=== PATIENT | female | born 1995 | race Caucasian/White ===

== ENCOUNTER 2024-08-26 22:48 | Inpatient (IN) | payer SELFPAY ==
--- OUTSIDE RECORDS SUMMARY | 2024-06-02 04:30 | XMS_ITS ---
Author Organization [facility] Address [address] [facility] [address] [place] [address] Care Team Providers Care Bead Flipper Name Role Phone KAVEH LEDEZMA Primary Care Provider Unavailab johnson Reyesluis alfredo Louie Unavailable [phone] ARELIS MEJIA APRN Unavailable [phone] REASON FOR VISIT 3 wk follow up HS Encounters Encounter Location Date Provider Diagnosis [facility] [address] [facility] [address] [place] [id number] 06/02/2024 Louie Espinoza Plan Of Treatment No Information Progress Notes * JANE REYNOLDS JDOB:1995 (29 yo F)Acc No.[id number]:06/02/2024 Progress Notes Patient: JANE GAXIOLA Provider: Richelle Espinoza MD :1995 A ge:29 Y S ex:Female Date:06/02/2024 Address:[address] [place] [address] [address] [facility] Pcp:EVIN ORTIZ Subjective: * Chief Complaints: * 1 . 3 wk follow up HS. * Medical History: Objective: * Vitals: Assessment: Plan: * Treatment: * Images: * Electronic signature of Louie Espinoza M.D. on 08/27/2024 at 05:12 AM CDT Sign off status: Pending * Provider: Richelle Espinoza MD Date: 0 06/02/2024 Generated for Printi ng/Faxing/eTransmitting on: 0 08/27/2024 05:12 AM CDT
--- OUTSIDE RECORDS SUMMARY | 2024-06-02 04:30 | XMS_ITS ---
Author Organization [facility] Address [address] [facility] [address] [place] [address] Care Team Providers Care Training Facilitator Name Role Phone KAVEH LEDEZMA Primary Care Provider Unavailab johnson Reyesluis alfredo Louie Unavailable [phone] ARELIS MEJIA APRN Unavailable REASON FOR VISIT 3 wk follow up HS Encounters Encounter Location Date Provider Diagnosis [facility] [address] [facility] [address] [place] [id number] 06/02/2024 Louie Espinoza Plan Of Treatment No Information Progress Notes * JANE REYNOLDS JDOB:1995 (29 yo F)Acc No.[id number]:06/02/2024 Progress Notes Patient: JANE GAXIOLA Provider: Richelle Espinoza MD :1995 A ge:29 Y S ex:Female Date:06/02/2024 Address:[address] [place] [address] [facility] Pcp:EVIN ORTIZ Subjective: * Chief Complaints: * 1 . 3 wk follow up HS. * Medical History: Objective: * Vitals: Assessment: Plan: * Treatment: * Images: * Electronic signature of Louie Espinoza M.D. on 08/26/2024 at 11:01 PM CDT Sign off status: Pending * Provider: Richelle Espinoza MD Date: 0 06/02/2024 Generated for Printi ng/Faxing/eTransmitting on: 0 08/26/2024 11:01 PM CDT
--- OUTSIDE RECORDS SUMMARY | 2024-06-24 08:00 | XMS_ITS ---
Author Organization [address] [place] [address] [facility] Address [address] [place] [id number] Care Team Providers Care Awning Installer Name Role Phone Karen Israel Primary Care Provider [phone] [place], [place] [address]Elia (GROUP CLASS) Nupur vailable Unavailable Bernadine Gomez [phone] REASON FOR VISIT Discuss labs ad blood pressure Social History Sex Assigned At : Social History Observation Description Sex Assigned At Female Smokeless Tobacco Question Answer Notes Tobacco use other than smoking No Encounters Encounter Location Date Provider Diagnosis [address] [place] [address] [facility] [address] [place] [id number] 06/24/2024 Bernadine Gomez Plan Of Treatment No Information Progress Notes * Miguel REYNOLDSOB:1995 ( 29 yo F)Acc No.[id number]:06/24/2024 FaceToFace Patient: Karoline GAXIOLA External Provider: Meseret Gomez APRN Case Label: Date Of Injury: :1995 A ge:29 Y S ex:Female Date:06/24/2024 Address:[address], [place] Pcp:Karen Israel Patient's Default Facility:[address] [place] [address] [facility] Subjective: * Chief Complaints: * 1 . Discuss labs ad blood pressure. * Medical History: * Social History: T obacco Use 1: E xposed to second hand smoke E xposed to second hand smoke N o. S mokeless Tobacco T obacco use other than smoking N o. A dult Health Maintenance-: P ap i n the last 3 yrs for 21-29 years of age? Y es -hysterectomy. C olorectal Cancer Screening C olonoscopy Y es, C olonoscopy Test Date 0 05/27/2021, C olonscopy Repeat Date Requested 08/24/2021, H emosure N o, C ologuard N o. - C ompleted 0 06/09/2024. - C ompleted N o, C ounseled Y es, D ate counseled 0 06/09/2024. - D ental Visit Yearly Y es. F thomas Shot Y early N o, Counseled Y es, D ate Counseled 0 06/09/2024. T etanus t etanus within the last 5 years Y es. Objective: * Vitals: Assessment: Plan: * Treatment: Care Plan: * Problems: * Billing Information: * Visit Code: * Procedure Codes: * Electronic signature of Bernadine Gomez APRN on 08/27/2024 at 05:12 AM CDT Sign off status: Pending * Provider: Meseret Gomez APRN Date: 0 06/24/2024 Generated for Rachid estrada/Carlotta/Rene on: 0 08/27/2024 05:12 AM CDT
--- OUTSIDE RECORDS SUMMARY | 2024-06-24 08:00 | XMS_ITS ---
Author Organization [address] [place] [address] [facility] Address [address] [place] [id number] Care Team Providers Care Product Owner Name Role Phone Karen Israel Primary Care Provider [address] [place], [place] [address]Elia (GROUP CLASS) Nupur vailable Unavailable Bernadine Gomez [phone] REASON FOR VISIT Discuss labs ad blood pressure Social History Sex Assigned At : Social History Observation Description Sex Assigned At Female Smokeless Tobacco Question Answer Notes Tobacco use other than smoking No Encounters Encounter Location Date Provider Diagnosis [address] [place] [address] [facility] [address] [place] [id number] 06/24/2024 Bernadine Gomez Plan Of Treatment No Information Progress Notes * Miguel REYNOLDSOB:1995 ( 29 yo F)Acc No.[id number]:06/24/2024 FaceToFace Patient: Karoline GAXIOLA External Provider: Meseret Gomez APRN Case Label: Date Of Injury: :1995 A ge:29 Y S ex:Female Date:06/24/2024 Address:[address], [place] Pcp:Karen Israel Patient's Default Facility:[address] [place] [address] [facility] Subjective: * Chief Complaints: * [...] Electronic signature of Bernadine Gomez APRN on 08/26/2024 at 11:02 PM CDT Sign off status: Pending * Provider: Meseret Gomez APRN Date: 0 06/24/2024 Generated for Rachid estrada/Carlotta/Rene on: 0 08/26/2024 11:02 PM CDT
--- OUTSIDE RECORDS SUMMARY | 2024-07-06 08:30 | XMS_ITS ---
Author Organization [facility] Address [address] [facility] [address] [place] [address] Care Team Providers Care Corporate Travel Counselor Name Role Phone KAVEH LEDEZMA Primary Care Provider Unavailab johnson Reyesluis alfredo Louie Unavailable [phone] ZAYNAB MEJIA APRN Unavailable Zaynab Mejia Unavailable [phone] REASON FOR VISIT humira monitoring Encounters Encounter Location Date Provider Diagnosis [facility] [address] [facility] [address] [place] [id number] 07/06/2024 Zaynab Mejia Plan Of Treatment No Information Progress Notes * JANE REYNOLDSDOB:1995 (29 yo F)Acc No.[id number]:07/06/2024 Patient: JANE GAXIOLA Provider: Gianna Mejia APRN :1995 A ge:29 Y S ex:Female Date:07/06/2024 Address[address] Pcp:EVIN ORTIZ Subjective: * Chief Complaints: * 1 . Humira monitoring. * Medical History: Objective: * Vitals: Assessment: Plan: * Treatment: * Images: * Electronic signature of Moshe Mejia APRN on 08/27/2024 at 05:10 AM CDT Sign off status: Pending * Provider: Gianna Mejia APRN Date: 0 07/06/2024 Generated for Lucieni natalie/Faangella/eTransmitting on: 08/27/2024 05:10 AM GUILLET
--- OUTSIDE RECORDS SUMMARY | 2024-07-06 08:30 | XMS_ITS ---
Author Organization [facility] Address [address] [facility] [address] [place] [address] Care Team Providers Care Manager Biologics Name Role Phone KAVEH LEDEZMA Primary Care Provider Unavailab johnson Reyesluis alfredo Louie Unavailable [phone] ZAYNAB MEJIA APRN Unavailable [phone] Zaynab Mejia Unavailable [phone] REASON FOR VISIT humira monitoring Encounters Encounter Location Date Provider Diagnosis [facility] [address] [facility] [address] [place] [id number] 07/06/2024 Zaynab Mejia Plan Of Treatment No Information Progress Notes * JANE REYNOLDSDOB:1995 (29 yo F)Acc No.[id number]:07/06/2024 Patient: JANE GAXIOLA Provider: Gianna Mejia APRN :1995 A ge:29 Y S ex:Female Date:07/06/2024 Address[address] Pcp:EVIN ORTIZ Subjective: * Chief Complaints: * 1 . Humira monitoring. * Medical History: Objective: * Vitals: Assessment: Plan: * Treatment: * Images: * Electronic signature of Moshe Mejia APRN on 08/26/2024 at 11:00 PM CDT Sign off status: Pending * Provider: Gianna Mejia APRN Date: 07/06/2024 Generated for Lucieni natalie/Faangella/eTransmitting on: 08/26/2024 11:00 PM CDT
[2024-08-26 22:50] VITALS: BP 133/82; PULSE 96; RESP 16; TEMP 36.7; O2SAT 98; BMI 32.8
--- OUTSIDE RECORDS SUMMARY | 2024-08-26 23:00 | XMS_ITS | Patient Health Record ---
Author Organization [facility] Address [address] [facility] [address] [place] [address] Care Team Providers Care Abstracter Name Role Phone KAVEH LEDEZMA Primary Care Provider Unavailab Louie Delaney Unavailable [phone] ZAYNAB ALVAREZ APRN Unavailable [phone] Keyona Cotton Unavailable [phone] Leatha Iqbal Unavailable [phone] Thony Iqbal Unavailable [phone] Zaynab Alvarez Unavailable [phone] Allergies Allergen (clinical drug ingredient) Drug/Non Drug Allergy documented on EMR Reaction Allergy Type Onset Date Status doxycycline Doxycycline anaphylaxis Drug Allergy A ctive Latex Latex HIVES Allergy Active Tree Nuts anaphylaxis Allergy Active clindamycin Clindamycin anaphylaxis Drug Allergy A ctive Penicillin anaphylaxis Drug Allergy Acti ve Results Component Value Reference Range Notes WET PREP Reviewed date:09/04/2023 08:01:53 AM Interpretation:(+) HYPHAE/CLUE Performing Lab: Notes/Report: WET PREP EXAM (DIRECT EXAM) SOURCE: _VAGINAL 09/03/23.1559.AST. RESULT: _RARE_CLUE_CELL 09/03/23.1559.AST. _RARE_HYPHAE 09/03/23.1559.AST. _NO_TRICHOMONAS_OBSERVED 09/03/23.1559.AST. WET PREP Reviewed date:09/19/2023 07:31:32 AM Interpretation:CLUE Performing Lab: Notes/Report: WET PREP EXAM (DIRECT EXAM) SOURCE: _VAGINAL 09/18/23.1322.AST. RESULT: _CLUE_CELLS_PRESENT/BAC_4+ 09/18/23.1322.AST. _NO_YEAST_OR_TRICH_OBSERVED 09/18/23.1322.AST. Test, Urine ([id number] ) Reviewed date:10/03/2023 02:44:11 PM Interpretation:negative Performing Lab: Notes/Report: negative Test, Urine negative GEN-PROBE FOR CHLAMYDIA/GC - MEDICAID Reviewed date:10/07/2023 01:38:51 PM Interpretation:NEG Performing Lab: Notes/Report: CHLAMYDIA/N. GONORRHOEAE RNA, TMA 10/07/23.1106.MKB.COMPLETE Source: _CERVICAL 10/07/23.110.MKB. NO Reference Range Results: Chlamydia trachomatis _NOT_DETECTED_ NOT DETECTED 10/07/23.1105.MKB. RNA, TMA UROGENITAL Neisseria gonorrhoeae _NOT_DETECTED_ NOT DETECTED 10/07/23.1105.MKB. RNA, TMA UROGENITAL Endpoint Note 1 The analytical performance characteristics of this assay, when used to test SurePath(TM) specimens have been determined by [employer]. The modifications have not been cleared or approved by the FDA. This assay has been validated pursuant to the CLIA regulations and is used for clinical purposes. For additional information, please refer to https://education.Amcom Software/faq/HYQ015 (This link is being provided for information/ purposes only.) THIS TEST WAS PERFORMED AT: [facility] [address] [place] [address] ROEL HALE DO,MPH NOTIFY QA NO Test, Urine ([id number] ) Reviewed date:10/30/2023 01:20:23 PM Interpretation:NOT DONE/NOT RESULTED Performing Lab: Notes/Report: NOT DONE/NOT RESULTED VITAMIN D PANEL Reviewed date:03/02/2024 10:00:17 AM Interpretation: Performing Lab: Notes/Report: (Note) Reference range: Not established (Note) (Note) Vitamin D, 25-Hydroxy reports concentrations of two Reference range: Not established Vitamin D3, 1,25(OH)2 indicates both endogenous common forms, 25-OHD2 and 25-OHD3. 25-OHD3 indicates both This test was developed and its analytical performance production and supplementation. Vitamin D2, 1,25(OH)2 is endogenous production and supplementation. 25-OHD2 is an characteristics have been determined by [employer]. It has an indicator of exogenous sources, such as diet or indicator of exogenous sources such as diet or not been cleared or approved by the US Food and Drug supplementation. Interpretation and therapy are based on supplementation. Therapy is based on measurement of Administration. This assay has been validated pursuant to measurement of Vitamin D, 1,25 (OH)2, Total. Total 25-OHD, with levels <20 ng/mL indicative of Vitamin the CLIA regulation and is used for Clinical purposes. This test was developed, and its analytical performance D deficiency, while levels between 20 ng/mL and 30 ng/mL See Note 1 characteristics have been determined by [facility] suggest insufficiency. Optimal levels are > or = 30 ng/mL. Note 1 Diagnostics. It has not been cleared or approved by the For additional information, please refer to For additional information, please refer to FDA. This assay has been validated pursuant to the CLIA http://education.Neighbor.ly.com/faq/TYV503 http://education.[employer] Systems/faq/ZJF822 regulations and is used for clinical purposes. (This link is being provided for information/educational (This link is being provided for informational/ For additional information, please refer to purposes only.) educational purposes only.) http://education.Neighbor.ly.SheerID/faq/PGO397 THIS TEST WAS PERFORMED AT: (This link is being provided for [facility] informational/educational purposes only.) [address] [place] [address] [address] [place] [address] [facility] MIGUEL A SHARMA MD,PHD [address] [place] [address],[address] [place] [address] Miguel A Sharma MD, PhD THIS TEST WAS PERFORMED AT: [facility] [address] [place] [address] [address] [place] [address] MIGUEL A SHARMA MD,PHD VITAMIN D, 25-OH, TOTAL 23 30-100 ng/mL VITAMIN D, 25-OH, D3 23 VITAMIN D, 25-OH, D2 <4.0 VITAMIN D, 1,25 (OH)2,TOTAL 62 18-72 pg/mL VITAMIN D3, 1,25 (OH)2 62 VITAMIN D2, 1,25 (OH)2 <8 DNA (DOUBLE-STRANDED) ANTIBO DIES Reviewed date:12/24/2023 02:34:02 PM Interpretation: Performing Lab: Notes/Report: IU/mL Interpretation < or = 4 Negative 5-9 Indeterminate > or = 10 Positive THIS TEST WAS PERFORMED AT: [facility] [address] [place] [address] NAHUM COFFEY MD DNA (DS) ANTIBODY <1 HEADLEY AND METAL POURER ANTIBODIES Reviewed date:12/24/2023 02:34:12 PM Interpretation: Performing Lab: Notes/Report: THIS TEST WAS PERFORMED AT: [facility] [place] [address] NAHUM COFFEY MD SM ANTIBODY <1.0 NEG <1.0 NEG AI SM/METAL POURER ANTIBODY <1.0 NEG <1.0 NEG AI HEMOGLOBIN A1C Reviewed date:01/08/2024 09:58:24 AM Interpretation:5.2 Performing Lab: Notes/Report: HGB A1C 5.2 4.2 - 6.0 %GHb (PLEASE NOTIFY EDUCATION HGB A1C RESULTS >6.5 %) ADA TARGET FOR KNOWN DIABETICS: < 7.0% When using the A1c test to diagnose diabetes, use the following: PREDIABETES 5.7 - 6.4% DIAGNOSTIC FOR DIABETES >= 6.5% Reference: ADA Standards of Medical Care in Diabetes - 2012 Hemoglobin A1C levels are related to mean Blood Glucose during the preceding 2-3 months. The relationship table below may be used as a general guide. HGB A1c APPROX. MEAN GLUCOSE 6% 120 MG/DL 7% 150 MG/DL 8% 180 MG/DL 9% 210 MG/DL 10% 240 MG/DL Each 1% increase in Hgb A1C is a reflection of an increase in mean Glucose of approximately 30 mg/dl. GEN-PROBE FOR CHLAMYDIA/GC Reviewed date:09/06/2023 09:35:09 AM Interpretation:NEG Performing Lab: Notes/Report: The analytical performance characteristics of this assay, when used to test SurePath(TM) specimens have been determined by [employer]. The modifications have not been cleared or approved by the FDA. This assay has been validated pursuant to the CLIA regulations and is used for clinical purposes. For additional information, please refer to https://education.Amcom Software/faq/NMS252 (This link is being provided for information/ educational purposes only.) THIS TEST WAS PERFORMED AT: [facility] [email or web address] [place] [address] NAHUM COFFEY MD CHLAMYDIA TRACHOMATISRNA, TMA, UROGENITAL NOT DETECTED NOT DETECTED NEISSERIA GONORRHOEAERNA, TMA, UROGENITAL NOT DETECTED NOT DETECTED GEN-PROBE FOR CHLAMYDIA/GC Reviewed date:10/12/2023 04:01:31 PM Interpretation:NEG Performing Lab: Notes/Report: NEG CBC Reviewed date:12/05/2023 02:00:48 PM Interpretation: Performing Lab: Notes/Report: CBC AUTOMATED DIFFERENTIAL {CD] In a study of 784 healthy smokers, the upper limit of the reference range for WBC was 12.5. [facility] Proc, September 2004;80(9):1230-8961. Pediatric CBC Ranges 2016 [facility] Complete Blood Count Reference Values RBC Parameters (Conventional Units) Age Hgb(g/dL) Hct(%) RBC(x10^6/uL MCV(fl) MCH(pg) 0 - 3 Days 14.5-22.5 45-67 4.00-6.00 95-121 31-37 4 D - 6 Mo 10.0-20.5 30-66 2.70-6.30 74-126 25-40 7 Mo-12 yr 10.5-15-5 33-49 3.70-5.30 70-95 23-33 AGE MCHC RDW 0 - 3 Days 29-37 13-18 4 D - 6 Mo 28-38 11-18 7 Mo-12 yr 30-36 11.5-16 WBC and Differential (Conventional Units) Age WBC(x10^3/uL) SegPMN% BandPMN% Lymphs% Monos% 0 - 3 Days 9.0-35.0 32-62 0-18 19-29 5.0-7.0 4 D - 6 Mo 5.0-20.0 13-49 0-15 26-71 4.0-11.0 7 Mo-12 yr 4.5-17.0 15-61 0-11 28-76 3.0-6.0 Age Eos% Basos% NE #(K/uL) Ly#(K/uL) 0 - 3 Days 0-2 0-1 3.0-28.0 2.0-10.0 4 D - 6 Mo 0-2 0-1 1.0-13.0 2.0-12.0 7 Mo-12 yr 0-3 0-1 1.0-9.0 1.0-13.0 Platelets (Conventional Units) Age PLT MPV x10^3 uL (fl) All Ages 150-450 6.5-10.0 Revised:07/09/23. WBC 11.4 4.0 - 11.0 10^3/uL RbC 4.45 3.80 - 5.13 10^6/uL HGB 13.7 11.8 - 16.1 g/dl HCT 39.9 34.0 - 45.0 % PLT CT 343 150 - 375 10^3/uL MCV 90 80 - 98 fl MCH 30.8 27.0 - 34.0 pg MCHC 34.4 31.5 - 36.5 g/dl RdW 13.8 11.6 - 15.7 % mPV 7.60 6.70 - 10.72 fl % NEUTROPHILS 70 47 - 76 % % LYMPHOCYTES 19 12 - 44 % % MONOCYTES 5 1 - 13 % % EOSINOPHILS 6 0 - 6 % % BASOPHILS 1 0 - 2 % # NEUTROPHILS 7.9 1.5 - 7.1 10^3/uL # LYMPHOCYTE 2.1 1.2 - 3.9 10^3/uL # MONOCYTES 0.60 0.10 - 1.00 10^3/uL # EOSINOPHILS 0.70 0.00 - 0.70 10^3/uL # BASOPHIL 0.10 0.00 - 0.20 10^3/uL MICRO DIFF. NOT INDICATED TEST PERFORMED ON [id number] HEPATITIS (AC) PROFILE W/REF YAMILA BY PCR Reviewed date:03/02/2024 10:00:28 AM Interpretation: Performing Lab: Notes/Report: HEPATITIS ACUTE PANEL REFERENCE RANGE HBsAg NEGATIVE ANTI-HAV IGM NEGATIVE ANTI-HBc IGM NEGATIVE HCV ANTIBODY NEGATIVE SIGNAL TO CUTOFF 0.02 0.00 - 1.00 NOTIFY QA NO All Anti-HCV results reported as POSITIVE (Signal cutoff >1.0) will automatically Reflex to HCV PCR for confirmation. THIS TEST IS A SCREENING FOR HCV AND MUST BE CONFIRMED PRIOR TO BEING CONSIDERED A TRUE POSITIVE HCV RESULT. CONFIRMATION WILL BE PERFORMED ON ANY POSITIVE HCV RESULT AUTOMATICALLY. NOTE: A repeatedly reactive result indicates past or present Hepatitis C Virus (HCV) infection or possibly a carrier state, but does not substantiate infectivity or immunity. However, a patient with a repeatedly reactive result should be consider- ed infectious. With the HCV antibody test, false positive results can occur. The absence of antibodies to Hepatitis C Virus does not rule out infection with HCV. Therefore, when the diagnosis of Non-A/Non-B hepatitis is strongly suspected, sequential repeat testing for Anti-HCV is recommended. HEPATITIS B SURFACE ANTIGEN (HBsAg) (HAA) IS ASSOCIATED WITH OCCASIONAL FALSE POSITIVES. IF THE HBsAg ALONE IS POSITIVE, YOU WILL NEED CONFIRMATION BEFORE ANY TREATMENT. THE TESTS TO ORDER WOULD BE: HBsAG WITH REFLEX CONFIRMATION- THIS IS A REPEAT TEST WITH CONFIRMATION OR: HBV DNA- THIS IS BEST RESERVED FOR CONFIRMED CASES ONLY NO CONFIRMATION OF THE HBsAG IS NECESSARY IF THE HBc-IgM IS ALSO POSITIVE. HIV COMBO 4TH GEN Reviewed date:03/02/2024 10:00:28 AM Interpretation: Performing Lab: Notes/Report: PANEL NAME HIV 1/2 ANTIGEN/ANTIBODY, FOURTH GENERATION, W/REFLEX REFERENCE RANGE {hu] HIV COMBO NEGATIVE NEGATIVE NOTIFY QA NO NOTE: IF REACTIVE, ORDER ITEM #[id number] FOR CONFIRMATION TESTING. THIS TEST IS A SCREENING AND MUST BE CONFIRMED PRIOR TO BEING CONSIDERED A TRUE REACTIVE RESULT. CONFIRMATION WILL BE PERFORMED ON ANY REACTIVE RESULT AUTOMATICALLY. Fourth-generation tests simultaneously detect HIV-1 and 2 IgM/IgG antibodies, as well as the p24 antigen. The 4th generation HIV-1/2 Antigen/Antibody combination immunoassay is a screening test and should not be used alone for diagnosis. Repeatedly reactive results from the 4th generation screening test are only indicative of HIV infection when those screening results are confirmed to be positive by either the HIV-1/2 Antibody Differentiation or the HIV-1 RNA test by TMA. Effective 06/16/2018, AMB Edited 02/16/2020, MKR CORNELIO ANTINUCLEAR ANTIBODY Reviewed date:03/02/2024 10:00:17 AM Interpretation: Performing Lab: Notes/Report: Speckled pattern is associated with mixed connective A low level CORNELIO titer may be present in pre-clinical tissue disease (MCTD), systemic lupus erythematosus autoimmune diseases and normal individuals. (SLE), Sjogren's syndrome, dermatomyositis, and Reference Range systemic sclerosis/polymyositis overlap. <1:40 Negative AC-2,4,5,29: Speckled 1:40-1:80 Low Antibody Level International Consensus on CORNELIO Patterns >1:80 Elevated Antibody Level (https://doi.org/10.1515/[email or web address]) THIS TEST WAS PERFORMED AT: [facility] [address] [place] [address] NAHUM COFFEY MD CORNELIO SCREEN, IFA POSITIVE NEGATIVE CORNELIO IFA is a first line screen for detecting the presence of up to approximately 150 autoantibodies in various autoimmune diseases. A positive CORNELIO IFA result is suggestive of autoimmune disease and reflexes to titer and pattern. Further laboratory testing may be considered if clinically indicated. For additional information, please refer to http://education.Snapguide/faq/FAQ1 63 (This link is being provided for informational/ educational purposes only.) THIS TEST WAS PERFORMED AT: [facility] [address] [facility] [place] [address] NAHUM COFFEY MD CORNELIO PATTERN Nuclear, Speckled CORNELIO TITER 1:40 CBC Reviewed date:12/24/2023 02:34:48 PM Interpretation: Performing Lab: Notes/Report: CBC AUTOMATED DIFFERENTIAL {CD] In a study of 784 healthy smokers, the upper limit of the reference range for WBC was 12.5. [facility] Proc, September 2004;80(8):0644-1654. Pediatric CBC Ranges 2016 [facility] Complete Blood Count Reference Values RBC Parameters (Conventional Units) Age Hgb(g/dL) Hct(%) RBC(x10^6/uL MCV(fl) MCH(pg) 0 - 3 Days 14.5-22.5 45-67 4.00-6.00 95-121 31-37 4 D - 6 Mo 10.0-20.5 30-66 2.70-6.30 74-126 25-40 7 Mo-12 yr 10.5-15-5 33-49 3.70-5.30 70-95 23-33 AGE MCHC RDW 0 - 3 Days 29-37 13-18 4 D - 6 Mo 28-38 11-18 7 Mo-12 yr 30-36 11.5-16 WBC and Differential (Conventional Units) Age WBC(x10^3/uL) SegPMN% BandPMN% Lymphs% Monos% 0 - 3 Days 9.0-35.0 32-62 0-18 19-29 5.0-7.0 4 D - 6 Mo 5.0-20.0 13-49 0-15 26-71 4.0-11.0 7 Mo-12 yr 4.5-17.0 15-61 0-11 28-76 3.0-6.0 Age Eos% Basos% NE #(K/uL) Ly#(K/uL) 0 - 3 Days 0-2 0-1 3.0-28.0 2.0-10.0 4 D - 6 Mo 0-2 0-1 1.0-13.0 2.0-12.0 7 Mo-12 yr 0-3 0-1 1.0-9.0 1.0-13.0 Platelets (Conventional Units) Age PLT MPV x10^3 uL (fl) All Ages 150-450 6.5-10.0 Revised:07/09/23. WBC 11.6 4.0 - 11.0 10^3/uL RbC 4.46 3.80 - 5.13 10^6/uL HGB 13.7 11.8 - 16.1 g/dl HCT 40.3 34.0 - 45.0 % PLT CT 327 150 - 375 10^3/uL MCV 90 80 - 98 fl MCH 30.6 27.0 - 34.0 pg MCHC 33.9 31.5 - 36.5 g/dl RdW 14.1 11.6 - 15.7 % mPV 7.50 6.70 - 10.72 fl % NEUTROPHILS 68 47 - 76 % % LYMPHOCYTES 21 12 - 44 % % MONOCYTES 6 1 - 13 % % EOSINOPHILS 5 0 - 6 % % BASOPHILS 1 0 - 2 % # NEUTROPHILS 7.8 1.5 - 7.1 10^3/uL # LYMPHOCYTE 2.5 1.2 - 3.9 10^3/uL # MONOCYTES 0.60 0.10 - 1.00 10^3/uL # EOSINOPHILS 0.60 0.00 - 0.70 10^3/uL # BASOPHIL 0.10 0.00 - 0.20 10^3/uL MICRO DIFF. NOT INDICATED TEST PERFORMED ON [id number] SCLERODERMA ANTIBODY Reviewed date:12/24/2023 02:34:38 PM Interpretation: Performing Lab: Notes/Report: THIS TEST WAS PERFORMED AT: [facility]@ [address] [place], [place] [address] NAHUM COFFEY MD SCL-70 ANTIBODY <1.0 NEG <1.0 NEG AI INSULIN; TOTAL Reviewed date:01/29/2024 08:25:27 AM Interpretation:14.4 Performing Lab: Notes/Report: Reference Range < or = 18.4 Risk: Optimal < or = 18.4 Moderate NA High >18.4 Adult cardiovascular event risk category cut points (optimal, moderate, high) are based on Insulin Reference Interval studies performed at [facility] in 2021. THIS TEST WAS PERFORMED AT: [facility] [address] [place] [address] NAHUM COFFEY MD INSULIN 14.4 THYROID PANEL (INC. FREE T4 & TSH) Reviewed date:01/08/2024 09:58:35 AM Interpretation:1.37 Performing Lab: Notes/Report: THYROID PANEL TSH 1.37 0.47 - 4.68 uIU/L Free T4 1.21 0.78 - 2.19 ng/dl LH (LUTEINIZING HORMONE) Reviewed date:09/06/2023 09:35:38 AM Interpretation:5.7 Performing Lab: Notes/Report: Reference Range Follicular Phase 1.9-12.5 Mid-Cycle Peak 8.7-76.3 Luteal Phase 0.5-16.9 Postmenopausal 10.0-54.7 THIS TEST WAS PERFORMED AT: [facility] [address] [address] NAHUM COFFEY MD LH 5.7 Wet Prep ([id number]) Reviewed date:09/18/2023 12:39:35 PM Interpretation:NEG Performing Lab: Notes/Report: NEG Trichomonas Exam NEG Yeast Exam NEG Clue Cell Exam NEG Wet Prep ([id number]) Reviewed date:10/03/2023 03:40:06 PM Interpretation:NEG Performing Lab: Notes/Report: NEG Trichomonas Exam NEG Yeast Exam NEG Clue Cell Exam NEG COMPREHENSIVE METABOLIC PANE L (CMP) Reviewed date:12/05/2023 02:00:40 PM Interpretation: Performing Lab: Notes/Report: COMPREHENSIVE METABOLIC PANEL GFR calculated using MDRD Formula. The eGFR calculation is only performed on patients 18 years and older to follow NKDEP guidelines. Revised: 12/08/2018, AMB GLUCOSE, (S) 87 65 - 110 mg/dl Bun 10 7 - 17 mg/dl Creatinine 0.6 0.8 - 1.5 mg/dl Sodium 137 137 - 145 mmol/L Potassium 4.1 3.6 - 5.0 mmol/L Chloride 101 98 - 107 mmol/L ENZYMATIC CO2 29 22 - 30 mmol/L CALCIUM 9.3 8.4 - 10.2 mg/dl Protein, Tot 8.10 6.30 - 8.20 g/dl ALBUMIN 4.5 3.5 - 5.0 g/dl AST(SGOT) 22 14 - 36 U/L ALT(SGPT) 15 0 - 35 ALKALINE PHOSPHATASE 113 38 - 126 U/L Bilirubin, Tot 0.5 0.2 - 1.3 mg/dl (NOTIFY DI ETICIAN IF ALBUMIN <2.4) AGE 28 GFR 120 GFR AFR-AMER 145 ANION GAP(K+) 11 0 - 21 mmol/L TESTING PERFORMED ON [employer] RA TEST Reviewed date:12/24/2023 02:35:02 PM Interpretation: Performing Lab: Notes/Report: RHEUMATOID ARTHRITIS RA FACTOR NEGATIVE INTERPRETATIVE GUIDELINES Titer IU/ml Negative < 8 1:1 8 1:2 16 1:4 32 1:8 64 1:16 128 1:32 256 1:64 512 >1:64 >512 RF is present in the sera of most patients with RA. Although a positive RF test result is highly suggestive of RA, it is not diagnostic for this condition since RF also appears in a small percentage of healthy individuals and in some patients with other disorders. In addition, a negative result does not exclude a diagnosis of RA since approximately 25% of patients with RA do not demonstrate the elevated RF levels. NOTE PROCEDURAL CHANGE AND NEW REFERENCE RANGES. (05/29/2022) COMPREHENSIVE METABOLIC PANE L (CMP) Reviewed date:12/24/2023 02:34:29 PM Interpretation: Performing Lab: Notes/Report: COMPREHENSIVE METABOLIC PANEL GFR calculated using MDRD Formula. The eGFR calculation is only performed on patients 18 years and older to follow NKDEP guidelines. Revised: 12/08/2018, AMB GLUCOSE, (S) 98 65 - 110 mg/dl Bun 10 7 - 17 mg/dl Creatinine 0.5 0.8 - 1.5 mg/dl Sodium 138 137 - 145 mmol/L Potassium 4.5 3.6 - 5.0 mmol/L Chloride 104 98 - 107 mmol/L ENZYMATIC CO2 28 22 - 30 mmol/L CALCIUM 9.6 8.4 - 10.2 mg/dl Protein, Tot 7.80 6.30 - 8.20 g/dl ALBUMIN 4.4 3.5 - 5.0 g/dl AST(SGOT) 22 14 - 36 U/L ALT(SGPT) 17 0 - 35 ALKALINE PHOSPHATASE 110 38 - 126 U/L Bilirubin, Tot 0.3 0.2 - 1.3 mg/dl (NOTIFY DI ETICIAN IF ALBUMIN <2.4) AGE 28 GFR 148 GFR AFR-AMER 179 ANION GAP(K+) 11 0 - 21 mmol/L TESTING PERFORMED ON [facility] 5600 SJOGREN'S ANTIBODY Reviewed date:12/24/2023 02:34:08 PM Interpretation: Performing Lab: Notes/Report: THIS TEST WAS PERFORMED AT: [facility] [place] [address] NAHUM COFFEY MD SJOGREN'S ANTIBODY (SS-A) <1.0 NEG <1.0 NEG AI SJOGREN'S ANTIBODY (SS-B) <1.0 NEG <1.0 NEG AI ALDOLASE Reviewed date:12/24/2023 02:34:21 PM Interpretation: Performing Lab: Notes/Report: THIS TEST WAS PERFORMED AT: [facility] [place] [address] NAHUM COFFEY MD ALDOLASE 6.0 < OR = 8.1 U/L GLUCOSE Reviewed date:01/08/2024 09:58:21 AM Interpretation:90 Performing Lab: Notes/Report: GLUCOSE, (S) 90 65 - 110 mg/dl TESTING PERFORMED ON [facility] 5600 FSH Reviewed date:09/06/2023 09:35:51 AM Interpretation:5.1 Performing Lab: Notes/Report: Reference Range Follicular Phase 2.5-10.2 Mid-cycle Peak 3.1-17.7 Luteal Phase 1.5- 9.1 Postmenopausal 23.0-116.3 THIS TEST WAS PERFORMED AT: [place] [address] NAHUM COFFEY MD FSH 5.1 GRAM STAIN Reviewed date:09/05/2023 08:07:59 AM Interpretation:NEG Performing Lab: Notes/Report: GRAM STAIN SOURCE: _VAGINAL 09/04/23.1113.[facility]. GRAM STAIN RESULTS: _FEW_GPR 09/04/23.1113.[facility]. _NO_YEAST_OR_FUNGUS_SEEN 09/04/23.1113.[facility]. SOPHIE SCORE: _ 1 _NOT_CONSISTENT_WITH_BACTERIAL_VAGINOSIS__ 09/04/23.1113.[facility]. *Interpretation of Sophie Score If N Score is: AND: Then Report: 0-3 Smear NOT consistent with BV 4-6 Clue Cells NOT present Smear NOT consistent with BV 4-6 Clue Cells ARE present Smear consistent with BV >or=7 Smear consistent with BV URINE DIP (IN HOUSE) Reviewed date:09/18/2023 09:55:42 AM Interpretation: Performing Lab: Notes/Report: Scott neg Nit neg Uro neg Pro neg pH 6.0 Blo neg SG 1.025 Ket neg Homero neg Glu neg URINE DIP (IN HOUSE) Reviewed date:10/03/2023 02:43:37 PM Interpretation: Performing Lab: Notes/Report: Scott neg Nit neg Uro neg Pro neg pH 6.0 Blo neg SG 1.010 Ket neg Homero neg Glu neg GRAM STAIN Reviewed date:10/06/2023 12:32:31 PM Interpretation:NEG Performing Lab: Notes/Report: GRAM STAIN SOURCE: _VAGINAL 10/04/23.1350.[facility]. GRAM STAIN RESULTS: _SMEAR_NOT_CONSISTENT_WITH_BACTERIAL_VAGINOSIS_ 10/04/23.1350.[facility]. _NO_YEAST_OR_FUNGUS 10/04/23.1350.[facility]. SOPHIE SCORE: _0 10/04/23.1350.[facility]. *Interpretation of Sophie Score If N Score is: AND: Then Report: 0-3 Smear NOT consistent with BV 4-6 Clue Cells NOT present Smear NOT consistent with BV 4-6 Clue Cells ARE present Smear consistent with BV >or=7 Smear consistent with BV [facility] Reviewed date:12/04/2023 11:55:33 AM Interpretation:4.0, Normal Performing Lab: Notes/Report: Reference Range Follicular Phase 2.5-10.2 Mid-cycle Peak 3.1-17.7 Luteal Phase 1.5- 9.1 Postmenopausal 23.0-116.3 THIS TEST WAS PERFORMED AT: [facility] [address] [place] [address] NAHUM COFFEY MD FSH 4.0 T-SPOT TB TEST Reviewed date:03/02/2024 10:00:28 AM Interpretation: Performing Lab: Notes/Report: Normal Value: Negative THIS TEST WAS PERFORMED AT: A negative test result does not exclude the possibility of [facility] exposure to or infection with Mycobacterium tuberculosis (M. [address] tuberculosis). Patients with [place] [address] infected individuals exhibiting a negative T-SPOT.TB result STEVE KIRBY,PHD should be considered for retesting within 6 weeks or if other relevant clinical symptoms indicate. Results from T-SPOT.TB testing must be used in conjunction with each individual's epidemiological history, current medical status, and results of other diagnostic evaluations. The T-SPOT.TB test is qualitative and results are reported as positive, borderline or negative, given that the test controls perform as expected. In line with the Centers for Disease Control and Prevention's 2010 recommendation to report quantitative measurements alongside the qualitative result, the laboratory provides spot counts for informational purposes only. The T-SPOT.TB test should not be interpreted as a quantitative test. T-SPOT.TB Negative SeeBelow PANEL A SPOT COUNTCORRECTED FOR NEGCONTROL 0 PANEL B SPOT COUNTCORRECTED FOR NEGCONTROL 0 NEGATIVE CONTROL Passed POSITIVE CONTROL Passed URINALYSIS Reviewed date:12/24/2023 02:34:56 PM Interpretation: Performing Lab: Notes/Report: URINALYSIS TEST RESULT NORMAL SATISH ANTIBODY Reviewed date:12/24/2023 02:33:42 PM Interpretation: Performing Lab: Notes/Report: THIS TEST WAS PERFORMED AT: [facility] [facility] [id number] [place] [id number] NAHUM COFFEY MD SATISH-1 ANTIBODY <1.0 NEG <1.0 NEG AI LUPUS ANTI-COAGULANT Reviewed date:01/29/2024 08:25:24 AM Interpretation:DRVVT 51 HIGH Performing Lab: Notes/Report: A Lupus Anticoagulant is not detected. THIS TEST WAS PERFORMED AT: THIS TEST WAS PERFORMED AT: Common causes for a prolonged screen and negative [employer] [place] confirmatory test include factor deficiencies or [address] anticoagulant [place] [address] [place] [address] For more information on this test, go to: GIOVANNY GONCALVES http://education.[employer]/faq/BZP09q1 (This link is being provided for informational/ educational purposes only.) This interpretation is based on the following test results: PTT-LA SCREEN 40 < OR = 40 sec DRVVT SCREEN 51 < OR = 45 sec DRVVT CONFIRM NEGATIVE NEGATIVE Reason For Referral No Information Medications Medication SIG (Take, Route, Frequency, Duration) Notes Start Date End Date Status Fluconazole 100 MG 1 tablet Orally once a day at bedtime for 2 days Active Fluconazole 100 MG 1 tablet Orally once a day at bedtime on Calendar Days #1-2 for 2 days Active metroNIDAZOLE 250 MG 1 tablet Orally Thr ee times a day on Calendar Days #1-3 for 9 days Active Potassium 20 MEQ Active Omeprazole 20 MG 1 capsule 30 minutes before morning meal Orally Once a day Active Magnesium Oxide 400 MG 1 tablet as neede d Orally Once a day Active Furosemide 20 MG 1 tablet Orally Once a day Active Cetirizine HCl 10 MG 1 tablet Orally Once a day Active Aspirin 81 81 MG 1 tablet Orally Once a day Active Progesterone 200 MG 1 capsule at bedtime Orally Once a day at bedtime for 30 days Active metFORMIN HCl ER 500 MG 1 tablet with ev ening meal Orally Once a day for 30 days Active Aygestin 5 MG 1 tablet Orally Once a day at bedtim for 30 days Active Social History Tobacco Use: Social History Observation Description Date Details (start date - stop date) Never Smoker NA - NA Tobacco Use/Smoking Question Answer Notes Are you a: nonsmoker When did you start smoking? 8 years ago How often do you smoke cigarettes? every day How many cigarettes a day do you smoke? 01-14 Alcohol Screen Question Answer Notes Did you have a drink containing alcohol in the p ast year? No Points 0 Interpretation Negative Sexual History Question Answer Notes Had sex in the past 12 months (vaginal, oral, or anal)? Yes with Men only Use protection? No Prevention strategies discussed: Condoms Have you ever had a Sexually transmitted disease ? No Last menstrual period 09/04/2020 Section Notes: Patient denies ETOH and illi cit drug usage. Patient denies ETOH and illi cit drug usage. Patient denies ETOH and illi cit drug usage. Patient denies ETOH and illi cit drug usage. Patient denies ETOH and illi cit drug usage. Patient denies ETOH and illi cit drug usage. Patient denies ETOH and illi cit drug usage. Patient denies ETOH and illi cit drug usage. Problems Problem Type SNOMED Code ICD Code Onset Dates Problem Status W/U Status Risk Notes Problem Acute cystitis (69581570) Acute cystitis (595.0) Active confirmed ([place]) Problem Conductive hearing loss of left ear with normal hearing on right side (disorder) (6304575873) Sensorineural hearing loss, unilateral, left ear, with unrestricted hearing on the contralateral side (H90.42) Active confirmed Problem Bilateral tinnitus (7430511884369) Tinnitus, bilateral (H93.13) Active confirmed Problem 69360156 Hidradenitis suppurativa (L73.2) Active confirmed Problem 535034498 Pelvic and perineal pain (R10.2) Active confirmed Problem 040020029 Vaginal atrophy (N95.2) Active confirmed Problem 435732262 PCOS (polycystic ovarian syndrome) (E28.2) Active confirmed Problem 91312666 Menopausal symptoms (N95.1) Active confirmed Problem 229312961 Endometriosis determined by laparoscopy (N80.9) Active confirmed Problem 69761179 Cyst of left ovary (N83.202) Active confirmed Problem 27763294 Chronic vaginiti s (N76.1) Active confirmed Problem 726148383 S/P hysterectomy (Z90.710) Active confirmed Problem 3335409 Primary female infertility (N97.9) Active confirmed Problem Sensorineural hearing loss of bilateral ears (disorder) (363541655) Sensorineural hearing loss, bilateral (H90.3) Active confirmed Problem Bilateral otalgia (606629899) Otalgia, bilateral (H92.03) Active confirmed Vital Signs Heart Rate 80 /min 05/12/2024 Temperature 98.0 degrees Fahrenheit 05/12/2024 Oximetry 98 % 05/12/2024 Blood pressure diastolic 86 mm Hg 05/12/2024 Height 66 in 05/12/2024 Blood pressure systolic 126 mm Hg 05/12/2024 Weight 249.6 lbs 12/13/2023 Encounters Encounter Location Date Provider Diagnosis [facility] [address] [facility], [place] [id number] 09/06/2023 Leatha Iqbal [facility] [address] [facility], [place] [id number] 09/19/2023 Leatha Iqbal [facility] [address] [place], [place] [id number] 10/09/2023 Zaynab Alvarez [facility] [address] [facility], [place] [id number] 10/11/2023 Leatha Iqbal [facility] [address] [facility], [place] [id number] 10/30/2023 Thony Iqbal Vaginal itching N89. 8 [facility] [address] [facility], [place] [id number] 10/31/2023 Leatha Iqbal [facility] [address] [facility], [place] [id number] 11/07/2023 Leatha Iqbal [facility], [place] [id number] 11/08/2023 Leatha Marquezare Yeast vaginitis B37.[address], [place] [id number] 12/05/2023 Keyona Cotton [address], [place] [id number] 12/20/2023 Keyona Cotton Yeast vaginitis B37.[address], [place] [id number] 12/24/2023 Keyona Cotton [address] [id number] 12/25/2023 Keyona Cotton [address], [place] [id number] 12/27/2023 Keyona Cotton Postmenopausal HRT (hormone replacement therapy) Z79.890 ; PCOS (polycystic ovarian syndrome) E28.2 and Facial rash R21 [address] [id number] 01/29/2024 Keyona Cotton Postmenopausal HRT (hormone replacement therapy) Z79.890 and PCOS (polycystic ovarian syndrome) E28.[address], [place] [id number] 01/30/2024 Keyona Cotton [address], [place] [id number] 02/05/2024 Keyona Cotton [address] [id number] 02/17/2024 Keyona Cotton Postmenopausal HRT (hormone replacement therapy) Z79.[address], [place] [id number] 10/29/2023 Thony Rasheed Vaginal itching N89. 8 ; Dysuria R30.0 and Encounter for gynecological examination Z01.[address], [place] [id number] 09/03/2023 Leatha Rasheed Vaginal dryness N89. 8 ; S/P hysterectomy Z90.710 ; Nipple tenderness N64.4 ; Encounter for gynecological examination Z01.419 ; Menopausal symptoms N95.1 ; Acute vaginitis N76.0 ; Other specified bacterial agents as the cause of diseases classified elsewhere B96.89 and Vaginal yeast infection B37.31 [facility] [address] [facility] [address] [place], [place] [id number] 05/12/2024 Louie Espinoza Hidradenitis suppurativa L73.2 [facility] [address] [facility], [place] [id number] 09/18/2023 Leatha Rasheed Vaginal dryness N89. 8 ; S/P hysterectomy Z90.710 ; Menopausal symptoms N95.1 ; Encounter for gynecological examination Z01.419 and Dysuria R30.0 [facility] [address] [facility], [place] [id number] 10/03/2023 Leatha Iqbal Vaginal itching N89. 8 ; Dysuria R30.0 and Encounter for gynecological examination Z01.[address] [place] [address] [facility], [place] [id number] 12/13/2023 Keyona Glynne Vaginal atrophy N95. 2 ; Postmenopausal HRT (hormone replacement therapy) Z79.890 and Chronic vaginitis N76.1 [facility] [address] [facility] [address] [place] [id number] 12/04/2023 Zaynab Alvarez [facility] [address] [facility] [address] [place] [id number] 05/04/2024 Zaynab Alvarez [facility] [address] [place] [address] 7 [place] [id number] 01/16/2024 Zaynab Alvarez Assessments Encounter Date Diagnosis (ICD Code) Assessment Notes Treatment Notes Treatment Clinical Notes Section Notes 09/03/2023 Vaginal dryness (ICD-10 - N89.8) 1. See HPI/PE note 2. SWABS done today 3. RTC in 2 wks or prn: REIVEW SWABS + EVAL RX 09/03/2023 S/P hysterectomy (ICD-10 - Z90.710) 1. See HPI note 2. KEEP SCHED F/U APPTS 09/18/2023 Vaginal dryness (ICD-10 - N89.8) 1. See HPI note 2. SWAB done: see above 3. RX OPTIONS discussed: see HPI note above 4. INFORMED if issue with vaginal itching persists, may need to see MD for EVAL (VERB UNDERSTAND) 5. RTC if no improvement/wor sens 09/18/2023 S/P hysterectomy (ICD-10 - Z90.710) 1. See HPI note 2. KEEP SCHED F/U APPTS 10/03/2023 Dysuria (ICD-10 - R30.0) 1. See HPI note 2. DIPSTICK done: NEG 3. KEEP F/U APPTS 10/03/2023 Vaginal itching (ICD-10 - N89.8) 1. See HPI/PE note 2. REPEAT SWABS done today: see above 3. CURRENTLY taking per another provider: DIFLUCAN 150 mg 1 tab QD X 30 days (instructed to complete course of RX) 4.RTC in 4 wks or prn: SENIOR COMMISSIONS ANALYST EXAM + review SWABS + consider STEROID CREAM with Dr. Iqbal 10/29/2023 Vaginal itching (ICD-10 - N89.8) 10/30/2023 Vaginal itching (ICD-10 - N89.8) 11/08/2023 Yeast vaginitis (ICD-10 - B37.31) 12/13/2023 Vaginal atrophy (ICD-10 - N95.2) Intravaginal Estrogen 0.5 (0.5 mg/g) qhs x 2 months + 0.5 ml (0.5 mg/g) transdermally applied to the introital opening in its entirety(0.5 mg/g) qhs x2 months then TIW thereafter for both applications 12/13/2023 Postmenopausal HRT (hormone replacement therapy) (ICD-10 - Z79.890) 12/20/2023 Yeast vaginitis (ICD-10 - B37.31) 12/27/2023 PCOS (polycystic ovarian syndrome) (ICD-10 - E28.2) 12/27/2023 Postmenopausal HRT (hormone replacement therapy) (ICD-10 - Z79.890) 01/29/2024 Postmenopausal HRT (hormone replacement therapy) (ICD-10 - Z79.890) 02/17/2024 Postmenopausal HRT (hormone replacement therapy) (ICD-10 - Z79.890) 05/12/2024 Hidradenitis suppurativa (ICD-10 - L73.2) Will try low dose mold shifter abx with flagyl, since allergic to doxy and clinda and flagyl seems to control. 12/27/2023 Facial rash (ICD-10 - R21) 01/29/2024 PCOS (polycystic ovarian syndrome) (ICD-10 - E28.2) 12/13/2023 Chronic vaginitis (ICD-10 - N76.1) 10/29/2023 Dysuria (ICD-10 - R30.0) 10/03/2023 Encounter for gynecological examination (ICD-10 - Z01.419) 1. See HPI/PE note 2. KEEP F/U APPTS 09/03/2023 Nipple tenderness (ICD-10 - N64.4) 1. NO c/o this issue voiced today 09/18/2023 Menopausal symptoms (ICD-10 - N95.1) 1. See HPI note 2. REASSURANCE given to pt: informed she is NOT menopausal 3. OVARIAN HORMONE levels are WNL 4. KEEP SCHED F/U APPTS 09/18/2023 Encounter for gynecological examination (ICD-10 - Z01.419) 1. See HPI/PE note 2. KEEP SCHED F/U APPTS 09/03/2023 Encounter for gynecological examination (ICD-10 - Z01.419) 1. See HPI/PE note 2. KEEP SCHED F/U APPTS 10/29/2023 Encounter for gynecological examination (ICD-10 - Z01.419) 09/18/2023 Dysuria (ICD-10 - R30.0) 1. See HPI note 2. DIPSTICK done today: see above 3. RECOMMEND: UROLOGY referral to see PCP to obtain 4. RTC as needed/desires 09/03/2023 Menopausal symptoms (ICD-10 - N95.1) 1. See HPI note 2. LABS DONE today 3. RTC in 2 wks or prn: review LABS 09/03/2023 Acute vaginitis (ICD-10 - N76.0) 1. See HPI/PE note 2. WET PREP done: (+) CLUE 3. PRESCRIBED: Flagyl 500 mg BID 4. BV PREVENTATIVE MEASURES discussed 5. RTC in 2 wks or prn: EVAL RX 09/03/2023 Other specified bacterial agents as the cause of diseases classified elsewhere (ICD-10 - B96.89) 1. See HPI/PE note 2. WET PREP done: (+) CLUE 3. PRESCRIBED: Flagyl 500 mg BID 4. BV PREVENTATIVE MEASURES discussed 5. RTC in 2 wks or prn: EVAL RX 09/03/2023 Vaginal yeast infection (ICD-10 - B37.31) 1. See HPI/PE note 2. WET PREP done: (+) HYPHAE 3. PRESCRIBED: Diflucan 150 mg to take on DAY 1, 4 and 7 4. RTC in 2 wks or prn: EVAL RX Plan Of Treatment No Information Insurance Providers Payer Name Payer Address Payer Phone Subscriber Number Group Number Insured Name Patient Relationship to Insured Coverage Start Date Coverage End Date [employer] PPO [address] [place] [address] [id number] JANE Villarreal Self - patient is the insured Medical (General) History Medical History History ICD Code DEPRESSION Patent foramen ovale HS Surgical History Surgery Date(Month/Year) HYSTERECTOMY Tonsillectomy ovarian cystectomy/lysis of adhesions/ablation of endometriosis implants 11/13/17 TONSIL CHOLECYSTECTOMY Pilonidal Cystectomy with local advancem ent flaps 12/19/2018 CYST REMOVAL FROM LOWER LUMBAR CYST REMOVED FROM BUTTOCK 2019 CYST REMOVAL FROM ARM PIT Hospitalization History Reason Date(Month/Year) CHILD SURGICAL PROCEDURE
--- OUTSIDE RECORDS SUMMARY | 2024-08-26 23:01 | XMS_ITS | Clinical Summary ---
Author Organization [facility] Address [address] [place] [address] Care Team Providers Care Mechanical Supervisor Name Role Phone Unavailable Primary Care Provider Unavailabl e Allergies Active Allergy Reactions Criticality Noted Date Comments Buspirone Lightheadedness 06/13/2023 Clindamycin Anaphylaxis,Hives,It silviano,Ra sh High 06/13/2023 Diph,Pertus(Acel),Tetanu s Pedi Other (See Comments) 06/17/2023 unknown Doxycycline Rash Low 08/13/2022 Penicillins Rash Low 08/13/2022 Pertussis Vaccines Unknown childhood 04/13/2020 Promethazine-Dm Unknown 06/13/2023 Tree Nut Anaphylaxis High 06/13/2023 Medications * This document contains information received from the source organization and may not represent a complete record from that organization. albuterol 90 mcg/puff inhl inhaler albuterol sulfate HFA 90 mcg/actuation aerosol inhaler INHALE TWO PUFFS BY MOUTH EVERY 4 TO 6 HOURS NEEDED Active budesonide-formote roL (SYMBICORT) 80-4.5 mcg/actuation inhaler Inhale 2 puffs in the morning and 2 puffs in the evening. 08/07/19 23 Active nitrofurantoin, macrocrystal-monoh ydrate, (MACROBID) 100 MG capsule 06/11/19 24 Active cetirizine (ZyrTEC) 10 MG tablet Take 1 tablet by mouth in the morning. 09/01/19 22 Active dexAMETHasone (DECADRON) 2 MG tablet Active EPINEPHrine (EPIPEN) 0.3 mg/0.3 mL injection syringe Take 1 auto as needed by injection route. Active famotidine (Pepcid) 40 MG tablet Take 1 tablet every day by oral route in the morning. 01/26/20 23 Active fluconazole (DIFLUCAN) 150 MG tablet Active FLUoxetine (PROzac) 20 MG capsule 11/28/19 22 Active ondansetron (ZOFRAN ODT) 4 MG oral disintegr[address] tablet Place 1 tablet every 6-8 hours by translingual route as needed. Active predniSONE (DELTASONE) 20 MG tablet TAKE TWO TABLETS BY MOUTH ONCE A DAY WITH FOOD Active azithromycin (ZITHROMAX) 500 MG tablet Take 1 tablet every day by oral route for 5 days. 06/24/19 24 Active clotrimazole-betam ethasone (LOTRISONE) 1-0.05% cream Active celecoxib (CeleBREX) 200 MG capsule Active fluconazole (Diflucan) 150 MG tabletIndications: Yeast infection of the vagina Take 1 tablet (150 mg total) by mouth As directed. Take one tablet every 3 days as needed for yeast infection 3 tablet 07/02/19 24 Active Additional Information Patient not taking.Reported on 07/29/2023 furosemide (LASIX) 20 MG tablet Take 40 mg by mouth in the morning. 07/22/19 24 Active potassium chloride 20 mEq tablet extended release 20 mEq by PO / gavage route in the morning. 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 Posttraumatic stress disorder with delayed expre ssion 01/10/2020 Immunizations Immunization Administration Dates Next Due HPV9 (GARDASIL 9) 12/22/2013 Td (adult) (TDVAX) 11/28/2020 meningococcal MCV4P (MENACTRA) 12/22/2013 varicella (VARIVAX) 12/22/2013 Social History Tobacco Use Types Packs/Day Years Used Date Smoking Tobacco: Former Smokeless Tobacco: Never Tobacco Cessation:Counseling Given: Not Answered Alcohol Use Standard Drinks/Week Comments Not Currently 0 (1 standard drink = 0.6 oz pur e alcohol) PHQ-2 Answer Date Recorded PHQ-2 Score 0 02/06/2020 Comments No Sex and Gender Information Value Date Recorded Sex Assigned at Not on file Legal Sex Female 8:55 PM CDT Gender Identity Not on file Sexual Orientation Not on file Last Filed Vital Signs Vital Sign Reading Time Taken Comments Blood Pressure 121/82 08/26/2023 1:03 PM CDT Pulse 78 08/26/2023 1:03 PM CDT Temperature 36.6 C (97.8 F) 08/26/2023 1:03 PM CDT Respiratory Rate 20 05/10/2020 10:14 AM CDT Oxygen Saturation 99% 08/26/2023 1:03 PM CDT Inhaled Oxygen Concentration - - Weight 112 kg (246 lb 12.8 oz) 08/26/2023 1:03 P M CDT Height 170.2 cm (5' 7 ) 08/26/2023 1:03 PM CDT Body Mass Index 38.65 08/26/2023 1:03 PM CDT Plan of Treatment Health Maintenance Due Date Last Done Comments Annual Wellness 1996 HPV Vaccines (2 - 3-dose series) 01/19/2014 12/23/19 14 MMR Vaccines (1 of 1 - Stand leon series) 01/19/2014 Varicella Vaccines (2 of 2 - 13+ 2-dose series) 01/19/2014 12/22/2013 Hepatitis B Vaccines (1 of 3 - 19+ 3-dose series) 2015 Pap Smear 2017 Influenza Vaccination (#1) 2024 Td, Tdap Vaccines Adult 11/28/2030 11/28/2020 Meningococcal Vaccines Completed 12/22/2013 HIB Vaccines Aged Out No longer eligi ble based on patient's age to complete this topic Hepatitis A Vaccines Aged Out No long er eligible based on patient's age to complete this topic IPV Vaccines Aged Out No longer eligi ble based on patient's age to complete this topic Pneumococcal Vaccine: Pediat rics (0 to 5 Years) and At-Risk Patients (6 to 49 Years) Aged Out No longer eligi ble based on patient's age to complete this topic RSV Mab Nirsevimab (Beyfortu s) <20 months Aged Out No longer eligible b ased on patient's age to complete this topic Rotavirus Vaccines Aged Out No longer eligible based on patient's age to complete this topic Goals Goal Patient Goal Type Associated Problems Recent Progress Patient-Stated? Author Referral for testing. General On track( 8:50 AM CDT) Yes Dayami Vail LCSW Note: Client needs a referral for attention deficit disorder Client needs a referral for dyslexia and other learning disabilities. Stabilize on medication General On track( 8:50 AM CDT) Yes Dayami Vail LCSW Note: Client up with a medication provider. Client has employment interest General On track( 8:50 AM CDT) Yes Dayami Vail LCSW Note: Client would like to have a job in a she is stable enough to work. Was working Insurance
--- OUTSIDE RECORDS SUMMARY | 2024-08-26 23:01 | XMS_ITS | Patient Health Record ---
Author Organization [address] [place] [address] [facility] Address [address] [place] [id number] Care Team Providers Care Preschool Teacher Name Role Phone Israel, Kara Primary Care Provider [facility]GROUP [facility]) Nupru vailable Unavailable Bob Badillo Unavailable [phone] Wil Booker Unavailable [phone] Bernadine Gomez Unavailable [phone] Allergies Allergen (clinical drug ingredient) Drug/Non Drug Allergy documented on EMR Reaction Allergy Type Onset Date Status dextromethorphan / promethazine Promethazine-DM Unknown Drug Allergy Active buspirone Buspirone dizziness Drug Allergy Active clindamycin Clindamycin rash Drug Allergy Act cha doxycycline Doxycycline rash Drug Allergy Act cha Penicillin rash Drug Allergy Active Results Component Value Reference Range Notes CORNELIO screen IFA Reflex Titer/ Multiplex 11 Ab Pleasants Reviewed date:04/22/2024 08:41:41 AM Interpretation:Normal Performing Lab: Notes/Report: Testing performed by reference lab. [facility] Reported Date/Time: [id number] [facility] Results Received Date/Time: [id number] [facility] Collection Date/Time: [id number] Testing performed at: [facility], [address] [place], [place] [address], [address], Motor Winder: Suni Parker MD [facility] CORNELIO SCREEN, IFA NEGATIVE NEGATIVE CORNELIO IFA is a first line screen for detecting the presence of up to approximately 150 autoantibodies in various autoimmune diseases. A negative CORNELIO IFA result suggests an CORNELIO-associated autoimmune disease is not present at this time, and does not reflex further. If there is high clinical suspicion for Sjogren's syndrome, testing for anti-SS-A/Ro antibody should be considered. Anti-Kait-1 antibody should be considered for clinically suspected inflammatory myopathies. AC-0: Negative International Consensus on CORNELIO Patterns (https://doi.org/10.1515/ sltd-7626-2100) For additional information, please refer to http://ESO Solutions.Neofonie/faq/BHY495 (This link is being provided for informational/ educational purposes only.) Sedimentation Rate Reviewed date:04/22/2024 08:41:41 AM Interpretation:Normal Performing Lab: Notes/Report: [facility] Testing performed at: [facility], [address] [place] [address], [phone], Motor Winder: Suni Parker MD [facility] Collection Date/Time: [id number] [facility] Results Received Date/Time: [id number] [facility] Reported Date/Time: [id number] Testing performed by reference lab. SED RATE BY MODIFIED WESTERGREN 11 < OR = 20 mm/h C Reactive Protein, CRP Reviewed date:04/22/2024 08:41:41 AM Interpretation:Normal Performing Lab: Notes/Report: [facility] Testing performed at: [facility], [address] [place] [address], [phone], Motor Winder: Suni Parker MD [facility] Collection Date/Time: [id number] [facility] Results Received Date/Time: [id number] [facility] Reported Date/Time: [id number] Testing performed by reference lab. C-REACTIVE PROTEIN <3.0 <8.0 mg/L Rheumatoid Arthritis Factor Reviewed date:04/22/2024 08:41:41 AM Interpretation:Normal Performing Lab: Notes/Report: [facility] Testing performed at: [facility], [address] [place] [address], [phone], Motor Winder: Suni Parker MD [facility] Collection Date/Time: [id number] [facility] Results Received Date/Time: [id number] [facility] Reported Date/Time: [id number] Testing performed by reference lab. RHEUMATOID FACTOR <10 <14 IU/mL Hemoglobin A1c Reviewed date:09/18/2023 02:17:30 PM Interpretation:Normal Performing Lab: Notes/Report: Testing performed at the [address] [place] [address] location. Potassium-Martin/Axtell /WR/Acadia/PG ONLY Reviewed date:10/16/2023 04:34:28 PM Interpretation:Normal Performing Lab: Notes/Report: Testing performed at the [address] [place] [address] location. Potassium-Martin/Axtell /WR/Acadia/PG ONLY Reviewed date:12/25/2023 01:20:42 PM Interpretation:Normal Performing Lab: Notes/Report: Coronavirus (COVID-19)/Flu/R SV Trio- INHOUSE RAPID PCR SWAB Reviewed date:02/22/2024 08:39:46 AM Interpretation:Negative Performing Lab: Notes/Report: Testing performed at the [address] [place] [address] location. Coronavirus (Covid-19)/Flu C ombo- INHOUSE RAPID ANTIGEN Reviewed date:02/25/2024 01:38:24 PM Interpretation:Negative Performing Lab: Notes/Report: Testing performed at the [address] [place] [address] location. X ray : Foot, right Reviewed date:02/11/2024 10:08:42 AM Interpretation:Normal Performing Lab: Notes/Report: Normal Tilt-Table Test Reviewed date:02/03/2024 01:41:56 PM Interpretation:Normal Performing Lab: Notes/Report: Normal Sureswab Advanced Panel: BV, Trich, Stephanie, GC/Chlamydia Advanced Vaginalis Plus Reviewed date:12/02/2023 01:26:02 PM Interpretation:Normal Performing Lab: Notes/Report: Testing performed by reference lab. [facility] Reported Date/Time: [id number] [facility] Results Received Date/Time: [id number] [facility] Collection Date/Time: [id number] Testing performed at: [place], [facility], [address] [place] [address], [phone], Motor Winder: Suni Parker MD [facility] Reported Date/Time: [id number] [facility] Results Received Date/Time: [facility] Collection Date/Time: Testing performed at: [facility], [address] [place] [address], [address] [place] [address], Motor Winder: Suni Parker MD [facility] Reported Date/Time: [facility] Results Received Date/Time: [facility] Collection Date/Time: Testing performed at: [place], [facility], [address] [place] [address], [address] [place] [address], Motor Winder: Suni Parker MD [facility] Reported Date/Time: [facility] Results Received Date/Time: [facility] Collection Date/Time: Testing performed at: [place], [facility], [address] [place] [address], [address] [place] [address], Motor Winder: Suni Parker MD [facility] SURESWAB(R) ADV BACTERIAL VAGINOSIS (BV), TMA NEGATIVE NEGATIVE STEPHANIE SPECIES NOT DETECTED NOT DETECTED STEPHANIE GLABRATA NOT DETECTED NOT DETECTED Stephanie species C. albicans, C. tropicalis, C. parapsilosis, and/or C. dubliniensis can be detected, but not differentiated, in the Stephanie spp. result. TRICHOMONAS VAGINALIS (TV), TMA NOT DETECTED NOT DETECTED CHLAMYDIA TRACHOMATIS RNA, TMA, UROGENITAL NOT DETECTED NOT DETECTED NEISSERIA GONORRHOEAE RNA, TMA, UROGENITAL NOT DETECTED NOT DETECTED For additional information, please refer to https://education.Career Element/faq/PUJ993 (This link is being provided for information/ educational purposes only.) Urine Dip Reviewed date:11/27/2023 10:58:23 AM Interpretation:Normal Performing Lab: Notes/Report: Testing performed at the [address] [place] [address] location. [facility]-Martin/Axtell/WRidg e/Acadia/PG ONLY Reviewed date:03/18/2024 11:49:53 AM Interpretation:OK for Patient Performing Lab: Notes/Report: CBC, Diff, Automated Reviewed date:03/18/2024 11:50:06 AM Interpretation:OK for Patient Performing Lab: Notes/Report: Testing performed at the [address] [place] [address] location. Iron, TIBC, and Ferritin Veliz Reviewed date:03/18/2024 11:50:16 AM Interpretation:Normal Performing Lab: Notes/Report: Testing performed by reference lab. [facility] Reported Date/Time: [facility] Results Received Date/Time: [facility] Collection Date/Time: Testing performed at: [facility], [address] [place] [address], [phone], Motor Winder: Suni Parker MD [facility] IRON, TOTAL 100 40-190 mcg/dL IRON BINDING CAPACITY 354 250-450 mc g/dL (calc) % SATURATION 28 16-45 % (calc) FERRITIN 35 16-154 ng/mL TSH, w/ refl to Free T4 Reviewed date:03/18/2024 11:49:41 AM Interpretation:Normal Performing Lab: Notes/Report: [facility] Testing performed at: [facility], [address] [place] [address], [phone], Motor Winder: Suni Parker MD [facility] Collection Date/Time: [id number] [facility] Results Received Date/Time: [facility] Reported Date/Time: Testing performed by reference lab. TSH W/REFLEX TO FT4 2.04 Reference Range > or = 20 Years 0.40-4.50 Ranges First trimester 0.26-2.66 Second trimester 0.55-2.73 Third trimester 0.43-2.91 ALLERGY-FOOD ALLERGY PROFILE W/ REFLEXES Reviewed date:03/18/2024 11:46:59 AM Interpretation:Normal Performing Lab: Notes/Report: [facility] Testing performed at: [facility], [address] [place] [address], [phone], Motor Winder: Suni Parker MD [facility] Collection Date/Time: [id number] [facility] Results Received Date/Time: [facility] Reported Date/Time: Testing performed by reference lab. EGG WHITE (F1) IGE <0.10 CLASS 0 PEANUT (F13) IGE <0.10 CLASS 0 WHEAT (F4) IGE <0.10 CLASS 0 WALNUT (F256) IGE <0.10 CLASS 0 CODFISH (F3) IGE <0.10 CLASS 0 COW'S MILK (F2) IGE <0.10 CLASS 0 SOYBEAN (F14) IGE <0.10 CLASS 0 SHRIMP (F24) IGE <0.10 CLASS 0 SCALLOP (F338) IGE <0.10 CLASS 0 SESAME SEED (F10) IGE <0.10 CLASS 0 HAZELNUT (F17) IGE <0.10 CLASS 0 CASHEW NUT (F202) IGE <0.10 CLASS 0 ALMOND (F20) IGE <0.10 CLASS 0 SALMON (F41) IGE <0.10 CLASS 0 TUNA (F40) IGE <0.10 CLASS 0 Sureswab Advanced Panel: BV, Trich, Stephanie, GC/Chlamydia Advanced Vaginalis Plus Reviewed date:06/17/2024 03:42:56 PM Interpretation:Normal Performing Lab: Notes/Report: Testing performed by reference lab. [facility] Reported Date/Time: [id number] [facility] Results Received Date/Time: [id number] [facility] Collection Date/Time: [id number] Testing performed at: [facility], [address] [place] [address], [address] [place] [address], Motor Winder: Suni Parker MD [facility] Reported Date/Time: [id number] [facility] Results Received Date/Time: [id number] [facility] Collection Date/Time: [id number] Testing performed at: [facility], [address] [place] [address], [phone], Motor Winder: Suni Parker MD [facility] Reported Date/Time: [id number] [facility] Results Received Date/Time: [id number] [facility] Collection Date/Time: [id number] Testing performed at: [place], [facility], [address] [place] [address], [phone], Motor Winder: Suni Parker MD [facility] Reported Date/Time: [id number] [facility] Results Received Date/Time: [id number] [facility] Collection Date/Time: [id number] Testing performed at: [facility], [place], [address], Motor Winder: Suni Parker MD [facility] SURESWAB(R) ADV BACTERIAL VAGINOSIS (BV), TMA NEGATIVE NEGATIVE STEPHANIE SPECIES NOT DETECTED NOT DETECTED STEPHANIE GLABRATA NOT DETECTED NOT DETECTED Stephanie species C. albicans, C. tropicalis, C. parapsilosis, and/or C. dubliniensis can be detected, but not differentiated, in the Stephanie spp. result. TRICHOMONAS VAGINALIS (TV), TMA NOT DETECTED NOT DETECTED CHLAMYDIA TRACHOMATIS RNA, TMA, UROGENITAL NOT DETECTED NOT DETECTED NEISSERIA GONORRHOEAE RNA, TMA, UROGENITAL NOT DETECTED NOT DETECTED For additional information, please refer to https://ESO Solutions.Career Element/faq/YXM504 (This link is being provided for information/ educational purposes only.) zzInterpretation Reviewed date:03/18/2024 11:49:31 AM Interpretation:Normal Performing Lab: Notes/Report: [facility] Testing performed at: [facility], [place], [address], Motor Winder: Suni Parker MD [facility] Collection Date/Time: [id number] [facility] Results Received Date/Time: [id number] [facility] Reported Date/Time: [id number] Testing performed by reference lab. INTERPRETATION SEE NOTE Specific Level of Allergen IGE Class kU/L Specific IGE Antibody ----- --------- 0 <0.10 Absent/Undetectable 0/1 0.10-0.34 Very Low Level 1 0.35-0.69 Low Level 2 0.70-3.49 Moderate Level 3 3.50-17.4 High Level 4 17.5-49.9 Very High Level 5 50-100 Very High Level 6 >100 Very High Level The clinical relevance of allergen results of 0.10-0.34 kU/L are undetermined and intended for specialist use. Allergens denoted with a include results using one or more analyte specific reagents. In those cases, the test was developed and its analytical performance characteristics have been determined by [employer]. It has not been cleared or approved by the U.S. Food and Drug Administration. This assay has been validated pursuant to the CLIA regulations and is used for clinical purposes. BMP-Martin/Axtell/WRidg e/Acadia/PG ONLY Reviewed date:06/11/2024 11:38:04 AM Interpretation:Normal Performing Lab: Notes/Report: Items were attached to this order: BMP-PGLD Items were attached to this order: Vaginalis Plus HIV 1/2, Rapid Antibody Scre ening Reviewed date:06/11/2024 11:38:04 AM Interpretation:Negative Performing Lab: Notes/Report: Testing performed at the [address] [place] [address] location. Reason For Referral Reason palpitations, edema Diagnosis 1 Lower extremity kathy a (R60.0) Diagnosis 2 Tachycardia (R00.0) Referral Organization [address] [place] [address] are Cor Referring Provider First Name Karen Referring Provider Last Name Jhonatan Referring Provider Speciality Physician Die Technician Referred Provider Cardiology, [facility] General Notes Yola Farley 08/27 12:26:03 PM >, Yola Farley 08/28/2023 03:45:46 PM > spoke with [facility], patient scheduled September 10 @1245, Yoal Farley 08/30/2023 03:51:39 PM > patient called back and is aware and agreeable, Zaynab Chance 09/20/2023 09:46:30 AM >received Referral Priority Routine Referral Appointment Date 09/11/2023 Reason incontinence s/p hys terectomy Diagnosis 1 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 (N39.46) Referral Organization [address] [place] [address] are Cor Referring Provider First Name Karen Referring Provider Last Name Jhonatan Referring Provider Speciality Physician Die Technician Referred Provider [facility], , Referred Provider Specialty Urology General Notes Kassi Clayton 2023 02:45:28 PM >faxed office note, referral form and insurance card to Urology for scheduling, Yola Farley 09/25/2023 03:35:52 PM > per [facility] patient is scheduled to see Dr Lily Martinez 11/17 @140, reminder letter has been mailed as well, Ming Hernandez 11/18/2023 08:43:49 AM > Following, Yola Farley 11/21/2023 12:13:43 PM > Referral Priority Routine Referral Appointment Date 11/18/2023 Reason bipolar d/o Diagnosis 1 Bipolar 1 disorder ( F31.9) Referral Organization [address] [place] [address] are [facility] Referring Provider First Name Karen Referring Provider Last Name Jhonatan Referring Provider Speciality Physician Die Technician Referred Provider [facility] Referred Provider Specialty Mental [facility] General Notes Karen Israel 03/2023 01:04:07 PM > counseling and med mgmtMiguelito Grace 11/27/2023 01:43:38 PM > faxed Miguelito English Grace 12/04/2023 10:41:50 AM > spoke with Lashonda with [facility], patient is scheduled 12/23 @200 and is aware, reminder letter mailed as well, Nadeen Reyez 12/20/2023 09:05:46 AM >This patient called because she went to this appointment today. Per patient she never received our letter, but Yola called her and gave her this information along with mailing the referral. I explained that the facility [facility] is closed on Fridays. Patient did not have correct address nor [facility]'s phone number. As we were speaking she stated that Lashonda with [facility] helped her fill out her intake paperwork and gave her the date and time of the appointment so I believe that is were the confusion came in for patient. Patient understood that we did not do anything incorrect before we closed the conversation and she thanked us for the help.Miguelito Grace 01/02/2024 03:15:27 PM > faxed records requestMiguelito Grace 01/17/2024 10:06:38 AM > attempted to reach office no answer will try again saturday, Kassi Clayton 02/04/2024 01:04:53 PM > Spoke with Abby at [facility]. Per our conversation the patient has Cancelled 2 appointments and no-showed another. TE sent to provider for further instructions.Miguelito Grace 02/05/2024 08:06:25 AM > Referral Priority Routine Referral Appointment Date 12/24/2023 Reason Tilt Table Test Diagnosis 1 Tachycardia, paroxys mal (I47.9) Referral Organization [address] [place] [address] are Cor Referring Provider First Name Karen Referring Provider Last Name Jhonatan Referring Provider Speciality Physician Die Technician Referred Provider [facility] Referred Provider Specialty Outpatient T esting General Notes Yola Farley 12/24 03:23:03 PM CDT > spoke with Liz, patient scheduled at [facility] [place] [facility] [address], No [employer] for 24hrs prior, NPO 4hrs prior, Jan 23 check in @7am, Yola Farley 12/31/2023 04:49:00 PM > patient will be in office tomorrow, when looking up patients appointment via [employer] Web it looks as thought her 01/23 appointment has been changed to 01/27, called and spoke with Mily at [facility] and she states that patients appointment was moved to 01/27 @900am by a Mel Merrill LPN, I am assuming she may be with her cardiology provider, Yola Farley 01/03/2024 02:58:12 PM > patient was to come in office and appointment was printed to give to patient but she did not show, letter mailed, Kassi Clayton 01/30/2024 11:25:49 AM >see report Referral Priority Routine Referral Appointment Date 01/28/2024 Reason 07/14/2024 faxing note/// Megan- hx allergy to almonds, bloodwork negative Diagnosis 1 Hx of allergic react ion (Z88.9) Referral Organization [address] [place] [address] are Cor Referring Provider First Name Karen Referring Provider Last Name Jhonatan Referring Provider Speciality Physician Die Technician Referred Provider Jeffery Guzman Referred Provider Specialty Allergy/Immu nology General Notes Yola Farley 03/18 11:47:43 AM > faxed Miguelito SCHNEIDER Grace 2024 03:58:34 PM > [facility] does not do allergy testing, forwarding referral to Ruperto Guzman Wendy 04/03/2024 09:18:07 AM >Spoke with Dr. Guzman office, they did receive the referral, but the patient is not scheduled at this time, Yola Farley 04/17/2024 03:55:50 PM > per fax from Dr Guzman office patient is scheduled 05/22 @930, Yola Farley 04/22/2024 12:33:51 PM > called and spoke with patient she is needing to care for her mother at this time and asks that we push appointment out to the end of may, called and rescheduled for 06/19 @100, Yola Farley 04/22/2024 02:36:18 PM > sending message through ecw will call patient tomorrow as she was on the road at the time, Yola Farley 05/04/2024 12:45:53 PM > spoke with patient in office and given information, Yomaira Carey 07/14/2024 09:12:27 AM > [phone], per Magda, patient kept appointment, she is faxing note, Bibiana Thomas 07/15/2024 09:18:07 AM > report received Referral Priority Routine Referral Appointment Date 06/19/2024 Reason edema, palpitations Diagnosis 1 Lower extremity kathy a (R60.0) Referral Organization [address] [place] [address] are Cor Referring Provider First Name Karen Referring Provider Last Name Jhonatan Referring Provider Speciality Physician Die Technician Referred Provider Olga [facility] Referred Provider Specialty Cardiology General Notes Karen Israel 06/2024 12:41:07 PM > requesting 2nd opinion in [place] if possible, previously seen by [facility], Yola Farley 04/29/2024 12:49:42 PM > will have to be approved by both cardiologists for patient to use another provider with same group, Yola Farley 05/01/2024 09:35:35 AM > patient can see Olga Locke in [place] 05/18 @1030, Yola Farley 05/01/2024 11:00:09 AM > spoke with patient in office she is aware and agreeable, Kassi Clayton 05/21/2024 03:21:03 PM >see report in patient chart Referral Priority Routine Referral Appointment Date 05/19/2024 Medications Medication SIG (Take, Route, Frequency, Duration) Notes Start Date End Date Status Boric Acid Vaginal 600 MG 1 suppository at bedtime Vaginal Once a day for 14 days 07/17/2023 Not-Taking Benzonatate 100 MG 1 capsule as needed for cough Orally Three times a day for 5 days 02/21/2024 Not-Taking Fluticasone Propionate 50 MCG/ACT 1 spray in each nostril Nasally once a day for 10 days 02/21/2024 Not-Taking Flonase Allergy Relief 50 mcg/act 1 puff in each nostril Nasally as needed Not-Taking Chlorhexidine Gluconate 4 % as directed Externally daily for 30 days 11/27/2023 Not-Taking Cetirizine HCl 10 MG 1 tablet Orally Once a day 08/31/2021 Not-Taking Bumetanide 2 MG 1 tablet Oral twice a day for 30 days Active metFORMIN HCl 500 MG 1 tablet with a meal Orally Once a day Not-Taking Albuterol Sulfate HFA 108 (90 Base) MCG/ACT INHALE ONE PUFF BY MOUTH EVERY 4 HOURS NEEDED FOR wheezing for 30 Active LaMICtal 25 MG 1 tablet Orally twice a day Not-Taking Albuterol Sulfate (2.5 MG/3ML) 0.083% USE 3 MILLILITERS VIA NEBULIZATION BY MOUTH EVERY 6 HOURS FOR 10 DAYS for 15 PRN Active Geodon 20 MG 1 capsule with food in the morning, 2 capsules with food at night Orally as directed Not-Taking Furosemide 40 MG 1 tablet Oral twice a day Not-Taking Fluconazole 100 MG 1 tablet Orally today then repeat in 3 days for 5 days Active Compression Stockings Bilat Knee high socks compression 8-15 or 15-20 10/14/2023 Active Humira (2 Pen) 80 MG/0.8ML as directed Subcutaneous every 2 weeks Active Omeprazole 40 MG 1 capsule 30 minutes before morning meal Orally Once a day for 30 days Active Nystatin 497172 UNIT/GM External for 15 Days PRN Active Magnesium 400 MG 2 tablets Orally twice a day 07/24/2023 Active Hydrocortisone (Perianal) 2.5 % 1 application Externally Twice a day for 7 days 03/09/2024 Active Spironolactone 25 MG 1 tablet Orally daily for 30 days Active Silver sulfADIAZINE 1 % 1 application Externally twice a day for 7 days 05/01/2024 Active Progesterone 200 MG 1 capsule at bedtime Orally Once a day Active Ondansetron 4 MG 1 tablet on the tongue and allow to dissolve Orally every eight hours as needed for 2 days 02/25/2024 Active Potassium Chloride ER 20 MEQ 2 tablet with food Oral Once a day Not-Taking Pantoprazole Sodium 40 MG 1 tablet Orally Once a day for 30 days 06/05/2023 Not-Taking metroNIDAZOLE 0.75 % 1 application Externally Once a day for 5 days 10/14/2023 Not-Taking Vitamin D (Ergocalciferol) 1.25 MG (71676 UT) Oral for 28 Days Activ e metroNIDAZOLE 500 mg one tablet orally twice a day for 7 days 06/05/2023 Not-Taking Vitamin C 250 MG 2 tablets Orally Once a day Not-Taking Triamcinolone Acetonide 0.1 % 1 application Externally once daily for 7 days PRN 07/31/2023 Not-Taking Terconazole 0.4 % 1 applicatorful at bedtime Vaginal Once a day for 7 days 07/10/2023 Not-Taking Singulair 10 MG 1 tablet Orally Once a day at bedtime 08/31/2021 Not-Taking Vitamin D 50 MCG (2000 UT) 1 tablet Orally Once a day Not-Taking Immunizations Vaccine Route Administration Date Status Comme nts Varicella-VFC SC Subcutaneous 12/22/2013 Administered Tetanus-Adult Unknown 11/28/2020 Administered given at ER [facility] - VFC IM Intramuscular 12/22/2013 Administer ed Gardasil-VFC IM Intramuscular 12/22/2013 Administered Social History Tobacco Use: Social History Observation Description Date Details (start date - stop date) Former Smoker NA - NA Sex Assigned At : Social History Observation Description Sex Assigned At Female [facility] Drug Questionnaire Question Answer Notes Have you used drugs other th an those for medical reasons in the past 12 months? No Smokeless Tobacco Question Answer Notes Tobacco use other than smoking No Have you ever had an STD Question Answer Notes Have you ever had an STD Yes tricham onis, hpv Chlamydia No GC No Herpes No Syphilis No Prevention Strategies Discussed Condoms CAGE-AID Questionnaire (2018 Edition)- Question Answer Notes Have you ever felt that you ought to cut down on your drinking or drug use? No Have people annoyed you by criticizing your drin marlen or drug use? No Have you ever felt bad or guilty about your drin marlen or drug use? No Have you ever had a drink or used drugs first thing in the morning to steady your nerves or to get rid of a hangover? No CAGE-AID Score 0 Interpretation Negative Tobacco Control (Standard) Question Answer Notes Tobacco use: Former smoker How long has it been since you last smoked? 1-5 years AUDIT-C (Standard) Question Answer Notes Did you have a drink containing alcohol in the p ast year? No Points 0 Interpretation Negative Problems Problem Type SNOMED Code ICD Code Onset Dates Problem Status W/U Status Risk Notes Problem Gastroesophageal reflux disease (556723827) GERD (gastroesophageal reflux disease) (K21.9) Active confirmed Problem Chronic sinusitis (42559094) Sinus infection (J32.9)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
--- OUTSIDE RECORDS SUMMARY | 2024-08-26 23:01 | XMS_ITS ---
Author Organization Unknown Address [address] [place] [address] LUKASZ BATISTA [phone] Phone Care Team Providers Care Wafer Fabrication Technician Name Role Phone SHEFALI CORRAL Attending Unavailable FEDE LINN Primary Unavailable Immunization Immunization Date Status Additional Notes Code Code System OPV 1996 Completed 02 CVX OPV 10/18/1998 Completed 02 CVX MMR 10/18/1998 Completed 03 CVX MMR 10/15/2000 Completed 03 CVX Hep B, adolescent or pediatric 1996 Completed 08 CVX Hep B, adolescent or pediatric 1996 Completed 08 CVX Hep B, adolescent or pediatric 10/18/1998 Completed 08 CVX Td (adult), 2 Lf tetanus toxoid, preservative free, adsorbed 1996 Completed 09 CVX IPV 1996 Completed 10 CVX IPV 10/15/2000 Completed 10 CVX DTaP 1996 Completed 20 CVX varicella 05/05/2001 Completed 21 CVX varicella 12/22/2013 Completed 21 CVX DT (pediatric) 1996 Completed 28 CVX DT (pediatric) 10/18/1998 Completed 28 CVX DT (pediatric) 10/15/2000 Completed 28 CVX Hib (PRP-T) 1996 Completed 48 CVX Hib (PRP-T) 1996 Completed 48 CVX Hib (PRP-T) 10/18/1998 Completed 48 CVX Hib (PRP-T) 10/15/2000 Completed 48 CVX HPV, quadrivalent 08/02/2011 Completed 62 C VX HPV, quadrivalent 09/17/2011 Completed 62 C VX HPV, quadrivalent 12/22/2013 Completed 62 C VX meningococcal MCV4P 12/22/2013 Completed 114 CVX Tdap 09/28/2009 Completed 115 CVX Influenza, split virus, trivalent, PF 12/16/2012 Completed 140 CVX Results LIPID PANEL - Collect Date/T caren: 05/19/2024 12:03 [facility] ID: [id number], [place], [id number] LOINC: 22105-2 Test Value Unit Reference Range Code Code System Flag CHOLESTEROL 190 mg/dL L=110 H=200 TRIGLYCERIDES 100 mg/dL L=30 H=200 HDL 52 mg/dL L=35 H=65 LDL 118 mg/dL L=0 H=140 RISK FACTOR 3.7 LDL/HDL 2 CMP - Collect Date/Time: 12:03 [facility] ID: [id number], [place], [id number] LOINC: 96603-9 Test Value Unit Reference Range Code Code System Flag SODIUM 138 mmol/L L=133 H=142 63024-4 LOINC POTASSIUM 3.0 mmol/L L=3.6 H=5.2 02354-0 LOINC L CHLORIDE 98 mmol/L L=100 H=108 L CO2 32 mmol/L L=21 H=32 1963-8 LOINC ANION GAP 11 GLUCOSE 105 mg/dL L=70 H=110 BUN 8 mg/dL L=7 H=18 CREATININE 0.7 mg/dL L=0.6 H=1.3 2160-0 LOINC BUN/CREAT 11 AGE 29 yrs NON-AA GFR 106 mL/min AFR AMER GFR 128 mL/min TOTAL PROTEIN 7.4 g/dL L=6.4 H=8.2 ALBUMIN 3.7 g/dL L=3.4 H=5.0 GLOBULIN 4 g/dL A/G RATIO 0.9 CALCIUM 9.1 mg/dL L=8.7 H=10.2 TOTAL BILI 0.5 mg/dL L=0.2 H=1.0 ALKALINE PHOS 90 U/L L=42 H=98 SGOT/AST 22 U/L L=5 H=30 SGPT/ALT 35 U/L L=5 H=35 NATRIURETIC PEPTIDE - [facility] t Date/Time: 05/19/2024 12:03 [facility] ID: [id number], [place], [id number] LOINC: 97278-9 Test Value Unit Reference Range Code Code System Flag BNP 39 pg/mL L=0 H=125 Social History Type Status Start Date End Date Code Code Syst em Sex Female Hospital Discharge Instructions Should you have any questions prior to discharge, please contact a member of your healthcare team. If you have left the hospital and have any questions, please contact your primary care physician. Reason For Referral No Data Found Allergies and Adverse Reactions Allergy Substance Reaction Severity Start Date Concern Status Co de Code System CLINDAMYCIN Active 2582 RxNorm DICYCLOMINE Active 3361 RxNorm PERTUSSIS VACCINE Active 8080 RxNorm TREE NUTS Active 4.48552H+14 SNOMED-CT Plan of Treatment No Data Found Encounters Encounter Diagnosis Start Date Code Code Sys tem Palpitations 05/19/2024 SNOMED-CT Personal Care Team Section
--- OUTSIDE RECORDS SUMMARY | 2024-08-26 23:01 | XMS_ITS ---
Author Name GENEVIEVE TOUSSAINT Address Unknown Phone [phone] Organization Unknown Address Unknown Phone [phone] Care Team Providers Care Student Services Dean Name Role Phone GENEVIEVE TOUSSAINT Attending [phone] GENEVIEVE TOUSSAINT Ordering [phone] ASSESSMENT Assessment Charted Date/Time No assessment available Social History SOCIAL HISTORY TOBACCO USE TypeStatusStart DateEnd DateLast ReviewedCurrent Smoking StatusTobacco smoking consumption unknownGender Identity and Sexual OrientationTypeStatusLast ReviewedBirth Sex Female 00:00
--- OUTSIDE RECORDS SUMMARY | 2024-08-26 23:01 | XMS_ITS | Data Portability ---
Author Organization [place] - [address], ADMIN Address [address] [place] [address] Care Team Providers Care Vp Foundation Name Role Phone LAINE LASHONDA Primary Care Provider [phone] Assessment No assessment recorded. Plan of Treatment Reminders Order Date Submit Date Provider Last Modified By Organization Details Last Modified Time Details Appointments None recorded. Lab culture, urine 2023 [facility] Location, [facility] [address], [address], [place], [address], 4 23:14:46 urinalysis, dipstick 2023 024 [facility] ([facility]), [address], [address], [place], [address], 4 23:14:46 bacterial vaginosis panel, vaginal 2023 024 [facility] ([facility]), [address], [address], [place], [address], 4 09:42:47 katie sp igg+igm+iga Ab, serum 2023 024 [facility] ([facility]), [address], [address], [place], [address], 4 09:42:47 STI panel 2023 024 [email or web address] Location, [address], [address], [place], [address], 4 09:42:48 culture, urine [address] [facility] Location, [address], [address], [place], [address], 4 08:17:23 urinalysis, dipstick 2023 024 [facility] - [facility] [place], [facility] ([facility]), [address] [facility], [address], [place], [address], 4 08:17:22 urinalysis, dipstick 2022 023 In-Office Order, Internal Use Only DO Not Attach Compendium DO Not Attach Compendium, Do Not Delete/merge, [id number] 3 14:07:22 bacterial vaginosis + vaginitis panel, vaginal 2022 023 [email or web address] 7 [facility] Location, [address], [address], [place], [address], 3 14:07:37 rapid influenza virus A + B and SARS CoV + SARS CoV 2 Ag panel, IA, upper respiratory specimen 2022 023 [email or web address] Not available 3 13:08:08 Referral gynecologis t referral 2023 024 [email or web address] Parul Johnston MD, [address], [address], [place], [address], 4 14:39:32 medical director/head team physician referral 2022 023 [email or web address] 7 Ivan Bell MD, [address], [address], [place], [address], 4 08:23:41 Procedures None recorded. Surgeries None recorded. Imaging None recorded. Medication Orders Diflucan 150 mg tablet 2023 024 [facility] [id number], [address], [place], [address], 4 16:23:27 Macrobid 100 mg capsule 2023 024 [facility] [id number], [address], [place], [address], 4 17:21:45 Pepcid 40 mg tablet 2022 023 [facility] [id number], [address], [place], [address], 3 11:23:00 cetirizine 10 mg tablet 2022 023 [facility] [id number], [address], [place], [address], 3 11:23:06 EpiPen 2-Sergei 0.3 mg/0.3 mL injection, auto-inject or 2022 023 [facility] [id number], [address], [place], [address], 3 11:23:03 ondansetron 4 mg disintegrat ing tablet 2022 023 [email or web address] [facility] [id number], [address], [place], [address], 3 16:52:10 cetirizine 10 mg tablet 2022 023 [facility] [id number], [address], [place], [address], 15:39:19 omeprazole 40 mg capsule,del ayed release 2022 023 [facility] [id number], [address], [place], [address], 15:39:21 albuterol sulfate HFA 90 mcg/actuati on aerosol inhaler 2022 023 [facility] [id number], [address], [place], [address], 15:39:15 Patient TargetsNo targets recorded. Patient Instructions Encounter Date Encounter Id Patient Instructions Last Modified By Organization Details Last Modified Time 08/20/2022 [id number] eating healthy foods: care instructions [id number] Not available 08/20/2022 15:37:47 10/17/2022 [id number] learning about healthy weight [id number] Not available 10/17/2022 16:53:08 upper respirator y infection (cold): care instructions [email or web address] Not available 10/17/2022 16:53:21 01/25/2023 [id number] learning about healthy weight Not available 01/25/2023 15:19:31 body mass index: care instructions Not available 01/25/2023 15:19:31 eating healthy foods: care instructions Not available 01/25/2023 15:19:31 09/23/2023 [id number] body mass index: care instructions [email or web address] Not available 09/23/2023 22:31:24 09/26/2023 [id number] body mass index: care instructions [id number] Not available 09/26/2023 16:08:22 Reason for Referral Driller And Reamer Referral for Aller gic urticaria Referring Physician: Sharon Morales, Family Medicine, [id number] Encounter Date: 01/25/2023 Mechanical Inspector Referral for Va ginal discharge Referring Physician: Lashonda Stevens, Family Medicine, [phone] Encounter Date: 09/23/2023 Results Created Date Observation Date Name Description Value Unit Range Abnormal Flag Note LastModifiedBy Organization Detail LastModifiedTime 10/18/19 23 10/17/2022 COVID 19 SARS AG LUIS first test? No Not Available [facility] (Lab) [address], [place], [address], 10/17/2022 17:50:46 10/18/19 23 10/17/2022 COVID 19 SARS AG LUIS employed in healthcare? No Not Available [facility] (Lab) [address], [place], [address], 10/17/2022 17:50:46 10/18/19 23 10/17/2022 COVID 19 SARS AG LUIS symptomatic defined by cdc? Yes Not Available [facility] (Lab) [address], [place], [address], 10/17/2022 17:50:46 10/18/19 23 10/17/2022 COVID 19 SARS AG LUIS date of symptom onset? 20 no reference range Not Available [facility] (Lab) [address], [place], [address], 10/17/2022 17:50:46 10/18/19 23 10/17/2022 COVID 19 SARS AG LUIS hospitalized ? No Not Available [facility] (Lab) [address], [place], [address], 10/17/2022 17:50:46 10/18/19 23 10/17/2022 COVID 19 SARS AG LUIS ICU? No Not Available [facility] (Lab) [address], [place], [address], 10/17/2022 17:50:46 10/18/19 23 10/17/2022 COVID 19 SARS AG LUIS resident in congregate care? No Not Available [facility] (Lab) [address], [place], [address], 10/17/2022 17:50:46 10/18/19 10/17/2022 COVID 19 SARS AG LUIS ?. No Not Available [facility] (Lab) [address], [place], [address], 10/17/2022 17:50:46 10/18/19 23 10/17/2022 COVID 19 SARS AG LUIS [id number] gfia Negati ve negati ve Negat cha resul ts kendall d be consi dered in the singh xt of a patie nt's recen t expos ures, histo ry and the prese nce of clini binu signs and sympt oms consi stent with COVID -19. Not Available [facility] (Lab) [address], [place], [address], 10/17/2022 17:50:46 10/18/19 23 10/17/2022 COVID 19 SARS AG LUIS qci 1 Pass Not Available [facility] (Lab) [address] [place] [address], [place], [address], 10/17/2022 17:50:46 10/18/19 23 10/17/2022 COVID 19 SARS AG LUIS qci 2 Pass Not Available [facility] (Lab) [address] [place] [address], [place], [address], 10/17/2022 17:50:46 10/18/19 23 10/17/2022 COVID 19 SARS AG LUIS kit lot number [id number] no reference range Not Available [facility] (Lab) [address], [place], [address], 10/17/2022 17:50:46 10/18/19 23 10/17/2022 COVID 19 SARS AG LUIS kit lot exp [id number] no reference range Not Available [facility] (Lab) [address], [place], [address], 10/17/2022 17:50:46 10/18/19 23 10/17/2022 INFLU JAIMEE A AND B SCREE N influenza A Negati ve negati ve Not Available [facility] (Lab) [address], [place], [address], 10/17/2022 17:50:57 10/18/19 23 10/17/2022 INFLU JAIMEE A AND B SCREE N influenza B Negati ve negati ve Not Available [facility] (Lab) [address] [place] [address], [place], [address], 10/17/2022 17:50:57 10/18/19 23 10/17/2022 INFLU JAIMEE A AND B SCREE N qci 1 Pass Not Available [facility] (Lab) [address] [place] [address], [place], [address], 10/17/2022 17:50:57 10/18/19 23 10/17/2022 INFLU JAIMEE A AND B SCREE N qci 2 Pass Not Available [facility] (Lab) [address] [place] [address], [place], [address], 10/17/2022 17:50:57 10/18/19 23 10/17/2022 INFLU JAIMEE A AND B SCREE N kit lot number [id number] no reference range Not Available [facility] (Lab) [address] [place] [address], [place], [address], 10/17/2022 17:50:57 10/18/19 23 10/17/2022 INFLU JAIMEE A AND B SCREE N kit lot exp [id number] no reference range Not Available [facility] (Lab) [address] [place] [address], [place], [address], 10/17/2022 17:50:57 01/26/20 23 01/25/2023 urina lysis , dipst ick Leukocytes (reference range: negative yuliana/ l) negati ve Not Available In-Office Order Internal Use Only DO Not Attach Compendium DO Not Attach Compendium, Do Not Delete/merge, [id number] 01/25/2023 10:51:56 01/26/20 23 01/25/2023 urina lysis , dipst ick Nitrite (reference range: negative mg/dl) negati ve Not Available In-Office Order Internal Use Only DO Not Attach Compendium DO Not Attach Compendium, Do Not Delete/merge, [id number] 01/25/2023 10:51:56 01/26/20 23 01/25/2023 urina lysis , dipst ick Urobilinogen (reference range: 0.2 - 1 mg/dl) 0.2 Not Available In-Off ice Order Internal Use Only DO Not Attach Compendium DO Not Attach Compendium, Do Not Delete/merge, [id number] 01/25/2023 10:51:56 01/26/20 23 01/25/2023 urina lysis , dipst ick Protein (reference range: negative mg/dl) negati ve Not Available In-Office Order Internal Use Only DO Not Attach Compendium DO Not Attach Compendium, Do Not Delete/merge, [id number] 01/25/2023 10:51:56 01/26/2001/25/2023 urina lysis , dipst ick pH (reference range: 5 - 7 units) 5.5 Not Available In-Off ice Order Internal Use Only DO Not Attach Compendium DO Not Attach Compendium, Do Not Delete/merge, [id number] 01/25/2023 10:51:56 01/26/20 23 01/25/2023 urina lysis , dipst ick Blood (reference range: negative rbc/ l) negati ve Not Available In-Office Order Internal Use Only DO Not Attach Compendium DO Not Attach Compendium, Do Not Delete/merge, [id number] 01/25/2023 10:51:56 01/26/20 23 01/25/2023 urina lysis , dipst ick Specific gravity (reference range: 1.005 - 1.030) 1.025 Not Available In-Off ice Order Internal Use Only DO Not Attach Compendium DO Not Attach Compendium, Do Not Delete/merge, [id number] 01/25/2023 10:51:56 01/26/20 23 01/25/2023 urina lysis , dipst ick Ketone (reference range: negative mg/dl) negati ve Not Available In-Office Order Internal Use Only DO Not Attach Compendium DO Not Attach Compendium, Do Not Delete/merge, [id number] 01/25/2023 10:51:56 01/26/20 23 01/25/2023 urina lysis , dipst ick Bilirubin (reference range: negative mg/dl) negati ve Not Available In-Office Order Internal Use Only DO Not Attach Compendium DO Not Attach Compendium, Do Not Delete/merge, [id number] 01/25/2023 10:51:56 01/26/20 23 01/25/2023 urina lysis , dipst ick Glucose (reference range: negative mg/dl) 500 Not Available In-Off ice Order Internal Use Only DO Not Attach Compendium DO Not Attach Compendium, Do Not Delete/merge, [id number] 01/25/2023 10:51:56 01/26/20 23 01/25/2023 urina lysis , dipst ick Appearance (reference range: clear) clear Not Available In-Off ice Order Internal Use Only DO Not Attach Compendium DO Not Attach Compendium, Do Not Delete/merge, [id number] 01/25/2023 10:51:56 01/26/20 23 01/25/2023 urina lysis , dipst ick Color (reference range: yellow) yellow Not Available In-Off ice Order Internal Use Only DO Not Attach Compendium DO Not Attach Compendium, Do Not Delete/merge, [facility] 01/25/2023 10:51:56 09/23/19 24 09/26/2023 URINA LYSIS , CHEMI BINU/M ACROS COPIC ONLY test cancelled Test Cancel led Speci men recei china beyon d stabi lity. . Test canno t be perfo rmed. Accep table stabi lity from colle ction is 24 hrs. Not Available [facility] ([facility]) [address], [place], [address], 09/26/2023 08:17:22 09/23/19 24 09/26/2023 CULTU RE, URINE test cancelled Test Cancel led Speci men recei china beyon d stabi lity. . Test canno t be perfo rmed. Accep table stabi lity from colle ction is 24 hours . advis e recol lecti on in gtu Not Available [facility] ([facility]) [address] [place] [address] [address], [place], [address], 09/26/2023 08:17:23 09/23/19 24 09/26/2023 BACTE RIAL VAGIN OSIS+ WITH LACTO PROFI LING top line result NORMAL normal Not Available [facility] ([facility]) [address] [place] [address] [address], [place], [address], 09/30/2023 17:08:19 09/23/19 24 09/26/2023 BACTE RIAL VAGIN OSIS+ WITH LACTO PROFI LING interpretati on SEE COMMEN T The organ isms detec brandon in this speci men are indic ative of maude l micro caleb .Thes e resul ts, meant to aid in the diagn osis and manag ement of BV, do not compl etely rule out BV and shoul d be inter prete d in the singh xt of other test resul ts and clini binu findi ngs. Not Available [facility] ([facility]) [address] [place] [address] [address], [place], [address], 09/30/2023 17:08:19 09/23/19 24 09/26/2023 BACTE RIAL VAGIN OSIS+ WITH LACTO PROFI LING atopobium vaginae NOT DETECT ED normal Not Available [facility] ([facility]) [address] [place] [address] [address], [place], [address], 09/30/2023 17:08:19 09/23/19 24 09/26/2023 BACTE RIAL VAGIN OSIS+ WITH LACTO PROFI LING gardnerella vaginalis NOT DETECT ED normal Not Available [facility] ([facility]) [address] [place] [address] [address], [place], [address], 09/30/2023 17:08:19 09/23/19 24 09/26/2023 BACTE RIAL VAGIN OSIS+ WITH LACTO PROFI LING bvab2 NOT DETECT ED normal Not Available [facility] ([facility]) [address] [place] [address] [address], [place], [address], 09/30/2023 17:08:19 09/23/19 24 09/26/2023 BACTE RIAL VAGIN OSIS+ WITH LACTO PROFI LING megasphaera 1 NOT DETECT ED normal Not Available [facility] ([facility]) [address] [place] [address] [address], [place], [address], 09/30/2023 17:08:19 09/23/19 24 09/26/2023 BACTE RIAL VAGIN OSIS+ WITH LACTO PROFI LING megaspherea 2 NOT DETECT ED normal Not Available [facility] ([facility]) [address] [place] [address] [address], [place], [address], 09/30/2023 17:08:19 09/23/19 24 09/26/2023 BACTE RIAL VAGIN OSIS+ WITH LACTO PROFI LING lactobacillu s crispatus NORMAL normal Not Available [facility] ([facility]) [address] [place] [address] [address], [place], [address], 09/30/2023 17:08:19 09/23/19 24 09/26/2023 BACTE RIAL VAGIN OSIS+ WITH LACTO PROFI LING lactobacillu s gasseri NOT DETECT ED normal Not Available [facility] ([facility]) [address] [place] [address] [address], [place], [address], 09/30/2023 17:08:19 09/23/19 24 09/26/2023 BACTE RIAL VAGIN OSIS+ WITH LACTO PROFI LING lactobacillu s iners ql NOT DETECT ED normal Not Available [facility] ([facility]) [address] [place] [address] [address], [place], [address], 09/30/2023 17:08:19 09/23/19 24 09/26/2023 BACTE RIAL VAGIN OSIS+ WITH LACTO PROFI LING lactobacillu s jensenii ql NOT DETECT ED normal Not Available [facility] ([facility]) [address] [place] [address] [address], [place], [address], 09/30/2023 17:08:19 09/23/19 24 09/26/2023 BACTE RIAL VAGIN OSIS+ WITH LACTO PROFI LING mobiluncus mulieris NOT DETECT ED normal Not Available [facility] ([facility]) [address] [place] [address] [address], [place], [address], 09/30/2023 17:08:19 09/23/19 24 09/26/2023 BACTE RIAL VAGIN OSIS+ WITH LACTO PROFI LING mobiluncus curtisii NOT DETECT ED normal Not Available [facility] ([facility]) [address] [place] [address] [address], [place], [address], 09/30/2023 17:08:19 09/23/19 24 09/26/2023 BACTE RIAL VAGIN OSIS+ WITH LACTO PROFI LING mycoplasma hominis NOT DETECT ED normal Not Available [facility] ([facility]) [address] [place] [address] [address], [place], [address], 09/30/2023 17:08:19 09/23/19 24 09/26/2023 BACTE RIAL VAGIN OSIS+ WITH LACTO PROFI LING ureaplasma urealyticum NOT DETECT ED normal Not Available [facility] ([facility]) [address] [place] [address] [address], [place], [address], 09/30/2023 17:08:19 09/23/19 24 09/30/2023 RICKY DA PANEL katie albicans NOT DETECT ED normal Genom ic DNA is isola brandon from patie nt speci mens by stand leon labor atory techn iques and juan zed using custo m OpenA rray plate s, perfo rmed on the TMi o 12K Flex Real Time PCR syste m. A posit cha resul t is provi ded for patho genic bacte rial speci es based on detec tion of ampli ficat ion produ cts. Maude l vagin al caleb resul ts of Maude l or [place] brandon are deter mined by calcu latin g the ratio of the organ ism to the total bacte jez prese nt in the speci men, and anamaria ring that ratio to a [facility] roup patie nt popul ation . Overa ll resul ts of Maude l, Borde rline and Abnor mal are deter mined using a proba bilit y model which was devel oped by an exten sive juan sis and integ ratio n of clini binu thres holds for marke r organ isms on a large set of sympt omati c & asymp tomat ic speci mens. Patie nt popul ation s with diffe rent demog raphi cs from the [facility]oup model popul ation may have diffe rent indic ator organ isms with diffe rent relat cha ratio s, which would influ ence the final resul ts. Resul ts shoul d be inter prete d in the singh xt of all clini binu and labor atory findi ngs. The test was devel oped and its perfo rmanc e cinthia cteri stics deter mined by [facility] d/b/a [facility]. It has not been clear ed or appro china by the U.S. Food and Drug Admin istra tion. The FDA has deter mined that such clear ance or appro liv is not neces joann. Perti nent refer ence inter vals are avail able from the labor atory on reque st. Test( s) perfo rmed by [facility] d/b/a [facility], [address] [place] [address] [address], DO, Labor atory Direc tor, CLIA# [id number] Not Available [facility] ([facility]) [address], [place], [address], 09/30/2023 17:08:20 09/23/19 24 09/30/2023 RICKY DA PANEL katie glabrata NOT DETECT ED normal Genom ic DNA is isola brandon from patie nt speci mens by stand leon labor atory techn iques and juan zed using custo m OpenA rray plate s, perfo rmed on the TMi o 12K Flex Real Time PCR syste m. A posit cha resul t is provi ded for patho genic bacte rial speci es based on detec tion of ampli ficat ion produ cts. Maude l vagin al caleb resul ts of Maude l or [place] brandon are deter mined by calcu latin g the ratio of the organ ism to the total bacte jez prese nt in the speci men, and anamaria ring that ratio to a Path[facility] roup patie nt popul ation . Overa ll resul ts of Maude l, Borde rline and Abnor mal are deter mined using a proba bilit y model which was devel oped by an exten sive juan sis and integ ratio n of clini binu thres holds for marke r organ isms on a large set of sympt omati c & asymp tomat ic speci mens. Patie nt popul ation s with diffe rent demog raphi cs from the [facility] roup model popul ation may have diffe rent indic ator organ isms with diffe rent relat cha ratio s, which would influ ence the final resul ts. Resul ts shoul d be inter prete d in the singh xt of all clini binu and labor atory findi ngs. The test was devel oped and its perfo rmanc e cinthia cteri stics deter mined by [facility], [employer] d/b/a [facility]. It has not been clear ed or appro china by the U.S. Food and Drug Admin istra tion. The FDA has deter mined that such clear ance or appro liv is not neces joann. Perti nent refer ence inter vals are avail able from the labor atory on reque st. Test( s) perfo rmed by [facility] d/b/a [facility], [address], [place] [address] , [address] ra, DO, Labor atory Dire tor, CLIA# [id number] Not Available [facility] ([facility]) [address], [place], [address], 09/30/2023 17:08:20 09/23/19 24 09/30/2023 RICKY DA PANEL katie krusei NOT DETECT ED normal Genom ic DNA is isola brandon from patie nt speci mens by stand leon labor atory techn iques and juan zed using custo m OpenA rray plate s, perfo rmed on the [employer] o 12K Flex Real Time PCR syste m. A posit cha resul t is provi ded for patho genic bacte rial speci es based on detec tion of ampli ficat ion produ cts. Maude l vagin al caleb resul ts of Maude l or [place] brand[place] are deter mined by calcu latin g the ratio of the organ ism to the total bacte jez prese nt in the speci men, and anamaria ring that ratio to a PathG roup patie nt popul ation . Overa ll resul ts of Maude l, Borde rline and Abnor mal are deter mined using a proba bilit y model which was devel oped by an exten sive juan sis and integ ratio n of clini binu thres holds for marke r organ isms on a large set of sympt omati c & asymp tomat ic speci mens. Patie nt popul ation s with diffe rent demog raphi cs from the Path [employer] model popul ation may have diffe rent indic ator organ isms with diffe rent relat cha ratio s, which would influ ence the final resul ts. Resul ts shoul d be inter prete d in the singh xt of all clini binu and labor atory findi ngs. The test was devel oped and its perfo rmanc e cinthia cteri stics deter mined by [facility] [employer] [facility] [employer], [employer] d/b/a [employer] It has not been clear ed or appro china by the U.S. Food and Drug Admin istra tion. The FDA has deter mined that such clear ance or appro liv is not neces joann. Perti nent refer ence inter vals are avail able from the [facility] [employer] ator on reque st. Test( s) perfo rmed by [facility] [employer] d/b/a [facility] [employer], [address] [address] , [address] ra, DO, Labor atory [facility], [facility]# [id number] Not Available [facility]) [address], [place], [address], 09/30/2023 17:08:20 09/23/19 24 09/30/2023 RICKY DA PANEL katie parapsilosis NOT DETECT ED normal Genom ic DNA is isola brandon from patie nt speci mens by stand leon labor atory techn iques and juan zed using custo m OpenA rray plate s, perfo rmed on the [employer] o 12K Flex Real Time PCR syste m. A posit cha resul t is provi ded for patho genic bacte rial speci es based on detec tion of ampli ficat ion produ cts. Maude l vagin al caleb resul ts of Maude l or [place] are deter mined by calcu latin g the ratio of the organ ism to the total bacte jez prese nt in the speci men, and anamaria ring that ratio to a [facility] roup patie nt popul ation . Overa ll resul ts of Maude l, Borde rline and Abnor mal are deter mined using a proba bilit y model which was devel oped by an exten sive juan sis and integ ratio n of clini binu thres holds for marke r organ isms on a large set of sympt omati c & asymp tomat ic speci mens. Patie nt popul ation s with diffe rent demog raphi cs from the [facility] roup model popul ation may have diffe rent indic ator organ isms with diffe rent relat cha ratio s, which would influ ence the final resul ts. Resul ts shoul d be inter prete d in the singh xt of all clini binu and labor atory findi ngs. The test was devel oped and its perfo rmanc e cinthia cteri stics deter mined by [employer] [facility], [employer] d/[employer]. It has not been clear ed or appro china by the U.S. Food and Drug Admin istra tion. The FDA has deter mined that such clear ance or appro liv is not neces joann. Perti nent refer ence inter vals are avail able from the [facility] atory on reque st. Test( s) perfo rmed by [facility] [employer] [facility] d/b/a [facility], [address] , [place] [address] , [address] ra, DO, Labor atory Direc tor, CLIA# [id number] Not Available [facility] ([facility]) [address], [place], [address], 09/30/2023 17:08:20 09/23/19 24 09/30/2023 RICKY DA PANEL katie tropicalis NOT DETECT ED normal Genom ic DNA is isola brandon from patie nt speci mens by [facility] labor atory techn iques and juan zed using custo m OpenA rray plate s, perfo rmed on the [employer] 12K Flex Real Time PCR syste m. A posit cha resul t is provi ded for patho genic bacte rial speci es based on detec tion of ampli ficat ion produ cts. Maude l vagin al caleb resul ts of Maude l or [place] brandon are deter mined by calcu latin g the ratio of the organ ism to the total bacte jez prese nt in the speci men, and anamaria ring that ratio to a Path[facility] roup patie nt popul ation . Overa ll resul ts of Maude l, Borde rline and Abnor mal are deter mined using a proba bilit y model which was devel oped by an exten sive juan sis and integ ratio n of clini binu thres holds for marke r organ isms on a large set of sympt omati c & asymp tomat ic speci mens. Patie nt popul ation s with diffe rent demog raphi cs from the [facility] roup model popul ation may have diffe rent indic ator organ isms with diffe rent relat cha ratio s, which would influ ence the final resul ts. Resul ts shoul d be inter prete d in the singh xt of all clini binu and labor atory findi ngs. The test was devel oped and its perfo rmanc e cinthia cteri stics deter mined by [employer] [facility] [employer], [employer] d/b/a [facility]. It has not been clear ed or appro china by the U.S. Food and Drug Admin istra tion. The FDA has deter mined that such clear ance or appro liv is not neces joann. Perti nent refer ence inter vals are avail able from the labor atory on reque st. Test( s) perfo rmed by [employer], [employer] d/b/a [facility], [address], [place] [address] , [address] ra, DO, Labor atory Direc tor, CLIA# [id number] Not Available [facility] ([facility]) [address] [place] [address] Dr [address], [place], [address], 09/30/2023 17:08:20 09/26/19 24 09/27/2023 URINA LYSIS , CHEMI BINU/M ACROS COPIC ONLY urine type NOT SPECIF IED Not Available [facility] ([facility]) [address] [place] [address] Dr Gal[address], [place], [address], 09/28/2023 23:14:46 09/26/19 24 09/27/2023 URINA LYSIS , CHEMI BINU/M ACROS COPIC ONLY urine color YELLOW yellow Not Available [facility]) [address] [place] [address] Dr Galdamez, [place], [address], 09/28/2023 23:14:46 09/26/19 24 09/27/2023 URINA LYSIS , CHEMI BINU/M ACROS COPIC ONLY urine appearance CLEAR clear Not Available [facility] ([facility]) [address] [place] [address] Dr Galdamez, [place], [address], 09/28/2023 23:14:46 09/26/19 24 09/27/2023 URINA LYSIS , CHEMI BINU/M ACROS COPIC ONLY urine specific gravity 1.018 1.005- 1.030 Not Available [facility] ([facility]) [address] [place] [address] Dr Galdamez, [place], [address], 09/28/2023 23:14:46 09/26/19 24 09/27/2023 URINA LYSIS , CHEMI BINU/M ACROS COPIC ONLY urine pH 6.0 5.0-9. 0 Not Available [facility] ([facility]) [address] [place] [address] Dr Galdamez, [place], [address], 09/28/2023 23:14:46 09/26/19 24 09/27/2023 URINA LYSIS , CHEMI BINU/M ACROS COPIC ONLY urine leukocytes esterase NEGATI VE negati ve Not Available [facility] ([facility]) [address] [place] [address] Dr Gal[address], [place], [address], 09/28/2023 23:14:46 09/26/19 24 09/27/2023 URINA LYSIS , CHEMI BINU/M ACROS COPIC ONLY urine nitrites NEGATI VE negati ve Not Available [facility] ([facility]) [address] [place] [address] Dr Gal[address]z, [place], [address], 09/28/2023 23:14:46 09/26/19 24 09/27/2023 URINA LYSIS , CHEMI BINU/M ACROS COPIC ONLY urine protein NEGATI VE negati ve Not Available [facility] ([facility]) [address] [place] [address] Dr Gal[address]z, [place], [address], 09/28/2023 23:14:46 09/26/19 24 09/27/2023 URINA LYSIS , CHEMI BINU/M ACROS COPIC ONLY urine glucose NEGATI VE negati ve Not Available [facility] ([facility]) [address] [place] [address] Dr Gal[address]z, [place], [address], 09/28/2023 23:14:46 09/26/19 24 09/27/2023 URINA LYSIS , CHEMI BINU/M ACROS COPIC ONLY urine ketones NEGATI VE negati ve Not Available [facility] ([facility]) [address] [place] [address] Dr Gal[address]z, [place], [address], 09/28/2023 23:14:46 09/26/19 24 09/27/2023 URINA LYSIS , CHEMI BINU/M ACROS COPIC ONLY urine urobilinogen 0.2 E.U./ dL 0.2-1. 0 Not Available [facility] ([facility]) [address] [place] [address] Dr Gal[address]z, [place], [address], 09/28/2023 23:14:46 09/26/19 24 09/27/2023 URINA LYSIS , CHEMI BINU/M ACROS COPIC ONLY urine bilirubin NEGATI VE negati ve Not Available [facility] [address] [place] [address] Dr Gald[address]z, [place], [address], 09/28/2023 23:14:46 09/26/19 24 09/27/2023 URINA LYSIS , CHEMI BINU/M ACROS COPIC ONLY urine blood NEGATI VE negati ve Not Available [facility]) [address] [place] [address] Dr Gald[address]z, [place], [address], 09/28/2023 23:14:46 09/26/19 24 09/27/2023 URINA LYSIS , CHEMI BINU/M ACROS COPIC ONLY specimen type NOT SPECIF IED Not Available [facility] ([facility]) [address] [place] [address] Dr Galdamez, [place], [address], 09/28/2023 23:14:46 09/26/19 24 09/28/2023 CULTU RE, URINE specimen source URINE - NOT SPECIF IED Not Available [facility]) [address] [place] [address] Dr Galdamez, [place], [address], 09/28/2023 23:14:46 09/26/19 24 09/28/2023 CULTU RE, URINE culture, urine SEE BELOW Final Repor t : No growt h Not Available [facility]) [address] [place] [address] Dr Gald[address]z, [place], [address], 09/28/2023 23:14:46 02/13/[address], abdom en + pelvi s, w/ contr ast No observ ation record ed. [email or web address] Not Available 2022 14:06:07 Result Notes None recorded. Problems Name Problem SNOMED Code Status Onset Date Resolution Date Notes Provider Name and Address Organization Details Recorded Time Inflammat ion of skin and/or subcutane ous tissue 771706387 Completed 201806/17/2018 Rachel Madison LPN null, [place] - [facility] [place] 9 12:44:24 Hidradeni tis suppurati va 39133897 Active 2018 Nicole LesleyspencerREZA [place], [place] [facility] [place] 3 14:00:04 Cholelith iasis with obstructi on 19571714 Active 2021 Nicole LseleyspencerJENNIFERN [place] [facility] [place] 3 14:00:04 Biliary sludge 02267551 Active 2021 Nicole JENNIFER ShookN [place] [facility] [place] 3 14:00:04 Chronic cholecyst itis 74224683 Active 2021 Nicoletoni Shook LPN [place] [facility] [place] 3 14:00:04 Anxiety disorder 272000785 Active 2020 Nicole ColoradojohnsonspencerJENNIFERN [place] [facility] [place] 2 14:04:16 Posttraum atic stress disorder, delayed onset 024367157 Active 2019 Nicole LesleyspencerREZA [place] [facility] [place] 2 14:04:16 Severe mixed bipolar I disorder 766873361697 Active 2020 Nicole LesleyspencerJENNIFERN [place] [facility] [place] 2 14:04:16 Attention deficit hyperacti vity disorder, predomina ntly inattenti ve type 50558417 Active 2019 Nicole LesleyspencerJENNIFERN [place] [facility] [place] 2 14:04:16 Problem Notes None recorded. Procedures Surgical History Date Name Laterality Status Provider Name and Address Organization Details Recorded Time 09/26/19 CHOLECYSTECTOMY, LAPAROSCOPIC (SURG) completed Lashonda Stevens, CARLOS-C [address] [facility], [place], [address], [place] [facility] [place] 11/06/2021 15:56:53 09/12/19 CHOLECYSTECTOMY, LAPAROSCOPIC (SURG) completed Ángela REZA Maldonado [place] [facility] [place] 09/11/2021 13:50:25 09/07/19 22 CHOLECYSTECTOMY, LAPAROSCOPIC (SURG) completed Zaynab YESSICA Lopez [place] [facility] [place] 11/14/2021 14:40:28 11/26/19 18 Date of Last Pap Smear completed Rachel Madison LPN [place] [facility] [place] 06/17/2018 12:45:22 tonsilectomy/jones noids completed Rachel Madison LPN [place] [facility] [place] 06/17/2018 12:49:05 Hysterectomy completed LAURA Vick [address] [facility], [place], [address], [facility] [place] [facility] [place] 09/23/2023 22:28:50 Imaging Results None recorded. Procedure Notes None recorded. Medical Equipment None Reported. Allergies Allergen ID Allergen Name Allergen Category Reaction Reaction Severity Criticality Documentation Date Start Date Code Code System Note Provider Name and Address Organization Details Recorded Time 294760 doxycycli ne Not available Not available Not available Not available 08/23/2021 3640 RxNorm Nicole Shook REZA leandro[place] [facility] [place] 3 14:00:13 866710 Product containin g penicilli n (product) medicatio n Not available Not available Not available 08/23/2021 87337 8001 SNOMED Nicole ShookREZA null[place] [facility] [place] 3 14:00:13 575177 clindamyc in Not available anaphylax is Not available Not available 08/23/2021 2582 RxNorm Nicole Shook REZA leandro[place] [facility] [place] 3 14:00:13 177523 hydrocodo ne Not available Not available Not available Not available 09/07/2021 5489 RxNorm Patie nt state s this is not an aller gy Lashonda shell TACK MAKER-C [address] [facility], [place], [address], [facility] [place] 4 17:21:31 151776 codeine medicatio n Not available Not available Not available 09/07/2021 2670 RxNorm Patie nt state s this is not an aller gy Lashonda Santoro n, TACK MAKER-C [address] [facility], [place], [address], [facility] [place] 4 17:22:04 818105 pertussis vaccine medicatio n Not available Not available Not available 02/01/20222020 8080 RxNorm Other react ions and sever ities : 'Unkn own child perales' . Nicole Shook LPN [address] 2 14:03:07 Medications Name Sig Start Date Stop Date Status Note LastModified by Organization Details LastModified Time celecoxib 200 mg capsule active Not Available Not Available Not Available amoxicillin 500 mg capsule 04/12 completed Not Available Not Available Not Available methocarbam ol 500 mg tablet 05/18 completed Not Available Not Available Not Available metformin 500 mg tablet 09/07 completed Not Available Not Available Not Available terconazole 0.4 % vaginal cream 09/22 completed Not Available Not Available Not Available prednisone 10 mg tablet Take 1 tablet twice a day by oral route for 10 days. 05/10 completed Not Available Not Available Not Available doxycycline hyclate 100 mg capsule 04/12 completed Not Available Not Available Not Available nicotine 14 mg/24 hr daily transdermal patch 09/07 completed Not Available Not Available Not Available albuterol sulfate 2.5 mg/3 mL (0.083 %) solution for nebulizatio n USE 1 VIAL(S) PER NEBULIZER EVERY 4 TO 6 HOURS NEEDED active Not Available Not Available No t Available triamcinolo ne acetonide 0.5 % topical cream 05/18 completed Not Available Not Available Not Available cetirizine 10 mg tablet Take 1 tablet every day by oral route at bedtime. 2022 active Not Available Not Available Not Avai lable azithromyci n 250 mg tablet TAKE 2 TABLETS (500 MG) BY ORAL ROUTE ONCE DAILY FOR 1 DAY THEN 1 TABLET (250 MG) BY ORAL ROUTE ONCE DAILY FOR 4 DAYS 05/15 completed Not Available Not Available Not Available ibuprofen 800 mg tablet TAKE ONE TABLET BY MOUTH EVERY 6 HOURS 09/22 completed Not Available Not Available Not Available fluconazole 150 mg tablet Take 1 tablet every day by oral route for 30 days. active Not Available Not Available No t Available cephalexin 250 mg capsule 09/22 completed Not Available Not Available Not Available hydrocodone 5 mg-acetamin ophen 325 mg tablet Take 1 tablet every 6 hours by oral route as needed. 04/08 completed Not Available Not Available Not Available ondansetron HCl 8 mg tablet 05/18 completed Not Available Not Available Not Available sucralfate 1 gram tablet 08/20 completed Not Available Not Available Not Available promethazin e 12.5 mg tablet 09/22 completed Not Available Not Available Not Available metronidazo le 0.75 % (37.5 mg/5 gram) vaginal gel 09/22 completed Not Available Not Available Not Available prednisone 20 mg tablet TAKE TWO TABLETS BY MOUTH ONCE A DAY WITH FOOD 09/22 completed Not Available Not Available Not Available betamethaso ne, augmented 0.05 % topical cream 09/07 completed Not Available Not Available Not Available hydroxyzine pamoate 50 mg capsule 09/30 completed Not Available Not Available Not Available penicillin V potassium 500 mg tablet 09/07 completed Not Available Not Available Not Available metronidazo le 500 mg tablet TAKE 4 TABLETS BY MOUTH NOW FOR 1 DOSE 09/22 completed Not Available Not Available Not Available hydroxyzine HCl 50 mg tablet 04/08 completed Not Available Not Available Not Available ciprofloxac in 500 mg tablet 04/12 completed Not Available Not Available Not Available sulfamethox azole 800 mg-trimetho prim 160 mg tablet 06/17 completed Not Available Not Available Not Available hydrocodone 10 mg-acetamin ophen 325 mg tablet 08/05 completed Not Available Not Available Not Available omeprazole 40 mg capsule,del ayed release TAKE ONE CAPSULE BY MOUTH TWICE DAILY active Not Available Not Available No t Available triamcinolo ne acetonide 0.1 % topical cream active Not Available Not Available Not Available bupropion HCl SR 100 mg tablet,12 hr sustained-r elease 100 mg by oral route. 09/07 completed Not Available Not Available Not Available butalbital- acetaminoph en-caffeine 50 mg-325 mg-40 mg tablet 04/08 completed Not Available Not Available Not Available ondansetron 8 mg disintegrat ing tablet Place 1 tablet every 8 hours by transling ual route. 09/07 completed Not Available Not Available Not Available amoxicillin 875 mg tablet 09/07 completed Not Available Not Available Not Available ziprasidone 20 mg capsule 08/20 completed Not Available Not Available Not Available famotidine 20 mg tablet 09/22 completed Not Available Not Available Not Available dexamethaso ne 2 mg tablet 09/22 completed Not Available Not Available Not Available hydrocodone 7.5 mg-acetamin ophen 325 mg tablet 08/05 completed Not Available Not Available Not Available cephalexin 500 mg capsule Take 1 capsule every 8 hours by oral route for 7 days. 09/22 completed Not Available Not Available Not Available pantoprazol e 40 mg tablet,lizeth yed release TAKE 1 TABLET BY MOUTH ONCE A DAY ON A EMPTY STOMACH FOR HEARTBURN OR REFLUX 09/22 completed Not Available Not Available Not Available buspirone 10 mg tablet 10 mg 3 times a day by oral route. 09/07 completed Not Available Not Available Not Available clotrimazol e-betametha sone 1 %-0.05 % topical cream 09/22 completed Not Available Not Available Not Available nicotine 21 mg/24 hr daily transdermal patch 09/07 completed Not Available Not Available Not Available Adipex-P 37.5 mg capsule Take 1 capsule every day by oral route. 09/06 completed Not Available Not Available Not Available omeprazole 20 mg capsule,del ayed release 05/18 completed Not Available Not Available Not Available Lupron Depot 3.75 mg intramuscul ar syringe kit Inject 1 kit every month by intramusc ular route. 05/18 completed Not Available Not Available Not Available magnesium citrate oral solution Take 444 mL by oral route as directed. 05/18 completed Not Available Not Available Not Available Pepcid 40 mg tablet Take 1 tablet every day by oral route in the morning. 2022 active Not Available Not Available Not Avai lable montelukast 10 mg tablet 09/07 completed Not Available Not Available Not Available mupirocin 2 % topical ointment 04/08 completed Not Available Not Available Not Available furosemide 20 mg tablet Take 1 tablet everyday active Not Available Not Available No t Available norethindro ne acetate 5 mg tablet Take 1 tablet every day by oral route. 05/18 completed Not Available Not Available Not Available metoprolol succinate ER 25 mg tablet,exte nded release 24 hr 09/07 completed Not Available Not Available Not Available nystatin 100,000 unit/gram topical powder 09/22 completed Not Available Not Available Not Available epinephrine 0.3 mg/0.3 mL injection, auto-inject or Take 1 auto as needed by injection route. active Not Available Not Available No t Available prednisone 5 mg tablets in a dose pack 09/07 completed Not Available Not Available Not Available ibuprofen 600 mg tablet Take 1 tablet every 6 hours by oral route as needed. 05/18 completed Not Available Not Available Not Available estradiol 0.01% (0.1 mg/gram) vaginal cream 09/22 completed Not Available Not Available Not Available scopolamine 1 mg over 3 days transdermal patch 09/22 completed Not Available Not Available Not Available methylpredn isolone 4 mg tablets in a dose pack Take as directed 02/01 completed Not Available Not Available Not Available albuterol sulfate HFA 90 mcg/actuati on aerosol inhaler INHALE 2 PUFFS BY MOUTH EVERY 4 TO 6 HOURS NEEDED active Not Available Not Available No t Available Vitamin D2 1,250 mcg (50,000 unit) capsule 09/07 completed Not Available Not Available Not Available ipratropium bromide 42 mcg (0.06 %) nasal spray 09/07 completed Not Available Not Available Not Available ondansetron 4 mg disintegrat ing tablet Place 1 tablet every 6-8 hours by transling ual route as needed. active Not Available Not Available No t Available cefdinir 300 mg capsule Take 1 capsule every 12 hours by oral route for 10 days. 09/22 completed Not Available Not Available Not Available fluoxetine 20 mg capsule Take 20 mg by oral route. 08/20 completed Not Available Not Available Not Available doxycycline hyclate 100 mg tablet 09/07 completed Not Available Not Available Not Available dicyclomine 10 mg capsule 06/17 completed Not Available Not Available Not Available ipratropium bromide 21 mcg (0.03 %) nasal spray 04/03 completed Not Available Not Available Not Available loratadine 10 mg tablet 09/07 completed Not Available Not Available Not Available naproxen 500 mg tablet 05/18 completed Not Available Not Available Not Available spironolact one 50 mg tablet Take 1 tablet every day by oral route. 09/30 completed Not Available Not Available Not Available amoxicillin 875 mg-potassiu m clavulanate 125 mg tablet 04/12 completed Not Available Not Available Not Available nicotine 7 mg/24 hr daily transdermal patch 09/07 completed Not Available Not Available Not Available oxycodone 5 mg tablet TAKE ONE TABLET BY MOUTH EVERY 6 HOURS NEEDED FOR PAIN 09/22 completed Not Available Not Available Not Available hydroxyzine pamoate 25 mg capsule 02/01 completed Not Available Not Available Not Available azithromyci n 500 mg tablet 09/22 completed Not Available Not Available Not Available aripiprazol e 15 mg tablet 09/07 completed Not Available Not Available Not Available aripiprazol e 5 mg tablet 04/08 completed Not Available Not Available Not Available tinidazole 500 mg tablet Take 2 tablets every day by oral route for 5 days. 09/22 completed Not Available Not Available Not Available nitrofurant oin monohydrate /macrocryst als 100 mg capsule Take 1 capsule every 12 hours by oral route for 7 days. active Not Available Not Available No t Available aripiprazol e 2 mg tablet 04/08 completed Not Available Not Available Not Available Symbicort 80 mcg-4.5 mcg/actuati on HFA aerosol inhaler INHALE TWO PUFFS BY MOUTH TWICE A DAY 08/20 completed Not Available Not Available Not Available Gavilax 17 gram/dose oral powder Take 17 g twice a day by oral route as directed. 09/07 completed Not Available Not Available Not Available Mucus Relief ER 600 mg tablet, extended release 04/03 completed Not Available Not Available Not Available Suprep Bowel Prep Kit 17.5 gram-3.13 gram-1.6 gram oral solution Take 177 mL twice a day by oral route as directed for 1 day. 09/07 completed Not Available Not Available Not Available Chantix Starting Month Box 0.5 mg (11)-1 mg (42) tablets in dose pack 06/17 completed Not Available Not Available Not Available potassium chloride ER 20 mEq tablet,exte nded release Take 1 tablet everyday active Not Available Not Available No t Available Vitals Date Recorded Body height Body mass index (BMI) Body weight Body temperature Heart rate Oxygen saturation Oxygen saturation in Arterial blood by Pulse oximetry Systolic And Diastolic Provider Name and Address Organization Details Last Updated DateTime 3 165.1 cm 38.5 kg/m2 917863. 24 g 98 [degF] 105 /min 98 % 98 % 124/78 mm[Hg] Andrez Avalos [facility] [place] 3 14:45:03 Date Recorded Body height Body mass index (BMI) Body weight Body temperature Heart rate Oxygen saturation Oxygen saturation in Arterial blood by Pulse oximetry Systolic And Diastolic Provider Name and Address Organization Details Last Updated DateTime 4 165.1 cm 41 kg/m2 385438. 52 g 98.5 [degF] 93 /min 96 % 96 % 128/76 mm[Hg] Andrez Avalos [facility] [place] 4 17:00:48 Date Recorded Body height Body weight Body temperature Heart rate Oxygen saturation Oxygen saturation in Arterial blood by Pulse oximetry Systolic And Diastolic Provider Name and Address Organization Details Last Updated DateTime 4 165.1 cm 922346. 32 g 97.9 [degF] 109 /min 96 % 96 % 118/72 mm[Hg] Andrez Avalos [facility] [place] 4 15:42:47 Date Recorded Body height Body mass index (BMI) Body weight Body temperature Heart rate Oxygen saturation Oxygen saturation in Arterial blood by Pulse oximetry Systolic And Diastolic Provider Name and Address Organization Details Last Updated DateTime 3 165.1 cm 37.8 kg/m2 363336. 57 g 97.5 [degF] 120 /min 99 % 99 % 118/62 mm[Hg] Andrez Avalos CMA [address] 3 15:38:28 Date Recorded Body height Body mass index (BMI) Body weight Body temperature Heart rate Oxygen saturation Oxygen saturation in Arterial blood by Pulse oximetry Systolic And Diastolic Provider Name and Address Organization Details Last Updated DateTime 3 165.1 cm 37.5 kg/m2 219913 g 98.1 [degF] 103 /min 97 % 97 % 136/82 mm[Hg] Tiara Mcnulty LPN [facility] [place] 3 10:37:57 Social History Question Answer Notes LastModified by Organizat ion Details LastModified Time Tobacco Smoking Status Former Smoker 1 PPD x 8 yrs Tiara Mcnulty LPN [address] 01/25/2023 10:22:49 Do You Have An Advance Directive? No Information not available 09/07/2021 Are You Blind Or Do You Have Difficulty Seeing? No [email or web address] Information not available 05/18/2021 Is Blood Transfusion Acceptable In An Emergency? Yes Information not available 06/17/2018 What Is Your Level Of Caffeine Consumption? Occasional Information not available 06/17/2018 How Much Tobacco Do You Chew? None Information not available 06/17/2018 Are You Deaf Or Do You Have Serious Difficulty Hearing? No [email or web address] Information not available 05/18/2021 Which Illicit Or Recreational Drugs Have You Used? Denies Information not available 06/17/2018 Education 12 Information no t available 06/17/2018 When Did You Quit Smoking? 1-5yearssincel tan Quit In 2019 Information not available 01/25/2023 Live Alone Or With Others? With Others Information not available 06/17/2018 Do You Have A Medical Power Of Animal Care Specialist? No Information not available 09/07/2021 What Was The Date Of Your Most Recent Tobacco Screening? 09/26/2023 [email or web address] Information not available 09/26/2023 How Many Children Do You Have? 0 Information not available 06/17/2018 What Is Your Current Pack Years? [email or web address] Information not available 01/25/2023 Performs Monthly Self-breast Exam? No Information not available 06/17/2018 Do You Use Protection During Sex? No Information not available 06/17/2018 What Is Your Relationship Status? [email or web address] Information not available 04/08/2019 Seat Belts Used Routinely Yes Information not available 06/17/2018 Are You Sexually Active? Yes Information not available 06/17/2018 At What Age Did You Start Smoking Tobacco? 15 Information not available 06/17/2018 How Much Tobacco Do You Smoke? 1 PPD Information not available 06/17/2018 General Stress Level Medium Information not available 06/17/2018 Do You Use Sunscreen Routinely? No Information not available 06/17/2018 How Many Years Have You Smoked Tobacco? 8 Information not available 06/17/2018 Do You Have Difficulty Walking Or Climbing Stairs? No [email or web address] Information not available 05/18/2021 Sex: Unknown Functional Status Question Answer Note LastModified by Organizat ion Details LastModified Time What is your level of alcohol consumption? Occasional Information not available 06/17/2018 Do you or have you ever used smokeless tobacco? Never used smokeless tobacco [email or web address] Information not available 04/08/2019 Are you currently employed? No [email or web address] Information not available 04/08/2019 Do you have difficulty doing errands alone? No Information not available 05/18/2021 Are you able to care for yourself? Yes [email or web address] Information not available 05/18/2021 What is your occupation? Unemployed [email or web address] Information not available 04/08/2019 Do you have difficulty dressing or bathing? No [email or web address] Information not available 05/18/2021 Do you or have you ever used e-cigarettes or vape? Former user of electronic cigarettes [email or web address] Information not available 02/01/2022 What is your exercise level? Occasional Information not available 06/17/2018 Mental Status Question Answer Note LastModified by Organization D etails LastModified Time Do you have difficulty concentrating, remembering or making decisions? No [email or web address] Information no t available 05/18/2021 Family History Relationship Description Onset Age of this Age Resolved Age Notes LastModified by Organization Details LastModified Time Brother Kidney disease sbess Not available 2018 12:46:29 Brother Heart disease sbess Not available 2018 12:46:41 Maternal Grandfather Heart disease sbess Not available 2018 12:46:56 Medical History Condition Response RHEUMATIC FEVER N STROKE N RADIATION / CHEMOTHERAPY N SEIZURES N FEMALE PROBLEMS / INFECTIONS N DEPRESSION (INCLUDING POST ) N BOWEL PROBLEMS N THYROID DISEASE N HIV / AIDS N OBESITY N ANEURYSM N URINARY/BLADDER/KIDNEY PROBLEMS N HEADACHES N USE OF BLOOD THINNERS N SICKLE CELL N SKIN PROBLEMS N BLOOD CLOTS N ASTHMA N VARICOSITIES N ANEMIA N LUNG DISORDER N HYPERTENSION N ANXIETY DISORDER N ANEMIA/BLOOD DISORDER N HEART DISEASE N HORMONE IMBALANCE N DIABETES N HAVE YOU BEEN HOSPITALIZED OR SEEN IN [facility] IN THE PAST YEAR ? Y MIGRAINES N BREAST PROBLEMS N OSTEOPOROSIS N CANCER N ARTHRITIS N HIGH CHOLESTEROL N HEPATITIS / LIVER DISEASE N PULMONARY DISEASE N SLEEP DISORDER N HERPES N ALLERGIES N VASCULAR DISEASE N DIZZINESS N GERD / HEARTBURN / REFLUX N KIDNEY DISEASE N PULMONARY EMBOLISM N Gynecological History Statement/Question Response Flow Light Date of LMP 03/28/2022 Sexually Active? Y STIs/STDs Y Date of Last Pap Smear 11/25/2017 Sexual Problems? Y LMP Approximate Obstetrics History GPAL:G 0 P 0 0 0 0 Past Encounters Encounter ID Performer Location Encounter Start Date Encounter Closed Date Diagnosis/Indication Diagnosis SNOMED-CT Code Diagnosis ICD10 Code Diagnosis Note [id number] JAYLON HAYNES MD [facility] [employer] [address] [place] [address] 06/17/2018 12:14:14 06/17/2018 13:48:03 Endometriosis (clinical) 938927717 N80.9 will obtain records Hirsutism 361804006 L68. 0 Pain in pelvis 27226106 R10.2 [id number] JAYLON HAYNES MD [facility] [employer] [address] [place] [address] 07/01/2018 15:12:22 07/01/2018 17:03:00 Endometriosis (clinical) 005271432 N80.9 Anovulation 47382440 N97 .0 [id number] JAYLON HAYNES MD [facility] [employer] [address] [place] [address] 08/05/2018 14:18:48 08/05/2018 15:04:22 Endometriosis (clinical) 562702614 N80.9 Pain in pelvis 86542306 R10.2 [id number] JAYLON HAYNES MD [facility] [employer] [address] [place] [address] 08/11/2018 10:35:45 08/11/2018 11:50:12 Endometriosis of uterus 12206549 N80.0 Seen by nurse 155613077 Z76.89 [id number] AILEEN STEINER NP [facility] [employer] [address] [place] [address] 09/10/2018 15:42:20 09/10/2018 16:10:44 Endometriosis of uterus 21175299 N80.0 [id number] JAYLON HAYNES MD [facility] [employer] [address] [place] [address] 09/30/2018 15:41:17 10/14/2018 16:36:52 Endometriosis of uterus 83483745 N80.0 Pain in pelvis 90630721 R10.2 [id number] PARUL JOHNSTON MD [facility] [employer] [address] [place] [address] 10/10/2018 15:36:53 10/10/2018 16:31:05 Pain in pelvis 15353673 R10.2 [id number] JAYLON HAYNES MD [facility] [employer] [address] [place] [address] 11/10/2018 14:56:08 11/10/2018 17:03:32 Endometriosis (clinical) 649808328 N80.9 Seen by nurse [id number] Z76.89 [id number] JAYLON HAYNES MD [facility] [employer] [address] [place] [address] 12/10/2018 15:35:00 12/10/2018 16:48:39 Endometriosis of uterus 79818728 N80.0 [id number] JAYLON HAYNES MD [facility] [employer] [address] [place] [address] 01/27/2019 12:41:35 01/27/2019 13:10:00 Endometriosis of uterus 88286510 N80.0 Seen by nurse 644416875 Z76.89 [id number] JAYLON HAYNES MD [facility] [employer] [address] [place] [address] 03/11/2019 16:58:38 03/13/2019 11:42:30 Endometriosis of uterus 50717680 N80.0 [id number] AILEEN STEINER NP [facility] [employer] [address] [place] [address] 04/08/2019 11:58:11 04/08/2019 12:48:31 Endometriosis of uterus 08788596 N80.0 Dx'd in 2017 or 2017Obtain op note (before next visit) from [facility]*E xploring bowel management to see if some of her pain is coming from bowel source as well Pain in pelvis 17166514 R10.2 FU 1 week, bowel management Constipation 19029488 K5 9.00 Alternatin g with diarrheaBl oatingBowe l management RTC 7-10 days [id number] AILEEN STEINER NP [facility] [employer] [address] [place] [address] 04/15/2019 10:48:09 04/15/2019 14:05:26 Endometriosis of uterus 84873084 N80.0 Dx'd in 2016 or 2017Obtain op note (before next visit) from [facility]*E xploring bowel management to see if some of her pain is coming from bowel source as wellCiara pron given today and will rpt in 1 mo (this will be her FINAL Lupron)Hop e we can switch to Orilissa at that time (she is trying to switch to [place] Medicaid) Pain in pelvis 45384789 R10.2 Bowel management rx'd - she will FU in 1 mo after doing it Constipation 79404249 K5 9.00 Alternatin g with diarrheaBl oatingBowe l management rx'd but she hasn't had time to complete yet. She will do this VIK and then stay on Miralax and FU 1 mo. Reviewed x-ray with patient. [id number] PAMELA KRAUSE MD [facility] [address] [place] [address] [address] 04/12/2021 14:44:07 04/12/2021 15:03:51 Cholelithiasis with obstruction 63711235 K80.81 at this point the patient's symptoms are not consistent with biliary colic. She has gallbladde r sludge but no wall thickening etc. I would propose hepatobili ayaan scan to further assess her gallbladde r function. [id number] Quintin Sherman MD [facility] [address] [place] [address] 05/18/2021 15:01:07 05/19/2021 10:11:35 Right upper quadrant pain 777356955 R10.11 Nausea and vomiting 1693 2000 R11.2 Hematemesis 6096793 K92. 0 Altered jennifer wel function 24605876 R19.4 Diarrhea 95010995 R19.7 [id number] Quintin Sherman MD [facility] [address] [place] [address] 06/14/2021 14:29:16 06/15/2021 11:11:49 Gastroesophageal reflux disease without esophagitis 188951138 K21.9 This is a 26-year-ol d female who presents for follow-up. The patient was previously seen for evaluation of right upper quadrant abdominal pain, gallbladde r sludge, history of nausea vomiting, hematemesi s, dyspepsia, unexplaine d diarrhea, unintentio nal weight loss, tobacco use. She has no family history of esophageal , gastric or colorectal cancer. The patient underwent an EGD and colonoscop y on 05/27/2021. The patient is EGD revealed evidence of grade B erosive esophagiti s. Biopsy results reviewed. No evidence of microscopi c colitis noted. 2 hyperplast ic rectal polyps identified . The patient currently is on omeprazole 40 mg p.o. B.i.d.. Patient reports no further symptoms of diarrhea. She describes having minimal abdominal pain. The patient is tolerating omeprazole well without side effects. The patient's HIDA scan with gallbladde r ejection fraction 04/28/2021 was 56%.Impres taylor: 1. GERD with grade B erosive esophagiti s. Patient currently is on omeprazole 40 mg p.o. B.i.d.. Symptoms of nausea, vomiting, right upper quadrant abdominal pain has improved 2. History of gallbladde r sludge found on transabdom inal ultrasound . HIDA scan with gallbladde r ejection fraction within normal limits. 3. History of altered bowel habits clinically resolved following colonoscop y and started of low FODMAP diet. 4. History of unexplaine d weight loss clinically resolved 5. No family history of esophageal , gastric or colorectal cancer.Rec ommendatio ns: 1. Continue omeprazole 40 mg p.o. B.i.d. 0.5 hour before breakfast supper x3 months stent consider decreasing to once daily 2. Maintain anti-reflu x precaution s 3. Maintain low FODMAP diet 4. Anti-reflu x precaution s 5. Follow-up in 3 months for clinical reassessme nt. [id number] Quintin Shermna MD [facility] [address] [place] [address] 08/23/2021 16:38:01 08/24/2021 11:14:23 Biliary colic 07015405 K80.50 Biliary sludge 64336923 K83.8 Abnormal f indings diagnostic imaging of liver+biliary tract 833590120 R93.2 [id number] PAMELA KRAUSE MD [facility] [address] [place] [address] 09/06/2021 10:06:03 09/06/2021 11:16:40 Biliary sludge 49497443 K83.8 At this point I again discussed with the patient that her symptoms are only peripheral ly related to her gallbladde r sludge. I again reiterated that I would not expect cholecyste ctomy to relieve her symptoms but it did would be a possibilit y. After discussing the procedure in detail as well as an extensive discussion of the risks involved she wishes to proceed with cholecyste ctomy both for diagnostic peritoneoc opy reasons as well as to remove her gallbladde r and the sludge within. [id number] Andrez Dumont MD [facility] [address] [place] [address] 09/07/2021 14:59:01 09/08/2021 16:21:42 Acute bronchitis 20240307 J20.9 - Tylenol/Ib uprofen over the counter as directed for fever/pain . Overweight 024781454 E66 .3 Depression screening 171 488111 Z13.31 - positive depression screen- under care of psych [id number] Andrez Dumont MD [facility] [address] [place] [address] 09/20/2021 14:25:06 09/20/2021 15:57:05 Overweight 384115875 E66.3 Hypokalemia 27363653 E87 .6 Leukocytosis 202167572 D 72.829 Acute bronchitis 6641331 2 J20.9 - Tylenol/Ib uprofen over the counter as directed for fever/pain .- she has been instructed to increase her nebulizer treatments every 4-6 hours as needed for shortness of breath or wheezing Postoperative pain 12177 9007 G89.18 - follow up with Surgeon saturday- Tylenol/Ib uprofen over the counter as directed for pain. [id number] PAMELA KRAUSE MD [facility] [address] [place] [address] 09/25/2021 15:06:09 09/25/2021 17:01:25 Chronic cholecystitis 16280896 K81.1 [id number] Andrez Dumont MD [facility] [address] [place] [address] 11/06/2021 15:05:28 11/07/2021 08:57:08 Acute bronchitis 99209710 J20.9 - Tylenol/Ib uprofen over the counter as directed for fever/pain .- she has been instructed to increase her nebulizer treatments every 4-6 hours as needed for shortness of breath or wheezing [id number] Lashonda Stevens NP-Gianna [facility] [address] [place] [address] 02/01/2022 13:59:29 02/01/2022 16:01:58 Chronic urticaria 60302500 L50.8 Gastroesop hageal reflux disease without esophagitis 043115775 K21.9 Acute sinusitis 97159317 J01.90 - continue zyrtec- Tylenol/Ib uprofen over the counter as directed for fever/pain . Obesity 487179643 E66.9 [id number] Andrez Dumont MD [facility] [address] [address] 04/03/2022 09:15:09 04/03/2022 10:30:16 Generalized aches and pains 91641915 R52 - Tylenol/Ib uprofen over the counter as directed for fever/pain . Acute uppe r respiratory infection 81328309 J06.9 - add over the counter cough suppressan t as directed [id number] Andrez Dumont MD [facility] [address] [address] 04/13/2022 13:45:30 04/13/2022 15:49:41 Obesity 496258464 E66.9 Chronic urticaria 930271 05 L50.8 Acute uppe r respiratory infection 82656008 J06.9 - restart nebulizers every 4-6 hours as needed- abx completed- continue with musinex (no DM)- continue zyrtec [id number] Andrez Dumont MD [facility] [address] [address] 05/10/2022 14:01:17 05/10/2022 15:19:02 Exacerbation of intermittent asthma 364007912 J45.21 - continue neb treatments and increase to every 4-6 hours Obesity 000833757 E66.9 [id number] Andrez Dumont MD [facility] [address] [address] 07/11/2022 13:51:48 07/11/2022 15:37:31 Gynecologic examination 44992028 Z01.419 - well woman findings discussed. - self breast exam encouraged monthly in 2 different positions -- standing and laying down. Discussed if discovers a mass, dimpling, changes in skin, inverted nipple, nipple discharge, or rash that does not go away to contact our office VIK. - pap results take 7-10 days. - if you have not heard from our office in 2 weeks, please call our office. - for women 40 and older we recommend a clinical breast exam and a mammogram yearly. History of human papilloma virus infection 0441686163 61053 Z86.19 Screening for malignant neoplasm of cervix 325119816 Z12.4 Toothache 80832835 K08.8 9 - I have reviewed the applicatio n of heat, ice, biofreeze, icy hot, etc- dental appt vik Obesity 328744537 E66.9 [id number] Andrez Dumont MD [facility] [address] [address] 08/20/2022 14:11:07 08/20/2022 15:13:38 Dyspnea 665992440 R06.00 Gastroesop hageal reflux disease without esophagitis 632430497 K21.9 Chronic urticaria 835114 05 L50.8 Obesity 767252734 E66.9 [id number] Andrez Dumont MD [facility] [address] [address] 10/17/2022 14:40:37 10/17/2022 16:18:46 Acute upper respiratory infection 61665618 J06.9 - restart nebulizers every 4-6 hours as needed- continue zyrtec Nausea 968729696 R11.0 Obesity 935854124 E66.9 [id number] Gualberto Rich DO [facility] [address] [address] 01/25/2023 09:35:39 01/25/2023 11:39:34 Dysuria 92168122 R30.0 UA negative Allergic urticaria 24029 009 L50.0 pt was prescribed prednisone from ED yesterday but has not picked it up yetreports sob today but no wheezing is heard. she is talking very fast without difficulty . no obvious distressal lergies referralep i penzyrtec dailypepci d dailymust seen medical director/head team physician Bacterial vaginosis 4197 57846 N76.0 has been treated with topical flagyl, reports allerlgly to oral flagyl and clindamyci n, reports tinidazole did not help.order bv panel send outua negative Obesity 360328267 E66.9 [id number] Gualberto Rich DO [facility] [address] [address] 09/23/2023 16:30:52 09/23/2023 17:45:57 Vaginal discharge 643128749 N89.8 Recurrent urinary tract infection 539882992 N39.0 Morbid obesity 191870717 E66.01 [id number] Gualberto Rich, DO [facility] [address] [place] [address] 09/26/2023 15:20:54 09/26/2023 16:29:30 Recurrent urinary tract infection 661650703 N39.0 Morbid obesity 601996569 E66.01 Candidiasis of vagina 72 208938 B37.31 Health Concerns Section Related Observation LastModified by Organization Detai ls LastModified Time None Recorded Concern Status LastModified by Organization Details LastModified Time None Recorded Advance Directives Directive N: Payers Insurance Date Sequence Insurance Name Policy Number Policy Crum Covered Member ID Crum Member ID Guarantor Name 02/01/2022 1 [place] Karoline Villarreal [id number] Karoline Villarreal 02/01/2022 1 [place] EUGENIE SUDHA Karoline Villarreal [id number] Karoline Villarreal 09/26/2023 1 [place] [id number] Karoline Villarreal [id number] Karoline Villarreal 01/25/2023 1 [employer] (MEDICAID REPLACEMENT - HMO) Karoline Villarreal [id number] Karoline Villarreal 05/05/2024 1 [place] [id number] Karoline Villarreal [id number] Karoline Villarreal 06/19/2023 1 [place] [id number] Karoline Villarreal [id number] Karoline Villarreal Notes Date Note Type Note Provider Name and Address Organization Details Recorded Time 08/20/2022 text/html 27-year-old siomara ornelas who presents today needing a note for work. She states that she does use an inhaler for some shortness of breath when it gets very hot. No diagnosis of asthma. She is a non-smoker. No history of PFT. Does use the inhaler 1-2 times per month depending on weather. She is requesting refills of her omeprazole and Zyrtec. Lashonda Stevens, CARLOS-C [address] [place] [address], Jessica [place], [place], [address], [place] - [facility] [place] 08/20/2022 15:37:59 10/17/2022 text/html 27-year-old siomara ornelas who presents today with a 4 to 5-day history of cough and congestion. She has had some generalized myalgia. She has had a headache. No sick contacts. She has not taken anything [id number]. She has had some nausea without vomiting. LAURA Vick [address], [place], [place], [address], [place] - [facility] [place] 10/17/2022 16:53:33 01/25/2023 text/html 27-year-old siomara ornelas presents to the office today with complaint of allergic reaction She states her chest is tight and her heart rate is up right now. she has hives. she drank almond milk. she also thinks she might be allergic to her dog. not sure. Patient was in the emergency department yesterday and was given injection of steroid, Pepcid, and Benadryl. She was also prescribed oral steroids which she states she has not picked up from the pharmacy yet. Patient denies any wheezing or stridor. Denies any swelling of the face or oral airway. Pt states she also had an allergic reaction to almond milk and was seen at [facility] ER yesterday, c/o red and itchy rash, burning of skin, and SOB, also c/o burning with urination, abnormal vaginal odor, vaginal itching and irritation, and increased vaginal discharge. pt states that she has been having hives and itching on and off. she has been in the hospital for 15 different allergic reactions over the past 2 years Most recently she was in the hospital 01/09/23, 01/12, , and 01/24 . Reviewed laboratory studies performed in the emergency department which include negative trichomonas, negative gonorrhea, negative urinalysis, and negative chlamydia. Eosinophils were not elevated. She states she has also been on tinidazole for BV. SHe states she is sore around her labia. she states she has had diflucan as well. It is burning bad when she voids. She states that Sharon Morales NP [address] [facility] [place] [facility] [place] [address], [place] [facility] [place] 01/25/2023 15:20:30 09/23/2023 text/html Presents today with complaints of vag discharge and UTI symptoms for several weeks. Did present to the ED. Negative CT. Negative UA however no culture. Has alot of dysuria and pelvic pain. Currently on flagyl from her HEAD NURSE for bacterial infection . LAURA Vick [address] [facility] [place], [address], [facility] [place] [facility] [place] 09/23/2023 22:32:07 09/26/2023 text/html 28-year-old fema johnson who presents today with complaints of vaginal discharge. She states that she has had some swelling and redness. Discharge is white and clumpy. She has had several yeast infections recently. LAURA Vick [address] [place], [place] [address], [address], [facility] [place] [facility] [place] 09/26/2023 18:11:58 OBGyn Episode No OBEpisode recorded.
--- OUTSIDE RECORDS SUMMARY | 2024-08-26 23:02 | XMS_ITS | Data Portability ---
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 Development Test Engineer Name Role Phone GENEVIEVE TOUSSAINT Primary Care Provider [phone] Assessment Encounter Date Assessment Date Assessment LastModified by Organization Details LastModified Time 04/22/2023 04/22/2023 RTC POST OP TL[facility] Not available 04/22/2023 16:54:06 05/29/2023 05/29/2023 RTC 2-month post op TL[facility] hormones Not available 05/29/2023 14:43:25 06/19/2023 06/19/2023 RTC as scheduled for hormone check *WILL CALL PT WITH RESULTS OF LABS TODAY Not available 06/19/2023 12:45:42 07/01/2023 07/01/2023 RTC 1 month [email or web address] Not available 18:05:28 Plan of Treatment Reminders Order Date Submit Date Provider Last Modified By Organization Details Last Modified Time Details Appointments None recorded. Lab culture, genital, bacterial 2023 024 [facility] ([facility]), [address] [facility] [address], [place], [address], 07:02:34 mycoplasma sp + ureaplasma sp, culture, unspecified specimen 2023 024 [facility]), [address] [facility] [address], [place], [address], 4 13:33:47 bacterial vaginosis + vaginitis panel, vaginal 2023 [facility] ([facility]), [facility] [address]hee, [place], [address], 4 16:24:46 neisseria gonorrhoeae , culture, unspecified specimen 2023 024 [facility] ([facility]), [address] [place] [address] [address]itos Mc[address]hee, [place], [address], 4 16:24:48 CT, DNA, qual, PCR, unspecified specimen 2023 024 [facility] ([facility]), [address] [place] [address] [address]hee, [place], [address], 4 16:24:47 culture, urine 2023 024 [facility]), [address] [place] [address] Carl[address]ghee, [place], [address], 4 06:14:41 Referral None recorded. Procedures None recorded. Surgeries None recorded. Imaging None recorded. Medication Orders estradiol 0.01% (0.1 mg/gram) vaginal cream 2023 024 [facility] [id number], [address], [place], [address], 4 18:07:31 lidocaine 5 % topical patch-elast ic bandage, combination package 2023 024 [facility] [id number], [address], [place], [address], 4 18:07:31 Benadryl Extra Strength 2 %-0.1 % topical cream 2023 024 [facility] [id number], [address] [place], [address], 18:07:09 promethazin e 12.5 mg tablet 2023 024 [facility] [id number], [address] [place], [address], 18:07:31 Patient TargetsNo targets recorded. Patient Instructions Encounter Date Encounter Id Patient Instructions Last Modified By Organization Details Last Modified Time 07/01/2023 [id number] acute pain after surgery: care instructions Not available 07/01/2023 18:07:06 nausea and vomiting: care instructions Not available 07/01/2023 18:07:05 shortness of breath: care instructions Not available 07/01/2023 18:07:05 body mass index: care instructions Not available 07/01/2023 18:07:05 learning about healthy weight Not available 07/01/2023 18:07:05 Reason for Referral None Reported. Results Created Date Observation Date Name Description Value Unit Range Abnormal Flag Note LastModifiedBy Organization Detail LastModifiedTime 04/04/19 24 04/05/2023 VAGIN ITIS PANEL trichomonas vaginalis, aptima (panther) NOT DETECT ED normal Trich omona s vagin lele: DNA testi ng perfo rmed by Trans cript ion Media brandon Ampli ficat ion (TMA) These resul ts shoul d be inter prete d in light of all clini arnaldo and labor atory findi ngs. This assay is highl y accur ate, but rare false posit pia and negat pia resul ts may occur . Posit pia resul ts in low preva lence popul ation s may requi re re-ev aluat ion. A negat pia resul t does not precl ude a possi ble infec tion due to a speci men inade quacy or sampl ing error . Test perfo rmed by [facility], [employer], d/b/a Path[facility]oup, [address], [place] [address] , [address] ra, DO, Labor atory Direc tor. Thomas erell a vagin lele, Veronica da speci es: Genom ic DNA is isola brandon from patie nt speci mens by stand leon labor atory techn iques and juan zed using custo m OpenA rray plate s, perfo rmed on the Quant Studi o 12K Flex Real Time PCR syste m. A posit pia resul t is provi ded for patho genic bacte jez, virus and/o r funga l speci es based on detec tion of ampli ficat ion produ cts. Maude l vagin al caleb resul ts of Maude l or [place] brandon are deter mined by calcu latin [...] sis and integ ratio n of clini arnaldo thres holds for marke r organ isms on a large set of sympt omati c & asymp tomat ic speci mens. Patie nt popul ation s with diffe rent demog raphi cs from the PathG roup model popul ation may have diffe rent indic ator organ isms with diffe rent relat pia ratio s, which would influ ence the final resul ts. Resul ts shoul d be inter prete d in the singh xt of all clini arnaldo and labor atory findi ngs. The test was devel oped and its perfo rmanc e cinthia cteri stics deter mined by [employer] [facility]o logis ts, [employer] d/b/a PathG roup. It has not been clear ed or appro [place] by the U.S. Food and Drug Admin istra tion. The FDA has deter mined that such clear ance or appro liv is not neces joann. Perti nent refer ence inter vals are avail able from the labor atory on reque st. Test( s) perfo rmed by [facility], d/b/a Path rou, [address], [place] [address] , [address] ra, DO, Labor atory Direc tor. Not Available [facility] ([facility]) [address], [place], [address], 04/08/2023 19:09:26 04/04/19 24 04/08/2023 VAGIN ITIS PANEL katie sp. NOT DETECT ED normal Trich omona s vagin lele: DNA testi ng perfo rmed by Trans cript ion Media brandon Ampli ficat ion (TMA) These resul ts shoul d be inter prete d in light of all clini arnaldo and labor atory findi ngs. This assay is highl y accur ate, but rare false posit pia and negat pia resul ts may occur . Posit pia resul ts in low preva lence popul ation s may requi re re-ev aluat ion. A negat pia resul t does not precl ude a possi ble infec tion due to a speci men inade quacy or sampl ing error . Test perfo rmed by [facility]oc [facility]o logis [employer], [employer], d/b/a PathG rou, [address], [place] [address] , [address] ra, DO, Labor atory Direc tor. Gardn erell a vagin lele, Veronica da speci es: Genom ic DNA is isola brandon from patie nt speci mens by stand leon labor atory techn iques and juan zed using custo m OpenA rray plate s, perfo rmed on the Quant Studi o 12K Flex Real Time PCR syste m. A posit pia resul t is provi ded for patho genic bacte jez, virus and/o r funga l speci es based on detec tion of ampli ficat ion produ cts. Maude l vagin al caleb resul ts of Maude l or [place] brandon are deter mined by calcu latin [...] sis and integ ratio n of clini arnaldo thres holds for marke r organ isms on a large set of sympt omati c & asymp tomat ic speci mens. Patie nt popul ation s with diffe rent demog raphi cs from the PathG roup model popul ation may have diffe rent indic ator organ isms with diffe rent relat pia ratio s, which would influ ence the final resul ts. Resul ts shoul d be inter prete d in the singh xt of all clini arnaldo and labor atory findi ngs. The test was devel oped and its perfo rmanc e cinthia cteri stics deter mined by [employer], [employer] d/b/a [employer] [email or web address]. It has not been clear ed or appro [place] by the U.S. Food and Drug Admin istra tion. The FDA has deter mined that such clear ance or appro liv is not neces joann. Perti nent refer ence inter vals are avail able from the [facility] atory on reque [address]. Test( s) perfo rmed by [employer] Patho logis ts, LLC, d/b/a PathG roup, [address], [place] [address] , [address] ra, DO, Labor atory Direc tor. Not Available [facility] ([facility]) [address] [facility] [address], [place], [address], 04/08/2023 19:09:26 04/04/19 24 04/08/2023 VAGIN ITIS PANEL gardnerella vaginalis NOT DETECT ED normal Trich omona s vagin lele: DNA testi ng perfo rmed by Trans cript ion Media brandon Ampli ficat ion (TMA) These resul ts shoul d be inter prete d in light of all clini arnaldo and labor atory findi ngs. This assay is highl y accur ate, but rare false posit pia and negat pia resul ts may occur . Posit pia resul ts in low preva lence popul ation s may requi re re-ev aluat ion. A negat pia resul t does not precl ude a possi ble infec tion due to a speci men inade quacy or sampl ing error . Test perfo rmed by [facility], d/b/a PathMichael pineda, [address], [place] [address] , [address] ra, DO, Labor atory Direc tor. Gardn erell a vagin lele, Veronica da speci es: Genom ic DNA is isola brandon from patie nt speci mens by stand leon labor atory techn iques and juan zed using custo m OpenA rray plate s, perfo rmed on the Quant Studi o 12K Flex Real Time PCR syste m. A posit pia resul t is provi ded for patho genic bacte jez, virus and/o r funga l speci es based on detec tion of ampli ficat ion produ cts. Maude l vagin al caleb resul ts of Maude l or [place] brand[place] are deter mined by calcu latin [...] sis and integ ratio n of clini arnaldo thres holds for marke r organ isms on a large set of sympt omati c & asymp tomat ic speci mens. Patie nt popul ation s with diffe rent demog raphi cs from the Located within [facility] rou model popul ation may have diffe rent indic ator organ isms with diffe rent relat pia ratio s, which would influ ence the final resul ts. Resul ts shoul d be inter prete d in the singh xt of all clini arnaldo and labor atory findi ngs. The test was devel oped and its perfo rmanc e cinthia cteri stics deter mined by [employer], [employer] d/b/a [facility]. It has not been clear ed or appro [place] by the U.S. Food and Drug Admin istra tion. The FDA has deter mined that such clear ance or appro liv is not neces joann. Perti nent refer ence inter vals are avail able from the [facility] ator on reque [address]. Test( s) perfo rmed by [employer], [employer], d/b/a [facility], [address] [facility] [address], [place] [address] , [address] ra, DO, Labor atory Dire tor. Not Available [facility] ([facility]) [address] [facility] [address], [place], [address], 04/08/2023 19:09:26 06/19/19 24 06/20/2023 VAGIN ITIS PANEL katie sp. NOT DETECT ED normal Trich omona s vagin lele: DNA testi ng perfo rmed by Trans cript ion Media brandon Ampli ficat ion (TMA) These resul ts shoul d be inter prete d in light of all clini arnaldo and labor atory findi ngs. This assay is highl y accur ate, but rare false posit pia and negat pia resul ts may occur . Posit pia resul ts in low preva lence popul ation s may requi re re-ev aluat ion. A negat pia resul t does not precl ude a possi ble infec tion due to a speci men inade quacy or sampl ing error . Test perfo rmed by [facility], [employer], d/b/a PathG rouclaudia, [address], [place] [address] , [address] ra, DO, Labor atory Direc tor. Thomas erell a vagin lele, Veronica da speci es: Genom ic DNA is isola brandon from patie nt speci mens by stand leon labor atory techn iques and juan zed using custo m OpenA rray plate s, perfo rmed on the Quant Studi o 12K Flex Real Time PCR syste m. A posit pia resul t is provi ded for patho genic bacte jez, virus and/o r funga l speci es based on detec tion of ampli ficat ion produ cts. Maude l vagin al caleb resul ts of Maude l or [place] brand[place] are deter mined by calcu latin [...] sis and integ ratio n of clini arnaldo thres holds for marke r organ isms on a large set of sympt omati c & asymp tomat ic speci mens. Patie nt popul ation s with diffe rent demog raphi cs from the PathG roup model popul ation may have diffe rent indic ator organ isms with diffe rent relat pia ratio s, which would influ ence the final resul ts. Resul ts shoul d be inter prete d in the singh xt of all clini arnaldo and labor atory findi ngs. The test was devel oped and its perfo rmanc e cinthia cteri stics deter mined by [employer]oc [employer] [facility]o logis ts, [employer] d/b/a PathG rouclaudia. It has not been clear ed or appro [place] by the U.S. Food and Drug Admin istra tion. The FDA has deter mined that such clear ance or appro liv is not neces joann. Perti nent refer ence inter vals are avail able from the labor atory on reque st. Test( s) perfo rmed by [facility]oc [facility] [employer], [employer], d/b/a Path marbin, [address], [place] [address] , [address] ra, DO, Labor atory Direc tor. Not Available [facility] ([facility]) [address], [place], [address], 06/20/2023 16:24:46 06/19/19 24 06/20/2023 VAGIN ITIS PANEL gardnerella vaginalis NOT DETECT ED normal Trich omona s vagin lele: DNA testi ng perfo rmed by Trans cript ion Media brandon Ampli ficat ion (TMA) These resul ts shoul d be inter prete d in light of all clini arnaldo and labor atory findi ngs. This assay is highl y accur ate, but rare false posit pia and negat pia resul ts may occur . Posit pia resul ts in low preva lence popul ation s may requi re re-ev aluat ion. A negat pia resul t does not precl ude a possi ble infec tion due to a speci men inade quacy or sampl ing error . Test perfo rmed by [employer]oc [employer], [employer], d/b/a Janet zazueta, [address], [place] [address] , [address] ra, DO, Labor atory Direc tor. Gardn erell a vagin lele, Veronica da speci es: Genom ic DNA is isola brandon from patie nt speci mens by stand leon labor atory techn iques and juan zed using custo m OpenA rray plate s, perfo rmed on the Quant Studi o 12K Flex Real Time PCR syste m. A posit pia resul t is provi ded for patho genic bacte jez, virus and/o r funga l speci es based on detec tion of ampli ficat ion produ cts. Maude l vagin al caleb resul ts of Maude l or [place] brand[place] are deter mined by calcu latin [...] sis and integ ratio n of clini arnaldo thres holds for marke r organ isms on a large set of sympt omati c & asymp tomat ic speci mens. Patie nt popul ation s with diffe rent demog raphi cs from the PathG roup model popul ation may have diffe rent indic ator organ isms with diffe rent relat pia ratio s, which would influ ence the final resul ts. Resul ts shoul d be inter prete d in the singh xt of all clini arnaldo and labor atory findi ngs. The test was devel oped and its perfo rmanc e cinthia cteri stics deter mined by [employer], [employer] d/b/a PathG [id number]. It has not been clear ed or appro [place] by the U.S. Food and Drug Admin istra tion. The FDA has deter mined that such clear ance or appro liv is not neces joann. Perti nent refer ence inter vals are avail able from the labor atory on reque st. Test( s) perfo rmed by [employer] Patho logis ts, [employer], d/b/a [facility]oup, [address], [place] [address] , [address] ra, DO, Labor atory Direc tor. Not Available [facility] ([facility]) [address], [place], [address], 06/20/2023 16:24:46 06/19/19 24 06/20/2023 VAGIN ITIS PANEL trichomonas vaginalis, aptima (panther) NOT DETECT ED normal Trich omona s vagin lele: DNA testi ng perfo rmed by Trans cript ion Media brandon Ampli ficat ion (TMA) These resul ts shoul d be inter prete d in light of all clini arnaldo and labor atory findi ngs. This assay is highl y accur ate, but rare false posit pia and negat pia resul ts may occur . Posit pia resul ts in low preva lence popul ation s may requi re re-ev aluat ion. A negat pia resul t does not precl ude a possi ble infec tion due to a speci men inade quacy or sampl ing error . Test perfo rmed by [facility], d/b/a PathG rouclaudia, [address], [place] [address] , [address] ra, DO, Labor atory Direc tor. Gardn edwin a vagin lele, Veronica da speci es: Genom ic DNA is isola brandon from patie nt speci mens by stand leon labor atory techn iques and juan zed using custo m OpenA rray plate s, perfo rmed on the Quant Studi o 12K Flex Real Time PCR syste m. A posit pia resul t is provi ded for patho genic bacte jez, virus and/o r funga l speci es based on detec tion of ampli ficat ion produ cts. Maude l vagin al caleb resul ts of Maude l or [place] brandon are deter mined by calcu latin [...] sis and integ ratio n of clini arnaldo thres holds for marke r organ isms on a large set of sympt omati c & asymp tomat ic speci mens. Patie nt popul ation s with diffe rent demog raphi cs from the Path rou model popul ation may have diffe rent indic ator organ isms with diffe rent relat pia ratio s, which would influ ence the final resul ts. Resul ts shoul d be inter prete d in the singh xt of all clini arnaldo and labor atory findi ngs. The test was devel oped and its perfo rmanc e cinthia cteri stics deter mined by [employer] Patho logis [employer], [employer] d/b/a [facility] [place]. It has not been clear ed or appro [place] by the U.S. Food and Drug Admin istra tion. The FDA has deter mined that such clear ance or appro liv is not neces joann. Perti nent refer ence inter vals are avail able from the [facility] atory on requ[address]. Test( s) perfo rmed by [employer] Patho logis [employer], [employer], d/b/a [facility] [employer] [place], [address] [facility] [address], [place] [address] , [address] ra, DO, Labor atory Dire tor. Not Available [facility]) [address] [facility] [address], [place], [address], 06/20/2023 16:24:46 06/19/19 24 06/20/2023 CHLAM YDIA TRACH OMATI S chlamydia trachomatis, aptima NOT DETECT ED normal DNA testi ng perfo rmed by Trans cript ion Media brandon Ampli ficat ion (TMA) . Resul ts shoul d be inter prete d in conju nctio n with patie nt histo ry and clini arnaldo prese ntati on. This assay is highl y accur ate, but rare false posit pia and negat pia resul ts may occur . Posit pia resul ts in low preva lence popul ation s may requi re re-ev aluat ion. A negat pia resul t does not precl ude a possi ble infec tion due to a speci men inade quacy or sampl ing error . Test perfo rmed by [employer] iated Patho logis ts, LLC d/b/a [facility]G [facility]oup, [address], [place] [address] , [address] ra, DO, [facility], CLIA# [id number] Not Available [facility] ([facility]) [address], [place], [address], 06/20/2023 16:24:47 06/19/19 24 06/20/2023 NEISS ERIA GONOR RHOEA E neisseria gonorrhoeae, aptima NOT DETECT ED normal DNA testi ng perfo rmed by Trans cript ion Media brandon Ampli ficat ion (TMA) . Resul ts shoul d be inter prete d in conju nctio n with patie nt histo ry and clini arnaldo prese ntati on. This assay is highl y accur ate, but rare false posit pia and negat pia resul ts may occur . Posit pia resul ts in low preva lence popul ation s may requi re re-ev aluat ion. A negat pia resul t does not precl ude a possi ble infec tion due to a speci men inade quacy or sampl ing error . Test perfo rmed by [facility]oc [facility]o logis ts, LLC d/b/a [facility]oup, [address], [place] [address] , [address] ra, , Labor atory [facility] tor, CLIA# [id number] Not Available [facility] ([facility]) [address], [place], [address], 06/20/2023 16:24:48 06/19/19 24 06/21/2023 CULTU RE, URINE specimen source URINE - CC Not Available [facility] ([facility]) [address], [place], [address], 06/21/2023 06:14:41 06/19/19 24 06/21/2023 CULTU RE, URINE culture, urine SEE BELOW Final Repor t : No growt h Not Available [facility] ([facility]) [address] [place] [address] [address], [place], [address], 06/21/2023 06:14:41 06/19/19 24 06/23/2023 CULTU RE, GENIT AL specimen source Not Available [facility] ([facility] [address] [place] [address] [address], [place], [address], 06/23/2023 07:02:34 06/19/19 24 06/23/2023 CULTU RE, GENIT AL culture, genital SEE BELOW Preli minar y Repor t : No signi fican t growt h, reinc ubate Final Repor t : No Neiss eria gonor rhoea e, Group B Strep , Staph aureu s Gardn erell a speci es or yeast isola brandon. Not Available [facility]) [address] [place] [address] [address], [place], [address], 06/23/2023 07:02:34 06/19/19 24 06/23/2023 UREAP LASMA UREAL YTICU M/MYC OPLAS MA HOMIN IS CULTU RE preliminary SEE NOTE Cultu re POSIT PIA for Ureap lasma speci es Perfo rmed By: ARUP Labor atori es [address] [place] [address] Labor atory Direc tor: Mera shell MD, PhD CLIA Numbe r: [id number] Not Available [facility]) [address] [place] [address] [address], [place], [address], 06/24/2023 13:33:47 06/19/19 24 06/24/2023 UREAP LASMA UREAL YTICU M/MYC OPLAS MA HOMIN IS CULTU RE final report SEE NOTE Cultu re POSIT PIA for Ureap lasma speci es Cultu re negat pia for Metam ycopl asma (Myco plasm a) homin is Perfo rmed By: VIDA Labor atori es [address] [place] [address] Labor atory Direc tor: Mera shell MD, PhD SAMMI Nagy r: [id number] Not Available [facility] ([facility]) [address] [facility] [address], [place], [address], 06/24/2023 13:33:47 Result Notes None recorded. 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 Procedures Surgical History Date Name Laterality Status Provider Name and Address Organization Details Recorded Time 05/13 TOTAL HYSTERECTOMY, LAPAROSCOPIC, WITH BILATERAL SALPINGECTOMY (SURG) completed [facility] 4 10:24:58 05/13 TOTAL HYSTERECTOMY, LAPAROSCOPIC, WITH BILATERAL SALPINGECTOMY (SURG) completed [facility] 4 10:25:18 05/13 TOTAL HYSTERECTOMY, LAPAROSCOPIC, WITH BILATERAL SALPINGECTOMY (SURG) completed Tia Israel [facility] 4 14:14:28 03/07 CONIZATION OF CERVIX (SURG) completed Sana Massey [facility] 4 09:56:45 02/01 Colposcopy - [facility] completed Monique Frausto MD [address], [address], [facility] 3 21:25:11 08/27 Colposcopy - [facility] completed Gabbi Fu [facility] 3 15:56:08 02/25 cholecystectomy completed Nayely Kerr [facility] 3 10:36:22 02/25 removal of ovarian cyst completed Nayely Kerr [facility] 3 10:36:49 excision of polyp of duodenum completed Nayelyguanako Kerr [facility] 3 10:38:47 esophagogastroduoden osco py completed Nayelyguanako Kerr [facility] 3 10:39:00 Imaging Results None recorded. Procedure Notes None recorded. Medical Equipment None Reported. Allergies Allergen ID Allergen Name Allergen Category Reaction Reaction Severity Criticality Documentation Date Start Date Code Code System Note Provider Name and Address Organization Details Recorded Time 97449 Product containin g penicilli n (product) medicatio n hives itching rash mild mild mild low 08/23/2022 93381 8001 SNOMED Nayely Kebede [facility] 3 10:21:27 69714 codeine medicatio n Not available Not available Not available 08/23/2022 2670 RxNorm Nayely Kebede [facility] 3 08:37:36 04556 doxycycli ne Not available dyspnea itching rash tachycard ia mild severe severe severe high 08/23/2022 3640 RxNorm sever e burni ng to skin and cardi ac rhyth m [place] Sana Lee [facility] 4 15:00:34 45392 hydrocodo ne Not available Not available Not available Not available 08/23/2022 5489 RxNorm Nayely Kebede [facility] 3 08:37:30 93397 clindamyc in Not available hives itching severe severe high 08/23/2022 2582 RxNorm sever e burni ng to skin Sana Lee [facility] 4 14:58:03 71274 pertussis vaccine medicatio n Not available Not available Not available 08/23/2022 8080 RxNorm Nayely Kebede [facility] 3 10:46:59 40933 tree nut 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 06/18 completed Not Available Not Available Not Available amoxicillin 500 mg capsule 08/23 completed Not Available Not Available Not Available methocarbam ol 500 mg tablet 08/23 completed Not Available Not Available Not Available metformin 500 mg tablet 08/23 completed Not Available Not Available Not Available terconazole 0.4 % vaginal cream active Not Available Not Available Not Available prednisone 10 mg tablet 08/23 completed Not Available Not Available Not Available doxycycline hyclate 100 mg capsule 08/23 completed Not Available Not Available Not Available clindamycin HCl 300 mg capsule TAKE 1 CAPSULE BY MOUTH EVERY 6 HOURS FOR 10 DAYS 08/23 completed Not Available Not Available Not Available albuterol sulfate 2.5 mg/3 mL (0.083 %) solution for nebulizatio n active Not Available Not Available Not Available triamcinolo ne acetonide 0.5 % topical cream 08/27 completed Not Available Not Available Not Available cetirizine 10 mg tablet 04/03 completed Not Available Not Available Not Available azithromyci n 250 mg tablet 08/23 completed Not Available Not Available Not Available ibuprofen 800 mg tablet TAKE ONE TABLET BY MOUTH EVERY 6 HOURS active Not Available Not Available No t Available fluconazole 150 mg tablet active Not Available Not Available Not Available cephalexin 250 mg capsule 06/30 completed Not Available Not Available Not Available hydrocodone 5 mg-acetamin ophen 325 mg tablet 08/23 completed Not Available Not Available Not Available ondansetron HCl 8 mg tablet 02/11 completed Not Available Not Available Not Available sucralfate 1 gram tablet 08/27 completed Not Available Not Available Not Available promethazin e 12.5 mg tablet Take 1 tablet(s) 4 times a day by oral route as needed. active Not Available Not Available No t Available metronidazo le 0.75 % (37.5 mg/5 gram) vaginal gel 02/01 completed Not Available Not Available Not Available prednisone 20 mg tablet TAKE TWO TABLETS BY MOUTH ONCE A DAY WITH FOOD active Not Available Not Available No t Available cephalexin 250 mg tablet Take 1 tablet 4 times a day by oral route for 7 days. 06/30 completed Not Available Not Available Not Available penicillin V potassium 500 mg tablet 08/23 completed Not Available Not Available Not Available metronidazo le 500 mg tablet TAKE 4 TABLETS BY MOUTH NOW FOR 1 DOSE active Not Available Not Available No t Available hydroxyzine HCl 50 mg tablet 08/23 completed Not Available Not Available Not Available ciprofloxac in 500 mg tablet 08/23 completed Not Available Not Available Not Available omeprazole 40 mg capsule,del ayed release 06/18 completed Not Available Not Available Not Available triamcinolo ne acetonide 0.1 % topical cream active Not Available Not Available Not Available bupropion HCl SR 100 mg tablet,12 hr sustained-r elease 08/23 completed Not Available Not Available Not Available Zofran 4 mg tablet Take 1 tablet every 8 hours by oral route as needed. 05/28 completed Not Available Not Available Not Available ziprasidone 20 mg capsule 08/23 completed Not Available Not Available Not Available famotidine 20 mg tablet active Not Available Not Available Not Available oxycodone-a cetaminophe n 10 mg-325 mg tablet Take 1 tablet every 6 hours by oral route for 3 days. 05/28 completed Not Available Not Available Not Available Benadryl Extra Strength 2 %-0.1 % topical cream Apply 1 applicati on 4 times a day by topical route as needed for 10 days, for vulvar irritatio n. 2023 active Not Available Not Available Not Avai lable dexamethaso ne 2 mg tablet 02/11 completed Not Available Not Available Not Available cephalexin 500 mg capsule 06/30 completed Not Available Not Available Not Available pantoprazol e 40 mg tablet,lizeth yed release TAKE 1 TABLET BY MOUTH ONCE A DAY ON A EMPTY STOMACH FOR HEARTBURN OR REFLUX active Not Available Not Available No t Available buspirone 10 mg tablet 08/23 completed Not Available Not Available Not Available clotrimazol e-betametha sone 1 %-0.05 % topical cream APPLY TO THE AFFECTED AND SURROUNDI NG AREAS OF SKIN BY TOPICAL ROUTE 2 TIMES PER DAY IN THE MORNING AND EVENING FOR 2 WEEKS active Not Available Not Available No t Available lidocaine 5 % topical patch active Not Available Not Available Not Available omeprazole 20 mg capsule,del ayed release 08/23 completed Not Available Not Available Not Available Lupron Depot 3.75 mg intramuscul ar syringe kit 08/23 completed Not Available Not Available Not Available montelukast 10 mg tablet 08/23 completed Not Available Not Available Not Available furosemide 20 mg tablet active Not Available Not Available Not Available norethindro ne acetate 5 mg tablet 08/23 completed Not Available Not Available Not Available nystatin 100,000 unit/gram topical powder active Not Available Not Available Not Available Transderm-S coppersmith helper 1 mg over 3 days transdermal patch Apply 1 patch by transderm al route as directed. 05/28 completed Not Available Not Available Not Available epinephrine 0.3 mg/0.3 mL injection, auto-inject or active Not Available Not Available Not Available prednisone 5 mg tablets in a dose pack 08/23 completed Not Available Not Available Not Available estradiol 0.01% (0.1 mg/gram) vaginal cream INSERT A PEA SIZED AMOUNT INTO THE VAGINA TWICE WEEKLY. active Not Available Not Available No t Available levofloxaci n 750 mg tablet TAKE 1 TABLET BY MOUTH EVERY DAY FOR 7 DAYS 08/23 completed Not Available Not Available Not Available methylpredn isolone 4 mg tablets in a dose pack 08/23 completed Not Available Not Available Not Available albuterol sulfate HFA 90 mcg/actuati on aerosol inhaler active Not Available Not Available Not Available Vitamin D2 1,250 mcg (50,000 unit) capsule 08/23 completed Not Available Not Available Not Available ondansetron 4 mg disintegrat ing tablet 02/11 completed Not Available Not Available Not Available cefdinir 300 mg capsule active Not Available Not Available Not Available fluoxetine 20 mg capsule 08/23 completed Not Available Not Available Not Available ipratropium bromide 21 mcg (0.03 %) nasal spray 08/27 completed Not Available Not Available Not Available loratadine 10 mg tablet 08/23 completed Not Available Not Available Not Available naproxen 500 mg tablet 08/23 completed Not Available Not Available Not Available amoxicillin 875 mg-potassiu m clavulanate 125 mg tablet 08/23 completed Not Available Not Available Not Available oxycodone 5 mg tablet TAKE ONE TABLET BY MOUTH EVERY 6 HOURS NEEDED FOR PAIN 04/03 completed Not Available Not Available Not Available hydroxyzine pamoate 25 mg capsule 08/23 completed Not Available Not Available Not Available azithromyci n 500 mg tablet Take 1 tablet every day by oral route for 5 days. 06/30 completed Not Available Not Available Not Available aripiprazol e 15 mg tablet 08/23 completed Not Available Not Available Not Available tinidazole 500 mg tablet 04/03 completed Not Available Not Available Not Available nitrofurant oin monohydrate /macrocryst als 100 mg capsule 06/30 completed Not Available Not Available Not Available lamotrigine 25 mg (35) tablets in a dose pack Take 25 mg twice a day by oral route. 06/18 completed Not Available Not Available Not Available dexamethaso ne 1 p.o. qd active Not Available Not Available No t Available Symbicort 80 mcg-4.5 mcg/actuati on HFA aerosol inhaler 08/23 completed Not Available Not Available Not Available Gavilax 17 gram/dose oral powder 08/23 completed Not Available Not Available Not Available Mucus Relief ER 600 mg tablet, extended release 08/23 completed Not Available Not Available Not Available potassium chloride ER 20 mEq tablet,exte nded release active Not Available Not Available Not Available Nuvessa 1.3 % (65 mg/5 gram) vaginal gel Insert 1 applicato rful by vaginal route at bedtime. 06/18 completed Not Available Not Available Not Available lidocaine 5 % topical patch-elast ic bandage, combination package Apply 1 patch every 4 hours by topical route. 2023 active Not Available Not Available Not Avai lable Vitals Date Recorded Body height Oxygen saturation Oxygen saturation in Arterial blood by Pulse oximetry Heart rate Body temperature Body mass index (BMI) Body weight Systolic blood pressure Diastolic blood pressure Provider Name and Address Organization Details Last Updated DateTime 4 167.64 cm 98 % 98 % 100 /min 98.1 [degF] 38.5 kg/m2 833654. 86 g 116 mm[Hg] 78 mm[Hg] Ena COLE - [facility] 4 15:55:48 Date Recorded Body height Body temperature Heart rate Oxygen saturation Oxygen saturation in Arterial blood by Pulse oximetry Body mass index (BMI) Body weight Systolic blood pressure Diastolic blood pressure Provider Name and Address Organization Details Last Updated DateTime 4 167.64 cm 97.9 [degF] 102 /min 99 % 99 % 38.9 kg/m2 423984. 16 g 128 mm[Hg] 74 mm[Hg] Priscila Thomasoner [address], [address] [place] [address] 4 15:20:11 Date Recorded Body height Body mass index (BMI) Body weight Oxygen saturation Oxygen saturation in Arterial blood by Pulse oximetry Heart rate Body temperature Systolic blood pressure Diastolic blood pressure Provider Name and Address Organization Details Last Updated DateTime 4 167.64 cm 39.4 kg/m2 995489. 54 g 99 % 99 % 85 /min 98.1 [degF] 124 mm[Hg] 108 mm[Hg] Tia Israel [facility] 4 14:19:17 Date Recorded Body height Oxygen saturation Oxygen saturation in Arterial blood by Pulse oximetry Heart rate Respiratory rate Body temperature Body mass index (BMI) Body weight Systolic blood pressure Diastolic blood pressure Provider Name and Address Organization Details Last Updated DateTime 4 167.64 cm 99 % 99 % 89 /min 16 /min 97.7 [degF] 39.3 kg/m2 671317. 75 g 120 mm[Hg] 78 mm[Hg] Priscila Jarrett [address], [address] [place] [address] 4 10:37:45 Date Recorded Body height Body mass index (BMI) Body weight Oxygen saturation Oxygen saturation in Arterial blood by Pulse oximetry Heart rate Body temperature Systolic blood pressure Diastolic blood pressure Provider Name and Address Organization Details Last Updated DateTime 4 167.64 cm 38.7 kg/m2 312834. 17 g 99 % 99 % 75 /min 98.1 [degF] 124 mm[Hg] 78 mm[Hg] Vicki Holman [facility] 4 16:40:20 Social History Question Answer Notes LastModified by Organizat ion Details LastModified Time Tobacco Smoking Status Former Smoker Nayely Usha [facility] 08/23/2022 10:34:30 Do You Have An Advance Directive? No [email or web address] Information not available 06/19/2023 If You Are , What Was Your Level Of Alcohol Consumption Prior To ? None Information not available 08/23/2022 Do You Wear A Helmet When Biking? No Information not available 08/23/2022 Is Blood Transfusion Acceptable In An Emergency? Yes Information not available 08/23/2022 What Is Your Level Of Caffeine Consumption? Occasional Information not available 07/01/2023 In The 14 Days Before Symptom Onset, Have You Had Close Contact With A Laboratory-confir med COVID-19 While That Case Was Ill? No Information not available 08/23/2022 In The 14 Days Before Symptom Onset, Have You Had Close Contact With A Person Who Is Under Investigation For COVID-19 While That Person Was Ill? No Information not available 08/23/2022 Have You Been To An Area Known To Be High Risk For COVID-19? No Information not available 08/23/2022 Are You Deaf Or Do You Have Serious Difficulty Hearing? No Information not available 08/23/2022 What Type Of Diet Are You Following? REGULAR Information not available 08/23/2022 What Is The Highest Grade Or Level Of School You Have Completed Or The Highest Degree You Have Received? [id number] Information not available 08/23/2022 What Was The Date Of Your Most Recent Tobacco Screening? 07/01/2023 Information not available 07/01/2023 How Many Children Do You Have? 0 Information not available 08/23/2022 What Is Your Relationship Status? Information not available 08/23/2022 Do You Use Your Seat Belt Or Car Seat Routinely? Yes Information not available 08/23/2022 Are You Sexually Active? No Information not available 08/23/2022 At What Age Did You Start Smoking Tobacco? 15 Information not available 08/23/2022 How Many Years Have You Smoked Tobacco? 13 Information not available 08/23/2022 Sex: Female Functional Status Question Answer Note LastModified by Organizat ion Details LastModified Time Do you use any illicit or recreational drugs? No Information not available 08/23/2022 Do you or have you ever used any other forms of tobacco or nicotine? Yes 2 year ago Information not available 08/23/2022 What is your level of alcohol consumption? None Information not available 08/23/2022 Do you or have you ever used smokeless tobacco? Never used smokeless tobacco Information not available 08/23/2022 Are you currently employed? No Information not available 08/23/2022 Are you able to walk? YESWOREST Information not available 08/23/2022 Do you or have you ever used e-cigarettes or vape? Former user of electronic cigarettes Information not available 08/23/2022 What is your exercise level? None Information not available 08/23/2022 Mental Status Question Answer Note LastModified by Organization D etails LastModified Time Do you feel stressed (tense, restless, nervous, or anxious, or unable to sleep at night)? [id number] Information not available 08/23/2022 Family History Relationship Description Onset Age of this Age Resolved Age Notes LastModified by Organization Details LastModified Time Brother Chronic renal failure [email or web address] Not available 08/23/2022 10:32:29 Mother Intracranial aneurysm [email or web address] Not available 08/23/2022 10:32:49 Maternal Grandfather Heart disease [email or web address] 4 Not available 08/23/2022 10:32:59 Medical History Condition Response Other N Gout N Blood Diseases N Kidney Stones N Hyperthyroidism N Blood Transfusion N COPD N Depression N Incontinence N Edema N Endocrine Disorders N Anxiety Disorder N Muscle, Joint, or Bone Problems N Obesity N Vision or Eye Problems N Arthritis N Auditory Hallucinations N Infertility N Cancer N Stroke N Varicosities N Fibromyalgia N Headaches N Kidney Disease N Abnormal Bleeding N Reproductive System Problems N Ear or Hearing Problems N Hospitalizations N Learning Disorder N Eating Disorder N Skin Problems N MRSA exposure N Constipation N Urinary Problems N Brain Injury N Visual Hallucinations N Tuberculosis N AIDS/HIV N Back Problems N Asthma N GERD/Reflux N Hepatitis N Pulmonary Embolism N Chronic Ear Infections N Chicken Pox N Autism Spectrum Disorder (ASD) N Thrombophilias N Thyroid Disease N Breast Cancer N Lung Disease N Hypothyroidism N Developmental or Behavioral Disorders N Defects or Inherited Disease N Breast Problem N Difficulty Swallowing N Anesthesia Complications N Deep Vein Thrombosis N Meniere's disease N Hearing Loss N Head Injury/Concussion N Congenital Anomalies N Abnormal Pap Smear N Endometriosis N Bladder or Kidney Problems N High Cholesterol N Liver Disease N Nervous System Disorder N Psychiatric/Mental Health Condition N Schizophrenia N Allergies/Hayfever N Parkinson's Disease N RETIREMENT OFFICER Surgery N GI Problems N ADD/ADHD N Anemia N Colon Polyps N ENT Surgery N Heart Attack (PA) N Diabetes N Ovarian Cancer N Bedwetting N Seizures/Epilepsy N Amnesia N Congestive Heart Failure (CHF) N Eczema N Abuse/Domestic Violence N Dementia N Diverticulitis N Cardiovascular N Back Surgery N Tourette Syndrome N Hypertension N Pre-Eclampsia N RETIREMENT OFFICER Procedure N Osteoporosis N Gynecological History Statement/Question Response Last Pap completed & confirmed with repo rt in chart 07/11/2022 Abnormal Pap Y Flow Light Patient reports last pap STIs/STDs Yes HPV Vaccine N Age at Menarche 13 Current Control Method None Frequency of Cycle (Q days) Sexually Active? N Control at End of Visit Hysterecto my Menses Monthly N Sexual Problems? N Most Recent Pap With Co-Testing 06/26/19 23 LMP Definite Desired Control Method None Obstetrics History GPAL:G 0 P 0 0 0 0 Past Encounters Encounter ID Performer Location Encounter Start Date Encounter Closed Date Diagnosis/Indication Diagnosis SNOMED-CT Code Diagnosis ICD10 Code Diagnosis Note [id number] Monique Frausto MD [facility] [employer] [place] [address] [id number] 08/23/2022 09:54:01 08/23/2022 12:12:39 High grade squamous intraepithelial lesion on cervical Papanicolaou smear 2343352286 9107 R87.613 See pap smear of 07-11-22 with HSIL, + HPV. Printed informatio n (UTD) given and explanatio ns in detail, questions answered. Human julio cesar llomavirus deoxyribonucleic acid detected, high risk on cervical specimen 811957731 R87.810 See pap smear of 07-11-22 with HSIL, + HPV. Printed informatio n (UTD) given and explanatio ns in detail, questions answered. HIV screen ing declined 3824311723 37088 Z53.20 Not sexually active since last screening. Hepatitis C screening declined 8324129807 5105 Z53.20 Not sexually active since last screening. Obesity 908277866 E66.9 37.8 Diet education 88113416 Z71.3 Healthy diet Exercises education, guidance, and counseling 118726721 Z71.82 Exercise. Hypertensi on screening 098095966 Z13.6 120/70 normotensi ve [id number] Monique Frausto MD [facility] [employer] [employer] [address] [place] [address] 08/27/2022 14:38:27 08/27/2022 17:13:16 Obesity 894999926 E66.9 BMI 37.8Recomm end reduction in BMI to below 30 JODY Diet education 66183692 Z71.3 Discussed and recommende d healthy dietary habits Exercises education, guidance, and counseling 483576392 Z71.82 Discussed and recommende d exercise activity for health Hypertensi on screening 628696831 Z13.6 BP 122/82 High grade squamous intraepithelial lesion on cervical Papanicolaou smear 6599509416 9107 R87.613 See pap smear of 07-11-22 with HSIL, + HPV. Colposcopy performed today, samples obtained. Pt tolerated procedure well. Await results and discuss via telehealth in 10 days. Human julio cesar llomavirus deoxyribonucleic acid detected, high risk on cervical specimen 787763875 R87.810 See pap smear of 07-11-22 with HSIL, + HPV.SEE ABOVE Endometrio sis of pelvis 24620413 N80.9 States it is surgically diagnosed. Pain in pelvis 85658588 R10.2 Wants hyst next year. [id number] Monique Frausto MD [facility] [place] [address] [place], [place] [phone] 01/09/2023 08:59:39 01/09/2023 10:52:55 Obesity 416691289 E66.9 BMI 37Recommen d reduction in BMI to below 30 JODY. Diet education 51303398 Z71.3 Discussed and recommende d healthy dietary habits for health. Exercises education, guidance, and counseling 064630740 Z71.82 Discussed and recommende d regular exercise as needed for health. Hypertensi on screening 430081033 Z13.6 BP 126/82 on intake today. High grade squamous intraepithelial lesion on cervical Papanicolaou smear 0757766234 9107 R87.613 See pap smear of 07-11-22 with HSIL, + HPV. Colposcopy performed on 08/27/2022 . Results in chart. Scheduled for rpt colposcopy February 2023 but at patient's request will move it back to Jan 2023--advi sed it may still be positive as it has not had time to regress. She voices understand ing and a strong desire to proceed. Human julio cesar llomavirus deoxyribonucleic acid detected, high risk on cervical specimen 019326661 R87.810 See pap smear of 07-11-22 with HSIL, + HPV. SEE ABOVE. Endometrio sis of pelvis 25587959 N80.9 States it is surgically diagnosed by her previous provider in [place], [place]. Previously on Lupron for a 1.5 years. She d/c use of medication d/t it no longer being effective. PT strongly requesting hysterecto my. She does not wish to have any biological children, discussed in depth with PT. Need rpt colposcopy prior to even considerin g hysterecto my. Very likely will need LEEP or CKC. PT verbalized understand ing. Will rpt colpo the first week of January. Pain in pelvis 69200360 R10.2 2-3 weeks out of the month. She desires hysterecto my. Sending Celebrex for relief for the time being.Call ed later--pat ient with history of bleeding ulcer, allergy to codeine, hydrocodon e. Will try flexeril first and if it does not help at all will try tramadol. Irregular periods 183480 07 N92.6 Labs today, AWAIT RESULTS. Advised PT to keep a menstrual diary for the time being. [id number] Monique Frausto MD [facility] [facility] [address] [place] [address] 02/01/2023 08:21:49 02/01/2023 09:58:33 Endometriosis of pelvis 83518868 N80.9 States it is surgically diagnosed by her previous provider in [place], [place]. Previously on Lupron for 1.5 years. She d/c use of medication d/t it no longer being effective. PT strongly requesting hysterecto my. She does not wish to have any biological children, discussed in depth with PT. Need rpt colposcopy prior to even considerin g hysterecto my. Almost certainly will need LEEP or CKC. PT verbalized understand ing.Rpt colposcopy 02/01/23, AWAIT RESULTS. High grade squamous intraepithelial lesion on cervical Papanicolaou smear [id number] 9107 R87.613 See pap smear of 07/11/2022 with HSIL, + HPV. Colposcopy performed on 08/27/2022 . Results in chart. Scheduled for rpt colposcopy February 2023 but at patient's request will move it back to January 2023. Advised it may still be positive as it has not had time to regress. She voices understand ing and a strong desire to proceed.Co nsent signed. Patient tolerated procedure ok. Advised that mild vaginal discharge may occur for 24hrs and spotting for 48hrs. Patient will report passage of clots, onset of profuse bleeding, foul vaginal odor, fever and/or increase in pelvic pain. Human julio cesar llomavirus deoxyribonucleic acid detected, high risk on cervical specimen 619851840 R87.810 See pap smear of 07/11/2022 with HSIL, + HPV. SEE ABOVE. Pain in pelvis 13180244 R10.2 2-3 weeks out of the month. She desires hysterecto my. cannot take Celebrex, ibuprofen. PT with history of bleeding ulcer, allergy to codeine, hydrocodon e. Will try flexeril first and if it does not help at all may try tramadol.L abs today, AWAIT RESULTS. Obesity 770201580 E66.9 BMI 37.4Recomm end reduction in BMI to below 30 JODY. Diet education 45625172 Z71.3 Discussed and recommende d healthy dietary habits for health. Exercises education, guidance, and counseling 045461219 Z71.82 Discussed and recommende d regular exercise as needed for health. Hypertensi on screening 239002446 Z13.6 BP 124/82 on intake today. Screening for disorder 043838921 Z13.9 Labs today, AWAIT RESULTS. Transient altered mental status 917035941 R41.82 Labs today, AWAIT RESULTS. [id number] Monique Frausto MD [facility]- [address] [place] [address] 02/11/2023 08:27:02 02/11/2023 10:38:25 High grade squamous intraepithelial lesion on cervical Papanicolaou smear 3298099787 9107 R87.613 See pap smear of 07/11/2022 with HGSIL, + HPV. Colposcopy performed on 08/27/2022 . Results in chart. Scheduled for rpt colposcopy February 2023 but at patient's request will move it back to January 2023. Advised it may still be positive as it has not had time to regress. She voices understand ing and a strong desire to proceed. 02/11: Rpt colp 02/01/2023 showed AMADEO II-III still. Needs CKC prior to proceeding with hysterecto my. Discussed with PT and she verbalized understand ing. Human julio cesar llomavirus deoxyribonucleic acid detected, high risk on cervical specimen 144325078 R87.810 See pap smear of 07/11/2022 with HGSIL, + HPV. SEE ABOVE. Pain in pelvis 91754920 R10.2 2-3 weeks out of the month. She desires hysterecto my. cannot take Celebrex or Ibuprofen. PT with history of bleeding ulcer, allergy to codeine, hydrocodon e. Will try flexeril first and if it does not help at all may try tramadol. Endometrio sis of pelvis 87488155 N80.9 States it is surgically diagnosed by her previous provider in [place], [place]. Previously on Lupron for 1.5 years. She d/c use of medication d/t it no longer being effective. PT strongly requesting hysterecto my. She does not wish to have any biological children, discussed in depth with PT. Rpt colp 02/01/2023 showed AMADEO II-III. Needs CKC (or LEEP in OR). Discussed with PT and she verbalized understand ing. Will schedule. Obesity 183508301 E66.9 BMI 38.7Recomm end reduction in BMI to below 30 JODY. Discussed weight gain, she will get with her PCP to address this concern further. Diet education 46076272 Z71.3 Discussed and recommende d healthy dietary habits for health. Exercises education, guidance, and counseling 101213265 Z71.82 Discussed and recommende d regular exercise as needed for health. Hypertensi on screening 123313443 Z13.6 BP 102/68 on intake today. Dysuria 51878724 R30.0 AWAIT RESULTS. [id number] Monique Frausto MD [facility]- [address] [place] [address] 04/03/2023 14:45:17 04/04/2023 14:16:29 Postoperative visit 295091791 Z48.89 2 WK post op CKC - performed on 03/07/2023 . Discussed pathology, AMADEO II-III with negative margins. Obesity 394295341 E66.9 BMI 38.4Recomm end reduction in BMI to below 30 JODY. Diet education 28072110 Z71.3 Discussed and recommende d healthy dietary habits for health. Exercises education, guidance, and counseling 481743461 Z71.82 Discussed and recommende d regular exercise as needed for health. Hypertensi on screening 380457439 Z13.6 BP 118/72 on intake today. Endometrio sis of pelvis 17192178 N80.9 States it is surgically diagnosed by her previous provider in [place]. Previously on Lupron for 1.5 years. She d/c use of medication d/t it no longer being effective. PT strongly requesting hysterecto my. She does not wish to have any biological children, discussed in depth with PT. Rpt colp 02/01/2023 : Colposcopy showed AMADEO II-III.08/2023: Discussed pathology - all high grade cells are gone. If hysterecto my is needed/wan brandon in the future, hysterecto my can be done. Vaginal discharge 651605 006 N89.8 AWAIT RESULTS. Postoperat pia nausea and vomiting 9248319 R11.2 Postoperative pain 24754 9007 G89.18 [id number] Monique Frausto MD [facility] [address] [place] [address] 04/22/2023 14:11:49 04/23/2023 16:52:09 Endometriosis of pelvis 70730009 N80.9 States it is surgically diagnosed by her previous provider in [place]. Previously on Lupron for 1.5 years. She d/c use of medication d/t it no longer being effective. PT strongly requesting hysterecto my. She does not wish to have any biological children, discussed in depth with PT. Rpt colp12022: Colposcopy showed AMADEO II-III.08/2023: Discussed pathology - all high grade cells are gone. If hysterecto my is needed/wan brandon in the future, hysterecto my can be done.04/22. Strongly desires hysterecto my for pain. Risks, benefits, alternativ es, indication s of procedure discussed with patient including but not limited to bleeding, blood transfusio n (with transfusio n risks - viral or bacterial infection, reaction), damage to surroundin g organs, infection, need to go back to OR during postoperat pia period or afterward, scarring, functional limitation s, no improvemen t in symptoms, DVT/PE and anesthesia . She voiced understand ing and wishes to proceed. Obesity 970517441 E66.9 BMI 38.5Recomm end reduction in BMI to below 30 JODY. Diet education 56847725 Z71.3 Discussed and recommende d healthy dietary habits for health. Hypertensi on screening 866032445 Z13.6 BP 116/78 on intake today. Pain in pelvis 74214678 R10.2 2-3 weeks out of the month. She desires hysterecto my. cannot take Celebrex or Ibuprofen. PT with history of bleeding ulcer, allergy to codeine, hydrocodon e. Will try flexeril first and if it does not help at all may try tramadol. [id number] ANA RIGGS CNM [facility] [address] [place], [place] [address] 05/16/2023 14:47:03 05/17/2023 08:36:29 Postoperative visit 509642979 Z48.89 Nurse visit Today for incision check. Post op TLH/BSO on . Incision x4 all clear with Dermabond over incisions. No redness or drainage noted. Patient denies pain. RN [id number] Monique Frausto MD [facility] [address] [place] [address] 05/29/2023 13:46:22 05/29/2023 17:01:39 Postoperative visit 956244277 Z48.89 4 WK post op TLH, yousif salp - performed on 05/02/2023 . Obesity 608791726 E66.9 BMI 39.4Recomm end reduction in BMI to below 30 JODY. Diet education 69084645 Z71.3 Discussed and recommende d healthy dietary habits for health. Exercises education, guidance, and counseling 166611424 Z71.82 Discussed and recommende d regular exercise as needed for health. Hypertensi on screening 654708827 Z13.6 BP 124/108 on intake today. Will call her PCP today about this. Mood swings 94276257 R45 .86 Will FU in 2 months. Fatigue 60307586 R53.83 Will FU in 2 months. Night sweats 13367786 R6 1 Will FU in 2 months. [id number] Monique Frausto MD [facility] [address] [place] [address] 06/19/2023 09:41:56 06/19/2023 13:42:41 Obesity 234350999 E66.9 BMI 39.3Recomm end reduction in BMI to below 30 JODY. Diet education 30790964 Z71.3 Discussed and recommende d healthy dietary habits for health. Exercises education, guidance, and counseling 195043870 Z71.82 Discussed and recommende d regular exercise as needed for health. Hypertensi on screening 212588431 Z13.6 BP 120/78 on intake today. Dysuria 83035533 R30.0 AWAIT RESULTS. Vaginal discharge 236745 006 N89.8 AWAIT RESULTS. [id number] Monique Frausto MD [facility] [address] [place], [place] [address] 07/01/2023 14:51:51 07/03/2023 09:41:39 Postoperative pain 438339270 G89.18 Discussed this possibly being from belly button being inflamed after hysterecto my. Nausea and vomiting 1693 1999 R11.2 Pt states zofran makes everything worse. Dyspnea 536539151 R06.00 Possible allergic reaction from items used in surgery. History of hysterectomy 779623674 Z90.711 05/02/23 Allergic reaction 170474 005 T78.40XA Possibly from product used during surgery. Green vagi nal discharge 072422333 N89.8 This may be the green stitches used during hysterecto my. Pt states she has just a small amount every once in a while. Vaginal dryness 41007318 N89.8 Send in estradiol Body mass index 30+ - obesity 479235618 Z68.38 Health Concerns Section Related Observation LastModified by Organization Detai ls LastModified Time None Recorded Concern Status LastModified by Organization Details LastModified Time None Recorded Advance Directives Directive N: Payers Insurance Date Sequence Insurance Name Policy Number Policy Crum Covered Member ID Crum Member ID Guarantor Name 11/19/2023 2 [place] [employer] Karoline Villarreal [id number] Karoline Villarreal 12/13/2023 2 [place]: EUGENIEKabbeeLEON Villarreal [id number] Karoline Villarreal 06/11/2023 2 [place] [id number] Karoline Villarreal [id number] Karoline Villarreal 02/12/2024 2 [employer] (MEDICAID REPLACEMENT - HMO) Karoline Villarreal [id number] Karoline Villarreal 12/13/2023 1 [place] [id number] Karoline Villarreal [id number] Karoline Villarreal 05/29/2023 2 [place] Karoline Villarreal [id number] Karoline Villarreal 11/12/2023 3 [place] [facility] (PPO) Karoline Villarreal [id number] Karoline Villarreal Notes Date Note Type Note Provider Name and Address Organization Details Recorded Time 04/22/2023 text/html Karoline is a 28 y/ o female presenting to clinic today for PRE OP for TLH - scheduled for 04/25/2023.Risks, benefits, alternatives, indications of procedure discussed with patient including but not limited to bleeding, blood transfusion (with transfusion risks--viral or bacterial infection, reaction), damage to surrounding organs, infection, need to go back to OR during postoperative period or afterward, scarring, functional limitations, no improvement in symptoms, DVT/PE and anesthesia. She voiced understanding and wishes to proceed. Monique Frausto MD [address] [place] [address], [phone], [facility] 04/24/2023 22:51:14 05/29/2023 text/html Karoline is a 28 y/ o female presenting to clinic today for 4 WK post op TLH yousif salp - performed on 05/02/2023.Pt c/o cramping/mood swings/very tired/brain fog/night sweats/hot flashes. Denies any abnormal vaginal discharge/fever/chi lls/no incision drainage/change in BM's.Since surgery has changed her psych meds also--now on lamictal. Monique Frausto MD [address] [place] [address], [phone], [facility] 06/06/2023 19:49:35 06/19/2023 text/html Karoline is a 28 y/ o female presenting to clinic today to discuss UTI and BV treatment. PT seen at [facility] ER for this and she does not believe meds have helped. She c/o dysuria, vaginal itching. HX of recent laparoscopic hysterectomy. Monique Frausto MD [address] [place] [address], [phone], [facility] 07/29/2023 19:47:24 07/01/2023 text/html Karoline is a 28 y/ o female presenting to office for follow up on ureaplasma. Pt states she has pain around her lower abdomen that shoots down to her urethra. Pt states that every time she has tried to have this looked at by the ER they try telling her she has a yeast infection and keeps checking for stds. Pt reports taking all the abx for ureaplasma and is on Keflex now. Pt states the keflex helps a little but is still having extreme pain around her belly button. Pt states she has been sick d/t the pain. Pt states she has had some SOB and chest pains. Does not sound cardiac in etiology. Monique Frausto MD [address] [place] [address], [phone], [facility] 08/03/2023 13:38:30 OBGyn Episode No OBEpisode recorded.
--- OUTSIDE RECORDS SUMMARY | 2024-08-26 23:02 | XMS_ITS | Encounter Summary ---
Author Organization [facility] Address [address] [place] [address] Care Team Providers Care Powder Shoveler Name Role Phone Lucho Mota MD Primary Care Provider Encounter Details Date Type Department Care Team (Late st Contact Info) Description 11/20/2016 Orders Only [facility] Radiology [address] [place] [address] System, Provider Not In, [address] [place] [address] Social History Tobacco Use Types Packs/Day Years Used Date Smoking Tobacco: Never Assessed Comments Unknown Sex and Gender Information Value Date Recorded Sex Assigned at Not on file Legal Sex Female 8:55 PM CDT Gender Identity Not on file Sexual Orientation Not on file documented as of this encounter Plan of Treatment Not on file documented as of this encounter Procedures Procedure Name Priority Date/Time Associated Diagnosis Comments OUTSIDE IMAGES 11/20/2016 9:18 PM CDT documented in this encounter Results * Outside Images (11/20/2016 9:18 PM CDT) Anatomical Region Laterality Modality N/A Radiographic Gladis ging 11/20/2016 9:18 PM CDT Narrative 11/20/2016 9:18 PM CDT Historic images from [facility] exist and can be viewed by using the hyperlink to access [employer]: CT ABD/PEL W CONTRAST Procedure Note System, Provider Not In, - 03/30/2020 Historic images from [facility] exist and can be viewed byusing the hyperlink to access [employer] pacs: CT ABD/PEL W CONTRAST us Provider Not In System MD [facility] Final Result documented in this encounter Visit Diagnoses Not on filedocumented in this encounter Care Teams Powder Shoveler Relationship Specialty Start Date End Date Lucho Mota MD [address] [place] [address] PCP - General Family Medicine 05/10/20 12/18/21 documented as of this encounter
--- OUTSIDE RECORDS SUMMARY | 2024-08-26 23:02 | XMS_ITS ---
Author Organization Unknown Address [address] [facility] [place] [id number] Phone Care Team Providers Care Perfume And Toilet Water Maker Name Role Phone YOU CALLE Attending Unavailable FEDE LINN Primary Unavailable Immunization [...] trivalent, PF 12/16/2012 Completed 140 CVX Results CBC W/DIFF - Collect Date/Ti me: 07/26/2023 15:03 ID: [id number] [address], [place], [id number] LOINC: 86366-0 Test Value Unit Reference Range Code Code System Flag WBC 9.6 X10^3 L=4.8 H=10.8 RBC 4.6 X10^6 L=4.2 H=5.4 HEMOGLOBIN 14.2 g/dL L=12.0 H=16.0 HEMATOCRIT 41 % L=36 H=51 MCV 89 fL L=82 H=95 MCH 31 pg L=27 H=31 MCHC 35 g/dL L=32 H=36 RDW 14 % L=11 H=15 PLATELETS 315 X10^3 L=130 H=400 MPV 7.1 fL %NEUT 64 % L=42 H=75 %LYMPH 26.8 % L=20.5 H=51.1 %MONO 4.1 % L=1.7 H=9.3 %EOS 4.4 % L=0.0 H=7.0 %BASO 1.2 % L=0.0 H=1.5 #NEUT 6.1 X10^3 L=1.5 H=8.0 #LYMPH 2.6 X10^3 L=1.2 H=3.4 #MONO 0.4 X10^3 L=0.1 H=0.6 #EOS 0.4 X10^3 L=0.0 H=0.8 #BASO 0.1 X10^3 L=0.0 H=0.2 MANUAL DIFF RBC MORPH CMP - Collect Date/Time: 15:03 ID: [id number] [address], [place], [id number] LOINC: 92432-2 Test Value Unit Reference Range Code Code System Flag SODIUM 138 mmol/L L=133 H=142 POTASSIUM 3.9 mmol/L L=3.6 H=5.2 CHLORIDE 101 mmol/L L=100 H=108 CO2 29 mmol/L L=21 H=32 ANION GAP 12 GLUCOSE 95 mg/dL L=70 H=110 BUN 13 mg/dL L=7 H=18 CREATININE 0.7 mg/dL L=0.6 H=1.3 BUN/CREAT 19 AGE 28 yrs NON-AA GFR 107 mL/min AFR AMER GFR 129 mL/min TOTAL PROTEIN 8.3 g/dL L=6.4 H=8.2 H ALBUMIN 3.5 g/dL L=3.4 H=5.0 GLOBULIN 5 g/dL A/G RATIO 0.7 CALCIUM 9.0 mg/dL L=8.7 H=10.2 TOTAL BILI 0.5 mg/dL L=0.2 H=1.0 ALKALINE PHOS 92 U/L L=42 H=98 SGOT/AST 23 U/L L=5 H=30 SGPT/ALT 30 U/L L=5 H=35 NATRIURETIC PEPTIDE - Collec t Date/Time: 07/26/2023 15:03 ID: [id number] [address], [place], [id number] LOINC: 34854-5 Test Value Unit Reference Range Code Code System Flag BNP 13 pg/mL L=0 H=125 HS-TROPONIN I - Collect Date /Time: 07/26/2023 15:03 ID: [id number] [address], [place], [id number] LOINC: 24616-4 Test Value Unit Reference Range Code Code System Flag HS TROPONIN I 13 ng/L L=0 H=51 TSH - Collect Date/Time: 15:03 ID: [id number] [address], [place], [id number] LOINC: 31967-8 Test Value Unit Reference Range Code Code System Flag TSH 2.48 uIU/mL L=0.34 H=4.82 MAGNESIUM - Collect Date/Mike e: 07/26/2023 15:03 ID: [id number] [address], [place], [id number] LOINC: 89152-2 Test Value Unit Reference Range Code Code System Flag MAGNESIUM 2.1 mg/dL L=1.8 H=2.4 XR CHEST 2V - Completed: 14:56 LOINC: \TM00\12PI\DRAo\BM09\PGN o\MRB2\ \MRLo\ [place] [address] [place] [address] ---------NAME--------- NUMBER SEX AGE ADMIT DISC. XRAY# F/C TYPE RODOLFO JANE [id number] F 28 07/26/23 78029 BB E/R DATE OF : 1995 M/R# [id number] PH#: [phone] RM ED5 \MRHx\ LOCATION: TRANSCRIBED: 07/26/23 14:58 INT XR CHEST 2V 01731 COMPLETED:07/26/23 14:56 EP 63245 {REASON FOR CHEST: SHORTNESS OF BREATH PHYSICIAN: YOU A R A D I O L O G Y R E P O R T [place] [address] [place] [address] Patient Name: JANE REYNOLDS Med Rec # [id number] [facility] Radiology Report STATUS: Signed [id number] OXR/XR Chest 2 View Procedure: XR Chest 2 View Clinical History: SHORTNESS OF BREATH [facility] Comparison: None. Findings: The heart is normal in size. The lungs are clear. No effusion or infiltrate present. No osseous abnormalities. Impression: No acute process Signature: ALYSIA ALVAREZ MD <Electronically signed by ALYSIA ALVAREZ MD in OV> 07/26/231457 JJOHNSON1/LAJ DD/ 57 TD/TT: 07/26/231457 Hospital Service: OVM: [id number] OVA: [id number] OVO: [phone] RESEND: cc: ALVA ORTA MD \ITLo\ \UNDo\ \UNDx\ \ITLx\ Reviewed and Electronically Signed by: ALYSIA ALVAREZ RADIOLOGIST Signed Date: 07/26/23 14:58 Social History Type Status Start Date End Date Code Code Syst em Sex Female Vital Signs Vital Sign Value Unit [place] Value [place] Unit Date/Time Recent/Initial? Code Code System Body Mass Index 38.53 kg/m2 07/26/2023 13:35 Initial 35819 -5 LOINC Systolic Blood Pressure 136 mm[Hg] 07/26/2023 15:35 Most Recent 8480- 6 LOINC Diastolic Blood Pressure 84 mm[Hg] 07/26/2023 15:35 Most Recent 8462- 4 LOINC Systolic Blood Pressure 128 mm[Hg] 07/26/2023 13:35 Initial 8480- 6 LOINC Diastolic Blood Pressure 89 mm[Hg] 07/26/2023 13:35 Initial 8462- 4 LOINC Body Surface Area 2.30 m2 07/26/2023 13:35 Initial 3140- 1 LOINC Height 170.180 0 cm 67.00 in 07/26/2023 13:35 Initial 8302- 2 LOINC O2 Saturation 97 % 2023 15:35 Most Recent 16625 -5 LOINC O2 Saturation 96 % 2023 13:35 Initial 84651 -5 LOINC Pulse 98.0 /min 07/26/2023 15:35 Most Recent 8867- 4 LOINC Pulse 104.0 /min 07/26/2023 13:35 Initial 8867- 4 LOINC Respiration 18 /min 07/26/19 15:35 Most Recent 9279- 1 LOINC Respiration 20 /min 07/26/19 13:35 Initial 9279- 1 LOINC Temperature 36.9 Chrissie 98.4 F 07/26/19 13:35 Initial 8310- 5 LOINC Weight 111.58 kg 246.00 lbs 07/26/2023 13:35 Initial 67065 -7 LOINC Hospital Discharge Instructions Should you have any [...] VACCINE Active 8080 RxNorm TREE NUTS Active 4.49797S+14 SNOMED-CT Plan of Treatment No Data Found Encounters Encounter Diagnosis Start Date Code Code Sys tem Shortness of breath 07/26/2023 SNOMED-C T Personal Care Team Section Imaging Narrative Notes \TM00\12PI\DRAo\BM09\PGNo\MRB2\ \MRLo\ [address], [place] [address] ---------NAME--------- NUMBER SEX AGE ADMIT DISC. XRAY# F/C TYPE RODOLFO LARA [id number] F 28 07/26/23 46490 BB E/R DATE OF : 1995 M/R# [id number] #: [id number] ED5 \MRHx\ LOCATION: TRANSCRIBED: 07/26/23 14:58 INT XR CHEST 2V 27977 COMPLETED:07/26/23 14:56 EP 59307 {REASON FOR CHEST: SHORTNESS OF BREATH PHYSICIAN: YOU A R [place] [address] Patient Name: JANE REYNOLDS [facility] Rec # [id number] [facility] Radiology Report STATUS: Signed [id number] OXR/XR Chest 2 View Procedure: XR Chest 2 View Clinical History: SHORTNESS OF BREATH [facility] Comparison: None. Findings: The heart is normal in size. The lungs are clear. No effusion or infiltrate present. No osseous abnormalities. Impression: No acute process Signature: ALYSIA ALVAREZ MD <Electronically signed by ALYSIA ALVAREZ MD in OV> 07/26/238 JJOHNSON1/LAJ DD/ 57 TD/TT: 07/26/231457 Hospital Service: OVM: 55184 OVA: [id number] OVO: [phone] RESEND: cc: ALVA ORAT MD \ITLo\ \UNDo\ \UNDx\ \ITLx\ Reviewed and Electronically Signed by: ALYSIA ALVAREZ RADIOLOGIST Signed Date: 07/26/23 14:58
--- NOTE | 2024-08-26 23:21 | XRR_ITS ---
PROCEDURE INFORMATION: Exam: XR Chest Exam date and time: 08/26/2024 11:29 PM Age: 29 years old Clinical indication: Other: Probable sepsis; Additional info: Possible sepsis TECHNIQUE: Imaging protocol: Radiologic exam of the chest. Views: 1 view. COMPARISON: No relevant prior studies available. FINDINGS: Lungs: Unremarkable. No consolidation. Pleural spaces: Unremarkable. No pleural effusion. No pneumothorax. Heart/Mediastinum: Unremarkable. No cardiomegaly. Bones/joints: Unremarkable. XR/XR chest 1V portable 11570 IMPRESSION: No acute findings.
--- NOTE | 2024-08-26 23:30 | ECG_ITS ---
[facility] Date: 2024-08-26 Pat Name: Karoline Villarreal Department: Room: Gender: Female Electrical Wirer: : 1995 Requested By: Efrain Hale Order Number: [id number] Cotton MD: Jesus Caballero M.D. Measurements Intervals [place] Rate: 105 P: 56 IA: 130 QRS: 68 QRSD: 93 T: 56 QT: 357 QTc: 472 Interpretive Statements SINUS TACHYCARDIA No previous ECG available for comparison Electronically Signed On 08-27-2024 09:29:38 CDT by Jesus Caballero M.D. [email or web address]
[2024-08-26 23:43] VITALS: BP 133/82; PULSE 105; RESP 16; O2SAT 97
[2024-08-26 23:45] LABS: Glucose Urine UA Negative (Normal); Nitrate Urine Negative (Negative); Specific Gravity, Urine 1.017 (1.005-1.030)
[2024-08-26 23:50] LABS: Add Urine Microscopic? YES
[2024-08-26] MEDS: ondansetron 2 mg/ML SDV 2 mL 4 MG IVP (23:53)
[2024-08-27] VITALS (10 sets, daily range): BP systolic 93–132; BP diastolic 8–94; PULSE 58–103; RESP 15–17; TEMP 36.4–37.1; O2SAT 94–98
[2024-08-27 00:11] LABS: Hematocrit 47.1 % (36-47); Hemoglobin 16.20 g/dL (11.27-16.99); Mean Corpuscular HGB Conc 34.4 g/dL (30-55); Mean Corpuscular Hemoglobin 31.6 pg (27-33); Mean Corpuscular Volume 91.8 fl (85-98); Nucleated Red Blood Cells % 0 %; Platelet Count 315 10^3/cmm (157-399); Red Blood Count 5.13 10^6/uL (3.85-5.65); White Blood Count 15.32 10^3/uL (3.29-11.43)
[2024-08-27 00:30] LABS: Lactic Sepsis W/Reflex 1.0 mmol/L (0.5-2.2)
[2024-08-27 00:40] LABS: Alanine Aminotransferase 16 U/L (0-33); Albumin Level 3.7 g/dL (3.5-5.2); Alkaline Phosphatase 109 U/L (35-105); Anion Gap 19.2 (5-19); Aspartate Amino Transferase 18 U/L (0-32); Blood Urea Nitrogen 9 mg/dL (6-20); Calcium 9.4 mg/dL (8.5-10.5); Carbon Dioxide 27 mmol/L (22-29); Chloride 97 mmol/L (98-107); Creatinine Clr Calc Pharmacy 124.0601; Globulin 5.2 g/dL (1.3-4.6); Glucose 110 mg/dL (65-115); Magnesium 1.8 mg/dL (1.7-2.3); NT Pro B Type Natriuretic Pept 62 pg/mL (0-125); Osmolality Calculated 289 mOsm/kg (285-295); Potassium 3.2 mmol/L (3.5-5.1); Sodium 140 mmol/L (136-145); Total Protein 8.9 g/dL (6.6-8.7)
--- NOTE | 2024-08-27 00:58 | CTR_ITS ---
PROCEDURE INFORMATION: Exam: CT Abdomen And Pelvis With Contrast Exam date and time: 08/27/2024 1:24 AM Age: 29 years old Clinical indication: Abdominal pain; Flank; Other: Bilat; Prior surgery; Surgery date: 6+ months; Surgery type: Gb, hyster; Additional info: Bilateral flank pain, leukocytosis, tachycardia, n/v TECHNIQUE: Imaging protocol: Computed tomography of the abdomen and pelvis with contrast. Radiation optimization: All CT scans at this facility use at least one of these dose optimization techniques: automated exposure control; mA and/or kV adjustment per patient size (includes targeted exams where dose is matched to clinical indication); or iterative reconstruction. Contrast material: OMNI 350; Contrast volume: 100 ml; Contrast route: INTRAVENOUS (IV); COMPARISON: CR (CHEST, ) 08/26/2024 11:29 PM RADIATION DOSE METRICS: Total DLP (mGy-cm): 782.91 FINDINGS: Liver: Normal. No mass. Gallbladder and biliary ducts: The gallbladder has been surgically removed. Pancreas: Normal. No ductal dilation. Spleen: Normal. No splenomegaly. Adrenal glands: Normal. No mass. Kidneys and ureters: Symmetric enhancement of the kidneys. No mass. No hydronephrosis. No kidney stone. Stomach and bowel: Unremarkable. No obstruction. No mucosal thickening. Appendix: No evidence of appendicitis. Intraperitoneal space: Unremarkable. No free air. No significant fluid collection. Vasculature: Unremarkable. No abdominal aortic aneurysm. Lymph nodes: Unremarkable. No enlarged lymph nodes. Urinary bladder: Unremarkable as visualized. Reproductive: The uterus is surgically absent. Bones/joints: Unremarkable. No acute fracture. Soft tissues: Unremarkable. CT/CT abdomen pelvis w con* [id number] IMPRESSION: No acute findings.
[2024-08-27] MEDS: ondansetron 2 mg/ML SDV 2 mL 4 MG IVP (02:38)
--- NOTE | 2024-08-27 04:31 | ED_ITS ---
HPI - Back Pain/Injury 2 General: Chief Complaint: Back Pain/Injury Stated Complaint: Kidneys hurt N/V infection UTI Time Seen by Provider: 08/26/24 23:01 History of Present Illness: Patient with history of ventricular septal defect (VSD), blood clotting disorder, and hidradenitis suppurativa presents with worsening bilateral flank pain radiating to the core, ongoing for at least two days and acutely worsening over the past two hours. Reports prior recent ED visit for blood in urine, treated with IV and oral levofloxacin, but symptoms have persisted and worsened. Denies history of kidney stones. Reports chronic issues with recurrent urinary tract infections (UTI), bacterial vaginosis (BV), and yeast infections, often following antibiotic use. Describes difficulty with urination, burning sensation, and vaginal dryness. Reports history of hysterectomy. Notes poor oral intake, fluctuating potassium and blood sugar levels, and recent inability to keep fluids down. Emotional distress and frustration with ongoing symptoms and prior care are evident. No mention of fever, chills, or abdominal pain. Related Data Allergies Allergy/AdvReac Type Severity Reaction Status Date / Time clindamycin Allergy Unknown Verified 08/26/24 23:03 dicyclomine Allergy ALGY-Rash Verified 08/26/24 23:03 Penicillins Allergy ALGY-Rash Verified 08/26/24 23:03 Physical Exam 2 Const: COMMON NORMALS: no acute distress, patient oriented x3 and alert HENMT: COMMON NORMALS: normocephalic and atraumatic HEAD & SCALP: n ormocephalic and atraumatic Eye: COMMON NORMALS: Equal, round and reactive pupils present, EOMs intact bilaterally and no scleral icterus PUPIL: Yes Equal, round and reactive pupils present Resp: COMMON NORMALS: normal respiratory effort and No retractions Cardio: COMMON NORMALS: regular rate, regular rhythm and No murmurs present (Cardio) RATE: regular rate RHYTHM: regular rhythm GI: COMMON NORMALS: Normal to inspection, nondistended, normoactive bowel sounds present, Soft to palpation and non-tender PALPATION: Yes Soft to palpation Back/Pelvis: OTHER: Bilateral flank tenderness. Neuro: COMMON NORMALS: patient oriented x3 SENSORIUM/ORIENTATION: Yes alert Skin: COMMON NORMALS: no rashes or lesions noted GENERAL SKIN EXAM: no rashes or lesions noted Course 2 Vital Signs: Vital signs: Vital Signs Temperature 98.0 F 08/26/24 22:50 Pulse Rate 103 H 08/27/24 02:39 Respiratory Rate 16 08/27/24 02:39 Blood Pressure 132/94 08/27/24 02:39 Pulse Oximetry 98 08/27/24 02:39 Oxygen Delivery Me thod Room Air 08/27/24 02:39 MDM - Back Pain/Injury Medical Decision Making In summary, patient remains borderline tachycardic but she states that she is typically either tachycardic or close to it at rest. She has chronic symptoms of BV and frequent UTIs. CT of the abdomen pelvis with contrast shows nothing acute. White blood cell count is elevated but urinalysis is not compellingly infected. This may be masked by prior Levaquin oral medication. Given her ongoing symptoms and intractable nausea and vomiting, should be admitted to the hospital service for further observation and care. Labs 08/26/24 23:50 08/26/24 23:50 Radiology Impressions Chest X-Ray 08/26/24 23:21 IMPRESSION: No acute findings. Abdomen/Pelvis CT 08/27/24 00:58 IMPRESSION: No acute findings. Laboratory Results WBC 15.32 10^3/uL (3.29-11.43) H 08/26/24 23:50 RBC 5.13 10^6/uL (3.85-5.65) 08/26/24 23:50 Hgb 16.20 g/dL (11.27-16.99) 08/26/24 23:50 Hct 47.1 % (36-47) H 08/26/24 23:50 MCV 91.8 fl (85-98) 08/26/24 23:50 MCH 31.6 pg (27-33) 08/26/24 23:50 MCHC 34.4 g/dL (30-55) 08/26/24 23:50 RDW 12.3 % (12.1-15.1) 08/26/24 23:50 Plt Count 315 10^3/cmm (157-399) 08/26/24 23:50 MPV 10.6 fL (7.4-10.4) H 08/26/24 23:50 Neut % (Auto) 73.9 % 08/26/24 23:50 Lymph % (Auto) 19.1 % 08/26/24 23:50 [place] % (Auto) 5.0 % 08/26/24 23:50 Eos % (Auto) 1.2 % 08/26/24 23:50 Baso % (Auto) 0.4 % 08/26/24 23:50 Neut # (Auto) 11.31 10^3/uL (1.8-7.7) H 08/26/24 23:50 Lymph # (Auto) 2.9 10^3/uL (0.8-4.8) 08/26/24 23:50 [place] # (Auto) 0.8 10^3/uL (0.2-0.9) 08/26/24 23:50 Eos # (Auto) 0.2 10^3/uL (0.0-0.8) 08/26/24 23:50 Baso # (Auto) 0.1 10^3/uL (0.0-0.1) 08/26/24 23:50 Nucleated RBC % (auto) 0 % 08/26/24 23:50 Nucleated RBCs # 0.0 /100WBC 08/26/24 23:50 Sodium 140 mmol/L (136-145) 08/26/24 23:50 Potassium 3.2 mmol/L (3.5-5.1) L 08/26/24 23:50 Chloride 97 mmol/L (98-107) L 08/26/24 23:50 Carbon Dioxide 27 mmol/L (22-29) 08/26/24 23:50 Anion Gap 19.2 (5-19) H 08/26/24 23:50 BUN 9 mg/dL (6-20) 08/26/24 23:50 Creatinine 0.8 mg/dL (0.5-0.9) 08/26/24 23:50 GFR Calculation 85.4 mL/min (90-130) L 08/26/24 23:50 Glucose 110 mg/dL (65-115) 08/26/24 23:50 Calculated Osmolality 289 mOsm/kg (285-295) 08/26/24 23:50 Lactic Acid 1.0 mmol/L (0.5-2.2) 08/26/24 23:50 Calcium 9.4 mg/dL (8.5-10.5) 08/26/24 23:50 Phosphorus 2.9 mg/dL (2.5-4.5) 08/26/24 23:50 Magnesium 1.8 mg/dL (1.7-2.3) 08/26/24 23:50 Total Bilirubin 0.4 mg/dL (0.15-1.2) 08/26/24 23:50 AST 18 U/L (0-32) 08/26/24 23:50 ALT 16 U/L (0-33) 08/26/24 23:50 Alkaline Phosphatase 109 U/L (35-105) H 08/26/24 23:50 NT-Pro-B Natriuret Pep 62 pg/mL (0-125) 08/26/24 23:50 Total Protein 8.9 g/dL (6.6-8.7) H 08/26/24 23:50 Albumin 3.7 g/dL (3.5-5.2) 08/26/24 23:50 Globulin 5.2 g/dL (1.3-4.6) H 08/26/24 23:50 Urine Color Yellow (Yellow) 08/26/24 23:35 Urine Appearance Clear (CLEAR) 08/26/24 23:35 Urine pH 6.0 (5-7) 08/26/24 23:35 Ur Specific [place] 1.017 (1.005-1.030) 08/26/24 23:35 Urine Protein 1+ (Negative) A 08/26/24 23:35 Urine Glucose (UA) Negative (Normal) 08/26/24 23:35 Urine Ketones Trace (Negative) 08/26/24 23:35 Urine Blood Trace (Negative) A 08/26/24 23:35 Urine Nitrate Negative (Negative) 08/26/24 23:35 Urine Bilirubin Negative (Negative) 08/26/24 23:35 Urine Urobilinogen 1.0 mg/dL (Negative) 08/26/24 23:35 Ur Leukocyte Esterase 1+ (Negative) A 08/26/24 23:35 Urine RBC 3-5 /hpf (0-2) 08/26/24 23:35 Urine WBC 21-50 /hpf (0-5) H 08/26/24 23:35 Ur Squamous Epith Cells 0-5 /hpf (0-5) 08/26/24 23:35 Amorphous Sediment Not Reportable 08/26/24 23:35 Urine Bacteria None seen /hpf (NONE) 08/26/24 23:35 Hyaline Casts 0.40 /lpf 08/26/24 23:35 All radiology interpretation(s) finalized by discharge Discharge Plan Discharge Patient Disposition: Admitted As Inpatient Clinical Impression: Acute flank pain Condition: Stable Coding Level of Care Code ED [employer] for Sim Arango
--- OUTSIDE RECORDS SUMMARY | 2024-08-27 05:11 | XMS_ITS ---
Author Organization Unknown Address [address] [place] [address] LUKASZ BATISTA [phone] Phone Care Team Providers Care Supervisor [place] Name Role Phone SHEFALI CORRAL Attending Unavailable [...] PANEL - Collect Date/T caren: 05/19/2024 12:03 [facility] ID: [id number], [place], [id number] LOINC: 24359-9 Test Value Unit Reference Range Code Code System Flag CHOLESTEROL 190 mg/dL L=110 H=200 TRIGLYCERIDES 100 mg/dL L=30 H=200 HDL 52 mg/dL L=35 H=65 LDL 118 mg/dL L=0 H=140 RISK FACTOR 3.7 LDL/HDL 2 CMP - Collect Date/Time: 12:03 [facility] ID: [id number], [place], [id number] LOINC: 66503-5 Test Value Unit Reference Range Code Code System Flag SODIUM 138 mmol/L L=133 H=142 13996-3 LOINC POTASSIUM 3.0 mmol/L L=3.6 H=5.2 87967-6 LOINC L CHLORIDE 98 mmol/L L=100 H=108 [...] 35 U/L L=5 H=35 NATRIURETIC PEPT[facility] t Date/Time: 05/19/2024 12:03 [facility] ID: [id number], [place], [id number] LOINC: 54069-1 Test Value Unit Reference Range Code Code [...] VACCINE Active 8080 RxNorm TREE NUTS Active 4.27868R+14 SNOMED-CT Plan of Treatment No Data Found Encounters Encounter Diagnosis Start Date Code Code Sys tem Palpitations 05/19/2024 SNOMED-CT Personal Care Team Section
--- OUTSIDE RECORDS SUMMARY | 2024-08-27 05:11 | XMS_ITS | Patient Health Record ---
Author Organization [facility] Address [address] [address] [place] [address] Care Team Providers Care Data Scientist Name Role Phone KAVEH LEDEZMA Primary Care Provider Unavailab Louie Delaney Unavailable [phone] ZAYNAB ALVAREZ APRN Unavailable Jarontoni Keyona Unavailable [phone] Leatha Iqbal Unavailable [phone] Thony Iqbal Unavailable [phone] Zaynab Alvarez Unavailable [phone] Allergies Allergen (clinical drug ingredient) Drug/Non Drug Allergy documented on EMR Reaction Allergy Type Onset Date Status doxycycline Doxycycline anaphylaxis Drug Allergy A ctive Latex Latex HIVES Allergy Active Tree Nuts anaphylaxis Allergy Active clindamycin Clindamycin anaphylaxis Drug Allergy A ctive Penicillin anaphylaxis Drug Allergy Acti ve Results Component Value Reference Range Notes LH (LUTEINIZING HORMONE) Reviewed date:09/06/2023 09:35:38 AM Interpretation:5.7 Performing Lab: Notes/Report: Reference Range Follicular Phase 1.9-12.5 Mid-Cycle Peak 8.7-76.3 Luteal Phase 0.5-16.9 Postmenopausal 10.0-54.7 THIS TEST WAS PERFORMED AT: [email or web address] [address] [place] [address] NAHUM COFFEY MD LH 5.7 Wet Prep (20093) Reviewed date:09/18/2023 12:39:35 PM Interpretation:NEG Performing Lab: Notes/Report: NEG Trichomonas Exam NEG Yeast Exam NEG Clue Cell Exam NEG Wet Prep (11186) Reviewed date:10/03/2023 03:40:06 PM Interpretation:NEG Performing Lab: [...] 0 - 21 mmol/L TESTING PERFORMED ON [facility] RA TEST Reviewed date:12/24/2023 02:35:02 PM Interpretation: [...] 0 - 21 mmol/L TESTING PERFORMED ON [employer] SJOGREN'S ANTIBODY Reviewed date:12/24/2023 02:34:08 PM Interpretation: Performing Lab: Notes/Report: THIS TEST WAS PERFORMED AT: [facility] [place] [address] NAHUM COFFEY MD SJOGREN'S ANTIBODY (SS-A) <1.0 NEG <1.0 NEG AI SJOGREN'S ANTIBODY (SS-B) <1.0 NEG <1.0 NEG AI ALDOLASE Reviewed date:12/24/2023 02:34:21 PM Interpretation: Performing Lab: Notes/Report: THIS TEST WAS PERFORMED AT: [facility] [place] [address] NAHUM COFFEY MD ALDOLASE 6.0 < OR = 8.1 U/L GLUCOSE Reviewed date:01/08/2024 09:58:21 AM Interpretation:90 Performing Lab: Notes/Report: GLUCOSE, (S) 90 65 - 110 mg/dl TESTING PERFORMED ON [facility]0 GEN-PROBE FOR CHLAMYDIA/GC Reviewed date:09/06/2023 09:35:09 AM Interpretation:NEG Performing Lab: Notes/Report: The analytical performance characteristics of this assay, when used to test SurePath(TM) specimens have been determined by [facility]. The modifications have not been cleared or approved by the FDA. This assay has been validated pursuant to the CLIA regulations and is used for clinical purposes. For additional information, please refer to https://[employer]/faq/YGA684 (This link is being provided for information/ educational purposes only.) THIS TEST WAS PERFORMED AT: [email or web address] [id number] [address] NAHUM COFFEY MD CHLAMYDIA TRACHOMATISRNA, TMA, UROGENITAL NOT DETECTED NOT DETECTED NEISSERIA GONORRHOEAERNA, TMA, UROGENITAL NOT DETECTED NOT DETECTED GEN-PROBE FOR CHLAMYDIA/GC Reviewed date:10/12/2023 04:01:31 PM Interpretation:NEG Performing Lab: Notes/Report: NEG CBC Reviewed date:12/05/2023 02:00:48 PM Interpretation: Performing Lab: Notes/Report: CBC AUTOMATED DIFFERENTIAL {CD] In a study of 784 healthy smokers, the upper limit of the reference range for WBC was 12.5. [facility] Proc, September 2004;80(8):9678-1749. Pediatric CBC Ranges 2016 [facility] Complete Blood Count Reference Values [...] MICRO DIFF. NOT INDICATED TEST PERFORMED ON BrO889Z HEPATITIS (AC) PROFILE W/REF YAMILA BY PCR [...] QA NO NOTE: IF REACTIVE, ORDER ITEM #[id number] FOR CONFIRMATION TESTING. THIS TEST IS A [...] by TMA. Effective 06/16/2018, AMB Edited 02/16/2020, GHADA CORNELIO ANTINUCLEAR ANTIBODY Reviewed date:03/02/2024 10:00:17 AM [...] on CORNELIO Patterns >1:80 Elevated Antibody Level (https://doi.org/10.1515/pcqs-2096-0484) THIS TEST WAS PERFORMED AT: [email or web address] [address] [facility] [place] [address] NAHUM COFFEY MD CORNELIO SCREEN, IFA POSITIVE NEGATIVE CORNELIO IFA is a first line screen for detecting the presence of up to approximately 150 autoantibodies in various autoimmune diseases. A positive CORNELIO IFA result is suggestive of autoimmune disease and reflexes to titer and pattern. Further laboratory testing may be considered if clinically indicated. For additional information, please refer to http://education.[employer]/faq/FAQ1 77 (This link is being provided for informational/ educational purposes only.) THIS TEST WAS PERFORMED AT: [email or web address] [id number] [facility] [place] [address] NAHUM COFFEY MD CORNELIO PATTERN Nuclear, Speckled CORNELIO TITER 1:40 CBC Reviewed date:12/24/2023 02:34:48 PM Interpretation: Performing Lab: Notes/Report: CBC AUTOMATED DIFFERENTIAL {CD] In a study of 784 healthy smokers, the upper limit of the reference range for WBC was 12.5. [facility] Proc, September 2004;80(8):7177-6334. Pediatric CBC Ranges 2016 [facility] Complete Blood Count Reference Values [...] MICRO DIFF. NOT INDICATED TEST PERFORMED ON [id number] SCLERODERMA ANTIBODY Reviewed date:12/24/2023 02:34:38 PM Interpretation: Performing Lab: Notes/Report: THIS TEST WAS PERFORMED AT: [address] [place] [address] NAHUM COFFEY MD SCL-70 ANTIBODY <1.0 NEG <1.0 NEG AI INSULIN; TOTAL Reviewed date:01/29/2024 08:25:27 AM Interpretation:14.4 Performing Lab: Notes/Report: Reference Range < or = 18.4 Risk: Optimal < or = 18.4 Moderate NA High >18.4 Adult cardiovascular event risk category cut points (optimal, moderate, high) are based on Insulin Reference Interval studies performed at [facility] in 2021. THIS TEST WAS PERFORMED AT: [email or web address] [facility] [place] [address] NAHUM COFFEY MD INSULIN 14.4 THYROID PANEL (INC. FREE T4 & TSH) Reviewed date:01/08/2024 09:58:35 AM Interpretation:1.37 Performing Lab: Notes/Report: THYROID PANEL TSH 1.37 0.47 - 4.68 uIU/L Free T4 1.21 0.78 - 2.19 ng/dl FSH Reviewed date:09/06/2023 09:35:51 AM Interpretation:5.1 Performing Lab: Notes/Report: Reference Range Follicular Phase 2.5-10.2 Mid-cycle Peak 3.1-17.7 Luteal Phase 1.5- 9.1 Postmenopausal 23.0-116.3 THIS TEST WAS PERFORMED AT: [email or web address] [facility] [facility] [place] [address] NAHUM COFFEY MD FSH 5.1 GRAM STAIN Reviewed date:09/05/2023 08:07:59 AM Interpretation:NEG Performing Lab: Notes/Report: GRAM STAIN SOURCE: _VAGINAL 09/04/23.1113.LCC. GRAM STAIN RESULTS: _FEW_GPR 09/04/23.1113.LCC. _NO_YEAST_OR_FUNGUS_SEEN 09/04/23.1113.LCC. SOPHIE SCORE: _ 1 _NOT_CONSISTENT_WITH_BACTERIAL_VAGINOSIS__ 09/04/23.1113.[facility]. *Interpretation of Sophie Score If N Score [...] Postmenopausal 23.0-116.3 THIS TEST WAS PERFORMED AT: [email or web address] [address] [place] [address] NAHUM COFFEY MD FSH 4.0 T-SPOT TB TEST Reviewed date:03/02/2024 10:00:28 AM Interpretation: Performing Lab: Notes/Report: Normal Value: Negative THIS TEST WAS PERFORMED AT: A negative test result does not exclude the possibility of [email or web address] TB, [facility] exposure to or infection with Mycobacterium tuberculosis (M. [address] tuberculosis). Patients [place] [address] infected individuals exhibiting a negative T-SPOT.TB result [...] Lab: Notes/Report: THIS TEST WAS PERFORMED AT: [email or web address] [address] [place] [address] NAHUM COFFEY MD SATISH-1 ANTIBODY <1.0 NEG <1.0 NEG AI LUPUS ANTI-COAGULANT Reviewed date:01/29/2024 08:25:24 AM Interpretation:DRVVT 51 HIGH Performing Lab: Notes/Report: A Lupus Anticoagulant is not detected. THIS TEST WAS PERFORMED AT: THIS TEST WAS PERFORMED AT: Common causes for a prolonged screen and negative DropletE [email or web address] confirmatory test include factor deficiencies or [address] [place] [address] [place] [address] For more information on this test, go to: GIOVANNY GONCALVES http://education.[employer]/faq/IIS64d4 (This link is being provided for informational/ educational purposes only.) This interpretation is based on the following test results: PTT-LA SCREEN 40 < OR = 40 sec DRVVT SCREEN 51 < OR = 45 sec DRVVT CONFIRM NEGATIVE NEGATIVE WET PREP Reviewed date:09/04/2023 08:01:53 AM Interpretation:(+) HYPHAE/CLUE Performing Lab: Notes/Report: WET PREP EXAM (DIRECT EXAM) SOURCE: _VAGINAL 09/03/239.AST. RESULT: _RARE_CLUE_CELL 09/03/239.AST. _RARE_HYPHAE 09/03/239.AST. _NO_TRICHOMONAS_OBSERVED 09/03/23.AST. WET PREP Reviewed date:09/19/2023 07:31:32 AM Interpretation:CLUE Performing Lab: Notes/Report: WET PREP EXAM (DIRECT EXAM) SOURCE: _VAGINAL 09/18/23.1321.AST. RESULT: _CLUE_CELLS_PRESENT/BAC_4+ 09/18/23.1322.AST. _NO_YEAST_OR_TRICH_OBSERVED 09/18/23.1322.AST. Test, Urine (85729 ) Reviewed date:10/03/2023 02:44:11 PM Interpretation:negative Performing Lab: Notes/Report: negative Test, Urine negative GEN-PROBE FOR CHLAMYDIA/GC - MEDICAID Reviewed date:10/07/2023 01:38:51 PM Interpretation:NEG Performing Lab: Notes/Report: CHLAMYDIA/N. GONORRHOEAE RNA, TMA 10/07/23.1106.MKB.COMPLETE Source: _CERVICAL 10/07/23.1106.MKB. NO Reference Range Results: Chlamydia trachomatis _NOT_DETECTED_ NOT DETECTED 10/07/23.1106.MKB. RNA, TMA UROGENITAL Neisseria gonorrhoeae _NOT_DETECTED_ NOT DETECTED 10/07/23.1106.MKB. RNA, TMA UROGENITAL Endpoint Note 1 The analytical performance characteristics of this assay, when used to test SurePath(TM) specimens have been determined by [facility]. The modifications have not been cleared or approved by the FDA. This assay has been validated pursuant to the CLIA regulations and is used for clinical purposes. For additional information, please refer to https://education.[employer]/faq/ANK612 (This link is being provided for information/ purposes only.) THIS TEST WAS PERFORMED AT: [email or web address] [address] [address] [place] [address] ROEL HALE DO,MPH NOTIFY QA NO Test, Urine (39259 ) Reviewed date:10/30/2023 01:20:23 PM Interpretation:NOT DONE/NOT [...] is an characteristics have been determined by [facility]. It has an indicator of exogenous sources, [...] has been validated pursuant to the CLIA http://education.[employer].com/faq/WUA119 http://education.[employer].com/faq/ITN213 regulations and is used for clinical purposes. (This link is being provided for information/educational (This link is being provided for informational/ For additional information, please refer to purposes only.) educational purposes only.) http://education.[employer].com/faq/XWU502 THIS TEST WAS PERFORMED AT: (This link is being provided for [facility] informational/educational purposes only.) [address] [place] [address] [place] [phone] [facility] MIGUEL A SHARMA MD,PHD [address] [place] [address],[address] [place] [address] Miguel A Sharma MD, PhD THIS TEST WAS PERFORMED AT: [facility] [address] [place] [address] [place] [address] MIGUEL A SHARMA MD,PHD VITAMIN D, 25-OH, [...] 10 Positive THIS TEST WAS PERFORMED AT: [email or web address] [address] [facility] [place] [address] NAHUM COFFEY MD DNA (DS) ANTIBODY <1 HEADLEY AND SUPPLY CHAIN BUYER ANTIBODIES Reviewed date:12/24/2023 02:34:12 PM Interpretation: Performing Lab: Notes/Report: THIS TEST WAS PERFORMED AT: [email or web address] [address] [place] [address] NAHUM COFFEY MD SM ANTIBODY <1.0 NEG <1.0 NEG AI SM/SUPPLY CHAIN BUYER ANTIBODY <1.0 NEG <1.0 NEG AI HEMOGLOBIN [...] in mean Glucose of approximately 30 mg/dl. Reason For Referral No Information Medications Medication [...] W/U Status Risk Notes Problem Acute cystitis (39360515) Acute cystitis (595.0) Active confirmed ([place]vis) Problem Conductive hearing loss of left ear with normal hearing on right side (disorder) (0856922329) Sensorineural hearing loss, unilateral, left ear, with unrestricted hearing on the contralateral side (H90.42) Active confirmed Problem Bilateral tinnitus (8372033095855) Tinnitus, bilateral (H93.13) Active confirmed Problem 83331210 Hidradenitis suppurativa (L73.2) Active confirmed Problem 460057918 Pelvic and perineal pain (R10.2) Active confirmed Problem 245767322 Vaginal atrophy (N95.2) Active confirmed Problem 395661062 PCOS (polycystic ovarian syndrome) (E28.2) Active confirmed Problem 38746976 Menopausal symptoms (N95.1) Active confirmed Problem 390016621 Endometriosis determined by laparoscopy (N80.9) Active confirmed Problem 76650171 Cyst of left ovary (N83.202) Active confirmed Problem 84672935 Chronic vaginiti s (N76.1) Active confirmed Problem 644746303 S/P hysterectomy (Z90.710) Active confirmed Problem 4591231 Primary female infertility (N97.9) Active confirmed Problem Sensorineural hearing loss of bilateral ears (disorder) (924005275) Sensorineural hearing loss, bilateral (H90.3) Active confirmed Problem Bilateral otalgia (071013674) Otalgia, bilateral (H92.03) Active confirmed Vital Signs Heart Rate 80 /min 05/12/2024 Temperature 98.0 degrees Fahrenheit 05/12/2024 Oximetry 98 % 05/12/2024 Blood pressure diastolic 86 mm Hg 05/12/2024 Height 66 in 05/12/2024 Blood pressure systolic 126 mm Hg 05/12/2024 Weight 249.6 lbs 12/13/2023 Encounters Encounter Location Date Provider Diagnosis [facility] [address] [facility], [place] [id number] 09/06/2023 Leatha Iqbal [facility] [address] [facility], [place] [id number] 09/19/2023 Leatha Iqbal [facility] [address] [facility] [address] [place], [place] [id number] 10/09/2023 Zaynab Alvarez [facility] [address] [facility], [place] [id number] 10/11/2023 Leatha Iqbal [facility] [address] [facility], [place] [id number] 10/30/2023 Thony Iqbal Vaginal itching N89. 8 [facility] [address] [facility], [place] [id number] 10/31/2023 Leatha Iqbal [facility] [address] [facility], [place] [id number] 11/07/2023 Leatha Iqbal [facility], [place] [id number] 11/08/2023 Leatha Marquezare Yeast vaginitis B37.[address], [place] [id number] 12/05/2023 Keyona Cotton [address], [place] [id number] 12/20/2023 Keyona Cotton Yeast vaginitis B37.[address], [place] [id number] 12/24/2023 Keyona Cotton [address] [id number] 12/25/2023 Kyeona Cotton [address], [place] [id number] 12/27/2023 Keyona Cotton Postmenopausal HRT (hormone replacement therapy) Z79.890 ; PCOS (polycystic ovarian syndrome) E28.2 and Facial rash R21 [address] [id number] 01/29/2024 Keyona Cotton Postmenopausal HRT (hormone replacement therapy) Z79.890 and PCOS (polycystic ovarian syndrome) E28.[address], [place] [id number] 01/30/2024 Keyona Cotton [address], [place] [id number] 02/05/2024 Keyona Cotton [address] [id number] 02/17/2024 Keyona Cotton Postmenopausal HRT (hormone replacement therapy) Z79.[address], [place] [id number] 10/29/2023 Thony Rasheed Vaginal itching N89. 8 ; Dysuria R30.0 and Encounter for gynecological examination Z01.[address], [place] [id number] 09/03/2023 Leatha Rasheed Vaginal dryness N89. 8 ; S/P hysterectomy Z90.710 ; Nipple tenderness N64.4 ; Encounter for gynecological examination Z01.419 ; Menopausal symptoms N95.1 ; Acute vaginitis N76.0 ; Other specified bacterial agents as the cause of diseases classified elsewhere B96.89 and Vaginal yeast infection B37.31 [facility] [address] [facility] [address] [place], [place] [id number] 05/12/2024 Louie Espinoza Hidradenitis suppurativa L73.2 [facility] [address] [facility], [place] [id number] 09/18/2023 Leatha Rasheed Vaginal dryness N89. 8 ; S/P hysterectomy Z90.710 ; Menopausal symptoms N95.1 ; Encounter for gynecological examination Z01.419 and Dysuria R30.0 [facility] [address] [facility], [place] [id number] 10/03/2023 Leatha Iqbal Vaginal itching N89. 8 ; Dysuria R30.0 and Encounter for gynecological examination Z01.419 [place] [address] [facility], [place] [id number] 12/13/2023 Keyona Glynne Vaginal atrophy N95. 2 ; Postmenopausal HRT (hormone replacement therapy) Z79.890 and Chronic vaginitis N76.1 [facility] [address] [facility] [address] [place] [id number] 12/04/2023 Zaynab Alvarez [facility] [address] [facility] [address] [place], [place] [id number] 05/04/2024 Zaynab Alvarez [facility] [address] [place] [address] 7 [place] [id number] 01/16/2024 Zaynab Alvarez Assessments Encounter Date Diagnosis [...] RX) 4.RTC in 4 wks or prn: NURSE PRACTITIONER HOSPITALIST EXAM + review SWABS + consider STEROID [...] (ICD-10 - L73.2) Will try low dose exterminator helper termite abx with flagyl, since allergic to doxy [...] Date [employer]UE PPO [address] [place] [address] [id number] JANE Villarreal Self - patient is [...]
--- OUTSIDE RECORDS SUMMARY | 2024-08-27 05:11 | XMS_ITS | Clinical Summary ---
Author Organization [facility] Address [address] [place] [address] Care Team Providers Care Children Counselor Name Role Phone Unavailable Primary Care Provider [...]
--- OUTSIDE RECORDS SUMMARY | 2024-08-27 05:12 | XMS_ITS | Patient Health Record ---
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 sites/default/colt es/2020-04/Dietar y_Guidelines_for_ Americans-2019-.. . PHYSICAL ACTIVITIES GUIDELINES: https://www.[facility]. ov/healthyweight/ physical_activity /index.html 02/05/2024 Dietary counseling (ICD-10 - Z71.3) The following information is provided to help patients understand the role BMI, nutrition, and physical activity play in a patient's overall health. Please review the information available in these links. ADULT BMI: https://www.[facility]. ov/healthyweight/ assessing/bmi/frantz lt_bmi/english_bm i_calculator/bmi_ calculator.html DIETARY GUIDELINES: https://www.dietMailcloud.gov/ sites/default/colt es/2020-04/Dietar y_Guidelines_for_ Americans-.. . PHYSICAL ACTIVITIES GUIDELINES: https://www.[facility]. ov/healthyweight/ physical_activity /index.html 02/25/2024 Yeast infection (ICD-10 - B37.9) States taking Flagyl to prevent BV. States will usually get yeast infection when takes Flagyl. Requesting refill of Diflucan. 03/02/2024 Dietary counseling (ICD-10 - Z71.3) The following information is provided to help patients understand the role BMI, nutrition, and physical activity play in a patient's overall health. Please review the information available in these links. ADULT BMI: https://www.[facility]. ov/healthyweight/ assessing/bmi/frantz lt_bmi/english_bm i_calculator/bmi_ calculator.html DIETARY GUIDELINES: https://www.Zaizher.im.gov/ sites/default/colt es/2020-04/Dietar y_Guidelines_for_ Americans-.. . PHYSICAL ACTIVITIES GUIDELINES: https://www.[facility]. ov/healthyweight/ physical_activity /index.html 03/09/2024 Dietary counseling (ICD-10 - Z71.3) The following information is provided to help patients understand the role BMI, nutrition, and physical activity play in a patient's overall health. Please review the information available in these links. ADULT BMI: https://www.cdc. ov/healthyweight/ assessing/bmi/frantz lt_bmi/english_bm i_calculator/bmi_ calculator.html DIETARY GUIDELINES: https://www.Zaizher.im.gov/ sites/default/colt es/2020-04/Dietar y_Guidelines_for_ Americans-.. . PHYSICAL ACTIVITIES GUIDELINES: https://www.[facility]. ov/healthyweight/ physical_activity /index.html 05/01/2024 Dietary counseling (ICD-10 - Z71.3) The following information is provided to help patients understand the role BMI, nutrition, and physical activity play in a patient's overall health. Please review the information available in these links. ADULT BMI: https://www.[facility]. ov/healthyweight/ assessing/bmi/frantz lt_bmi/english_bm i_calculator/bmi_ calculator.html DIETARY GUIDELINES: https://www.Zaizher.im.gov/ sites/default/colt es/2020-04/Dietar y_Guidelines_for_ Americans-.. . PHYSICAL ACTIVITIES GUIDELINES: https://www.[facility]. ov/healthyweight/ physical_activity /index.html 10/14/2023 Dietary counseling (ICD-10 - Z71.3) The following information is provided to help patients understand the role BMI, nutrition, and physical activity play in a patient's overall health. Please review the information available in these links. ADULT BMI: https://www.[facility]. ov/healthyweight/ assessing/bmi/frantz lt_bmi/english_bm i_calculator/bmi_ calculator.html DIETARY GUIDELINES: https://www.Zaizher.im.gov/ sites/default/colt es/2020-04/Dietar y_Guidelines_for_ Americans-.. . PHYSICAL ACTIVITIES GUIDELINES: https://www.[facility]TM. ov/healthyweight/ physical_activity /index.html 12/25/2023 Lower extremity edema (ICD-10 - R60.0) Continue with spironolactone and bumex as prescribed by leland smith f/u with specialists 06/09/2024 History of hypokalemia (ICD-10 - Z86.39) Cardiology recommended reevaluation of this as she did have low potassium. It has corrected at this point and the other electrolytes and renal function are normal 11/27/2023 Hidradenitis suppurativa (ICD-10 - L73.2) Has seen dermatology, currrently only using chlorhexidine wash prn, needing refill, states plans to see derm agan once vaginal concerns are treated 06/09/2024 Screening for STDs (sexually transmitted diseases) (ICD-10 - Z11.3) Your swab obtained to screen. This was obtained from the cervical area 12/25/2023 Hidradenitis suppurativa (ICD-10 - L73.2) Reassured pt I agree with starting humira for better control of HS 11/27/2023 Bipolar 1 disorder (ICD-10 - F31.9) Will place referral for counseling and med management 10/14/2023 Lower extremity edema (ICD-10 - R60.0) Pt advised by cardiology to get compression socks, but cannot afford, will try to send to DME and see if insurance covers for pt. Advised not skipping lasix, continue f/u with cardiology for w/u 05/01/2024 Hidradenitis suppurativa (ICD-10 - L73.2) Start antibiotic as directed. 03/09/2024 Chronic fatigue (ICD-10 - R53.82) repeat labs today 02/25/2024 Overweight (ICD-10 - E66.3) 02/03/2024 Pruritic rash (ICD-10 - L28.2) Ok for prn use of triamcinolone 02/03/2024 Medication management (ICD-10 - Z79.899) 02/25/2024 Dietary counseling (ICD-10 - Z71.3) The following information is provided to help patients understand the role BMI, nutrition, and physical activity play in a patient's overall health. Please review the information available in these links. ADULT BMI: https://www.cdc.g ov/healthyweight/ assessing/bmi/frantz lt_bmi/english_bm i_calculator/bmi_ calculator.html DIETARY GUIDELINES: https://www.dieta ryguidelines.gov/ sites/default/colt es/2020-04/Dietar y_Guidelines_for_ Americans-2020-.. . PHYSICAL ACTIVITIES GUIDELINES: https://www.cdc.g ov/healthyweight/ physical_activity /index.html 03/09/2024 Lower extremity edema (ICD-10 - R60.0) Improving with elimination of sodas, increased activity level, continue same medications at this time 05/01/2024 Nausea (ICD-10 - R11.0) Refill for Zofran sent. May try bland diet until symptoms resolve. 03/09/2024 Abdominal bloating (ICD-10 - R14.0) Can consider food allergy/ intolerance, discussed strict food diary to determine triggers for worsening sx 02/03/2024 Lower extremity edema (ICD-10 - R60.0) Continue with spironolactone and bumex as prescribed by cardio, keep f/u with specialists 02/03/2024 Hidradenitis suppurativa (ICD-10 - L73.2) Continue humira, continue to follow with derm 02/03/2024 Insulin resistance (ICD-10 - E88.819) Pending record review from site project manager, continue metformin and progesterone as they prescribed 02/03/2024 Vaginal irritation (ICD-10 - N89.8) Unable to reliably get the compunded estrogen cream, will change to premarin while waiting for site project manager records and new referral, Rx sent through [...] Insured Coverage Start Date Coverage End Date [facility] [address] [place], [place] [id number] Karoline Villarreal Self - patient is [...]
--- OUTSIDE RECORDS SUMMARY | 2024-08-27 05:12 | XMS_ITS ---
Author Organization Unknown Address [address] [facility] [place] [phone] Phone Care Team Providers Care Billiard Table Mechanic Name Role Phone YOU CALLE Attending Unavailable [...] W/DIFF - Collect Date/Ti me: 07/26/2023 15:03 [facility] ID: [id number] [address], [place], [id number] LOINC: 59024-4 Test Value Unit Reference Range Code Code [...] RBC MORPH CMP - Collect Date/Time: 15:03 [facility] ID: [id number] [address], [place], [id number] LOINC: 40518-8 Test Value Unit Reference Range Code Code [...] PEPTIDE - Collec t Date/Time: 07/26/2023 15:03 [facility] ID: [id number] [address], [place], [id number] LOINC: 38391-9 Test Value Unit Reference Range Code Code System Flag BNP 13 pg/mL L=0 H=125 HS-TROPONIN I - Collect Date /Time: 07/26/2023 15:03 [facility] ID: [id number] [address], [place], [id number] LOINC: 35212-7 Test Value Unit Reference Range Code Code System Flag HS TROPONIN I 13 ng/L L=0 H=51 TSH - Collect Date/Time: 15:03 [facility] ID: [id number] [address], [place], [id number] LOINC: 18744-9 Test Value Unit Reference Range Code Code System Flag TSH 2.48 uIU/mL L=0.34 H=4.82 MAGNESIUM - Collect Date/Mike e: 07/26/2023 15:03 [facility] ID: [id number] [address], [place], [id number] LOINC: 26436-7 Test Value Unit Reference Range Code Code System Flag MAGNESIUM 2.1 mg/dL L=1.8 H=2.4 XR CHEST 2V - Completed: 14:56 LOINC: \TM00\12PI\DRAo\BM09\PGN o\MRB2\ \MRLo\ [place] [address] [address] ---------NAME--------- NUMBER SEX AGE ADMIT DISC. XRAY# F/C TYPE RODOLFO JANE [id number] F 28 07/26/23 60635 BB E/R DATE OF : 1995 M/R# [id number] PH#: [phone] RM ED5 \MRHx\ LOCATION: TRANSCRIBED: 07/26/23 14:58 INT XR CHEST 2V 95647 COMPLETED:07/26/23 14:56 EP 71590 {REASON FOR CHEST: SHORTNESS OF BREATH PHYSICIAN: YOU A R A D I O L O G Y R E P O R T [place] [address] [place] [address] Patient Name: JANE REYNOLDS Med Rec # [id number] [facility] Radiology Report STATUS: Signed [id number] OXR/XR Chest 2 View Procedure: XR Chest 2 View Clinical History: SHORTNESS OF BREATH [facility] Comparison: None. Findings: The heart is normal in size. The lungs are clear. No effusion or infiltrate present. No osseous abnormalities. Impression: No acute process Signature: ALYSIA ALVAREZ MD <Electronically signed by ALYSIA ALVAREZ MD in OV> 07/26/231457 JJOHNSON1/LAJ DD/ 57 TD/TT: 07/26/231457 Hospital Service: OVM: [id number] OVA: [id number] OVO: [id number] RESEND: cc: ALVA ORTA MD \ITLo\ \UNDo\ \UNDx\ \ITLx\ Reviewed and Electronically Signed by: ALYSIA ALVAREZ RADIOLOGIST Signed Date: 07/26/23 14:58 Social History Type Status Start Date End Date Code Code Syst em Sex Female Vital Signs Vital Sign Value Unit Rayle Value Rayle Unit Date/Time Recent/Initial? Code Code System Body Mass Index 38.53 kg/m2 07/26/2023 13:35 Initial 88195 -5 LOINC Systolic Blood Pressure 136 mm[Hg] [...] Saturation 97 % 2023 15:35 Most Recent 60993 -5 LOINC O2 Saturation 96 % 2023 13:35 Initial 29232 -5 LOINC Pulse 98.0 /min 07/26/2023 15:35 Most Recent 8867- 4 LOINC Pulse 104.0 /min 07/26/2023 13:35 Initial 8867- 4 LOINC Respiration 18 /min 07/26/19 15:35 Most Recent 9279- 1 LOINC Respiration 20 /min 07/26/19 13:35 Initial 9279- 1 LOINC Temperature 36.9 Chrissie 98.4 F 07/26/19 13:35 Initial 8310- 5 LOINC Weight 111.58 kg 246.00 lbs 07/26/2023 13:35 Initial 07345 -7 [facility] Hospital Discharge Instructions Should you have any [...] VACCINE Active 8080 RxNorm TREE NUTS Active 4.02598G+14 SNOMED-CT Plan of Treatment No Data Found Encounters Encounter Diagnosis Start Date Code Code Sys tem Shortness of breath 07/26/2023 SNOMED-C T Personal Care Team Section Imaging Narrative Notes [facility] 08/26/2024 23:01 [facility] [address], [place] [address] ---------NAME--------- NUMBER SEX AGE ADMIT DISC. XRAY# F/C TYPE RODOLFO LARA [id number] F 28 07/26/23 44548 BB E/R DATE OF : 1995 M/R# [id number] #: [id number] LOCATION: TRANSCRIBED: 07/26/23 14:58 INT XR CHEST 2V 71240 COMPLETED:07/26/23 14:56 EP 34351 {REASON FOR CHEST: SHORTNESS OF BREATH PHYSICIAN: YOU A RADIOLOGY REPORT [place] [address] [email or web address] [address] Patient Name: JANE REYNOLDS [facility] Rec # [id number] [facility] Radiology Report STATUS: Signed [id number] OXR/XR Chest 2 View Procedure: XR Chest 2 View Clinical History: SHORTNESS OF BREATH [facility] Comparison: None. Findings: The heart is normal in size. The lungs are clear. No effusion or infiltrate present. No osseous abnormalities. Impression: No acute process Signature: ALYSIA ALVAREZ MD <Electronically signed by ALYSIA ALVAREZ MD in OV> 07/26/23 1458 1 JJOHNSON1/LAJ DD/ 57 TD/TT: 07/26/231457 Hospital Service: OVM: [id number] OVA: [id number] OVO: [phone] RESEND: cc: ALVA ORTA MD Reviewed and Electronically Signed by: ALYSIA ALVAREZ RADIOLOGIST Signed Date: 07/26/23 14:58 2
--- OUTSIDE RECORDS SUMMARY | 2024-08-27 05:12 | XMS_ITS ---
Author Name GENEVIEVE TOUSSAINT Address Unknown Phone [phone] Organization Unknown Address Unknown Phone [phone] Care Team Providers Care Retail Salesperson Name Role Phone GENEVIEVE TOUSSAINT Attending [phone] GENEVIEVE TOUSSAINT Ordering [phone] ASSESSMENT Assessment Charted Date/Time No assessment available Social History SOCIAL HISTORY TOBACCO USE TypeStatusStart DateEnd DateLast ReviewedCurrent Smoking StatusTobacco smoking consumption unknownGender Identity and Sexual OrientationTypeStatusLast ReviewedBirth Sex Female 00:00
--- OUTSIDE RECORDS SUMMARY | 2024-08-27 05:13 | XMS_ITS | Encounter Summary ---
Author Organization [facility] Address [address] [place] [address] Care Team Providers Care Budget Record Clerk Name Role Phone Lucho Mota MD Primary Care Provider Encounter Details Date Type Department Care Team (Late st Contact Info) Description 11/20/2016 Orders Only [facility] [address] [facility] [place] [address] System, Provider Not In, [address] [place] [address] Social History Tobacco Use Types Packs/Day Years [...] 11/20/2016 9:18 PM CDT Historic images from [facility] exist and can be viewed by using the hyperlink to access [employer]: CT ABD/PEL W CONTRAST Procedure Note System, Provider Not In, - 03/30/2020 Historic images from [facility] exist and can be viewed byusing the hyperlink to access [email or web address] pacs: CT ABD/PEL W CONTRAST us Provider Not In System MD [facility] Final Result documented in this encounter Visit Diagnoses Not on filedocumented in this encounter Care Teams Budget Record Clerk Relationship Specialty Start Date End Date Lucho Mota MD [address] [place] [address] PCP - General Family Medicine 05/10/20 12/18/21 documented as of this encounter
--- NOTE | 2024-08-27 05:25 | P.HP_ITS ---
Providers/Chief Complaint 2 Admitting Physician: Zoraida Awad MD--patient seen after 12 midnight Chief Complaint: Kidneys hurt N/V infection UTI History of Present Illness Karoline Villarreal is a 29 year old female with complex medical problems for age. Patient does have history of longstanding vaginosis that progresses into urinary tract infection was sent into pyelonephritis recurrently with much pain significant for dysuria and the hole of the vaginal wall. Patient had had vaginosis prior had hysterectomy done 2 years ago but since then all medical problem complexed and became worse. Patient had been at ED at [facility] 3 days ago and was prescribed Levaquin for pyelonephritis that had not gotten any better instead patient had more severe bilateral flank pain right greater than left with blood in the urine and leukocytosis. Patient cultures need to be out prior to discharge while patient is getting IV antibiotics in-house. 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 Patient had never seen a urologist had [employer] that had moved away. Patient among all the things is being admitted because of intractable nausea and vomiting. This patient had lost 40 pounds just from not keeping anything down in the last 2 months. Patient weighed 250 pounds and today patient is weighing 210 pounds. Review of Systems 2 Narrative: System review upon 10 organ systems were significant for genitourinary system, cardiovascular issues otherwise system review were unremarkable for days healthy looking 29 years old woman. Medications/Allergies Allergies Allergy/AdvReac Type Severity Reaction Status Date / Time clindamycin Allergy Unknown Verified 08/26/24 23:03 dicyclomine Allergy ALGY-Rash Verified 08/26/24 23:03 Penicillins Allergy ALGY-Rash Verified 08/26/24 23:03 Vitals/I&O/Wt Last Vital Signs Temp 98.0 F 08/26/24 22:50 Pulse 103 H 08/27/24 02:39 Resp 16 08/27/24 02:39 BP 132/94 08/27/24 02:39 Pulse Ox 98 08/27/24 02:39 O2 Del Method Room Air 08/27/24 02:39 08/26/24 08/26/24 08/27/24 14:59 22:59 06:59 Intake Total 0 / 0 1848 / 1848 Balance 0 / 0 1848 / 1848 Weight last 48 hrs Weight 95.254 kg Physical Exam 2 Narrative: Generally patient is nontoxic looking been in much pain in the vaginal region HEENT normocephalic/atraumatic neck neck is supple cardiovascular heart rate is regular and chronically tachycardic, heart rate had responded to fluid today and 130s heart rate had come down to 90s at my bedside evaluation. Lungs are pretty much clear abdomen soft nontender nondistended unremarkable extremities intact no edema has good pulses neurology has no focality lab studies lab studies reviewed and noted. 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 (5) Weight loss of more than 10% body weight: Within the last 2 months patient had lost 40 pounds from not being able to eat because of intractable nausea and vomiting - Patient went from 250 pounds weight to 210 today - Must continue to treat with a mild to very fair patient to a specialist at discharge - Must continue to treat (6) Yeast infection involving the vagina and surrounding area: Initiated Diflucan Continue to treat and follow through with the actual culture of this fungus as patient has a high at ratio of not getting rid of this infection (7) Lower abdominal pain: Likely secondary to extensive inflammation in the genitourinary region CT of the abdomen and pelvics where with no acute process Treat underlying inflammatory infection process Patient on antibiotics, not allergic to penicillin but sensitive can have rash from it. Patient on antibiotics Plan GI and DVT prophylaxis in place PDMP PDMP Reviewed: Not Reviewed Attestations 2 Medical Necessity Statement*: Patient with multiple medical problem presenting acutely and now with intractable nausea and vomiting deserves inpatient stay for at least 2 midnights Coding Level of Care Code 89296 Diagnoses Acute pyelonephritis N10 Leukocytosis D72.829 Intractable nausea and vomiting R11.2 Dehydration E86.0 Weight loss of more than 10% body weight R63.4 Yeast infection involving the vagina and surrounding area B37.31 Lower abdominal pain R10.30 Time Spent (min) 60
--- NOTE | 2024-08-27 06:19 | US_ITS ---
WS: [id number] US pelvic limited 10082 HISTORY: Concerns for fistula, possible bladder vaginal fistula COMPARISON: CT from 08/27/2024 Status post hysterectomy. Urinary bladder is only minimally distended. There is no free fluid in the pelvis. Neither ovary is identified. Patient has declined transvaginal imaging. There is no fluid collection or mass identified in the pelvis. US/US pelvic limited 06722 IMPRESSION: Negative transabdominal pelvic ultrasound. Status post hysterectomy. No fluid collections or masses identified.
[2024-08-27 06:33] LABS: Hematocrit 41.5 % (36-47); Hemoglobin 13.90 g/dL (11.27-16.99); Mean Corpuscular HGB Conc 33.5 g/dL (30-55); Mean Corpuscular Hemoglobin 31.2 pg (27-33); Mean Corpuscular Volume 93.0 fl (85-98); Nucleated Red Blood Cells % 0 %; Platelet Count 282 10^3/cmm (157-399); Red Blood Count 4.46 10^6/uL (3.85-5.65); White Blood Count 12.31 10^3/uL (3.29-11.43)
[2024-08-27] MEDS: heparin 5,000 unit/mL INJ 1 mL 5000 UNIT SUBCUT ×2 (06:50→17:34)
[2024-08-27 06:53] LABS: Alanine Aminotransferase 12 U/L (0-33); Albumin Level 3.6 g/dL (3.5-5.2); Alkaline Phosphatase 88 U/L (35-105); Anion Gap 16.5 (5-19); Aspartate Amino Transferase 13 U/L (0-32); Blood Urea Nitrogen 7 mg/dL (6-20); CRP High Sensitivity Cardiac 1.730 mg/dL (0.0-0.3); Calcium 8.7 mg/dL (8.5-10.5); Carbon Dioxide 24 mmol/L (22-29); Chloride 103 mmol/L (98-107); Creatinine Clr Calc Pharmacy 166.0138; Globulin 3.7 g/dL (1.3-4.6); Glucose 100 mg/dL (65-115); Magnesium 1.9 mg/dL (1.7-2.3); Osmolality Calculated 288 mOsm/kg (285-295); Potassium 3.5 mmol/L (3.5-5.1); Sodium 140 mmol/L (136-145); Total Protein 7.3 g/dL (6.6-8.7)
[2024-08-27 06:58] LABS: Procalcitonin 0.03 ng/mL (0-0.5)
[2024-08-27] MEDS: cefTRIAXone 2,000 mg SDV 2000 MG IVP (08:23)
[2024-08-27] MEDS: metroNIDAZOLE IV 500 MG/100 ML PREMIX 100 MG IV ×3 (08:24→23:17)
--- NOTE | 2024-08-27 13:03 | PM.MISC ---
Miscellaneous Note Note: Seen this morning. Patient states she had a hysterectomy about a year ago and since then has been having recurrent UTIs. I discussed with her we will check STD screen. She is okay with that. She will need close PRODUCT SAFETY COMPLIANCE LEADER and urology follow-up at discharge. Pelvic ultrasound pending at this time. Continue ceftriaxone 2 g daily fluconazole metronidazole to be continued as well. Agree with assessment and plan management by admitting doctor.
--- NOTE | 2024-08-27 17:11 | PM.OBGYCN ---
Providers/Reason for Consult Consulting Physican/Specialty*: Sixth Grade Teacher Reason for Consult*: possible fistula Attending Physician: Eleni Benitez MD DECISION SCIENCE ANALYST Consult HPI History of Present Illness Karoline Villarreal is a 29 year old female admitted to Medicine Service for pyelonephritis consult requested for possible fistula patient with no acute human service specialist complaints Medications/Allergies Home Medications ?Medication ?Instructions ?Recorded ?Confirmed ?Last Taken ?Type albuterol sulfate 90 mcg/actuation 1 puff inhalation Q4H PRN 08/27/24 08/27/24 Unknown History aerosol inhaler Shortness Of Breath Or Wheezing bumetanide 2 mg tablet 2 mg PO DAILY 08/27/24 08/27/24 Unknown History fluconazole 100 mg tablet 100 mg PO BEDTIME 08/27/24 08/27/24 Unknown History levofloxacin 750 mg tablet 750 mg PO DAILY 08/27/24 08/27/24 Unknown History magnesium 200 mg tablet 200 mg PO DAILY 08/27/24 08/27/24 Unknown History metronidazole 250 mg tablet 250 mg PO TID 08/27/24 08/27/24 Unknown History metronidazole 500 mg tablet See Rx Instructions .Route .COMPLEX 08/27/24 08/27/24 Unknown History nystatin 100,000 unit/gram topical 1 applic topical BID 08/27/24 08/27/24 Unknown History ointment potassium chloride 20 mEq 20 meq PO DAILY 08/27/24 08/27/24 Unknown History tablet,extended release(part/cryst) progesterone micronized 200 mg 200 mg PO BEDTIME 08/27/24 08/27/24 Unknown History capsule Allergies Allergy/AdvReac Type Severity Reaction Status Date / Time clindamycin Allergy Unknown Verified 08/26/24 23:03 dicyclomine Allergy ALGY-Rash Verified 08/26/24 23:03 Penicillins Allergy ALGY-Rash Verified 08/26/24 23:03 Current Medications Generic Name Dose Route Start Last Admin Trade Name Freq PRN Reason Stop Dose Admin Ceftriaxone Sodium 2,000 mg 08/27/24 05:43 08/27/24 08:23 Ceftriaxone 2,000 Mg Sdv IVP 2,000 mg Q24H SANAM Administration Protocol Docusate Sodium 100 mg 08/27/24 09:00 08/27/24 08:24 Docusate Sodium 100 Mg Capsule PO 100 mg BID SANAM Administration Fluconazole 100 mg 08/27/24 06:30 08/27/24 08:24 Fluconazole 100 Mg Tablet PO 100 mg Q24H SANAM Administration Heparin Sodium (Porcine) 5,000 unit 08/27/24 05:43 08/27/24 06:50 Heparin 5,000 Unit/Ml Inj 1 Ml SUBCUT 5,000 unit Q12H SANAM Administration Sodium Chloride 1,000 mls @ 100 mls/hr 08/27/24 05:43 08/27/24 06:50 Sodium Chloride 0.9% IV 08/28/24 04:59 100 mls/hr .Q10H SANAM Administration Metronidazole 500 mg in 100 mls @ 100 mls/hr 08/27/24 05:43 08/27/24 16:13 Flagyl Iv IV 100 mls/hr Q8H SANAM Administration Protocol Pantoprazole Sodium 40 mg 08/27/24 09:00 08/27/24 08:[address] 40 Mg Tablet PO 40 mg DAILY SANAM Administration Prochlorperazine Edisylate 10 mg 08/27/24 06:44 08/27/24 08:18 Prochlorperazine 10 Mg/2 Ml Inj IVP 10 mg Q6H PRN Administration NAUSEA Vitals/I&O/Wt Last Vital Signs Temp 98.5 F 08/27/24 16:00 Pulse 84 08/27/24 16:00 Resp 16 08/27/24 16:00 BP 114/77 08/27/24 16:00 Pulse Ox 95 08/27/24 16:00 O2 Del Method Room Air 08/27/24 16:00 08/27/24 08/27/24 08/27/24 06:59 14:59 22:59 Intake Total 1926.333 / 1926.333 580 / 580 Balance 1926.333 / 1926.333 580 / 580 Weight last 48 hrs Weight 214 lb Weight 211 lb 8 oz Weight 210 lb Physical Exam Const: COMMON NORMALS: no acute distress, average body habitus, patient oriented x3 and alert GI: COMMON NORMALS: Normal to inspection, nondistended, normoactive bowel sounds present and non-tender Neuro: COMMON NORMALS: patient oriented x3 SENSORIUM/ORIENTATION: Yes alert Data 08/27/24 06:23 08/27/24 06:23 Micro: Microbiology 08/27/24 05:45 Blood Culture - Preliminary Blood SPECIMEN COLLECTED 08/27/24 05:42 Blood Culture - Preliminary Blood SPECIMEN COLLECTED 08/27/24 00:07 Blood Culture - Preliminary Blood SPECIMEN COLLECTED 08/26/24 23:50 Blood Culture - Preliminary Blood SPECIMEN COLLECTED A&P Assessment and plan (1) Lower abdominal pain: patient admitted for treatment of pyelonephritis consult requested for possible urinary fistula No acute human service specialist complaints plan to have patient make an appointment to see me in Sixth Grade Teacher clinic after discharge. Will evaluate as outpatient. PDMP PDMP Reviewed: Not Reviewed Coding Level of Care Code Acute Code for Chg Fwd Diagnoses Lower abdominal pain R10.30
[2024-08-27 19:32] LABS: HIV 1 & 2 Antigen Non-Reactive (Non-Reactiv)
[2024-08-27 22:31] LABS: Trichomonas vaginalis (PCR) NOT DETECTED (Negative)
[2024-08-27] MEDS: morphine 4 mg/mL SDV 1 mL IVP (22:48)
[2024-08-27 22:56] LABS: Neisseria Gonorrhea NOT DETECTED (Negative)
[2024-08-28] VITALS (7 sets, daily range): BP systolic 101–120; BP diastolic 60–76; PULSE 67–82; RESP 14–19; TEMP 36.7–36.9; O2SAT 95–98
[2024-08-28 04:58] LABS: Hematocrit 38.6 % (36-47); Hemoglobin 12.60 g/dL (11.27-16.99); Mean Corpuscular HGB Conc 32.6 g/dL (30-55); Mean Corpuscular Hemoglobin 31.1 pg (27-33); Mean Corpuscular Volume 95.3 fl (85-98); Nucleated Red Blood Cells % 0 %; Platelet Count 226 10^3/cmm (157-399); Red Blood Count 4.05 10^6/uL (3.85-5.65); White Blood Count 8.03 10^3/uL (3.29-11.43)
[2024-08-28 05:13] LABS: Anion Gap 12.5 (5-19); Blood Urea Nitrogen 4 mg/dL (6-20); Calcium 8.6 mg/dL (8.5-10.5); Carbon Dioxide 25 mmol/L (22-29); Chloride 106 mmol/L (98-107); Creatinine Clr Calc Pharmacy 167.5732; Glucose 92 mg/dL (65-115); Magnesium 2.0 mg/dL (1.7-2.3); Osmolality Calculated 287 mOsm/kg (285-295); Potassium 3.5 mmol/L (3.5-5.1); Sodium 140 mmol/L (136-145)
[2024-08-28] MEDS: cefTRIAXone 2,000 mg SDV 2000 MG IVP (06:24)
[2024-08-28] MEDS: heparin 5,000 unit/mL INJ 1 mL 5000 UNIT SUBCUT ×2 (06:24→18:46)
--- NOTE | 2024-08-28 11:46 | P.PN_ITS ---
Subjective 2 Subjective: seen today std screen negative still experiencing dysuria, and urethral pain Vitals/I&O/Wt Last Vital Signs Temp 98.0 F 08/28/24 11:07 Pulse 78 08/28/24 11:07 Resp 19 H 08/28/24 11:07 BP 109/73 08/28/24 11:07 Pulse Ox 97 08/28/24 11:07 O2 Del Method Room Air 08/28/24 11:07 08/27/24 08/28/24 08/28/24 22:59 06:59 14:59 Intake Total 1820 / 2400 220 / 2620 1480 / 1480 Output Total 200 / 200 Balance 1620 / 2200 220 / 2420 1480 / 1480 Weight last 48 hrs Weight 97.704 kg Weight 97.069 kg Weight 95.935 kg Weight 95.254 kg Physical Exam 2 Narrative: General: Alert oriented x3, patient seen laying in bed HEENT: Normocephalic, atraumatic, EOMI, breathing room air Cardio: Regular rate rhythm, normal S1-S2, Respiratory: Good bilateral air entry, no wheezes no rhonchi appreciated GI: Abdomen soft, nontender, nondistended, bowel sounds + MIld pelvic pain present Behavior: Appropriate and cooperative Extremities: no edema Data 08/28/24 04:48 08/28/24 04:48 Micro: Microbiology 08/26/24 23:35 Urine Culture - Preliminary Urine,Clean Catch 08/27/24 05:45 Blood Culture - Preliminary Blood NEGATIVE TO DATE 08/27/24 05:42 Blood Culture - Preliminary Blood NEGATIVE TO DATE 08/27/24 00:07 Blood Culture - Preliminary Blood NEGATIVE TO DATE 08/26/24 23:50 Blood Culture - Preliminary Blood NEGATIVE TO DATE A&P Assessment and plan (1) Acute pyelonephritis: Patient has acute pyelonephritis right greater than left significant for flank pain with costophrenic angle tenderness on examination Patient UTI is very recurrent - 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 (5) Weight loss of more than 10% body weight: Within the last 2 months patient had lost 40 pounds from not being able to eat because of intractable nausea and vomiting - Patient went from 250 pounds weight to 210 today - Must continue to treat with a mild to very fair patient to a specialist at discharge - Must continue to treat (6) Yeast infection involving the vagina and surrounding area: Initiated Diflucan Continue to treat and follow through with the actual culture of this fungus as patient has a high at ratio of not getting rid of this infection (7) Lower abdominal pain: Likely secondary to extensive inflammation in the genitourinary region CT of the abdomen and pelvics where with no acute process Treat underlying inflammatory infection process Patient on antibiotics, not allergic to penicillin but sensitive can have rash from it. Patient on antibiotics Plan GI and DVT prophylaxis in place 08/28/2024 seen today continue fluconazole IV, metronidazole IV continue ceftriaxone 2g IV daily to treat for pyelonephritis pt still very symptomatic, continue on IV therapy will need urology, obgyn follow up [place] PDMP PDMP Reviewed: Not Reviewed Attestations 2 Medical Necessity Statement*: IV abx for pyelonephritis Diagnoses Acute pyelonephritis N10 Leukocytosis D72.829 Intractable nausea and vomiting R11.2 Dehydration E86.0 Weight loss of more than 10% body weight R63.4 Yeast infection involving the vagina and surrounding area B37.31 Lower abdominal pain R10.30
[2024-08-28] MEDS: metroNIDAZOLE IV 500 MG/100 ML PREMIX 100 MG IV ×2 (15:17→23:07)
[2024-08-29] VITALS (8 sets, daily range): BP systolic 98–122; BP diastolic 56–77; PULSE 63–85; RESP 15–19; TEMP 36.4–36.9; O2SAT 95–99
[2024-08-29] MEDS: heparin 5,000 unit/mL INJ 1 mL 5000 UNIT SUBCUT ×2 (04:58→19:33)
[2024-08-29 05:23] LABS: Hematocrit 37.8 % (36-47); Hemoglobin 12.60 g/dL (11.27-16.99); Mean Corpuscular HGB Conc 33.3 g/dL (30-55); Mean Corpuscular Hemoglobin 31.4 pg (27-33); Mean Corpuscular Volume 94.3 fl (85-98); Nucleated Red Blood Cells % 0 %; Platelet Count 236 10^3/cmm (157-399); Red Blood Count 4.01 10^6/uL (3.85-5.65); White Blood Count 8.00 10^3/uL (3.29-11.43)
[2024-08-29 05:48] LABS: Anion Gap 14.9 (5-19); Blood Urea Nitrogen 4 mg/dL (6-20); Calcium 8.7 mg/dL (8.5-10.5); Carbon Dioxide 24 mmol/L (22-29); Chloride 104 mmol/L (98-107); Creatinine Clr Calc Pharmacy 202.3349; Glucose 99 mg/dL (65-115); Magnesium 2.0 mg/dL (1.7-2.3); Osmolality Calculated 285 mOsm/kg (285-295); Potassium 3.9 mmol/L (3.5-5.1); Sodium 139 mmol/L (136-145)
[2024-08-29] MEDS: metroNIDAZOLE IV 500 MG/100 ML PREMIX 100 MG IV ×2 (09:47→16:07)
--- NOTE | 2024-08-29 14:02 | PM.DCS ---
Discharge Providers Date of Admission: 08/27/24 05:03 Date of Discharge: August 29, 2024 Attending Provider at Admission: Zoraida Awad MD Attending Provider at Discharge: Eleni Benitez MD Primary Care Provider: Karen Israel Diagnoses at Discharge Discharge Diagnosis (1) Acute pyelonephritis: Status: Acute (2) Leukocytosis: Status: Acute (3) Intractable nausea and vomiting: Status: Acute (4) Dehydration: Status: Acute (5) Weight loss of more than 10% body weight: Status: Acute (6) Yeast infection involving the vagina and surrounding area: Status: Acute (7) Lower abdominal pain: Status: Acute Reason for Visit Reason for Visit: Kidneys hurt N/V infection UTI Discharge Data Studies Completed and Pending Completed Studies During Hospitalization Category Date Time Status CT abdomen pelvis w con* [id number] Stat Cat Scan 08/27/24 00:58 Completed XR chest 1V portable [id number] Stat Exams 08/26/24 23:21 Completed US pelvic limited [id number] Routine Ultrasound 08/27/24 06:19 Completed Pending at discharge Category Date Time Status Blood Culture Stat Lab 08/26/24 23:50 Results Blood Culture Stat Lab 08/27/24 05:45 Results RPR with Reflex to Titer Routine Lab 08/27/24 17:21 Received Radiology Impressions Chest X-Ray 08/26/24 23:21 IMPRESSION: No acute findings. Abdomen/Pelvis CT 08/27/24 00:58 IMPRESSION: No acute findings. Pelvis Ultrasound 08/27/24 06:19 IMPRESSION: Negative transabdominal pelvic ultrasound. Status post hysterectomy. No fluid collections or masses identified. Laboratory Results WBC 8.00 10^3/uL (3.29-11.43) 08/29/24 04:38 RBC 4.01 10^6/uL (3.85-5.65) 08/29/24 04:38 Hgb 12.60 g/dL (11.27-16.99) 08/29/24 04:38 Hct 37.8 % (36-47) 08/29/24 04:38 MCV 94.3 fl (85-98) 08/29/24 04:38 MCH 31.4 pg (27-33) 08/29/24 04:38 MCHC 33.3 g/dL (30-55) 08/29/24 04:38 RDW 12.4 % (12.1-15.1) 08/29/24 04:38 Plt Count 236 10^3/cmm (157-399) 08/29/24 04:38 MPV 10.6 fL (7.4-10.4) H 08/29/24 04:38 Neut % (Auto) 46.8 % 08/29/24 04:38 Lymph % (Auto) 43.4 % 08/29/24 04:38 [place] % (Auto) 7.0 % 08/29/24 04:38 Eos % (Auto) 2.0 % 08/29/24 04:38 Baso % (Auto) 0.4 % 08/29/24 04:38 Neut # (Auto) 3.75 10^3/uL (1.8-7.7) 08/29/24 04:38 Lymph # (Auto) 3.5 10^3/uL (0.8-4.8) 08/29/24 04:38 [place] # (Auto) 0.6 10^3/uL (0.2-0.9) 08/29/24 04:38 Eos # (Auto) 0.2 10^3/uL (0.0-0.8) 08/29/24 04:38 Baso # (Auto) 0.0 10^3/uL (0.0-0.1) 08/29/24 04:38 Nucleated RBC % (auto) 0 % 08/29/24 04:38 Nucleated RBCs # 0.0 /100WBC 08/29/24 04:38 ESR 30 mm/hr (0-15) H 08/27/24 06:23 Sodium 139 mmol/L (136-145) 08/29/24 04:38 Potassium 3.9 mmol/L (3.5-5.1) 08/29/24 04:38 Chloride 104 mmol/L (98-107) 08/29/24 04:38 Carbon Dioxide 24 mmol/L (22-29) 08/29/24 04:38 Anion Gap 14.9 (5-19) 08/29/24 04:38 BUN 4 mg/dL (6-20) L 08/29/24 04:38 Creatinine 0.5 mg/dL (0.5-0.9) 08/29/24 04:38 GFR Calculation 146.9 mL/min (90-130) H 08/29/24 04:38 Glucose 99 mg/dL (65-115) 08/29/24 04:38 Calculated Osmolality 285 mOsm/kg (285-295) 08/29/24 04:38 Lactic Acid 1.0 mmol/L (0.5-2.2) 08/26/24 23:50 Calcium 8.7 mg/dL (8.5-10.5) 08/29/24 04:38 Phosphorus 3.0 mg/dL (2.5-4.5) 08/27/24 06:23 Magnesium 2.0 mg/dL (1.7-2.3) 08/29/24 04:38 Total Bilirubin 0.4 mg/dL (0.15-1.2) 08/27/24 06:23 AST 13 U/L (0-32) 08/27/24 06:23 ALT 12 U/L (0-33) 08/27/24 06:23 Alkaline Phosphatase 88 U/L (35-105) 08/27/24 06:23 C-React Prot High Sens 1.730 mg/dL (0.0-0.3) H 08/27/24 06:23 NT-Pro-B Natriuret Pep 62 pg/mL (0-125) 08/26/24 23:50 Total Protein 7.3 g/dL (6.6-8.7) 08/27/24 06:23 Albumin 3.6 g/dL (3.5-5.2) 08/27/24 06:23 Globulin 3.7 g/dL (1.3-4.6) 08/27/24 06:23 Procalcitonin 0.03 ng/mL (0-0.5) 08/27/24 06:23 Urine Color Yellow (Yellow) 08/26/24 23:35 Urine Appearance Clear (CLEAR) 08/26/24 23:35 Urine pH 6.0 (5-7) 08/26/24 23:35 Ur Specific [place] 1.017 (1.005-1.030) 08/26/24 23:35 Urine Protein 1+ (Negative) A 08/26/24 23:35 Urine Glucose (UA) Negative (Normal) 08/26/24 23:35 Urine Ketones Trace (Negative) 08/26/24 23:35 Urine Blood Trace (Negative) A 08/26/24 23:35 Urine Nitrate Negative (Negative) 08/26/24 23:35 Urine Bilirubin Negative (Negative) 08/26/24 23:35 Urine Urobilinogen 1.0 mg/dL (Negative) 08/26/24 23:35 Ur Leukocyte Esterase 1+ (Negative) A 08/26/24 23:35 Urine RBC 3-5 /hpf (0-2) 08/26/24 23:35 Urine WBC 21-50 /hpf (0-5) H 08/26/24 23:35 Ur Squamous Epith Cells 0-5 /hpf (0-5) 08/26/24 23:35 Amorphous Sediment Not Reportable 08/26/24 23:35 Urine Bacteria None seen /hpf (NONE) 08/26/24 23:35 Hyaline Casts 0.40 /lpf 08/26/24 23:35 C. trachomatis (PCR) Not detected (Negative) 08/27/24 21:00 HIV 1&2 Ab & HIV 1 Ag Non-reactive (Non-Reactiv) 08/26/24 23:50 HIV 1&2 Antibody Non-reactive (Non-Reactiv) 08/26/24 23:50 N. gonorrhoeae (PCR) Not detected (Negative) 08/27/24 21:00 T. vaginalis (PCR) Not detected (Negative) 08/27/24 21:00 Vitals Last Vital Signs Temp 97.6 F 08/29/24 11:24 Pulse 76 08/29/24 11:24 Resp 16 08/29/24 11:24 BP 114/72 08/29/24 11:24 Pulse Ox 97 08/29/24 11:24 O2 Del Method Room Air 08/29/24 11:24 Discharge Plan Discharge Patient Disposition: Home Condition: Stable Prescriptions: No Action bumetanide 2 mg tablet 2 mg PO DAILY metronidazole 250 mg tablet 250 mg PO TID levofloxacin 750 mg tablet 750 mg PO DAILY albuterol sulfate 90 mcg/actuation HFA aerosol inhaler 1 puff INHALATION Q4H PRN (Reason: Shortness Of Breath Or Wheezing) fluconazole 100 mg tablet 100 mg PO BEDTIME nystatin 100,000 unit/gram ointment 1 applic TOPICAL BID metronidazole 500 mg tablet See Rx Instructions .ROUTE .COMPLEX Rx Instructions: TAKE ONE-HALF TABLET BY MOUTH THREE TIMES DAILY ON calendar DAYS ONE through THREE potassium chloride 20 mEq tablet,ER particles/crystals 20 meq PO DAILY progesterone micronized 200 mg capsule 200 mg PO BEDTIME magnesium 200 mg Tablet 200 mg PO DAILY Patient Instructions: Opioid Safety, Patient Portal & Michael Instructions Coding Level of Care Code Acute Code for Chg Fwd Diagnoses Acute pyelonephritis N10 Leukocytosis D72.829 Intractable nausea and vomiting R11.2 Dehydration E86.0 Weight loss of more than 10% body weight R63.4 Yeast infection involving the vagina and surrounding area B37.31 Lower abdominal pain R10.30
--- NOTE | 2024-08-29 14:29 | PM.PN ---
Subjective Subjective: seen today continues to complain of pain in pelvis and urethra says she doesnt feel good tody Vitals/I&O/Wt Last Vital Signs Temp 97.6 F 08/29/24 11:24 Pulse 76 08/29/24 11:24 Resp 16 08/29/24 11:24 BP 114/72 08/29/24 11:24 Pulse Ox 97 08/29/24 11:24 O2 Del Method Room Air 08/29/24 11:24 08/28/24 08/29/24 08/29/24 22:59 06:59 14:59 Intake Total 460 / 2420 340 / 2760 238 / 238 Balance 460 / 2420 340 / 2760 238 / 238 Weight last 48 hrs Weight 98.571 kg Weight 98.883 kg Weight 97.704 kg Physical Exam Narrative: General: Alert oriented x3, patient seen laying in bed HEENT: Normocephalic, atraumatic, EOMI, breathing room air Cardio: Regular rate rhythm, normal S1-S2, Respiratory: Good bilateral air entry, no wheezes no rhonchi appreciated GI: Abdomen soft, nontender, nondistended, bowel sounds + MIld pelvic pain present Behavior: Appropriate and cooperative Extremities: no edema Data 08/29/24 04:38 08/29/24 04:38 Micro: Microbiology 08/26/24 23:35 Urine Culture - Final Urine,Clean Catch A&P Assessment and plan (1) Acute pyelonephritis: Patient has acute pyelonephritis right greater than left significant for flank pain with costophrenic angle tenderness on examination Patient UTI is very recurrent - 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 (5) Weight loss of more than 10% body weight: Within the last 2 months patient had lost 40 pounds from not being able to eat because of intractable nausea and vomiting - Patient went from 250 pounds weight to 210 today - Must continue to treat with a mild to very fair patient to a specialist at discharge - Must continue to treat (6) Yeast infection involving the vagina and surrounding area: Initiated Diflucan Continue to treat and follow through with the actual culture of this fungus as patient has a high at ratio of not getting rid of this infection (7) Lower abdominal pain: Likely secondary to extensive inflammation in the genitourinary region CT of the abdomen and pelvics where with no acute process Treat underlying inflammatory infection process Patient on antibiotics, not allergic to penicillin but sensitive can have rash from it. Patient on antibiotics Plan GI and DVT prophylaxis in place 08/28/2024 seen today continue fluconazole IV, metronidazole IV continue ceftriaxone 2g IV daily to treat for pyelonephritis pt still very symptomatic, continue on IV therapy will need urology, obgyn follow up at [facility] 08/29/2024 Patient presented to the hospital with worsening dysuria, right-sided flank pain and her chronic yeast infection which she believes has worsened at this time. I have looked over her CT abdomen and there is no imaging evidence of pyelonephritis. I believe her symptoms are purely due to UTI for which she states she had a positive urine culture/urinalysis at [facility]. We will request records. She was on levofloxacin as an outpatient and had only taken it for 2 days prior to presenting to our facility. I would continue her Zosyn. Stop levofloxacin. Was waiting for urine culture however that is negative. Sterile culture most likely secondary to patient being on antibiotics already. I will call [facility] and ask for culture results if culture was obtained there. In terms of her dysuria and urethral pain it is possible she has the symptoms secondary to yeast infection. CONE CLEANER consult placed. Patient has had a hysterectomy. Therefore test will be performed. She had a limited pelvic ultrasound however she refused transvaginal examination. 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 Patient will need further evaluation with CONE CLEANER in outpatient setting in clinic and follow-up with urology as an outpatient. At time of discharge I would probably discharge on nitrofurantoin times another 5 days. I will stop fluconazole 100 daily and switch to 150 daily. Will order Pyridium x 3 doses total for symptom relief. Will discuss with CONE CLEANER over the phone. Patient may be able to discharge with intravaginal fluconazole going forward. Continue Flagyl 500 every 8 hours. Will need to switch to oral at time of discharge for another 5 days. PDMP PDMP Reviewed: Not Reviewed Attestations Medical Necessity Statement*: UTI, vaginal yeast infection. Diagnoses Acute pyelonephritis N10 Leukocytosis D72.829 Intractable nausea and vomiting R11.2 Dehydration E86.0 Weight loss of more than 10% body weight R63.4 Yeast infection involving the vagina and surrounding area B37.31 Lower abdominal pain R10.30
[2024-08-29] MEDS: cefTRIAXone 2,000 mg SDV 2000 MG IVP (16:06)
--- NOTE | 2024-08-29 17:02 | USCV_ITS ---
Karoline Villarreal Age: 29 Gender: F : 1995 Exam Date: 08/29/2024 17:34 Ordering Phys: Eleni Benitez MD Technologist: Ildefonso Rouse Exam Location: [facility] [place] Indication: fluid overload BP: 102 / 70 HR: 72 Rhythm: Sinus Technical Quality: Adequate MEASUREMENTS (Male / Female) Normal Values 2D ECHO LV Diastolic Diameter PLAX 3.8 cm 4.2 - 5.9 / 3.9 - 5.3 cm IVS Diastolic Thickness 0.9 cm 0.6 - 1.0 / 0.6 - 0.9 cm IVS Systolic Thickness 1.2 cm LVPW Diastolic Thickness 1.3 cm 0.6 - 1.0 / 0.6 - 0.9 cm LVPW Systolic Thickness 1.3 cm LVOT Diameter 2.2 cm LV Ejection Fraction 2D Teich 65.3 % LV Ejection Fraction MOD 4C 70.4 % LV Ejection Fraction MOD 2C 73.5 % LV Ejection Fraction 2C AL 72.7 % LA Diameter 3.0 cm RA Systolic Volume 4C AL 23.7 ml RA Systolic Volume 4C MOD 24.8 ml LA Sys Volume AL 42.2 cm cubed LA Sys Volume Index AL 19.2 cm cubed/m squared Aorta at Sinotubular Diameter 2.0 cm IVC Diameter 1.5 cm M-MODE LA Ao Ratio MM 1.0 AV Cusp Separation MM 1.7 cm DOPPLER AV Peak Velocity 120.0 cm/s LVOT Peak Velocity 80.0 cm/s AV Area Cont Eq vti 2.4 cm squared AV Area Cont Eq pk 2.6 cm squared MV Peak Velocity 80.0 cm/s MV Area PHT 5.9 cm squared Mitral E to A Ratio 1.1 TV Peak Velocity 263.0 cm/s TR Peak Velocity 264.0 cm/s TR Peak Gradient 27.9 mmHg TR Mean Velocity 219.0 cm/s TR Mean Gradient 20.2 mmHg TR Velocity Time Integral 62.6 cm PV Peak Velocity 83.0 cm/s RV Ejection Time 0.3 s FINDINGS Left Ventricle Normal left ventricular size, systolic function and wall thickness, with no regional wall motion abnormalities. Left ventricular ejection fraction is estimated at 60 %. Normal diastolic function. Right Ventricle The right ventricle is normal in size and function. Right Atrium There appeared to be PFO with as evident by positive bubble study.normal right atrial size. Left Atrium Mildly increased left atrial size. Mitral Valve Structurally normal mitral valve without significant stenosis or prolapse. There is no mitral regurgitation. Aortic Valve Structurally normal aortic valve without significant sclerosis or stenosis. There is no aortic regurgitation. Tricuspid Valve Mild tricuspid valve regurgitation. Pulmonic Valve Mild pulmonary valve regurgitation. Pericardium Normal pericardium without effusion. Aorta Normal ascending aorta dimension. IVC The inferior vena cava appears normal. CONCLUSIONS Normal left ventricular size, systolic function and wall thickness, with no regional wall motion abnormalities. Left ventricular ejection fraction is estimated at 60 %. Normal diastolic function. There appeared to be PFO with as evident by positive bubble study.normal right atrial size. There is no pericardial effusion. No significant valve abnormalities. Right atrial pressure is around 5 mm of mercury. Hugo Trevino MD (Electronically Signed) Final Date: 29 August 2024 19:52 S
[2024-08-30] MEDS: metroNIDAZOLE IV 500 MG/100 ML PREMIX 100 MG IV ×2 (00:21→09:17)
[2024-08-30] MEDS: ondansetron 2 mg/ML SDV 2 mL 4 MG IVP (01:40)
[2024-08-30 03:56] VITALS: BP 109/69; PULSE 74; RESP 15; TEMP 36.4; O2SAT 95
[2024-08-30 04:51] LABS: Hematocrit 37.3 % (36-47); Hemoglobin 12.60 g/dL (11.27-16.99); Mean Corpuscular HGB Conc 33.8 g/dL (30-55); Mean Corpuscular Hemoglobin 31.5 pg (27-33); Mean Corpuscular Volume 93.3 fl (85-98); Nucleated Red Blood Cells % 0 %; Platelet Count 230 10^3/cmm (157-399); Red Blood Count 4.00 10^6/uL (3.85-5.65); White Blood Count 9.92 10^3/uL (3.29-11.43)
[2024-08-30 05:08] LABS: Anion Gap 14.6 (5-19); Blood Urea Nitrogen 5 mg/dL (6-20); Calcium 8.7 mg/dL (8.5-10.5); Carbon Dioxide 24 mmol/L (22-29); Chloride 103 mmol/L (98-107); Creatinine Clr Calc Pharmacy 167.2928; Glucose 98 mg/dL (65-115); Osmolality Calculated 283 mOsm/kg (285-295); Potassium 3.6 mmol/L (3.5-5.1); Sodium 138 mmol/L (136-145)
[2024-08-30] MEDS: heparin 5,000 unit/mL INJ 1 mL 5000 UNIT SUBCUT (05:52)
[2024-08-30 06:00] VITALS: PULSE 63
[2024-08-30 07:46] VITALS: BP 119/78; PULSE 83; RESP 16; TEMP 36.6; O2SAT 96
[2024-08-30] MEDS: levofloxacin-dextrose 5 % 750 MG/150 ML PREMIX 100 MG IV (09:17)
--- NOTE | 2024-08-30 10:30 | PM.DCS ---
Discharge Providers Date of Admission: 08/27/24 05:03 Date of Discharge: August 30, 2024 Attending Provider at Admission: Zoraida Awad MD Attending Provider at Discharge: Eleni Benitez MD Primary Care Provider: Karen Israel Diagnoses at Discharge Discharge Diagnosis 1. Acute pyelonephritis: Status: Inactive 2. Leukocytosis: Status: Resolved 3. Intractable nausea and vomiting: Status: Resolved 4. Dehydration: Status: Resolved 5. Weight loss of more than 10% body weight: Status: Acute 6. Yeast infection involving the vagina and surrounding area: Status: Acute 7. Lower abdominal pain: Status: Resolved Reason for Visit Reason for Visit: Kidneys hurt N/V infection UTI Hospital Course Hospital Course Per Vandana Membrenojaquelin Villarreal is a 29 year old female with complex medical problems for age. Patient does have history of longstanding vaginosis that progresses into urinary tract infection was sent into pyelonephritis recurrently with much pain significant for dysuria and the hole of the vaginal wall. Patient had had vaginosis prior had hysterectomy done 2 years ago but since then all medical problem complexed and became worse. Patient had been at ED at [facility] 3 days ago and was prescribed Levaquin for pyelonephritis that had not gotten any better instead patient had more severe bilateral flank pain right greater than left with blood in the urine and leukocytosis. Patient cultures need to be out prior to discharge while patient is getting IV antibiotics in-house. 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 Patient had never seen a urologist had SALAD COUNTER ATTENDANT that had moved away. Patient among all the things is being admitted because of intractable nausea and vomiting. This patient had lost 40 pounds just from not keeping anything down in the last 2 months. Patient weighed 250 pounds and today patient is weighing 210 pounds. Patient was admitted for a diagnosis of acute pyelonephritis however imaging studies did not support that. I believe she had a UTI that was recurrent. 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 SALAD COUNTER ATTENDANT recommended patient follow-up as an outpatient for further evaluation. Pelvic ultrasound was obtained which did not show any kind of fistula. Patient declined to have transvaginal ultrasound completed. She was managed with IV antibiotics for UTI and was switched to oral at time of discharge to complete 7 days. Patient's urine culture was obtained from previous hospital [facility]. It showed Staph saprophyticus sensitive to levofloxacin. Patient was suggestion to ciprofloxacin at discharge. She was also given fluconazole 150 daily during hospitalization and given 3 more tablets to complete 7-day course. Echocardiogram was obtained which was mainly within normal limits. No evidence of heart failure. She states that she has been on progesterone which causes excess water retention and for that reason she was placed on bumetanide by her primary care doctor. I advised her to hold the progesterone and bumetanide at this time until she is seen by SALAD COUNTER ATTENDANT outpatient. We also discharged on metronidazole 500 3 times daily for 3 more days. Patient was tested for STDs which were also negative. Patient will need close follow-up with SALAD COUNTER ATTENDANT after discharge. SHe was also given referral to urology for further evaluation as an outpatient. Patient will be discharged home in stable condition. Physical Exam Narrative: General: Alert oriented x3, patient seen laying in bed HEENT: Normocephalic, atraumatic, EOMI, breathing room air Cardio: Regular rate rhythm, normal S1-S2, Respiratory: Good bilateral air entry, no wheezes no rhonchi appreciated GI: Abdomen soft, nontender, nondistended, bowel sounds + Behavior: Appropriate and cooperative Extremities: no edema Discharge Data Studies Completed and Pending Completed Studies During Hospitalization Category Date Time Status CT abdomen pelvis w con* [id number] Stat Cat Scan 08/27/24 00:58 Completed XR chest 1V portable [id number] Stat Exams 08/26/24 23:21 Completed CV. echo w/w bubble cont [id number] Urgent Ultrasound 08/29/24 17:02 Completed US pelvic limited [id number] Routine Ultrasound 08/27/24 06:19 Completed Pending at discharge Category Date Time Status Blood Culture Stat Lab 08/26/24 23:50 Results Blood Culture Stat Lab 08/27/24 05:45 Results RPR with Reflex to Titer Routine Lab 08/27/24 17:21 Received Radiology Impressions Chest X-Ray 08/26/24 23:21 IMPRESSION: No acute findings. Abdomen/Pelvis CT 08/27/24 00:58 IMPRESSION: No acute findings. Pelvis Ultrasound 08/27/24 06:19 IMPRESSION: Negative transabdominal pelvic ultrasound. Status post hysterectomy. No fluid collections or masses identified. Laboratory Results WBC 9.92 10^3/uL (3.29-11.43) 08/30/24 04:39 RBC 4.00 10^6/uL (3.85-5.65) 08/30/24 04:39 Hgb 12.60 g/dL (11.27-16.99) 08/30/24 04:39 Hct 37.3 % (36-47) 08/30/24 04:39 MCV 93.3 fl (85-98) 08/30/24 04:39 MCH 31.5 pg (27-33) 08/30/24 04:39 MCHC 33.8 g/dL (30-55) 08/30/24 04:39 RDW 12.6 % (12.1-15.1) 08/30/24 04:39 Plt Count 230 10^3/cmm (157-399) 08/30/24 04:39 MPV 10.2 fL (7.4-10.4) 08/30/24 04:39 Neut % (Auto) 55.7 % 08/30/24 04:39 Lymph % (Auto) 35.3 % 08/30/24 04:39 [place] % (Auto) 6.6 % 08/30/24 04:39 Eos % (Auto) 1.6 % 08/30/24 04:39 Baso % (Auto) 0.4 % 08/30/24 04:39 Neut # (Auto) 5.53 10^3/uL (1.8-7.7) 08/30/24 04:39 Lymph # (Auto) 3.5 10^3/uL (0.8-4.8) 08/30/24 04:39 [place] # (Auto) 0.7 10^3/uL (0.2-0.9) 08/30/24 04:39 Eos # (Auto) 0.2 10^3/uL (0.0-0.8) 08/30/24 04:39 Baso # (Auto) 0.0 10^3/uL (0.0-0.1) 08/30/24 04:39 Nucleated RBC % (auto) 0 % 08/30/24 04:39 Nucleated RBCs # 0.0 /100WBC 08/30/24 04:39 ESR 30 mm/hr (0-15) H 08/27/24 06:23 Sodium 138 mmol/L (136-145) 08/30/24 04:39 Potassium 3.6 mmol/L (3.5-5.1) 08/30/24 04:39 Chloride 103 mmol/L (98-107) 08/30/24 04:39 Carbon Dioxide 24 mmol/L (22-29) 08/30/24 04:39 Anion Gap 14.6 (5-19) 08/30/24 04:39 BUN 5 mg/dL (6-20) L 08/30/24 04:39 Creatinine 0.6 mg/dL (0.5-0.9) 08/30/24 04:39 GFR Calculation 119.0 mL/min (90-130) 08/30/24 04:39 Glucose 98 mg/dL (65-115) 08/30/24 04:39 Calculated Osmolality 283 mOsm/kg (285-295) L 08/30/24 04:39 Lactic Acid 1.0 mmol/L (0.5-2.2) 08/26/24 23:50 Calcium 8.7 mg/dL (8.5-10.5) 08/30/24 04:39 Phosphorus 3.0 mg/dL (2.5-4.5) 08/27/24 06:23 Magnesium 2.0 mg/dL (1.7-2.3) 08/29/24 04:38 Total Bilirubin 0.4 mg/dL (0.15-1.2) 08/27/24 06:23 AST 13 U/L (0-32) 08/27/24 06:23 ALT 12 U/L (0-33) 08/27/24 06:23 Alkaline Phosphatase 88 U/L (35-105) 08/27/24 06:23 C-React Prot High Sens 1.730 mg/dL (0.0-0.3) H 08/27/24 06:23 NT-Pro-B Natriuret Pep 62 pg/mL (0-125) 08/26/24 23:50 Total Protein 7.3 g/dL (6.6-8.7) 08/27/24 06:23 Albumin 3.6 g/dL (3.5-5.2) 08/27/24 06:23 Globulin 3.7 g/dL (1.3-4.6) 08/27/24 06:23 Procalcitonin 0.03 ng/mL (0-0.5) 08/27/24 06:23 Urine Color Yellow (Yellow) 08/26/24 23:35 Urine Appearance Clear (CLEAR) 08/26/24 23:35 Urine pH 6.0 (5-7) 08/26/24 23:35 Ur Specific [place] 1.017 (1.005-1.030) 08/26/24 23:35 Urine Protein 1+ (Negative) A 08/26/24 23:35 Urine Glucose (UA) Negative (Normal) 08/26/24 23:35 Urine Ketones Trace (Negative) 08/26/24 23:35 Urine Blood Trace (Negative) A 08/26/24 23:35 Urine Nitrate Negative (Negative) 08/26/24 23:35 Urine Bilirubin Negative (Negative) 08/26/24 23:35 Urine Urobilinogen 1.0 mg/dL (Negative) 08/26/24 23:35 Ur Leukocyte Esterase 1+ (Negative) A 08/26/24 23:35 Urine RBC 3-5 /hpf (0-2) 08/26/24 23:35 Urine WBC 21-50 /hpf (0-5) H 08/26/24 23:35 Ur Squamous Epith Cells 0-5 /hpf (0-5) 08/26/24 23:35 Amorphous Sediment Not Reportable 08/26/24 23:35 Urine Bacteria None seen /hpf (NONE) 08/26/24 23:35 Hyaline Casts 0.40 /lpf 08/26/24 23:35 C. trachomatis (PCR) Not detected (Negative) 08/27/24 21:00 HIV 1&2 Ab & HIV 1 Ag Non-reactive (Non-Reactiv) 08/26/24 23:50 HIV 1&2 Antibody Non-reactive (Non-Reactiv) 08/26/24 23:50 N. gonorrhoeae (PCR) Not detected (Negative) 08/27/24 21:00 T. vaginalis (PCR) Not detected (Negative) 08/27/24 21:00 Vitals Last Vital Signs Temp 97.8 F 08/30/24 07:46 Pulse 83 08/30/24 07:46 Resp 16 08/30/24 07:46 BP 119/78 08/30/24 07:46 Pulse Ox 96 08/30/24 07:46 O2 Del Method Room Air 08/30/24 07:46 Discharge Plan Discharge Patient Disposition: Home Condition: Stable Prescriptions: New fluconazole 100 mg Tablet 150 mg PO Q24H Qty: 3 0RF Continued albuterol sulfate 90 mcg/actuation HFA aerosol inhaler 1 puff INHALATION Q4H PRN (Reason: Shortness Of Breath Or Wheezing) magnesium 200 mg Tablet 200 mg PO DAILY levofloxacin 750 mg tablet 750 mg PO DAILY Qty: 3 0RF Changed metronidazole 250 mg tablet 500 mg PO TID Qty: 9 0RF Held bumetanide 2 mg tablet 2 mg PO DAILY Hold Instructions: see pcp potassium chloride 20 mEq tablet,ER particles/crystals 20 meq PO DAILY Hold Instructions: see pcp progesterone micronized 200 mg capsule 200 mg PO BEDTIME Hold Instructions: see obgyn Discontinued fluconazole 100 mg tablet 100 mg PO BEDTIME nystatin 100,000 unit/gram ointment 1 applic TOPICAL BID metronidazole 500 mg tablet See Rx Instructions .ROUTE .COMPLEX Rx Instructions: TAKE ONE-HALF TABLET BY MOUTH THREE TIMES DAILY ON calendar DAYS ONE through THREE Discharge Order = DC NOW: Discharge Order (Routine); Ordered 08/30/24 Ordered By: Eleni Benitez Referrals: Jovon Austin MD [Physician, SALAD COUNTER ATTENDANT] - 1-3 days Referral Note: We have notified your physician's clinic of the need for a follow-up appointment to be scheduled. If you have not heard from them within the next 2 business days, please call them directly. Karen Israel [Primary Care Provider, Internal Medicine] - 1-3 days Discharge Diet: Cardiac Discharge Activity: Resume usual activity Patient Instructions: Fluconazole (By mouth), Yeast Infection (GEN), Abdominal Pain (DC), Opioid Safety, Patient Portal & Michael Instructions Discharge Attestations Time Spent in Discharge Care*: greater than 30 min Quality Metrics Clinical Quality Measures [ No reported AMI, CVA or VTE this stay] Coding Level of Care Code Acute Code for Chg Fwd Diagnoses Acute pyelonephritis N10 Leukocytosis D72.829 Intractable nausea and vomiting R11.2 Dehydration E86.0 Weight loss of more than 10% body weight R63.4 Yeast infection involving the vagina and surrounding area B37.31 Lower abdominal pain R10.30
[2024-08-30 11:13] VITALS: BP 107/73; PULSE 75; RESP 16; TEMP 36.6; O2SAT 95
[2024-08-30 12:32] VITALS: BP 107/73; PULSE 75; RESP 16; TEMP 36.6; O2SAT 95
[2024-08-31 13:59] LABS: RPR w(Moniotor) w/REFL Titer NON-REACTIVE (NON-REACTIVE)
== END 2024-08-30 13:02 | disposition home or self-care (01) | DRG 690 ==
LOC: ER 08-27 04:31 → MEDSURG 08-27 05:09
PROVIDERS: Admitting Provider Internal Medicine; Emergency Provider Student in an Organized Health Care Education/Training Program; PCP Physician Assistant Medical; Visit Provider Internal Medicine
DX: N39.0 Urinary tract infection, site not specified (principal); R11.2 Nausea with vomiting, unspecified; E86.0 Dehydration; R63.4 Abnormal weight loss; Z68.33 Body mass index [BMI] 33.0-33.9, adult; B37.31 Acute candidiasis of vulva and vagina; Z90.710 Acquired absence of both cervix and uterus; Z87.440 Personal history of urinary (tract) infections
CPT/HCPCS: 36415; 71045; 74177; 76857; 80048; 80053; 81001; 83605; 83735; 83880; 84100; 84145; 85025; 85651; 86141; 86592; 87040; 87086; 87491; 87591; 87661; 87806; 93005; 96372; 96374; 96376; 99285; C8929; J0696; J0780; J1644; J1956; J2270; J2405; J3490; J7030; J9999

== ENCOUNTER 2024-10-04 01:07 | Emergency (ER) | payer SELFPAY ==
--- OUTSIDE RECORDS SUMMARY | 2024-10-04 01:12 | XMS_ITS | Encounter Summary ---
Author Organization [facility] Address [address] [place] [address] Care Team Providers Care Edge Glue Machine Tender Name Role Phone Lucho Mota MD Primary Care Provider Encounter Details Date Type Department Care Team (Late st Contact Info) Description 11/20/2016 Orders Only [facility] [address] [facility] [place] [address] System, Provider Not In, [address] [place] [address] Social History Tobacco Use Types Packs/Day Years [...] 11/20/2016 9:18 PM CDT Historic images from [facility] exist and can be viewed by using the hyperlink to access [employer]: CT ABD/PEL W CONTRAST Procedure Note System, Provider Not In, - 03/30/2020 Historic images from [facility] exist and can be viewed byusing the hyperlink to access Hi[employer] pacs: CT ABD/PEL W CONTRAST us Provider Not In System MD [facility] Final Result documented in this encounter Visit Diagnoses Not on filedocumented in this encounter Care Teams Edge Glue Machine Tender Relationship Specialty Start Date End Date Lucho Mota MD [address] [place] [address] PCP - General Family Medicine 05/10/20 12/18/21 documented as of this encounter
--- OUTSIDE RECORDS SUMMARY | 2024-10-04 01:12 | XMS_ITS | Clinical Summary ---
Author Organization [facility] Address [address] [place] [place] [address] Care Team Providers Care Egg Processing Supervisor Name Role Phone Unavailable Primary Care [...] route in the morning. 07/22/19 24 Active Active Problems Problem Noted Date Diagnosed Date [...] Author Referral for testing. General On track( 021 8:50 AM CDT) Yes Dayami Vail LCSW [...] stable enough to work. Was working Insurance [facility]
--- OUTSIDE RECORDS SUMMARY | 2024-10-04 01:12 | XMS_ITS | Clinical Summary ---
Author Organization [facility] Address [address] [place] [address] Phone Care Team Providers Care Office Support Specialist Name Role Phone Karen Israel PA-C Primary Care Provider [phone] Allergies Active Allergy Reactions Criticality Noted Date Comments Clindamycin Anaphylaxis High 06/17/2023 Diph,Pertus(Acel),Tetanus Pedi Other (See Comments) 06/17/2023 unknown Doxycycline Hcl Anaphylaxis High 06/17/2023 Tree Nuts Anaphylaxis High 06/17/2023 Medications No known medications Encounters Date Type Department Care Team Description 09/10/2024 Orders Only [facility] Urology [address] [place] [address] Provider, Historical Him Recurrent UTI (Primary Dx) from Last 3 Months Social History Tobacco Use Types Packs/Day Years Used Date Smoking Tobacco: Never Smokeless Tobacco: Never Tobacco Cessation:Counseling Given: Not Answered Alcohol Use Standard Drinks/Week Comments Not Currently 0 (1 standard drink = 0.6 oz pur e alcohol) Comments Unknown Sex and Gender Information Value Date Recorded Sex Assigned at Not on file Legal Sex Female 9:50 AM HITCHER Gender Identity Not on file Sexual Orientation Not on file Last Filed Vital Signs Vital Sign Reading Time Taken Comments Blood Pressure 137/82 06/17/2023 8:42 PM CDT Pulse 94 06/17/2023 8:42 PM CDT Temperature 36.6 C (97.9 F) 06/17/2023 6:52 PM CDT Respiratory Rate 18 06/17/2023 6:52 PM CDT Oxygen Saturation 99% 06/17/2023 8:42 PM CDT Inhaled Oxygen Concentration - - Weight 108.9 kg (240 lb) 06/17/2023 6:54 PM CDT Height 167.6 cm (5' 6 ) 06/17/2023 6:54 PM CDT Body Mass Index 38.74 06/17/2023 6:54 PM CDT Plan of Treatment Upcoming Encounters Date Type Department Care Team (Late st Contact Info) Description 12/17/2024 11:00 AM CDT Office Visit [facility] Urology [address] [place] [address] Bernadine Cordon NP [address] [place] [address] Health Maintenance Due Date Last Done Comments Annual Depression Screening 2007 Annual Physical 2014 Hepatitis C Antibody Screen 2014 DTap/Tdap/Td Vaccines (1 - Tdap) 11/29/2020 11/29/19 21 Influenza Vaccine 10/26/2024 Insurance [employer] [place] [employer] Care Teams Office Support Specialist Relationship Specialty Start Date End Date Karen Israel PA-C [address] [place] [address] PCP - General Certified Physician Process Development Associate 06/17/23
[2024-10-04 01:13] VITALS: BP 110/78; PULSE 91; RESP 16; TEMP 36.7; O2SAT 98; BMI 34.4
--- NOTE | 2024-10-04 01:54 | ECG_ITS ---
[employer] Test Date: 2024-10-04 Pat Name: Karoline Villarreal Department: Room: Gender: Female Watch Inspector Final Movement: : 1995 Requested By: Kade Palma Order Number: [id number] Cotton MD: Marleni Love M.D. Measurements Intervals [place] Rate: 86 P: 51 RI: 140 QRS: 52 QRSD: 105 T: 48 QT: 392 QTc: 470 Interpretive Statements SINUS RHYTHM WITH SINUS ARRHYTHMIA NONSPECIFIC T-WAVE ABNORMALITY Compared to ECG 08/26/2024 23:29:26 T-wave abnormality now present Sinus tachycardia no longer present Electronically Signed On 10-06-2024 08:17:50 CDT by Marleni Love M.D. [email or web address]
[2024-10-04 02:01] LABS: Hematocrit 46.8 % (36-47); Hemoglobin 16.20 g/dL (11.27-16.99); Mean Corpuscular HGB Conc 34.6 g/dL (30-55); Mean Corpuscular Hemoglobin 31.0 pg (27-33); Mean Corpuscular Volume 89.7 fl (85-98); Nucleated Red Blood Cells % 0 %; Platelet Count 324 10^3/cmm (157-399); Red Blood Count 5.22 10^6/uL (3.85-5.65); White Blood Count 10.06 10^3/uL (3.29-11.43)
[2024-10-04 02:10] LABS: Glucose Urine UA Negative (Normal); Nitrate Urine Negative (Negative); Specific Gravity, Urine 1.004 (1.005-1.030)
[2024-10-04 02:15] LABS: Add Urine Microscopic? YES
[2024-10-04 02:17] LABS: PCP Screen Urine Negative (Negative)
[2024-10-04 02:24] LABS: Alanine Aminotransferase 19 U/L (0-33); Albumin Level 4.6 g/dL (3.5-5.2); Alkaline Phosphatase 115 U/L (35-105); Anion Gap 16.7 (5-19); Aspartate Amino Transferase 20 U/L (0-32); Blood Urea Nitrogen 7 mg/dL (6-20); Calcium 9.9 mg/dL (8.5-10.5); Carbon Dioxide 28 mmol/L (22-29); Chloride 94 mmol/L (98-107); Creatinine Clr Calc Pharmacy 169.4119; Globulin 4.4 g/dL (1.3-4.6); Glucose 103 mg/dL (65-115); Magnesium 2.1 mg/dL (1.7-2.3); Osmolality Calculated 280 mOsm/kg (285-295); Sodium 136 mmol/L (136-145); Total Protein 9.0 g/dL (6.6-8.7)
[2024-10-04 02:26] LABS: Potassium 2.7 mmol/L (3.5-5.1)
[2024-10-04 02:41] LABS: Troponin(5th) Baseline < 6 ng/L (0-10)
[2024-10-04 02:49] LABS: Thyroid Stimulating Hormone 2.56 uIU/mL (0.27-4.20)
[2024-10-04] MEDS: lidocaine 1% 5 ML in potassium chloride premix 100 ML 52.5 ML IV (02:53)
[2024-10-04] MEDS: potassium chloride oral liq 20 mEq/15 mL UDC 40 MEQ PO (03:00)
--- NOTE | 2024-10-04 03:54 | W.ED.GENADLT ---
HPI - General Adult General: Chief complaint: General Medical Stated complaint: had seizure,heart fluttering,feel numb,sob Time Seen by Provider: 10/04/24 01:53 History of Present Illness: 29-year-old female with a history of multiple medical problems, multiple admissions, and multiple physicians, not common for her age. She presents with feeling faint, having palpitations, feeling dizzy, and having paresthesias to her upper greater than lower extremities. This has been going on and off for over a year she says. She has a history of low potassiums, and has the symptoms when her potassium is low. She was given potassium when seen in the ER last week, but only 3 pills. She says that she has been monitored via Holter monitor, although she did not finish the study. She has a history of chronic yeast vaginosis, and urinary tract infections. Related Data Home Medications ?Medication ?Instructions ?Recorded ?Confirmed albuterol sulfate 90 mcg/actuation 1 puff inhalation Q4H PRN 08/27/24 08/27/24 aerosol inhaler Shortness Of Breath Or Wheezing magnesium 200 mg tablet 200 mg PO DAILY 08/27/24 08/27/24 progesterone micronized 200 mg 200 mg PO BEDTIME 08/27/24 08/27/24 capsule Held on 08/30/24. Instructions: see obgyn Previous Rx's ?Medication ?Instructions ?Recorded fluconazole 100 mg tablet 150 mg (1.5 x 100 mg) PO Q24H #3 08/29/24 tabs levofloxacin 750 mg tablet 750 mg PO DAILY #3 tabs 08/30/24 metronidazole 250 mg tablet 500 mg (2 x 250 mg) PO TID #9 tabs 08/30/24 ondansetron 4 mg disintegrating 4 mg PO Q6H PRN nausea and 10/04/24 tablet vomiting #30 tabs potassium chloride 20 mEq 20 meq PO DAILY #30 tabs 10/04/24 tablet,extended release(part/cryst) spironolactone 50 mg tablet 50 mg PO DAILY #30 tabs 10/04/24 Allergies Allergy/AdvReac Type Severity Reaction Status Date / Time almond Allergy ALGY-Hives Verified 10/04/24 01:18 clindamycin Allergy Unknown Verified 10/04/24 01:18 dicyclomine Allergy ALGY-Rash Verified 10/04/24 01:18 latex Allergy ALGY-Hives Verified 10/04/24 01:18 Penicillins Allergy ALGY-Rash Verified 10/04/24 01:18 PFSH ED PFSH: Medical History Acute pyelonephritis Physical Exam Const: COMMON NORMALS: no acute distress GENERAL APPEARANCE: cooperative; not ill appearing and not frail appearing HENMT: COMMON NORMALS: normocephalic, atraumatic and Normal external nose present HEAD & SCALP: normocephalic and atraumatic FACE & SINUS: normal facial exam and face symmetric NOSE: Normal external nose present Eye: COMMON NORMALS: Equal, round and reactive pupils present and EOMs intact bilaterally PUPIL: Yes Equal, round and reactive pupils present Neck/C-Spine: GENERAL: Yes trachea midline Chest: CHEST: Yes Symmetrical chest wall rise Resp: COMMON NORMALS: normal respiratory effort, No retractions, No use of accessory muscles and clear to auscultation bilaterally AUSCULTATION: clear to auscultation bilaterally Cardio: COMMON NORMALS: regular rate and regular rhythm RATE: regular rate RHYTHM: regular rhythm GI: COMMON NORMALS: Normal to inspection, nondistended, normoactive bowel sounds present Extremity: COMMON NORMALS: no pedal edema Neuro: JOLLY COMA SCALE: document GCS findings Jolly coma scale eye opening: Spontaneous Jolly coma scale verbal response: Orientated [place] coma scale motor response: Obey commands Jolly coma scale total score: 15 SENSORY EXAM: Yes extremities (intact) Psych: COMMON NORMALS: speech normal SPEECH: Yes normal speech Skin: COMMON NORMALS: no rashes or lesions noted GENERAL SKIN EXAM: no rashes or lesions noted Course Vital Signs: Vital signs: Vital Signs Temperature 98.0 F 10/04/24 01:13 Pulse Rate 78 10/04/24 05:56 Respiratory Rate 16 10/04/24 05:56 Blood Pressure 125/91 10/04/24 05:56 Pulse Oximetry 97 10/04/24 05:56 Oxygen Delivery Me thod Room Air 10/04/24 04:52 [facility] - General Adult Medical Decision Making Vitals are stable. She is nontachycardic. CBC is normal. Potassium is 2.7. Other laboratory appears normal. CRP is 3. Her troponin is less than 6, nondetectable. Urine drug screen is negative. TSH is 2.6. Liver enzymes are normal. She is given 20 IV potassium, and 40 oral liquid potassium for repletion. She tells me she is on spironolactone as a potassium sparing diuretic. She will require daily potassium supplementation. 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 She will be discharged on an increased dose of spironolactone, potassium, and to discontinue her Bumex for now. Case management will be asked to make her an appointment for her primary care physician, and she will likely need cardiology referral. She will need her potassium rechecked within a week. She was told this. Lab Data 10/04/24 01:35 10/04/24 01:35 Laboratory Results WBC 10.06 10^3/uL (3.29-11.43) 10/04/24 01:35 RBC 5.22 10^6/uL (3.85-5.65) 10/04/24 01:35 Hgb 16.20 g/dL (11.27-16.99) 10/04/24 01:35 Hct 46.8 % (36-47) 10/04/24 01:35 MCV 89.7 fl (85-98) 10/04/24 01:35 MCH 31.0 pg (27-33) 10/04/24 01:35 MCHC 34.6 g/dL (30-55) 10/04/24 01:35 RDW 12.4 % (12.1-15.1) 10/04/24 01:35 Plt Count 324 10^3/cmm (157-399) 10/04/24 01:35 MPV 10.1 fL (7.4-10.4) 10/04/24 01:35 Neut % (Auto) 58.6 % 10/04/24 01:35 Lymph % (Auto) 33.4 % 10/04/24 01:35 [place] % (Auto) 6.1 % 10/04/24 01:35 Eos % (Auto) 1.2 % 10/04/24 01:35 Baso % (Auto) 0.4 % 10/04/24 01:35 Neut # (Auto) 5.90 10^3/uL (1.8-7.7) 10/04/24 01:35 Lymph # (Auto) 3.4 10^3/uL (0.8-4.8) 10/04/24 01:35 [place] # (Auto) 0.6 10^3/uL (0.2-0.9) 10/04/24 01:35 Eos # (Auto) 0.1 10^3/uL (0.0-0.8) 10/04/24 01:35 Baso # (Auto) 0.0 10^3/uL (0.0-0.1) 10/04/24 01:35 Nucleated RBC % (auto) 0 % 10/04/24 01:35 Nucleated RBCs # 0.0 /100WBC 10/04/24 01:35 Sodium 136 mmol/L (136-145) 10/04/24 01:35 Potassium 2.7 mmol/L (3.5-5.1) L* 10/04/24 01:35 Chloride 94 mmol/L (98-107) L 10/04/24 01:35 Carbon Dioxide 28 mmol/L (22-29) 10/04/24 01:35 Anion Gap 16.7 (5-19) 10/04/24 01:35 BUN 7 mg/dL (6-20) 10/04/24 01:35 Creatinine 0.6 mg/dL (0.5-0.9) 10/04/24 01:35 GFR Calculation 119.0 mL/min (90-130) 10/04/24 01:35 Glucose 103 mg/dL (65-115) 10/04/24 01:35 Calculated Osmolality 280 mOsm/kg (285-295) L 10/04/24 01:35 Calcium 9.9 mg/dL (8.5-10.5) 10/04/24 01:35 Magnesium 2.1 mg/dL (1.7-2.3) 10/04/24 01:35 Total Bilirubin 0.5 mg/dL (0.15-1.2) 10/04/24 01:35 AST 20 U/L (0-32) 10/04/24 01:35 ALT 19 U/L (0-33) 10/04/24 01:35 Alkaline Phosphatase 115 U/L (35-105) H 10/04/24 01:35 Troponin T Baseline < 6 ng/L (0-10) 10/04/24 01:35 C-Reactive Protein 3.0 mg/L (0.0-4.9) 10/04/24 01:35 Total Protein 9.0 g/dL (6.6-8.7) H 10/04/24 01:35 Albumin 4.6 g/dL (3.5-5.2) 10/04/24 01:35 Globulin 4.4 g/dL (1.3-4.6) 10/04/24 01:35 TSH 2.56 uIU/mL (0.27-4.20) 10/04/24 01:35 Urine Color Yellow (Yellow) 10/04/24 01:40 Urine Appearance Clear (CLEAR) 10/04/24 01:40 Urine pH 7.0 (5-7) 10/04/24 01:40 Ur Specific [place] 1.004 (1.005-1.030) L 10/04/24 01:40 Urine Protein Negative (Negative) 10/04/24 01:40 Urine Glucose (UA) Negative (Normal) 10/04/24 01:40 Urine Ketones Negative (Negative) 10/04/24 01:40 Urine Blood Negative (Negative) 10/04/24 01:40 Urine Nitrate Negative (Negative) 10/04/24 01:40 Urine Bilirubin Negative (Negative) 10/04/24 01:40 Urine Urobilinogen 0.2 mg/dL (Negative) 10/04/24 01:40 Ur Leukocyte Esterase Negative (Negative) 10/04/24 01:40 Urine RBC 0-2 /hpf (0-2) 10/04/24 01:40 Urine WBC 0-5 /hpf (0-5) 10/04/24 01:40 Ur Squamous Epith Cells 0-5 /hpf (0-5) 10/04/24 01:40 Amorphous Sediment Not Reportable 10/04/24 01:40 Urine Bacteria None seen /hpf (NONE) 10/04/24 01:40 Hyaline Casts 0.40 /lpf 10/04/24 01:40 Urine Opiates Screen Negative ng/mL (Negative) 10/04/24 01:40 Ur Barbiturates Screen Negative ng/mL (Negative) 10/04/24 01:40 Ur Phencyclidine Scrn Negative ng/mL (Negative) 10/04/24 01:40 Ur Amphetamines Screen Negative ng/mL (Negative) 10/04/24 01:40 U Benzodiazepines Scrn Negative ng/mL (Negative) 10/04/24 01:40 Urine Cocaine Screen Negative ng/mL (Negative) 10/04/24 01:40 U Marijuana (THC) Screen Negative ng/mL (Negative) 10/04/24 01:40 No radiology studies performed this visit Discharge Plan Discharge Patient Disposition: Home Clinical Impression: Acute hypokalemia Condition: Stable Prescriptions: New spironolactone 50 mg tablet 50 mg PO DAILY Qty: 30 0RF ondansetron 4 mg tablet,disintegrating 4 mg PO Q6H PRN (Reason: nausea and vomiting) Qty: 30 0RF Continued potassium chloride 20 mEq tablet,ER particles/crystals 20 meq PO DAILY Qty: 30 0RF Discontinued bumetanide 2 mg tablet 2 mg PO DAILY No Action albuterol sulfate 90 mcg/actuation HFA aerosol inhaler 1 puff INHALATION Q4H PRN (Reason: Shortness Of Breath Or Wheezing) progesterone micronized 200 mg capsule 200 mg PO BEDTIME magnesium 200 mg Tablet 200 mg PO DAILY fluconazole 100 mg Tablet 150 mg PO Q24H Qty: 3 0RF metronidazole 250 mg tablet 500 mg PO TID Qty: 9 0RF levofloxacin 750 mg tablet 750 mg PO DAILY Qty: 3 0RF Discharge Orders: Discharge ED (Routine); Ordered 10/04/24 Ordered By: Kade Aranda Referrals: Kraen Israel [Primary Care Provider, Internal Medicine] - 1-3 days Patient Instructions: Hypokalemia (ED), Opioid Safety, Pain Management, Patient Portal & Michael Instructions Activity Restrictions/Additional Instructions: Your potassium was quite low this morning, which is likely the cause of most of your symptoms if not all. Stop your bumetanide. Take the increased dose of spironolactone as instructed. Potassium daily. Case management will make an appointment with a primary physician in our system. You should get a call from them next week. You need your potassium rechecked this coming week as well. Print Language: Arabic Coding Level of Care Code ED Appliance Installer for Sim Arango
[2024-10-04 04:52] VITALS: BP 115/78; PULSE 72; RESP 16; O2SAT 96
[2024-10-04 05:56] VITALS: BP 125/91; PULSE 78; RESP 16; O2SAT 97
== END 2024-10-04 06:04 | disposition home or self-care (01) ==
PROVIDERS: Emergency Provider Emergency Medicine; PCP Physician Assistant Medical
DX: E87.6 Hypokalemia (principal); Z79.899 Other long term (current) drug therapy; Z88.0 Allergy status to penicillin; Z88.1 Allergy status to other antibiotic agents; Z91.040 Latex allergy status
CPT/HCPCS: 36415; 80053; 80306; 81001; 83735; 84443; 84484; 85025; 86140; 93005; 96360; 96361; 99284; J3480; J9999

== ENCOUNTER 2024-10-04 19:47 | Emergency (ER) | payer SELFPAY ==
[2024-10-04 19:59] VITALS: BP 133/83; PULSE 86; RESP 16; O2SAT 96
--- NOTE | 2024-10-04 22:26 | W.ED.RECABL ---
HPI - Recheck/Abnormal Lab/Rx General: Chief Complaint: Recheck/Abnormal Lab/Rx Stated Complaint: Pain\Possible Low Potassium Time Seen by Provider: 10/04/24 22:17 History of Present Illness: 21-year-old female seen last night with a low potassium. She was given IV and oral potassium supplementation for treatment. She presents again tonight. She states that she is still feeling generally weak, particularly in the legs, has paresthesias to the hands and feet, and feels feverish and achy. She also complains of a resurgence of her chronic white to green vaginal discharge for which she chronically takes metronidazole and Diflucan, but has not been taking these because her prescription ran out. Related Data Home Medications ?Medication ?Instructions ?Recorded ?Confirmed albuterol sulfate 90 mcg/actuation 1 puff inhalation Q4H PRN 08/27/24 08/27/24 aerosol inhaler Shortness Of Breath Or Wheezing magnesium 200 mg tablet 200 mg PO DAILY 08/27/24 08/27/24 progesterone micronized 200 mg 200 mg PO BEDTIME 08/27/24 08/27/24 capsule Held on 08/30/24. Instructions: see obgyn Previous Rx's ?Medication ?Instructions ?Recorded levofloxacin 750 mg tablet 750 mg PO DAILY #3 tabs 08/30/24 ondansetron 4 mg disintegrating 4 mg PO Q6H PRN nausea and 10/04/24 tablet vomiting #30 tabs potassium chloride 20 mEq 20 meq PO DAILY #30 tabs 10/04/24 tablet,extended release(part/cryst) spironolactone 50 mg tablet 50 mg PO DAILY #30 tabs 10/04/24 fluconazole 100 mg tablet See Rx Instructions .Route 10/05/24 .COMPLEX #4 tabs metronidazole 250 mg tablet 500 mg (2 x 250 mg) PO TID #51 tabs 10/05/24 Allergies Allergy/AdvReac Type Severity Reaction Status Date / Time almond Allergy ALGY-Hives Verified 10/04/24 01:18 clindamycin Allergy Unknown Verified 10/04/24 01:18 dicyclomine Allergy ALGY-Rash Verified 10/04/24 01:18 latex Allergy ALGY-Hives Verified 10/04/24 01:18 Penicillins Allergy ALGY-Rash Verified 10/04/24 01:18 PFSH ED PFSH: Medical History (Updated 10/05/24 @ 00:05 by Kade Aranda DO) Acute pyelonephritis Physical Exam Const: COMMON NORMALS: no acute distress GENERAL APPEARANCE: cooperative; not ill appearing and not frail appearing HENMT: COMMON NORMALS: normocephalic, atraumatic and Normal external nose present HEAD & SCALP: normocephalic and atraumatic FACE & SINUS: normal facial exam and face symmetric NOSE: Normal external nose present Eye: COMMON NORMALS: Equal, round and reactive pupils present and EOMs intact bilaterally PUPIL: Yes Equal, round and reactive pupils present Neck/C-Spine: GENERAL: Yes trachea midline Chest: CHEST: Yes Symmetrical chest wall rise Resp: COMMON NORMALS: normal respiratory effort, No retractions, No use of accessory muscles and clear to auscultation bilaterally AUSCULTATION: clear to auscultation bilaterally Cardio: COMMON NORMALS: regular rate and regular rhythm RATE: regular rate RHYTHM: regular rhythm GI: COMMON NORMALS: Normal to inspection, nondistended, normoactive bowel sounds present Extremity: COMMON NORMALS: no pedal edema Neuro: JOLLY COMA SCALE: document GCS findings [place] coma scale eye opening: Spontaneous [place] coma scale verbal response: Orientated [place] coma scale motor response: Obey commands Jolly coma scale total score: 15 SENSORY EXAM: Yes extremities (intact) Psych: COMMON NORMALS: speech normal SPEECH: Yes normal speech Skin: COMMON NORMALS: no rashes or lesions noted GENERAL SKIN EXAM: no rashes or lesions noted Course Vital Signs: Vital signs: Vital Signs Pulse Rate 82 10/04/24 23:39 Respiratory Rate 16 10/04/24 23:39 Blood Pressure 128/83 10/04/24 23:39 Pulse Oximetry 98 10/04/24 23:39 Oxygen Delivery Me thod Room Air 10/04/24 19:59 MDM - Recheck/Abnormal Lab/Rx Medical Decision Making She recently had STD testing that was negative. She is given a swab for self vaginal swabbing for wet prep purposes. Wet prep shows both clue cells and yeast. She will be treated for both. As she has continued problems with this, we will treat her at a decreased dose more regularly for prophylaxis following treatment. Case management has been consulted for primary care follow-up. Her potassium is normal as is her magnesium is. She will be allowed discharge otherwise. Lab Data 10/04/24 22:43 10/04/24 22:43 Laboratory Results WBC 9.29 10^3/uL (3.29-11.43) 10/04/24: RBC 4.57 10^6/uL (3.85-5.65) 10/04/24 22: Hgb 14.20 g/dL (11.27-16.99) 10/04/24: Hct 41.8 % (36-47) 10/04/24: MCV 91.5 fl (85-98) 10/04/24 22: MCH 31.1 pg (27-33) 10/04/24: MCHC 34.0 g/dL (30-55) 10/04/24: RDW 12.5 % (12.1-15.1) 10/04/24: Plt Count 312 10^3/cmm (157-399) 10/04/24: MPV 10.1 fL (7.4-10.4) 10/04/24: Neut % (Auto) 56.7 % 10/04/24: Lymph % (Auto) 34.1 % 10/04/24: [place] % (Auto) 7.4 % 10/04/24: Eos % (Auto) 1.2 % 10/04/24: Baso % (Auto) 0.4 % 10/04/24: Neut # (Auto) 5.26 10^3/uL (1.8-7.7) 10/04/24: Lymph # (Auto) 3.2 10^3/uL (0.8-4.8) 10/04/24: [place] # (Auto) 0.7 10^3/uL (0.2-0.9) 10/04/24: Eos # (Auto) 0.1 10^3/uL (0.0-0.8) 10/04/24: Baso # (Auto) 0.0 10^3/uL (0.0-0.1) 10/04/24: Nucleated RBC % (auto) 0 % 10/04/24: Nucleated RBCs # 0.0 /100WBC 10/04/24 22:43 Sodium 136 mmol/L (136-145) 10/04/24 22:43 Potassium 4.3 mmol/L (3.5-5.1) 10/04/24 22:43 Chloride 101 mmol/L (98-107) 10/04/24 22:43 Carbon Dioxide 26 mmol/L (22-29) 10/04/24 22:43 Anion Gap 13.3 (5-19) 10/04/24 22:43 BUN 6 mg/dL (6-20) 10/04/24 22:43 Creatinine 0.6 mg/dL (0.5-0.9) 10/04/24 22:43 GFR Calculation 119.0 mL/min (90-130) 10/04/24: Glucose 91 mg/dL (65-115) 10/04/24:43 Calculated Osmolality 279 mOsm/kg (285-295) L 10/04/24:43 Calcium 9.3 mg/dL (8.5-10.5) 10/04/24: Magnesium 2.1 mg/dL (1.7-2.3) 10/04/24:43 Total Bilirubin 0.6 mg/dL (0.15-1.2) 10/04/24 22:43 AST 17 U/L (0-32) 10/04/24 22:43 ALT 17 U/L (0-33) 10/04/24 22:43 Alkaline Phosphatase 100 U/L (35-105) 10/04/24 22:43 Total Protein 7.8 g/dL (6.6-8.7) 10/04/24 22:43 Albumin 4.0 g/dL (3.5-5.2) 10/04/24 22: Globulin 3.8 g/dL (1.3-4.6) 10/04/24 22:43 Urine Color Dark yellow (Yellow) A 10/04/24 23:10 Urine Appearance Clear (CLEAR) 10/04/24 23:10 Urine pH >=9.0 (5-7) A 10/04/24 23:10 Ur Specific [place] 1.030 (1.005-1.030) 10/04/24 23:10 Urine Protein 1+ (Negative) A 10/04/24 23:10 Urine Glucose (UA) Negative (Normal) 10/04/24 23:10 Urine Ketones Trace (Negative) 10/04/24 23:10 Urine Blood Negative (Negative) 10/04/24 23:10 Urine Nitrate Negative (Negative) 10/04/24 23:10 Urine Bilirubin Negative (Negative) 10/04/24 23:10 Urine Urobilinogen 1.0 mg/dL (Negative) 10/04/24 23:10 Ur Leukocyte Esterase Negative (Negative) 10/04/24 23:10 Urine RBC 3-5 /hpf (0-2) 10/04/24 23:10 Urine WBC 6-10 /hpf (0-5) 10/04/24 23:10 Ur Squamous Epith Cells 6-10 /hpf (0-5) 10/04/24 23:10 Amorphous Sediment Not Reportable 10/04/24 23:10 Urine Bacteria 2+ /hpf (NONE) H 10/04/24 23:10 Hyaline Casts 0-4 /lpf H 10/04/24 23:10 No radiology studies performed this visit Discharge Plan Discharge Patient Disposition: Home Clinical Impression: Candidiasis of vagina, Bacterial vaginosis Condition: Stable Prescriptions: Continued metronidazole 250 mg tablet 500 mg PO TID Qty: 51 0RF Rx Instructions: tid for 7d, then daily following. Changed fluconazole 100 mg Tablet See Rx Instructions .ROUTE .COMPLEX Qty: 4 1RF Rx Instructions: 100 mg orally weekly No Action albuterol sulfate 90 mcg/actuation HFA aerosol inhaler 1 puff INHALATION Q4H PRN (Reason: Shortness Of Breath Or Wheezing) progesterone micronized 200 mg capsule 200 mg PO BEDTIME magnesium 200 mg Tablet 200 mg PO DAILY levofloxacin 750 mg tablet 750 mg PO DAILY Qty: 3 0RF potassium chloride 20 mEq tablet,ER particles/crystals 20 meq PO DAILY Qty: 30 0RF spironolactone 50 mg tablet 50 mg PO DAILY Qty: 30 0RF ondansetron 4 mg tablet,disintegrating 4 mg PO Q6H PRN (Reason: nausea and vomiting) Qty: 30 0RF Discharge Orders: Discharge ED (Routine); Ordered 10/05/24 Ordered By: Kade Aranda Referrals: Karen Israel [Primary Care Provider, Internal Medicine] Patient Instructions: Bacterial Vaginosis (ED), Yeast Infection (ED), Opioid Safety, Pain Management, Patient Portal & Michael Instructions Activity Restrictions/Additional Instructions: Return for problems. Case management will call you regarding a primary care follow-up. Medication as directed Print Language: Cook Islander Coding Level of Care Code ED Big Data Lead for Sim Arango
[2024-10-04 22:50] LABS: Hematocrit 41.8 % (36-47); Hemoglobin 14.20 g/dL (11.27-16.99); Mean Corpuscular HGB Conc 34.0 g/dL (30-55); Mean Corpuscular Hemoglobin 31.1 pg (27-33); Mean Corpuscular Volume 91.5 fl (85-98); Nucleated Red Blood Cells % 0 %; Platelet Count 312 10^3/cmm (157-399); Red Blood Count 4.57 10^6/uL (3.85-5.65); White Blood Count 9.29 10^3/uL (3.29-11.43)
[2024-10-04 23:11] LABS: Alanine Aminotransferase 17 U/L (0-33); Albumin Level 4.0 g/dL (3.5-5.2); Alkaline Phosphatase 100 U/L (35-105); Anion Gap 13.3 (5-19); Aspartate Amino Transferase 17 U/L (0-32); Blood Urea Nitrogen 6 mg/dL (6-20); Calcium 9.3 mg/dL (8.5-10.5); Carbon Dioxide 26 mmol/L (22-29); Chloride 101 mmol/L (98-107); Globulin 3.8 g/dL (1.3-4.6); Glucose 91 mg/dL (65-115); Magnesium 2.1 mg/dL (1.7-2.3); Osmolality Calculated 279 mOsm/kg (285-295); Potassium 4.3 mmol/L (3.5-5.1); Sodium 136 mmol/L (136-145); Total Protein 7.8 g/dL (6.6-8.7)
[2024-10-04 23:37] LABS: Glucose Urine UA Negative (Normal); Nitrate Urine Negative (Negative); Specific Gravity, Urine 1.030 (1.005-1.030)
[2024-10-04 23:39] VITALS: BP 128/83; PULSE 82; RESP 16; O2SAT 98
[2024-10-04 23:43] LABS: Add Urine Microscopic? YES
--- OUTSIDE RECORDS SUMMARY | 2024-10-07 07:57 | XMS_ITS | Encounter Summary ---
Author Organization [facility] Address [address] [place] [address] Care Team Providers Care Cattle Knocker Name Role Phone Lucho Mota MD Primary Care Provider Encounter Details Date Type Department Care Team (Late st Contact Info) Description 11/20/2016 Orders Only [facility] [address] [facility] [place] [address] System, Provider Not In, [address] [place] [address] Social History Tobacco Use Types Packs/Day Years [...] 11/20/2016 9:18 PM CDT Historic images from [facility] exist and can be viewed by using the hyperlink to access [place]: CT ABD/PEL W CONTRAST Procedure Note System, Provider Not In, - 03/30/2020 Historic images from [facility] exist and can be viewed byusing the hyperlink to access [employer] pacs: CT ABD/PEL W CONTRAST us Provider Not In System MD [facility] Final Result documented in this encounter Visit Diagnoses Not on filedocumented in this encounter Care Teams Cattle Knocker Relationship Specialty Start Date End Date Lucho Mota MD [address] [place] [address] PCP - General Family Medicine 05/10/20 12/18/21 documented as of this encounter
--- OUTSIDE RECORDS SUMMARY | 2024-10-07 07:57 | XMS_ITS | Clinical Summary ---
Author Organization [facility] Address [address] [place] [address] Care Team Providers Care Manager Psychology Name Role Phone Unavailable Primary Care Provider [...] stable enough to work. Was working Insurance [facility]
--- OUTSIDE RECORDS SUMMARY | 2024-10-07 07:57 | XMS_ITS | Clinical Summary ---
Author Organization [facility] Address [address] [place] [address] Phone Care Team Providers Care Account Developer Name Role Phone Karen Israel PA-C Primary Care Provider [phone] Allergies Active Allergy Reactions Criticality Noted Date Comments Clindamycin Anaphylaxis High 06/17/2023 Diph,Pertus(Acel),Tetanus Pedi Other (See Comments) 06/17/2023 unknown Doxycycline Hcl Anaphylaxis High 06/17/2023 Tree Nuts Anaphylaxis High 06/17/2023 Medications No known medications Encounters Date Type Department Care Team Description 09/10/2024 Orders Only [facility] Urology [address] [place] [address] Provider, Historical Him Recurrent UTI (Primary Dx) [...] on file 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 Gender Identity Not on file Sexual Orientation [...] Description 12/17/2024 11:00 AM CDT Office Visit [facility] Urology [address] [place] [address] Bernadine Cordon NP [address] [place] [address] Health Maintenance Due Date Last Done Comments Annual Depression Screening 2007 Annual Physical 2014 Hepatitis C Antibody Screen 2014 DTap/Tdap/Td Vaccines (1 - Tdap) 11/29/2020 11/29/19 21 Flu Vaccine (#1) 10/26/2024 Insurance [employer] [facility] [employer] Care Teams Account Developer Relationship Specialty Start Date End Date Karen Israel PA-C [address] [place] [address] PCP - General Certified Physician Medicare Nurse 06/17/23
== END 2024-10-05 00:34 | disposition home or self-care (01) ==
PROVIDERS: Emergency Provider Emergency Medicine; PCP Physician Assistant Medical
DX: B37.31 Acute candidiasis of vulva and vagina (principal); N76.0 Acute vaginitis
CPT/HCPCS: 36415; 80053; 81001; 83735; 85025; 87210; 99283; J9999

== ENCOUNTER 2024-10-06 20:36 | Emergency (ER) | payer SELFPAY ==
--- OUTSIDE RECORDS SUMMARY | 2024-06-02 04:30 | XMS_ITS ---
Author Organization [facility] Address [address] [facility] [address] [place] [address] Care Team Providers Care Personnel Worker Name Role Phone KAVEH LEDEZMA Primary Care Provider Unavailab johnson Reyesluis alfredo Louie Unavailable [phone] ARELIS MEJIA APRN Unavailable [phone] REASON FOR VISIT 3 wk follow up HS Encounters Encounter Location Date Provider Diagnosis [facility] [address] [facility] [address] [place] [id number] 06/02/2024 Louie Espinoza Plan Of Treatment No Information Progress Notes * JANE REYNOLDS JDOB:1995 (29 yo F)Acc No.[id number]:06/02/2024 Progress Notes Patient: JANE GAXIOLA Provider: Richelle Espinoza MD :1995 A ge:29 Y S ex:Female Date:06/02/2024 Address:[address] [place] [address] [address] [facility] Pcp:EVIN ORTIZ Subjective: * Chief Complaints: * 1 . 3 wk follow up HS. * Medical History: Objective: * Vitals: Assessment: Plan: * Treatment: * Images: * Electronic signature of Louie Espinoza M.D. on 10/07/2024 at 06:29 PM CDT Sign off status: Pending * Provider: Richelle Espinoza MD Date: 0 06/02/2024 Generated for Printi ng/Faxing/eTransmitting on: 0 10/07/2024 06:29 PM CDT
--- OUTSIDE RECORDS SUMMARY | 2024-07-06 08:30 | XMS_ITS ---
Author Organization [facility] Address [address] [facility] [address] [place] [address] Care Team Providers Care Machine Dyer Name Role Phone KAVEH LEDEZMA Primary Care Provider Unavailab johnson Reyesluis alfredo Louie Unavailable [phone] ZAYNAB MEJIA APRN Unavailable [phone] Zaynab Mejia Unavailable [phone] REASON FOR VISIT humira monitoring Encounters Encounter Location Date Provider Diagnosis [facility] [address] [facility] [address] [place] [id number] 07/06/2024 Zaynab Mejia Plan Of Treatment No Information Progress Notes * JANE REYNOLDSDOB:1995 (29 yo F)Acc No.[id number]:07/06/2024 Patient: JANE GAXIOLA Provider: Gianna Mejia APRN :1995 A ge:29 Y S ex:Female Date:07/06/2024 Address[address] Pcp:EVIN ORTIZ Subjective: * Chief Complaints: * 1 . Humira monitoring. * Medical History: Objective: * Vitals: Assessment: Plan: * Treatment: * Images: * Electronic signature of Moshe Mejia APRN on 10/07/2024 at 06:27 PM CDT Sign off status: Pending * Provider: Gianna Mejia APRN Date: 0 07/06/2024 Generated for Lucieni natalie/Faangella/eTransmitting on: 0 10/07/2024 06:27 PM CDT
--- OUTSIDE RECORDS SUMMARY | 2024-09-24 09:40 | XMS_ITS ---
Author Organization [address] [place] [address] [facility] Address [address] [place] [id number] Care Team Providers Care Seater Grinder Name Role Phone Karen Israel Primary Care Provider [phone] Bob Badillo Unavailable [phone] Denis Owens Unavailable [phone] REASON FOR VISIT vaginal pain Social History Sex Assigned At : Social History Observation Description Sex Assigned At Female Encounters Encounter Location Date Provider Diagnosis [address] [place] [address] [facility] [address] [place] [id number] 09/24/2024 Denis Owens Plan Of Treatment No Information Progress Notes * Miguel REYNOLDSOB:1995 ( 29 yo F)Acc No.[id number]:09/24/2024 FaceToFace Patient: Karoline GAXIOLA External Provider: Aly Owens MD Case Label: Date Of Injury: :1995 A ge:29 Y S ex:Female Date:09/24/2024 Address:[address] [place] [address] [address] [place] [id number] Pcp:Karen Israel Patient's Default Facility:1 [facility] Subjective: * Chief Complaints: * 1 . Vaginal pain. * Medical History: Objective: * Vitals: Assessment: Plan: * Treatment: Care Plan: * Problems: * Billing Information: * Visit Code: * Procedure Codes: * Electronic signature of Chrystal Owens MD on 10/07/2024 at 06:30 PM CDT Sign off status: Pending * Provider: Aly Owens MD Date: 0 09/24/2024 Generated for Rachid estrada/Carlotta/Rene on: 0 10/07/2024 06:30 PM CDT
--- OUTSIDE RECORDS SUMMARY | 2024-09-28 06:40 | XMS_ITS ---
Author Organization [address] [place] [address] [facility] Address [address] [place] [phone] Care Team Providers Care Hatch Supervisor Name Role Phone Karen Israel Primary Care Provider [phone] Bob Badillo Unavailable [phone] REASON FOR VISIT 2 week f/u Social History Sex Assigned At : Social History Observation Description Sex Assigned At Female Encounters Encounter Location Date Provider Diagnosis [address] [place] [address] [facility] [address] [place] [id number] 09/28/2024 Karen Israel Plan Of Treatment No Information Progress Notes * Miguel REYNOLDSOB:1995 ( 29 yo F)Acc No.[id number]:09/28/2024 FaceToFace Patient: Karoline GAXIOLA External Provider: EVIN Carlson Case Label: Date Of Injury: :1995 A ge:29 Y S ex:Female Date:09/28/2024 Address:[address] [place] [address] , [address] [id number] Patient's Default Facility:1 [facility] Subjective: * Chief Complaints: * 1 . 2 week f/u. * Medical History: Objective: * Vitals: Assessment: Plan: * Treatment: Care Plan: * Problems: * Billing Information: * Visit Code: * Procedure Codes: * Electronic signature of EVIN Blanco on 10/07/2024 at 06:28 PM CDT Sign off status: Pending * Provider: EVIN Carlson Date: 0 09/28/2024 Generated for Rachid estrada/Carlotta/Rene on: 0 10/07/2024 06:28 PM CDT
--- OUTSIDE RECORDS SUMMARY | 2024-10-05 08:00 | XMS_ITS ---
Author Organization [address] [place] [address] [facility] Address [address] [place] [phone] Care Team Providers Care Ornamental Metal Worker Helper Name Role Phone Karen Israel Primary Care Provider Bob Badillo Unavailable [phone] REASON FOR VISIT 1 month f/u Social History Sex Assigned At : Social History Observation Description Sex Assigned At Female Encounters Encounter Location Date Provider Diagnosis [address] [place] [address] [facility] [address] [place] [phone] 10/05/2024 Karen Israel Plan Of Treatment No Information Progress Notes * Miguel REYNOLDSOB:1995 ( 29 yo F)Acc No.[id number]:10/05/2024 FaceToFace Patient: Karoline GAXIOLA External Provider: EVIN Carlson Case Label: Date Of Injury: :1995 A ge:29 Y S ex:Female Date:10/05/2024 Address:[address] [place] [address] , [place]IG[place]-[id number] Patient's Default Facility:[facility] Subjective: * Chief Complaints: * 1 . 1 month f/u. * Medical History: Objective: * Vitals: Assessment: Plan: * Treatment: Care Plan: * Problems: * Billing Information: * Visit Code: * Procedure Codes: * Electronic signature of EVIN Blanco on 10/07/2024 at 06:29 PM CDT Sign off status: Pending * Provider: EVIN Carlson Date: 0 10/05/2024 Generated for Rachid estrada/Carlotta/Rene on: 0 10/07/2024 06:29 PM CDT
[2024-10-06 20:45] VITALS: BP 143/85; PULSE 86; RESP 14; TEMP 36.8; O2SAT 98
[2024-10-07 00:19] LABS: Hematocrit 42.8 % (36-47); Hemoglobin 14.60 g/dL (11.27-16.99); Mean Corpuscular HGB Conc 34.1 g/dL (30-55); Mean Corpuscular Hemoglobin 31.7 pg (27-33); Mean Corpuscular Volume 93.0 fl (85-98); Nucleated Red Blood Cells % 0 %; Platelet Count 310 10^3/cmm (157-399); Red Blood Count 4.60 10^6/uL (3.85-5.65); White Blood Count 9.79 10^3/uL (3.29-11.43)
[2024-10-07 00:39] LABS: Alanine Aminotransferase 19 U/L (0-33); Albumin Level 4.0 g/dL (3.5-5.2); Alkaline Phosphatase 104 U/L (35-105); Anion Gap 14.9 (5-19); Aspartate Amino Transferase 20 U/L (0-32); Blood Urea Nitrogen 8 mg/dL (6-20); Calcium 9.3 mg/dL (8.5-10.5); Carbon Dioxide 24 mmol/L (22-29); Chloride 102 mmol/L (98-107); Globulin 3.8 g/dL (1.3-4.6); Glucose 92 mg/dL (65-115); Osmolality Calculated 282 mOsm/kg (285-295); Potassium 3.9 mmol/L (3.5-5.1); Sodium 137 mmol/L (136-145); Total Protein 7.8 g/dL (6.6-8.7)
--- NOTE | 2024-10-07 01:38 | CTR_ITS ---
PROCEDURE INFORMATION: Exam: CT Head Without Contrast Exam date and time: 10/07/2024 2:47 AM Age: 29 years old Clinical indication: Injury or trauma; Fall; Concussion/head injury; With loss of consciousness; Additional info: Fall, head injury TECHNIQUE: Imaging protocol: Computed tomography of the head without contrast. Radiation optimization: All CT scans at this facility use at least one of these dose optimization techniques: automated exposure control; mA and/or kV adjustment per patient size (includes targeted exams where dose is matched to clinical indication); or iterative reconstruction. COMPARISON: No relevant prior studies available. RADIATION DOSE METRICS: Total DLP (mGy-cm): 1041.33 FINDINGS: Brain: Minimal tonsillar ectopia is noted. Rounding of the inferior cerebellar tonsils without elongation is. No hemorrhage. Unremarkable white matter. No mass effect. Cerebral ventricles: No ventriculomegaly. Paranasal sinuses: Visualized sinuses are unremarkable. No fluid levels. Mastoid air cells: Visualized mastoid air cells are well aerated. Bones: Unremarkable. No acute fracture. Soft tissues: Unremarkable. CT/CT head wo con* [id number] IMPRESSION: There is no evidence of acute intracranial abnormality.
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
[2024-10-07 01:44] VITALS: BP 141/78; PULSE 80; RESP 16; O2SAT 100
[2024-10-07 03:00] VITALS: BP 113/73; PULSE 80; O2SAT 99
[2024-10-07 04:10] VITALS: BP 113/73; PULSE 81; O2SAT 98
--- OUTSIDE RECORDS SUMMARY | 2024-10-07 18:28 | XMS_ITS | Clinical Summary ---
Author Organization [facility] Address [address] [place] [address] Phone Care Team Providers Care Branch Credit Counselor Name Role Phone Karen Israel PA-C Primary Care Provider [phone] Allergies Active Allergy Reactions Criticality Noted Date Comments Clindamycin Anaphylaxis High 06/17/2023 Diph,Pertus(Acel),Tetanus Pedi Other (See Comments) 06/17/2023 unknown Doxycycline Hcl Anaphylaxis High 06/17/2023 Tree Nuts Anaphylaxis High 06/17/2023 Medications No known medications Encounters Date Type Department Care Team Description 09/10/2024 Orders Only [facility] Urology [address] [place] [address] Provider, Historical Him Recurrent UTI (Primary Dx) [...] on file 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 Gender Identity Not on file Sexual Orientation [...] Description 12/17/2024 11:00 AM CDT Office Visit [facility]rology [address] [place] [address] Bernadine Cordon NP [address] [place] [address] Health Maintenance Due Date Last Done Comments Annual Depression Screening 2007 Annual Physical 2014 Hepatitis C Antibody Screen 2014 DTap/Tdap/Td Vaccines (1 - Tdap) 11/29/2020 11/29/19 21 Flu Vaccine (#1) 10/26/2024 Insurance Specialist [employer] [facility] [employer] Care Teams Branch Credit Counselor Relationship Specialty Start Date End Date Karen Israel PA-C [address] [place] [address] PCP - General Certified Physician Flower Arranger 06/17/23
--- OUTSIDE RECORDS SUMMARY | 2024-10-07 18:28 | XMS_ITS | Clinical Summary ---
Author Organization [facility] Address [address] [place] [address] Care Team Providers Care Irish Moss Operator Name Role Phone Unavailable Primary Care Provider [...] stable enough to work. Was working Insurance [facility]
--- OUTSIDE RECORDS SUMMARY | 2024-10-07 18:28 | XMS_ITS | Patient Health Record ---
Author Organization [facility] Address [address] [facility] [address] [place] [address] Care Team Providers Care Manager Corporate Name Role Phone KAVEH LEDEZMA Primary Care Provider Unavailab Louie Delaney Unavailable [phone] ZAYNAB ALVAREZ APRN Unavailable Keyona Cotton Unavailable [phone] Leatha Iqbal Unavailable [phone] Thony Iqbal Unavailable [phone] Zaynab Alvarez Unavailable [phone] Allergies Allergen (clinical drug ingredient) Drug/Non Drug Allergy documented on EMR Reaction Allergy Type Onset Date Status doxycycline Doxycycline anaphylaxis Drug Allergy A ctive Latex Latex HIVES Allergy Active Tree Nuts anaphylaxis Allergy Active clindamycin Clindamycin anaphylaxis Drug Allergy A ctive Penicillin anaphylaxis Drug Allergy Acti ve Results Component Value Reference Range Notes Test, Urine (00884 ) Reviewed date:10/30/2023 01:20:23 PM Interpretation:NOT DONE/NOT RESULTED Performing Lab: Notes/Report: NOT DONE/NOT RESULTED COMPREHENSIVE METABOLIC PANE L (CMP) Reviewed date:12/24/2023 [...] 0 - 21 mmol/L TESTING PERFORMED ON [employer] URINALYSIS Reviewed date:12/24/2023 02:34:56 PM Interpretation: Performing Lab: Notes/Report: URINALYSIS TEST RESULT NORMAL DNA (DOUBLE-STRANDED) ANTIBO DIES Reviewed date:12/24/2023 02:34:02 PM Interpretation: Performing Lab: Notes/Report: IU/mL Interpretation < or = 4 Negative 5-9 Indeterminate > or = 10 Positive THIS TEST WAS PERFORMED AT: [place] [place] [address] NAHUM COFFEY MD DNA (DS) ANTIBODY <1 ALDOLASE Reviewed date:12/24/2023 02:34:21 PM Interpretation: Performing Lab: Notes/Report: THIS TEST WAS PERFORMED AT: [facility] [place] [address] NAHUM COFFEY MD ALDOLASE 6.0 < OR = 8.1 U/L CBC Reviewed date:12/24/2023 02:34:48 PM Interpretation: Performing Lab: Notes/Report: CBC AUTOMATED DIFFERENTIAL {CD] In a study of 784 healthy smokers, the upper limit of the reference range for WBC was 12.5. [facility] Proc, September 2004;80(8):9617-8979. Pediatric CBC Ranges 2016 [facility] Complete Blood Count Reference Values RBC [...] MICRO DIFF. NOT INDICATED TEST PERFORMED ON [id number] SATISH ANTIBODY Reviewed date:12/24/2023 02:33:42 PM Interpretation: Performing Lab: Notes/Report: THIS TEST WAS PERFORMED AT: [facility] [place] [address] NAHUM COFFEY MD SATISH-1 ANTIBODY <1.0 NEG <1.0 NEG AI SJOGREN'S ANTIBODY Reviewed date:12/24/2023 02:34:08 PM Interpretation: Performing Lab: Notes/Report: THIS TEST WAS PERFORMED AT: [facility] [place] [address] [address] NAHUM COFFEY MD SJOGREN'S ANTIBODY (SS-A) <1.0 NEG <1.0 NEG AI SJOGREN'S ANTIBODY (SS-B) <1.0 NEG <1.0 NEG AI HEADLEY AND VOLLEYBALL PLAYER ANTIBODIES Reviewed date:12/24/2023 02:34:12 PM Interpretation: Performing Lab: Notes/Report: THIS TEST WAS PERFORMED AT: [facility] [place] [address] [address] NAHUM COFFEY MD SM ANTIBODY <1.0 NEG <1.0 NEG AI SM/VOLLEYBALL PLAYER ANTIBODY <1.0 NEG <1.0 NEG AI SCLERODERMA ANTIBODY Reviewed date:12/24/2023 02:34:38 PM Interpretation: Performing Lab: Notes/Report: THIS TEST WAS PERFORMED AT: [employer] [place] [address] [address] NAHUM COFFEY MD SCL-70 ANTIBODY <1.0 NEG <1.0 NEG AI RA TEST Reviewed date:12/24/2023 02:35:02 PM Interpretation: [...] PROCEDURAL CHANGE AND NEW REFERENCE RANGES. (05/29/2022) LUPUS ANTI-COAGULANT Reviewed date:01/29/2024 08:25:24 AM Interpretation:DRVVT 51 HIGH Performing Lab: Notes/Report: A Lupus Anticoagulant is not detected. THIS TEST WAS PERFORMED AT: THIS TEST WAS PERFORMED AT: Common causes for a prolonged screen and negative [employer] [place] KENNEDY confirmatory test include factor deficiencies or [address] [place] [address] [place] [address] For more information on this test, go to: GIOVANNY GONCALVES http://education.Provenance/faq/KPP99u3 (This link is being provided for informational/ educational purposes only.) This interpretation is based on the following test results: PTT-LA SCREEN 40 < OR = 40 sec DRVVT SCREEN 51 < OR = 45 sec DRVVT CONFIRM NEGATIVE NEGATIVE THYROID PANEL (INC. FREE T4 & TSH) Reviewed date:01/08/2024 09:58:35 AM Interpretation:1.37 Performing Lab: Notes/Report: THYROID PANEL TSH 1.37 0.47 - 4.68 uIU/L Free T4 1.21 0.78 - 2.19 ng/dl INSULIN; TOTAL Reviewed date:01/29/2024 08:25:27 AM Interpretation:14.4 Performing Lab: Notes/Report: Reference Range < or = 18.4 Risk: Optimal < or = 18.4 Moderate NA High >18.4 Adult cardiovascular event risk category cut points (optimal, moderate, high) are based on Insulin Reference Interval studies performed at [facility] in 2021. THIS TEST WAS PERFORMED AT: [facility] [address] [address] NAHUM COFFEY MD INSULIN 14.4 GLUCOSE Reviewed date:01/08/2024 09:58:21 AM Interpretation:90 Performing Lab: Notes/Report: GLUCOSE, (S) 90 65 - 110 mg/dl TESTING PERFORMED ON [employer] 5600 HEMOGLOBIN A1C Reviewed date:01/08/2024 09:58:24 AM Interpretation:5.2 [...] in mean Glucose of approximately 30 mg/dl. FSH Reviewed date:12/04/2023 11:55:33 AM Interpretation:4.0, Normal Performing Lab: Notes/Report: Reference Range Follicular Phase 2.5-10.2 Mid-cycle Peak 3.1-17.7 Luteal Phase 1.5- 9.1 Postmenopausal 23.0-116.3 THIS TEST WAS PERFORMED AT: [facility] [address] [place] [address] NAHUM COFFEY MD FSH 4.0 HEPATITIS (AC) PROFILE W/REF YAMILA BY PCR [...] QA NO NOTE: IF REACTIVE, ORDER ITEM #[id number] FOR CONFIRMATION TESTING. THIS TEST IS A [...] TMA. Effective 06/16/2018, AMB Edited 02/16/2020, GHADA VITAMIN D PANEL Reviewed date:03/02/2024 10:00:17 AM [...] has been validated pursuant to the CLIA http://education.SocialGuides.com/faq/YMC899 http://education.SocialGuides.com/faq/JKJ177 regulations and is used for clinical purposes. (This link is being provided for information/educational (This link is being provided for informational/ For additional information, please refer to purposes only.) educational purposes only.) http://education.SocialGuides.com/faq/CIW293 THIS TEST WAS PERFORMED AT: (This link is being provided for [employer] informational/educational purposes only.) [address] [place] [address] [address] [place] [address] [facility] MIGUEL A SHARMA MD,PHD [address] [place] [address],[address] [place] [address] Miguel A Sharma MD, PhD THIS TEST WAS PERFORMED AT: [facility] [address] [place] [address] [address] [place] [address] MIGUEL A SHARMA MD,PHD VITAMIN D, 25-OH, TOTAL 23 30-100 ng/mL VITAMIN D, 25-OH, D3 23 VITAMIN D, 25-OH, D2 <4.0 VITAMIN D, 1,25 (OH)2,TOTAL 62 18-72 pg/mL VITAMIN D3, 1,25 (OH)2 62 VITAMIN D2, 1,25 (OH)2 <8 CBC Reviewed date:12/05/2023 02:00:48 PM Interpretation: Performing Lab: Notes/Report: CBC AUTOMATED DIFFERENTIAL {CD] In a study of 784 healthy smokers, the upper limit of the reference range for WBC was 12.5. [facility] Proc, September 2004;80(8):3749-9078. Pediatric CBC Ranges 2016 [facility] Complete Blood Count Reference Values RBC [...] MICRO DIFF. NOT INDICATED TEST PERFORMED ON [id number] CORNELIO ANTINUCLEAR ANTIBODY Reviewed date:03/02/2024 10:00:17 AM [...] on CORNELIO Patterns >1:80 Elevated Antibody Level (https://doi.org/10.1515/jokk-5924-1991) THIS TEST WAS PERFORMED AT: [facility] [address] [facility] [place] [address] NAHUM COFFEY MD CORNELIO SCREEN, IFA POSITIVE NEGATIVE CORNELIO IFA is a first line screen for detecting the presence of up to approximately 150 autoantibodies in various autoimmune diseases. A positive CORNELIO IFA result is suggestive of autoimmune disease and reflexes to titer and pattern. Further laboratory testing may be considered if clinically indicated. For additional information, please refer to http://education.Taglocity/faq/FAQ1 77 (This link is being provided for informational/ educational purposes only.) THIS TEST WAS PERFORMED AT: [facility] [address] [place] [address] NAHUM COFFEY MD CORNELIO PATTERN Nuclear, Speckled CORNELIO TITER 1:40 T-SPOT TB TEST Reviewed date:03/02/2024 10:00:28 AM Interpretation: Performing Lab: Notes/Report: Normal Value: Negative THIS TEST WAS PERFORMED AT: A negative test result does not exclude the possibility of [facility] exposure to or infection with Mycobacterium tuberculosis (M. [address] tuberculosis). Patients [place] [address] infected individuals exhibiting a negative T-SPOT.TB result STEVE KIRBY, should be considered for retesting within 6 [...] 0 NEGATIVE CONTROL Passed POSITIVE CONTROL Passed COMPREHENSIVE METABOLIC PANE L (CMP) Reviewed date:12/05/2023 [...] 0 - 21 mmol/L TESTING PERFORMED ON [employer] 5600 Reason For Referral No Information Medications Medication [...] many cigarettes a day do you smoke? 11-20 Alcohol Screen Question Answer Notes Did you [...] W/U Status Risk Notes Problem Acute cystitis (16331384) Acute cystitis (595.0) Active confirmed ([place]vis) Problem Conductive hearing loss of left ear with normal hearing on right side (disorder) (2755190060) Sensorineural hearing loss, unilateral, left ear, with unrestricted hearing on the contralateral side (H90.42) Active confirmed Problem Bilateral tinnitus (7440911812724) Tinnitus, bilateral (H93.13) Active confirmed Problem 42150415 Hidradenitis suppurativa (L73.2) Active confirmed Problem 717762388 Pelvic and perineal pain (R10.2) Active confirmed Problem 881071314 Vaginal atrophy (N95.2) Active confirmed Problem 329013473 PCOS (polycystic ovarian syndrome) (E28.2) Active confirmed Problem 61037096 Menopausal symptoms (N95.1) Active confirmed Problem 671981244 Endometriosis determined by laparoscopy (N80.9) Active confirmed Problem 73521038 Cyst of left ovary (N83.202) Active confirmed Problem 83379442 Chronic vaginiti s (N76.1) Active confirmed Problem 197836443 S/P hysterectomy (Z90.710) Active confirmed Problem 5397355 Primary female infertility (N97.9) Active confirmed Problem Sensorineural hearing loss of bilateral ears (disorder) (742334981) Sensorineural hearing loss, bilateral (H90.3) Active confirmed Problem Bilateral otalgia (173512248) Otalgia, bilateral (H92.03) Active confirmed Vital Signs Heart Rate 80 /min 05/12/2024 Temperature 98.0 degrees Fahrenheit 05/12/2024 Oximetry 98 % 05/12/2024 Blood pressure diastolic 86 mm Hg 05/12/2024 Height 66 in 05/12/2024 Blood pressure systolic 126 mm Hg 05/12/2024 Weight 249.6 lbs 12/13/2023 Encounters Encounter Location Date Provider Diagnosis [facility] [address] [facility] [address] [place], [place] [id number] 12/04/2023 Zaynab Alvarez [facility] [address] [facility] [address] [place], [place] [id number] 01/16/2024 Zaynab Alvarez [facility] [address] [facility] [address] [place], [place] [id number] 05/04/[address] [facility] [address] [facility] [place] [id number] 10/29/2023 Thony Iqbal Vaginal itching N89. 8 ; Dysuria R30.0 and Encounter for gynecological examination Z01.419 [facility] [address] [facility] [place], [place] [id number] 12/13/2023 Keyona Glynne Vaginal atrophy N95. 2 ; Postmenopausal HRT (hormone replacement therapy) Z79.890 and Chronic vaginitis N76.1 [facility] [address] [facility] [address] [place], [place] [id number] 05/12/2024 Louie Lumb Hidradenitis suppurativa L73.2 [facility] [address] [facility] [address] [place], [place] [id number] 10/09/2023 Zaynab Alvarez [facility] [address] [facility] [place] [id number] 10/11/2023 Leatha Iqbal [facility] [address] [facility] [place] [id number] 10/30/2023 Thony Iqbal Vaginal itching N89. 8 [facility] [address] [facility] [place], [place] [id number] 10/31/[address] [facility] [address] [facility] [place] [id number] 11/07/[address] [facility] [address] [facility] [id number] 11/08/2023 Leatha Iqbal Yeast vaginitis B37.[address], [place] [id number] 12/05/2023 Keyona Cotton [address], [place] [id number] 12/20/2023 Keyona Cotton Yeast vaginitis B37.[address], [place] [id number] 12/24/2023 Keyona Cotton [address], [place] [id number] 12/25/2023 Keyona Cotton [address], [place] [id number] 12/27/2023 Keyona Cotton Postmenopausal HRT (hormone replacement therapy) Z79.890 ; PCOS (polycystic ovarian syndrome) E28.2 and Facial rash R21 [address], [place] [id number] 01/29/2024 Keyona Cotton Postmenopausal HRT (hormone replacement therapy) Z79.890 and PCOS (polycystic ovarian syndrome) E28.[address], [place] [id number] 01/30/2024 Keyona Cotton [address], [place] [id number] 02/05/2024 Keyona Cotton [address], [place] [id number] 02/17/2024 Keyona Cotton Postmenopausal HRT (hormone replacement therapy) Z79.890 Assessments Encounter Date Diagnosis (ICD Code) Assessment Notes Treatment Notes Treatment Clinical Notes Section Notes 10/29/2023 Vaginal itching (ICD-10 - N89.8) 10/30/2023 [...] (ICD-10 - L73.2) Will try low dose retirement abx with flagyl, since allergic to doxy and clinda and flagyl seems to control. 12/27/2023 Facial rash (ICD-10 - R21) 01/29/2024 PCOS (polycystic ovarian syndrome) (ICD-10 - E28.2) 12/13/2023 Chronic vaginitis (ICD-10 - N76.1) 10/29/2023 Dysuria (ICD-10 - R30.0) 10/29/2023 Encounter for gynecological examination (ICD-10 - Z01.419) Plan Of Treatment No Information Insurance Providers Payer Name Payer Address Payer Phone Subscriber Number Group Number Insured Name Patient Relationship to Insured Coverage Start Date Coverage End Date [employer] PPO [address] [place] [address] [id number] JANE Villarreal Self - patient is [...]
--- OUTSIDE RECORDS SUMMARY | 2024-10-07 18:29 | XMS_ITS | Encounter Summary ---
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 [address] [facility] [place] [address] System, Provider Not In, [address] [place] [address] Social History Tobacco Use Types Packs/Day Years [...] 11/20/2016 9:18 PM CDT Historic images from [facility] exist and can be viewed by using the hyperlink to access [facility] DCs: CT ABD/PEL W CONTRAST Procedure Note System, Provider Not In, - 03/30/2020 Historic images from [facility] exist and can be viewed byusing the hyperlink to access [employer] pacs: CT ABD/PEL W CONTRAST us Provider Not In System MD [facility] Final Result documented in this encounter Visit Diagnoses Not on filedocumented in this encounter Care Teams Seed Mill Superintendent Relationship Specialty Start Date End Date Lucho Mota MD [address] [place] [address] PCP - General Family Medicine 05/10/20 12/18/21 documented as of this encounter
--- OUTSIDE RECORDS SUMMARY | 2024-10-07 18:29 | XMS_ITS | Patient Health Record ---
Author Organization [address] [place] [address] e Cor Address [address] [place]rigez [id number] Care Team Providers Care Cnmt Name Role Phone Karen Israel Primary Care Provider Bob Badillo Unavailable [phone] Denis Owens Unavailable [phone] Wil Booker Unavailable [phone] Bernadine Gomez Unavailable [phone] Allergies Allergen (clinical drug ingredient) Drug/Non Drug Allergy documented on EMR Reaction Allergy Type Onset Date Status dextromethorphan / promethazine Promethazine-DM Unknown Drug Allergy Active buspirone Buspirone dizziness Drug Allergy Active clindamycin Clindamycin rash Drug Allergy Act cha doxycycline Doxycycline rash Drug Allergy Act cha Penicillin rash Drug Allergy Active Results Component Value Reference Range Notes Coronavirus (COVID-19)/Flu/R SV Trio- INHOUSE RAPID PCR SWAB Reviewed date:02/22/2024 08:39:46 AM Interpretation:Negative Performing Lab: Notes/Report: Testing performed at the [address] [place] [address] location. zzInterpretation Reviewed date:03/18/2024 11:49:31 AM Interpretation:Normal Performing Lab: Notes/Report: [facility] performed at: [facility] Blink (air taxi)[facility], [address] [place] [address], [phone], Log Cooker: Suni Parker MD [facility] Collection Date/Time: [id number] [facility] Results Received Date/Time: [facility] Reported Date/Time: [id number] Testing performed by reference lab. 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 IGE Class kU/L Specific IGE Antibody 3 3.50-17.4 High Level has been validated pursuant to the CLIA regulations 0/1 0.10-0.34 Very Low Level performance characteristics have been determined by The clinical relevance of allergen results of 5 50-100 Very High Level 1 0.35-0.69 Low Level ----- --------- one or more analyte specific reagents. In those and is used for clinical purposes. Blink (air taxi). It has not been cleared or approved 4 17.5-49.9 Very High Level 0.10-0.34 kU/L are undetermined and intended for 6 >100 Very High Level Allergens denoted with a include results using 2 0.70-3.49 Moderate Level 0 <0.10 Absent/Undetectable cases, the test was developed and its analytical by the U.S. Food and Drug Administration. This assay Specific Level of Allergen [place] Advanced Panel: BV, Trich, Katie, GC/Chlamydia Advanced Vaginalis Plus Reviewed date:09/16/2024 10:34:27 AM Interpretation:Negative Performing Lab: Notes/Report: [facility] Testing performed at: [facility] Blink (air taxi)[facility], [address] [place] [address], [phone], Log Cooker: Suni Parker MD [facility] Collection Date/Time: [id number] [facility] Results Received Date/Time: [id number] [facility] Reported Date/Time: Testing performed at: [facility] [employer] (air taxi)[facility], [address] [place] [address], [phone], Log Cooker: Suni Parker MD [facility] Collection Date/Time: [id number] [facility] Results Received Date/Time: [id number] [facility] Reported Date/Time: Testing performed at: [place] [place], [address] [place] [address], [phone], Log Cooker: Suni Parker MD [facility] Collection Date/Time: [facility] Results Received Date/Time: [facility] Reported Date/Time: Testing performed at: [facility] [employer]ink (air taxi)[facility], [address] [place] [address], [phone], Log Cooker: Suni Parker MD [facility] Collection Date/Time: [facility] Results Received Date/Time: [facility] Reported Date/Time: Testing performed by reference lab. SURESWAB(R) ADV BACTERIAL VAGINOSIS (BV), TMA NEGATIVE NEGATIVE KATIE SPECIES NOT DETECTED NOT DETECTED KATIE GLABRATA NOT DETECTED NOT DETECTED C. parapsilosis, and/or C. dubliniensis can be detected, Katie species C. albicans, C. tropicalis, but not differentiated, in the Katie spp. result. TRICHOMONAS VAGINALIS (TV), TMA NOT DETECTED NOT DETECTED CHLAMYDIA TRACHOMATIS RNA, TMA, UROGENITAL NOT DETECTED NOT DETECTED NEISSERIA GONORRHOEAE RNA, TMA, UROGENITAL NOT DETECTED NOT DETECTED educational purposes only.) For additional information, please refer to (This link is being provided for information/ https://education.Nasza-klasa.pl/faq/TTX446 Urine Dip Reviewed date:09/14/2024 02:22:50 PM Interpretation:OK for Patient Performing Lab: Notes/Report: Testing performed at the [address] [place] [address] location. Urine Dip Reviewed date:09/02/2024 02:44:38 PM Interpretation:Normal Performing Lab: Notes/Report: Testing performed at the [address] [place] [address] location. CBC, Diff, Automated Reviewed date:09/02/2024 02:44:53 PM Interpretation:Normal Performing Lab: Notes/Report: Testing performed at the [address] [place] [address] location. [facility]-[place] ONLY Reviewed date:09/03/2024 11:37:37 AM Interpretation:Normal Performing Lab: Notes/Report: HIV 1/2, Rapid Antibody Scre ening Reviewed date:06/11/2024 11:38:04 AM Interpretation:Negative Performing Lab: Notes/Report: Testing performed at the [address] [place] [address] location. Urine Dip Reviewed date:11/27/2023 10:58:23 AM Interpretation:Normal Performing Lab: Notes/Report: Testing performed at the [address] [place] [address] location. [place] Advanced Panel: BV, Trich, Katie, GC/Chlamydia Advanced Vaginalis Plus Reviewed date:12/02/2023 01:26:02 PM Interpretation:Normal Performing Lab: Notes/Report: [facility] performed at: [place], [place]air [place])[facility], [address] [place] [address], [address] [place] [address], Log Cooker: Suni Parker MD [facility] Collection Date/Time: [facility] Results Received Date/Time: [facility] Reported Date/Time: Testing performed at: [place], [place]air [place])[facility], [address] [place] [address], [place], [place], [address] [place] [address], Log Cooker: Suni Parker MD [facility] Collection Date/Time: [facility] Results Received Date/Time: [facility] Reported Date/Time: Testing performed at: [place], [place]air [place], [address] [place] [address], [place], [place], [address] [place] [address], Log Cooker: Suni Parker MD [facility] Collection Date/Time: [facility] Results Received Date/Time: [facility] Reported Date/Time: Testing performed at: [place], [place]air [place], [address] [place] [address], [place], [place], [address] [place] [address], Log Cooker: Suni Parker MD [facility] Collection Date/Time: [facility] Results Received Date/Time: [facility] Reported Date/Time: Testing performed by reference lab. SURESWAB(R) ADV BACTERIAL VAGINOSIS (BV), TMA NEGATIVE NEGATIVE KATIE SPECIES NOT DETECTED NOT DETECTED KATIE GLABRATA NOT DETECTED NOT DETECTED Katie species C. albicans, C. tropicalis, C. parapsilosis, and/or C. dubliniensis can be detected, but not differentiated, in the Katie spp. result. TRICHOMONAS VAGINALIS (TV), TMA NOT DETECTED NOT DETECTED CHLAMYDIA TRACHOMATIS RNA, TMA, UROGENITAL NOT DETECTED NOT DETECTED NEISSERIA GONORRHOEAE RNA, TMA, UROGENITAL NOT DETECTED NOT DETECTED https://education.Nasza-klasa.pl/faq/HFZ191 (This link is being provided for information/ For additional information, please refer to educational purposes only.) Tilt-Table Test Reviewed date:02/03/2024 01:41:56 PM Interpretation:Normal Performing Lab: Notes/Report: Normal X ray : Foot, right Reviewed date:02/11/2024 10:08:42 AM Interpretation:Normal Performing Lab: Notes/Report: Normal Coronavirus (Covid-19)/Flu C ombo- INHOUSE RAPID ANTIGEN Reviewed date:02/25/2024 01:38:24 PM Interpretation:Negative Performing Lab: Notes/Report: Testing performed at the [address] [place] [address] location. [facility] ONLY Reviewed date:06/11/2024 11:38:04 AM Interpretation:Normal Performing Lab: Notes/Report: Items were attached to this order: Vaginalis Plus Items were attached to this order: [facility] [place] Advanced Panel: BV, Trich, Katie, GC/Chlamydia Advanced Vaginalis Plus Reviewed date:06/17/2024 03:42:56 PM Interpretation:Normal Performing Lab: Notes/Report: [facility] performed at: [facility] Blink (air taxi)[facility], [address] [place] [address], [phone], Log Cooker: Suni Parker MD [facility] Collection Date/Time: [facility] Results Received Date/Time: [id number] [facility] Reported Date/Time: [id number] Testing performed at: [facility] Blink (air taxi)[facility], [address] [place] [address], [phone], Log Cooker: Suni Parker MD [facility] Collection Date/Time: [id number] [facility] Results Received Date/Time: [id number] [facility] Reported Date/Time: [id number] Testing performed at: [place], [place] (air [place])[facility], [address] [place] [address], [phone], Log Cooker: Suni Parker MD [facility] Collection Date/Time: [id number] [facility] Results Received Date/Time: [id number] [facility] Reported Date/Time: [id number] Testing performed at: [facility] Blink (air taxi)[facility], [place], [address], Log Cooker: Suni Parker MD [facility] Collection Date/Time: [id number] [facility] Results Received Date/Time: [id number] [facility] Reported Date/Time: [id number] Testing performed by reference lab. SURESWAB(R) ADV BACTERIAL VAGINOSIS (BV), TMA NEGATIVE NEGATIVE KATIE SPECIES NOT DETECTED NOT DETECTED KATIE GLABRATA NOT DETECTED NOT DETECTED but not differentiated, in the Katie spp. result. C. parapsilosis, and/or C. dubliniensis can be detected, Katie species C. albicans, C. tropicalis, TRICHOMONAS VAGINALIS (TV), TMA NOT DETECTED NOT DETECTED CHLAMYDIA TRACHOMATIS RNA, TMA, UROGENITAL NOT DETECTED NOT DETECTED NEISSERIA GONORRHOEAE RNA, TMA, UROGENITAL NOT DETECTED NOT DETECTED https://education.Nasza-klasa.pl/faq/XFI226 For additional information, please refer to educational purposes only.) (This link is being provided for information/ [employer]/[place] /[place] ONLY Reviewed date:10/16/2023 04:34:28 PM Interpretation:Normal Performing Lab: Notes/Report: Testing performed at the [address] [place] [address] location. [employer] ManagementGrandy/[place] /[place] ONLY Reviewed date:12/25/2023 01:20:42 PM Interpretation:Normal Performing Lab: Notes/Report: Rheumatoid Arthritis Factor Reviewed date:04/22/2024 08:41:41 AM Interpretation:Normal Performing Lab: Notes/Report: [facility] performed at: [facility] Blink (air taxi)[facility], [address] [place] [address], [phone], Log Cooker: Suni Parker MD [facility] Collection Date/Time: [id number] [facility] Results Received Date/Time: [id number] [facility] Reported Date/Time: [id number] Testing performed by reference lab. RHEUMATOID FACTOR <10 <14 IU/mL C Reactive Protein, CRP Reviewed date:04/22/2024 08:41:41 AM Interpretation:Normal Performing Lab: Notes/Report: [facility] performed at: [address], [address] [place] [address], Log Cooker: Suni Parker MD [facility] Collection Date/Time: [id number] [facility] Results Received Date/Time: [facility] Reported Date/Time: [id number] Testing performed by reference lab. C-REACTIVE PROTEIN <3.0 <8.0 mg/L Sedimentation Rate Reviewed date:04/22/2024 08:41:41 AM Interpretation:Normal Performing Lab: Notes/Report: [facility] performed at: [facility] Blink (air taxi)[facility], [address] [place] [address], [address] [place] [address], Log Cooker: Suni Parker MD [facility] Collection Date/Time: [id number] [facility] Results Received Date/Time: [facility] Reported Date/Time: [id number] Testing performed by reference lab. SED RATE BY MODIFIED WESTERGREN 11 < OR = 20 mm/h CORNELIO screen IFA Reflex Titer/ Multiplex 11 Ab [place] Reviewed date:04/22/2024 08:41:41 AM Interpretation:Normal Performing Lab: Notes/Report: [facility] Testing performed at: [facility] [employer] [facility], [address] [place] [address], [address] [place] [address], Log Cooker: Suni Parker MD [facility] Collection Date/Time: [id number] [facility] Results Received Date/Time: [id number] [facility] Reported Date/Time: [id number] Testing performed by reference lab. CORNELIO SCREEN, IFA NEGATIVE NEGATIVE suspected inflammatory myopathies. various autoimmune diseases. A negative CORNELIO IFA result http://education.[employer] Technologies/faq/LEW623 present at this time, and does not reflex further. If (This link is being provided for informational/ there is high clinical suspicion for Sjogren's syndrome, AC-0: Negative (https://doi.org/10.1515/ vnnh-9510-8151) International Consensus on CORNELIO Patterns testing for anti-SS-A/Ro antibody should be considered. educational purposes only.) Anti-Kait-1 antibody should be considered for clinically For additional information, please refer to CORNELIO IFA is a first line screen for detecting the presence of up to approximately 150 autoantibodies in suggests an CORNELIO-associated autoimmune disease is not [facility]MP-[place] ONLY Reviewed date:03/18/2024 11:49:53 AM Interpretation:OK for Patient Performing Lab: Notes/Report: CBC, Diff, Automated Reviewed date:03/18/2024 11:50:06 AM Interpretation:OK for Patient Performing Lab: Notes/Report: Testing performed at the [address] [place] [address] location. Iron, TIBC, and Ferritin Veliz Reviewed date:03/18/2024 11:50:16 AM Interpretation:Normal Performing Lab: Notes/Report: [facility]: [facility], [address] [place], [address], Log Cooker: Suni Parker MD [facility] Collection Date/Time: [id number] [facility] Results Received Date/Time: [id number] [facility] Reported Date/Time: [id number] Testing performed by reference lab. IRON, TOTAL 100 40-190 mcg/dL IRON BINDING CAPACITY 354 250-450 mc g/dL (calc) % SATURATION 28 16-45 % (calc) FERRITIN 35 16-154 ng/mL TSH, w/ refl to Free T4 Reviewed date:03/18/2024 11:49:41 AM Interpretation:Normal Performing Lab: Notes/Report: [facility] Testing performed at: [employer], [address] [place], [address], Log Cooker: Suni Parker MD [facility] Collection Date/Time: [id number] [facility] Results Received Date/Time: [id number] [facility] Reported Date/Time: [id number] Testing performed by reference lab. TSH W/REFLEX TO FT4 2.04 Ranges Third trimester 0.43-2.91 Reference Range First trimester 0.26-2.66 Second trimester 0.55-2.73 > or = 20 Years 0.40-4.50 ALLERGY-FOOD ALLERGY PROFILE W/ REFLEXES Reviewed date:03/18/2024 11:46:59 AM Interpretation:Normal Performing Lab: Notes/Report: [facility] Testing performed at: [place], [place] (air taxi)[facility], [address] [place], [address], Log Cooker: Suni Parker MD [facility] Collection Date/Time: [id number] [facility] Results Received Date/Time: [id number] [facility] Reported Date/Time: [id number] Testing performed by reference lab. EGG WHITE [...] 0 TUNA (F40) IGE <0.10 CLASS 0 Reason For Referral Reason bipolar d/o Diagnosis 1 Bipolar 1 disorder ( F31.9) Referral Organization [address] [place] [address] are [facility] Referring Provider First Name Karen Referring Provider Last Name Jhonatan Referring Provider Speciality Physician Public Health Referred Provider Glow Referred Provider Specialty Mental Healt h General Notes Karen Israel 03/2023 01:04:07 PM > counseling and med Miguelito whittington Grace 11/27/2023 01:43:38 PM > faxed Miguelito [...] the referral. I explained that the facility [facility] is closed on Fridays. Patient did not have correct address nor [facility]'s phone number. As we were speaking she stated that Lashonda with [facility] helped her fill out her intake paperwork and gave her the date and time of the appointment so I believe that is were the confusion came in for patient. Patient understood that we did not do anything incorrect before we closed the conversation and she thanked us for the help., Yola Farley 01/02/2024 03:15:27 PM > faxed records request, Yola Farley 01/17/2024 10:06:38 AM > attempted to reach office no answer will try again saturday, Kassi Clayton 02/04/2024 01:04:53 PM > Spoke with Abby at [facility]. Per our conversation the patient has Cancelled 2 appointments and no-showed another. TE sent to provider for further instructions., Yola Farley 02/05/2024 08:06:25 AM > Referral Priority Routine Referral Appointment Date 12/24/2023 Reason Tilt Table Test Diagnosis 1 Tachycardia, paroxys mal (I47.9) Referral Organization [address] [place] [address] are [facility] Referring Provider First Name Karen Referring Provider Last Name Jhonatan Referring Provider Speciality Physician Public Health Referred Provider [facility], [facility] Referred Provider Specialty Outpatient T esting General Notes Yola Farley 12/24 03:23:03 PM CDT > spoke with Liz, patient scheduled at [facility], [place] [facility] [employer], No [employer] for 24hrs prior, NPO 4hrs prior, Jan 23 check in @7am, Yola Farley 12/31/2023 04:49:00 PM > patient will be in office tomorrow, when looking up patients appointment via [employer] it looks as thought her 01/23 appointment has been changed to 01/27, called and spoke with Mily at [facility] and she states that patients appointment was moved to 01/27 @900am by dada Merrill LPN, I am assuming she may [...] of allergic react ion (Z88.9) Referral Organization [address] [place] [address] are [facility] Referring Provider First Name Karen Referring Provider Last Name Jhonatan Referring Provider Speciality Physician Public Health Referred Provider Jeffery Guzman Referred Provider Specialty Allergy/Immu nology General Notes Yola Farley 03/18 11:47:43 AM > faxed Miguelito SCHNEIDER Grace 2024 03:58:34 PM > [facility] does not do allergy testing, forwarding referral to Ruperto Guzman Wendy 04/03/2024 09:18:07 AM >Spoke with Dr. Guzman office, they did receive the referral, but the patient is not scheduled at this time, Yola Farley 04/17/2024 03:55:50 PM > per fax from Dr Guzman office patient is scheduled 05/22 @930Miguelito Grace 04/22/2024 12:33:51 PM > called and spoke [...] information, Yomaira Carey 07/14/2024 09:12:27 AM > [phone], per Magda, patient kept appointment, she is faxing note, Bibiana Thomas 07/15/2024 09:18:07 AM > report received Referral Priority Routine Referral Appointment Date 06/19/2024 Reason edema, palpitations Diagnosis 1 Lower extremity kathy a (R60.0) Referral Organization [address] [place] [address] are [facility] Referring Provider First Name Karen Referring Provider Last Name Jhonatan Referring Provider Speciality Physician Public Health Referred Provider Olga Locke Referred Provider Specialty Cardiology General Notes Karen Israel 06/2024 12:41:07 PM > requesting 2nd opinion in [place] if possible, previously seen [facility], Yola Farley 04/29/2024 12:49:42 PM > will have to be approved by both cardiologists for patient to use another provider with same group, Yola Farley 05/01/2024 09:35:35 AM > patient can see Olga Locke in [place] 05/18 @1030, Yola Farley 05/01/2024 11:00:09 AM > spoke with patient in office she is aware and agreeable, Kassi Clayton 05/21/2024 03:21:03 PM >see report in patient chart Referral Priority Routine Referral Appointment Date 05/19/2024 Reason recurrent UTI Diagnosis 1 Recurrent UTI (N39.0 ) Referral Organization [address] [place] [address] are [facility] Referring Provider First Name Karen Referring Provider Last Name Jhonatan Referring Provider Speciality Physician Public Health Referred Provider [facility]rology Referred Provider Specialty Urology General Notes Khushi Steve 0 09/02/2024 04:27:28 PM > Attempted to contact pt no answer, left a voicemail to contact our office back. faxed referral form, demographic sheet, ov notes, labs, hospital records, insurance card to [facility] at this time.Ruperto Wendy 09/08/2024 11:05:21 AM >Spoke with [facility], they transferred me to the referral dept, I had to leave a message.Miguelito Grace 09/10/2024 08:40:39 AM > per fax from [facility] they require 2 failed urine cultures prior to scheduling, sending to Miguelito ATKINSON Grace 09/10/2024 08:53:28 AM > faxed referral to Aurelio ATKINSON Becky 09/11/2024 12:23:53 PM > received notification that they got referral.Miguelito Grace 09/21/2024 01:05:36 PM > per [employer] web patient has been scheduled 12/17 @11, reminder mailed as well Referral Priority Routine Referral Appointment Date 12/17/2024 Medications Medication SIG (Take, Route, Frequency, Duration) Notes Start Date End Date Status Spironolactone 25 MG 1 tablet Orally daily; Duration: 30 days Active metroNIDAZOLE 250 MG 1 tablet Orally Three times a day; Duration: 3 days to take tid on , 2nd and 3rd of each month, please only fill once per month 09/30/2024 Active Magnesium Citrate 200 MG 2 tablets Orally once a day; Duration: 30 days equal 400 mg dose 09/14/2024 Active Fluconazole 100 MG 1 tablet Orally daily; Duration: 2 days take 1 tablet on and of each month, please only fill once per month 09/30/2024 Active Geodon 20 MG 1 capsule with food in the morning, 2 capsules with food at night Orally as directed Not-Taking Flonase Allergy Relief 50 mcg/act 1 puff in each nostril Nasally as needed Not-Taking Pantoprazole Sodium 40 MG 1 tablet Orally Once a day; Duration: 30 days 06/05/2023 Active Nystatin 487888 UNIT/GM External; Duration: 15 Days PRN Active LaMICtal 25 MG 1 tablet Orally twice a day Not-Taking Macrobid 100 MG 1 capsule with food Orally daily; Duration: 30 days 09/02/2024 Active Humira (2 Pen) 80 MG/0.8ML as directed Subcutaneous every 2 weeks Not-Taking Chlorhexidine Gluconate 4 % as directed Externally daily; Duration: 30 days 11/27/2023 Not-Taking Cetirizine HCl 10 MG 1 tablet Orally Once a day 08/31/2021 Not-Taking Vitamin D (Ergocalciferol) 1.25 MG (61369 UT) Oral; Duration: 28 Days Not-Taking Vitamin D 50 MCG (2000 UT) 1 tablet Orally Once a day Not-Taking Vitamin C 250 MG 2 tablets Orally Once a day Not-Taking Fluconazole 150 MG 1 tablet Orally weekly; Duration: 30 days 3 doses 72hr apart, then weekly Active Progesterone 200 MG 1 capsule at bedtime Orally Once a day Not-Taking Compression Stockings Bilat Knee high socks compression 8-15 or 15-20 10/14/2023 Active Potassium Chloride ER 20 MEQ 2 tablet with food Oral Once a day held with spironolactone Not-Taking Bumetanide 2 MG 1 tablet Oral twice a day; Duration: 30 days Active Ondansetron 4 MG 1 tablet on the tongue and allow to dissolve Orally every eight hours as needed; Duration: 2 days 02/25/2024 Not-Taking Albuterol Sulfate HFA 108 (90 Base) MCG/ACT INHALE ONE PUFF BY MOUTH EVERY 4 HOURS NEEDED FOR wheezing; Duration: 30 Active Vitamin Act cah hydrOXYzine HCl 25 MG 1 tablet as needed Orally every 6 hours 09/03/2024 Active Albuterol Sulfate (2.5 MG/3ML) 0.083% USE 3 MILLILITERS VIA NEBULIZATION BY MOUTH EVERY 6 HOURS FOR 10 DAYS; Duration: 15 PRN Active Triamcinolone Acetonide 0.1 % 1 application Externally once daily; Duration: 7 days PRN 07/31/2023 Active Immunizations Vaccine Route Administration Date Status Comme nts Gardasil-VFC IM Intramuscular 12/22/2013 Administered MENINGOCOCCAL - VFC IM Intramuscular 12/22/2013 Administer ed Tetanus-Adult Unknown 11/28/2020 Administered given at ER Varicella-VFC SC Subcutaneous 12/22/2013 Administered Social History Tobacco Use: Social [...] No Syphilis No Prevention Strategies Discussed Condoms Tobacco Control (Standard) Question Answer Notes Tobacco use: Former smoker How long has it been since you last smoked? 1-5 years AUDIT-C (Standard) Question Answer Notes Did you have a drink containing alcohol in the p ast year? No Points 0 Interpretation Negative Problems Problem Type SNOMED Code ICD Code Onset Dates Problem Status W/U Status Risk Notes Problem Gastroesophageal reflux disease (972472589) GERD (gastroesophageal reflux disease) (K21.9) Active confirmed Problem Chronic sinusitis (23504858) Sinus infection (J32.9) Active confirmed Problem Obesity (506504196) Obesity (E66.9) Active conf irmed Problem Tobacco dependence (69522817) Tobacco dependence (F17.200) Active confirmed Problem Migraine (83083019) Migraine (G43.909) Active c onfirmed Problem Bipolar disorder (99505072) Bipolar disorder (F31.9) Active confirmed Problem Mood disorder (81433983) Mood disorder (F39) Active confirmed Problem Dental caries (05671654) Dental caries (K02.9) Active confirmed Problem Overweight (450661711) Overweight (E66.3) Active confirmed Problem Bipolar 1 disorder (230883151) Bipolar 1 disorder (F31.9) Active confirmed Problem Generalized anxiety disorder (96258568) Generalized anxiety disorder (F41.1) Active confirmed Problem External hemorrhoid (22828713) External hemorrhoid (K64.4) Active confirmed Problem Hidradenitis suppurativa (12640191) Hidradenitis suppurativa (L73.2) Active confirmed Problem Menstrual disorder (018920408) Irregular menses (N92.6) Active confirmed Problem Paresthesia (finding) (02746939) Paresthesia of skin (R20.2) Active confirmed Problem Chronic fatigue syndrome (99404190) Chronic fatigue (R53.82) Active confirmed Problem Recurrent major depressive episodes, severe, with psychosis (177795344) Major depressive disorder, recurrent episode, severe, 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) Active confirmed Problem Constipation (77109680) Constipation, unspecified constipation type (K59.00) Active confirmed Problem Flexural eczema (17684265) Flexural eczema (L20.82) Active confirmed Problem Auditory hallucinations (24393342) Auditory hallucinations (R44.0) Active confirmed Problem Atypical squamous cells on cervical Papanicolaou smear cannot exclude high grade squamous intraepithelial lesion (473889738) Atypical squamous cells cannot exclude high grade squamous intraepithelial lesion on cytologic smear of cervix (ASC-H) (R87.611) Active confirmed Problem Anogenital human papilloma virus infection (337019026) HPV (human papilloma virus) anogenital infection (A63.0) Active confirmed Problem Leukocytosis (136118949) Leukocytosis, unspecified type (D72.829) Active confirmed Problem Paroxysmal tachycardia (23177134) Tachycardia, paroxysmal (I47.9) Active confirmed Problem Mixed incontinence (756568133) Mixed stress and urge urinary incontinence (N39.46) Active confirmed Problem Allergic rhinitis caused by pollen (79830239) Seasonal allergic rhinitis due to pollen (J30.1) Active confirmed Problem Nummular eczema (20105583) Nummular eczema (L30.0) Active confirmed Problem Hypokalemia (88980870) History of hypokalemia (Z86.39) Active confirmed Problem History of hysterectomy (852073251) S/P hysterectomy (Z90.710) Active confirmed Problem Hearing loss (18106907) Deafness in left ear (H91.92) Active confirmed Problem Severe major depression with psychotic features (00346621) Severe major depression with psychotic features (F32.3) Active confirmed Problem Intermittent urinary incontinence (874156387) Intermittent urinary incontinence (R32) Active confirmed Problem Drug allergy (700873942) Hx of allergic reaction (Z88.9) Active confirmed Problem Tobacco user (262064958) Vaping nicotine dependence, non-tobacco product (F17.200) Active confirmed Problem Insulin resistance (744790635) Insulin resistance (E88.819) Active confirmed Vital Signs Heart Rate 78 /min 09/14/2024 Temperature 98.0 degrees Fahrenheit 09/14/2024 Respiratory Rate 20 /min 09/14/2024 Oximetry 99 09/14/2024 Blood pressure diastolic 86 mm Hg 09/14/2024 Weight-kg 100.06 Kg 09/14/2024 Height 69 in 09/14/2024 Blood pressure systolic 130 mm Hg 09/14/2024 Weight 220.6 lbs 09/14/2024 BMI 32.57 kg/m2 09/14/2024 Encounters Encounter Location Date Provider Diagnosis [facility] [address] [place], [place] [id number] 10/14/2023 Karen Israel Overweight E66.3 ; Vaginal discharge N89.8 ; Dietary counseling Z71.3 and Lower extremity edema R60.0 [facility] [address] [place], [place] [id number] 10/16/2023 Karen Israel Lower extremity kathy a R60.0 [facility] [address] [place], [place] [id number] 11/27/2023 Karen Israel Vaginal odor N89.8 ; Dysuria R30.0 ; Hidradenitis suppurativa L73.2 and Bipolar 1 disorder F31.9 [facility] [address] [place], [place] [id number] 12/25/2023 Karen Israel Medication managemen t Z79.899 ; Tachycardia, paroxysmal I47.9 ; Lower extremity edema R60.0 and Hidradenitis suppurativa L73.2 [facility] [address] [place], [place] [id number] 02/03/2024 Karen Israel Overweight E66.3 ; Dietary counseling Z71.3 ; Pruritic rash L28.2 ; Medication management Z79.899 ; Lower extremity edema R60.0 ; Hidradenitis suppurativa L73.2 ; Insulin resistance E88.819 ; Vaginal irritation N89.8 and CORNELIO positive R76.8 [facility] [address] [place] [id number] 02/05/2024 Bernadine Gomez Overweight E66.3 ; R ight foot pain M79.671 and Dietary counseling Z71.3 [facility] [address] [place], [place] [id number] 02/21/2024 Bernadine Gomez Body aches R52 and A cute URI J06.9 [facility] [address] [place], [place] [id number] 02/25/2024 Chare Marcoin Cough R05.9 ; Viral illness B34.9 ; Yeast infection B37.9 ; Overweight E66.3 and Dietary counseling Z71.3 [facility] [address] [place], [place] [id number] 03/02/2024 Karen Rgmons Overweight E66.3 ; Recurrent bacterial infection A49.9 and Dietary counseling Z71.3 [facility] [address] [place], [place] [id number] 03/09/2024 Karen sIrael Overweight E66.3 ; External hemorrhoid K64.4 ; Dietary counseling Z71.3 ; Chronic fatigue R53.82 ; Lower extremity edema R60.0 and Abdominal bloating R14.0 [facility] [address] [place], [place] [id number] 04/20/2024 Karen Jhonatan CORNELIO positive R76.8 [facility] [address] [place], [place] [id number] 05/01/2024 Bernadine Gomez Overweight E66.3 ; B urn of second degree of buttock, sequela T21.25XS ; Dietary counseling Z71.3 ; Hidradenitis suppurativa L73.2 and Nausea R11.0 [facility] [address] [place], [place] [id number] 06/09/2024 Bob Badillo Screening for HIV ([facility] immunodeficiency virus) Z11.4 ; Acute vaginitis N76.0 ; History of hypokalemia Z86.39 and Screening for STDs (sexually transmitted diseases) Z11.3 [facility] [address] [place], [place] [id number] 09/02/2024 Karen Jhonatan Overweight E66.3 ; Recurrent UTI N39.0 ; Dietary counseling Z71.3 ; Hypokalemia E87.6 ; Leukocytosis, unspecified type D72.829 ; Pruritic rash L28.2 ; Hidradenitis suppurativa L73.2 ; GERD (gastroesophageal reflux disease) K21.9 and Vaginal katie B37.31 [facility] [address] [place], [place] [id number] 09/14/2024 Karendada Israel Dysuria R30.0 ; Vagi nal itching N89.8 ; Chronic constipation K59.09 ; Bipolar disorder F31.9 ; Lower extremity edema R60.0 and Chronic nausea R11.0 [facility] [address] [place], [place] [id number] 10/16/2023 Karen Israel Lower extremity kathy a R60.0 [facility] [address] [place] [id number] 10/17/2023 Karen Israel [facility] [address] [place], [place] [id number] 10/18/2023 Karen Israel [facility] [address] [place], [place] [id number] 10/25/2023 Karen Israel [facility] [address] [place], [place] [id number] 02/03/2024 Karen Israel [facility] [address] [place], [place] [id number] 02/03/2024 Karen Israel [facility] [address] [place], [place] [id number] 02/04/2024 Karen Israel [facility] [address] [place], [place] [id number] 02/24/2024 Karen Israel [facility] [address] [place], [place] [id number] 02/25/2024 Karen Israel [facility] [address] [place], [place] [id number] 03/11/2024 Karen Israel [facility] [address] [place], [place] [id number] 03/18/2024 Karen Israel Hx of allergic react ion Z88.9 and CORNELIO positive R76.8 [facility] [address] [place], [place] [id number] 2024 Karen Israel [facility] [address] [place], [place] [id number] 04/08/2024 Karen Israel [facility] [address] [place], [place] [id number] 04/29/2024 Karen Israel Lower extremity kathy a R60.0 and Tachycardia R00.0 [facility] [address] [place], [place] [address] [facility] [facility] [place] [address] 04/30/2024 Karen Israel [facility] [address] [place], [place] [id number] 05/29/2024 Karen Israel [facility] [address] [place], [place] [id number] 06/10/2024 Karen Israel [facility] [address] [place], [place] [id number] 06/11/2024 Bob Badillo [facility] [address] [place], [place] [id number] 08/26/2024 Karen Israel [facility] [address] [place], [place] [id number] 08/31/2024 Karen Israel [facility] [address] [place], [place] [id number] 09/02/2024 Karen Israel [facility] [address] [place], [place] [id number] 09/03/2024 Karen Israel [facility] [address] [place], [place] [id number] 09/10/2024 Karen Israel [facility] [address] [place], [place] [id number] 09/15/2024 Karen Israel [facility] [address] [place], [place] [id number] 09/15/2024 Karen Israel Chronic constipation K59.09 [facility] [address] [place], [place] [id number] 09/21/2024 Karen Israel Assessments Encounter Date Diagnosis (ICD Code) Assessment Notes Treatment Notes Treatment Clinical Notes Section Notes 10/14/2023 Vaginal discharge (ICD-10 - N89.8) Will treat with metronidazole gel x5d, if sx persist, will need to repeat vaginal exam and swab to confirm diagnosis 10/14/2023 Overweight (ICD-10 - E66.3) 11/27/2023 Dysuria (ICD-10 - R30.0) No UTI 11/27/2023 Vaginal odor (ICD-10 - N89.8) Continue nystatin and estrogen as prescribed by gynecology until sure swab results 02/03/2024 Overweight (ICD-10 - E66.3) 02/21/2024 Body [...] A49.9) Refilled metronidazole, advised continue following with TECHNICAL ENGINEER 03/09/2024 Overweight (ICD-10 - E66.3) 03/09/2024 External hemorrhoid (ICD-10 - K64.4) Advised preparation H and hydrocortisone to area of hemorrhoid, sitz bath, witch jackie pads 03/18/2024 CORNELIO positive (ICD-10 - R76.8) 03/18/2024 Hx of allergic reaction (ICD-10 - Z88.9) 04/29/2024 Tachycardia (ICD-10 - R00.0) 04/29/2024 Lower [...] request screening due to his sexual encounter 09/02/2024 Overweight (ICD-10 - E66.3) 09/02/2024 Recurrent UTI (ICD-10 - N39.0) Urology referral placed, discussed option of prophylactic abx, pt would like to try 09/14/2024 Dysuria (ICD-10 - R30.0) Urine dip unremarkable 09/14/2024 Vaginal itching (ICD-10 - N89.8) Sureswab obtained, advised holding off on any treatment until swab resulted 09/15/2024 Chronic constipation (ICD-10 - K59.09) 04/20/2024 CORNELIO positive (ICD-10 - R76.8) 10/16/2023 Lower extremity edema (ICD-10 - R60.0) 10/16/2023 Lower extremity edema (ICD-10 - R60.0) Improved, weight down 4 lbs, BP improved, continue with 40mg furosemide daily, can take 1 extra dose prn if swelling not responding, continue 40mEQ K daily. RTC if sx worsen. 12/25/2023 Medication management (ICD-10 - Z79.899) 12/25/2023 Tachycardia, paroxysmal (ICD-10 - I47.9) Reports feeling dismissed by cardio, focusing on the weight/ edema and not concerns of HR with feeling lightheaded, has had significant cardio w/u, advised can attempt to order work up for possible POTS which is one of patients concerns 12/25/2023 Lower extremity edema (ICD-10 - R60.0) Continue with spironolactone and bumex as prescribed by cardio, keep f/u with specialists 09/14/2024 Chronic constipation (ICD-10 - K59.09) Start mag citrate daily 09/02/2024 Dietary counseling (ICD-10 - Z71.3) The following information is provided to help patients understand the role BMI, nutrition, and physical activity play in a patient's overall health. Please review the information available in these links. ADULT BMI: https://www.cdc.g ov/healthyweight/ assessing/bmi/frantz lt_bmi/english_bm i_calculator/bmi_ calculator.html DIETARY GUIDELINES: https://www.dieta ryguidelines.gov/ sites/default/colt es/2020-04/Dietar y_Guidelines_for_ Americans-2019-.. . PHYSICAL ACTIVITIES GUIDELINES: https://www.cdc.g ov/healthyweight/ physical_activity /index.html 06/09/2024 History of hypokalemia (ICD-10 - Z86.39) [...] ov/healthyweight/ assessing/bmi/frantz lt_bmi/english_bm i_calculator/bmi_ calculator.html DIETARY GUIDELINES: https://www.dietmyTips.gov/ sites/default/colt es/2020-04/Dietar y_Guidelines_for_ Americans-2019-.. . PHYSICAL ACTIVITIES GUIDELINES: https://www.[facility]. ov/healthyweight/ physical_activity /index.html 03/09/2024 Dietary counseling (ICD-10 - Z71.3) The following information is provided to help patients understand the role BMI, nutrition, and physical activity play in a patient's overall health. Please review the information available in these links. ADULT BMI: https://www.[facility]. ov/healthyweight/ assessing/bmi/frantz lt_bmi/english_bm i_calculator/bmi_ calculator.html DIETARY GUIDELINES: https://www.dietmyTips.gov/ sites/default/colt es/2020-04/Dietar y_Guidelines_for_ Americans-2019-.. . PHYSICAL ACTIVITIES GUIDELINES: https://www.[facility]. ov/healthyweight/ physical_activity /index.html 03/02/2024 Dietary counseling (ICD-10 - Z71.3) The following information is provided to help patients understand the role BMI, nutrition, and physical activity play in a patient's overall health. Please review the information available in these links. ADULT BMI: https://www.cdc.g ov/healthyweight/ assessing/bmi/frantz lt_bmi/english_bm i_calculator/bmi_ calculator.html DIETARY GUIDELINES: https://www.dietmyTips.gov/ sites/default/colt es/2020-04/Dietar y_Guidelines_for_ Americans-2019-.. . PHYSICAL ACTIVITIES GUIDELINES: https://www.cdc. ov/healthyweight/ physical_activity /index.html 02/05/2024 Dietary counseling (ICD-10 - Z71.3) The following information is provided to help patients understand the role BMI, nutrition, and physical activity play in a patient's overall health. Please review the information available in these links. ADULT BMI: https://www.cdc. ov/healthyweight/ assessing/bmi/frantz lt_bmi/english_bm i_calculator/bmi_ calculator.html DIETARY GUIDELINES: https://www.dieta Otterology.gov/ sites/default/colt es/2020-04/Dietar y_Guidelines_for_ Americans-2019-.. . PHYSICAL ACTIVITIES GUIDELINES: https://www.cdc. ov/healthyweight/ physical_activity /index.html 02/25/2024 Yeast infection (ICD-10 [...] ov/healthyweight/ assessing/bmi/frantz lt_bmi/english_bm i_calculator/bmi_ calculator.html DIETARY GUIDELINES: https://www.[employer].gov/ sites/default/colt es/2020-04/Dietar y_Guidelines_for_ Americans-2019-.. . PHYSICAL ACTIVITIES GUIDELINES: https://www.cdc. ov/healthyweight/ physical_activity /index.html 11/27/2023 Hidradenitis suppurativa (ICD-10 - L73.2) Has [...] place referral for counseling and med management 02/03/2024 Pruritic rash (ICD-10 - L28.2) Ok for prn use of triamcinolone 02/25/2024 Overweight (ICD-10 - E66.3) 03/09/2024 Chronic fatigue (ICD-10 - R53.82) repeat labs today 06/09/2024 Screening for STDs (sexually transmitted diseases) (ICD-10 - Z11.3) Your swab obtained to screen. This was obtained from the cervical area 05/01/2024 Hidradenitis suppurativa (ICD-10 - L73.2) Start antibiotic as directed. 09/02/2024 Hypokalemia (ICD-10 - E87.6) Resolved 09/14/2024 Bipolar disorder (ICD-10 - F31.9) This is untreated currently, pt has been on geodon and lamictal in past per chart review, Pt does not endorse any mood d/o complaints, however concern for mood d/o playing into chronic physical complaints, pt has been referred for mental health evaluation however has not been compliant with scheduling 12/25/2023 Hidradenitis suppurativa (ICD-10 - L73.2) Reassured pt I agree with starting humira for better control of HS 09/14/2024 Lower extremity edema (ICD-10 - R60.0) Take bumex and spironolactone as prescribed x 2 weeks, keep BP log, K lab in 1 week 09/02/2024 Leukocytosis, unspecified type (ICD-10 - D72.829) Resolved 03/09/2024 Lower extremity edema (ICD-10 - R60.0) Improving with elimination of sodas, increased activity level, continue same medications at this time 05/01/2024 Nausea (ICD-10 - R11.0) Refill for Zofran sent. May try bland diet until symptoms resolve. 02/03/2024 Medication management (ICD-10 - Z79.899) 02/25/2024 [...] ACTIVITIES GUIDELINES: https://www.cdc.g ov/healthyweight/ physical_activity /index.html 03/09/2024 Abdominal bloating (ICD-10 - R14.0) Can consider food allergy/ intolerance, discussed strict food diary to determine triggers for worsening sx 02/03/2024 Lower extremity edema (ICD-10 - R60.0) Continue with spironolactone and bumex as prescribed by cardio, keep f/u with specialists 09/02/2024 Pruritic rash (ICD-10 - L28.2) Ok for prn hydroxyzine for sx relief 09/14/2024 Chronic nausea (ICD-10 - R11.0) Pt to hold pantoprazole x2 weeks and test for h pylori at f/u office visit 09/02/2024 Hidradenitis suppurativa (ICD-10 - L73.2) Allergic clindamycin and doxy, stopped Humira, needs to re-establish with Derm 02/03/2024 Insulin resistance (ICD-10 - E88.819) Pending record review from recruiter coordinator, continue metformin and progesterone as they prescribed 02/03/2024 Hidradenitis suppurativa (ICD-10 - L73.2) Continue humira, continue to follow with derm 02/03/2024 Vaginal irritation (ICD-10 - N89.8) Unable to reliably get the compunded estrogen cream, will change to premarin while waiting for recruiter coordinator records and new referral, Rx sent through TE 09/02/2024 GERD (gastroesophageal reflux disease) (ICD-10 - K21.9) Controlled 09/02/2024 Vaginal katie (ICD-10 - B37.31) Pt has taken varying amounts and durations of fluconazole, advised 1 pill q72h [id number] and then one pill weekly, pt will try x3 mo and assess sx 02/03/2024 CORNELIO positive (ICD-10 - R76.8) Pending record review, will refer to rheum if needed once records available 10/14/2023 Other compression socks- medical supply [place]- provider plus 02/03/2024 Other 09/14/2024 Other Plan Of Treatment Future Test Test Name Order Date Potassium-[place] ONLY 09/21/2024 Insurance Providers Payer Name Payer Address Payer Phone Subscriber Number Group Number Insured Name Patient Relationship to Insured Coverage Start Date Coverage End Date Medicaid [address] [place], [place] [id number] Karoline Villarreal Self - patient is the insured 5 Medications Administered Medication Instructions Date of Administration [...]
== END 2024-10-07 04:12 | disposition home or self-care (01) ==
PROVIDERS: Emergency Provider Emergency Medicine; PCP Physician Assistant Medical
DX: S09.90XA Unspecified injury of head, initial encounter (principal); W51.XXXA Accidental striking against or bumped into by another person, initial encounter
CPT/HCPCS: 36415; 70450; 80053; 85025; 99284

== ENCOUNTER 2024-10-14 23:28 | Emergency (ER) | payer BC, SELFPAY ==
--- OUTSIDE RECORDS SUMMARY | 2024-06-02 04:30 | XMS_ITS ---
Author Organization [facility] Address [address] [facility] [address] [place] [address] Care Team Providers Care Engineering Technician Parking Name Role Phone KAVEH LEDEZMA Primary Care Provider Unavailab johnson Reyesluis alfredo Louie Unavailable [phone] ARELIS MEJIA APRN Unavailable REASON FOR VISIT 3 wk follow up HS Encounters Encounter Location Date Provider Diagnosis [facility] Surgery Clinic [address] [facility] [address] [place] [id number] 06/02/2024 Louie Espinoza Plan Of Treatment No Information Progress Notes * JANE REYNOLDS JDOB:1995 (29 yo F)Acc No.[id number]:06/02/2024 Progress Notes Patient: JANE GAXIOLA Provider: Richelle Espinoza MD :1995 A ge:29 Y S ex:Female Date:06/02/2024 Address:[address] [place] [address] [address] [facility] Pcp:EVIN OTRIZ Subjective: * Chief Complaints: * 1 . 3 wk follow up HS. * Medical History: Objective: * Vitals: Assessment: Plan: * Treatment: * Images: * Electronic signature of Louie Espinoza M.D. on 10/14/2024 at 11:34 PM CDT Sign off status: Pending * Provider: Richelle Espinoza MD Date: 0 06/02/2024 Generated for Printi ng/Faxing/eTransmitting on: 0 10/14/2024 11:34 PM CDT
--- OUTSIDE RECORDS SUMMARY | 2024-07-06 08:30 | XMS_ITS ---
Author Organization [facility] Address [address] [facility] [address] [place] [address] Care Team Providers Care Staffing Executive Name Role Phone KAVEH LEDEZMA Primary Care Provider Unavailab johnson Reyesluis alfredo Louie Unavailable [phone] ZAYNAB MEJIA APRN Unavailable Zaynab Mejia Unavailable [phone] REASON FOR VISIT humira monitoring Encounters Encounter Location Date Provider Diagnosis [facility] [address] [facility] [address] [place] [id number] 07/06/2024 Zaynab Mejia Plan Of Treatment No Information Progress Notes * JANE REYNOLDSDOB:1995 (29 yo F)Acc No.[id number]:07/06/2024 Patient: JANE GAXIOLA Provider: Gianna Mejia APRN :1995 A ge:29 Y S ex:Female Date:07/06/2024 Address[address] Pcp:EVIN ORTIZ Subjective: * Chief Complaints: * 1 . Humira monitoring. * Medical History: Objective: * Vitals: Assessment: Plan: * Treatment: * Images: * Electronic signature of Moshe Mejia APRN on 10/14/2024 at 11:32 PM CDT Sign off status: Pending * Provider: Gianna Mejia APRN Date: 0 07/06/2024 Generated for Printi ng/Facuauhtemocg/eTransmitting on: 0 10/14/2024 11:32 PM CDT
--- OUTSIDE RECORDS SUMMARY | 2024-09-24 09:40 | XMS_ITS ---
Author Organization [address] [place] [address] [facility] Address [address] [place] [id number] Care Team Providers Care Shoe Coverer Name Role Phone Karen Israel Primary Care Provider Bob Badillo Unavailable [phone] Denis Owens Unavailable [phone] REASON FOR VISIT vaginal pain Social History Sex Assigned At : Social History Observation Description Sex Assigned At Female Encounters Encounter Location Date Provider Diagnosis [address] [place] [address] [facility] [address] [place] [id number] 09/24/2024 Denis Owens Plan Of Treatment No Information Progress Notes * Miguel REYNOLDSOB:1995 ( 29 yo F)Acc No.[id number]:09/24/2024 FaceToFace Patient: Karoline GAXIOLA External Provider: Aly Owens MD Case Label: Date Of Injury: :1995 A ge:29 Y S ex:Female Date:09/24/2024 Address:[address] [place] [address] , [address] [id number] Pcp:Karen Israel Patient's Default Facility:1 [facility] Subjective: * Chief Complaints: * 1 . Vaginal pain. * Medical History: Objective: * Vitals: Assessment: Plan: * Treatment: Care Plan: * Problems: * Billing Information: * Visit Code: * Procedure Codes: * Electronic signature of Chrystal Owens MD on 10/14/2024 at 11:34 PM CDT Sign off status: Pending * Provider: Aly Owens MD Date: 0 09/24/2024 Generated for Rachid estrada/Carlotta/Rene on: 0 10/14/2024 11:34 PM CDT
--- OUTSIDE RECORDS SUMMARY | 2024-09-28 06:40 | XMS_ITS ---
Author Organization [address] [place] [address] [facility] Address [address] [id number] Care Team Providers Care Sql Server Dba Developer Name Role Phone Karen Israel Primary Care Provider Bob Badillo Unavailable [phone] REASON FOR VISIT 2 week f/u Social History Sex Assigned At : Social History Observation Description Sex Assigned At Female Encounters Encounter Location Date Provider Diagnosis [address] [place] [address] [facility] [address] [place] [id number] 09/28/2024 Karen Israel Plan Of Treatment No Information Progress Notes * Miguel REYNOLDSOB:1995 ( 29 yo F)Acc No.[id number]:09/28/2024 FaceToFace Patient: Karolnie GAXIOLA External Provider: EVIN Carlson Case Label: Date Of Injury: :1995 A ge:29 Y S ex:Female Date:09/28/2024 Address:[address] [place] [address] , [place] [id number] Patient's Default Facility:1 [facility] Subjective: * Chief Complaints: * 1 . 2 week f/u. * Medical History: Objective: * Vitals: Assessment: Plan: * Treatment: Care Plan: * Problems: * Billing Information: * Visit Code: * Procedure Codes: * Electronic signature of EVIN Blanco on 10/14/2024 at 11:33 PM CDT Sign off status: Pending * Provider: EVIN Carlson Date: 0 09/28/2024 Generated for Rachid estrada/Carlotta/Rene on: 0 10/14/2024 11:33 PM CDT
--- OUTSIDE RECORDS SUMMARY | 2024-10-05 08:00 | XMS_ITS ---
Author Organization [address] [place] [address] [facility] Address [address] [place] [phone] Care Team Providers Care Venereal Disease Control Head Name Role Phone Karen Israel Primary Care Provider Bob Badillo Unavailable [phone] REASON FOR VISIT 1 month f/u Social History Sex Assigned At : Social History Observation Description Sex Assigned At Female Encounters Encounter Location Date Provider Diagnosis [address] [place] [address] [facility] [address] [place] [phone] 10/05/2024 Karen Israel Plan Of Treatment No Information Progress Notes * Miguel REYNOLDSOB:1995 ( 29 yo F)Acc No.[id number]:10/05/2024 FaceToFace Patient: Karoline GAXIOLA External Provider: EVIN Carlson Case Label: Date Of Injury: :1995 A ge:29 Y S ex:Female Date:10/05/2024 Address:[address] [place] [address] , [place] R[place]G-[id number] Patient's Default Facility:1 [facility] Subjective: * Chief Complaints: * [...] 10/05/2024 Generated for Rachid estrada/Carlotta/Rene on: 0 10/14/2024 11:33 PM CDT
[2024-10-14 23:31] VITALS: BP 113/77; PULSE 92; RESP 16; TEMP 36.8; O2SAT 100; BMI 32.8
--- OUTSIDE RECORDS SUMMARY | 2024-10-14 23:33 | XMS_ITS | Clinical Summary ---
Author Organization [facility] Address [address] [place] [address] Phone Care Team Providers Care Manufacturing Test Technician Name Role Phone Karen Israel PA-C Primary Care Provider [phone] Allergies Active Allergy Reactions Criticality Noted Date Comments Clindamycin Anaphylaxis High 06/17/2023 Diph,Pertus(Acel),Tetanus Pedi Other (See Comments) 06/17/2023 unknown Doxycycline Hcl Anaphylaxis High 06/17/2023 Tree Nuts Anaphylaxis High 06/17/2023 Medications No known medications Encounters Date Type Department Care Team Description 09/10/2024 Orders Only [facility] [address] [place] [id number] Provider, Historical Him Recurrent UTI (Primary Dx) [...] on file Legal Sex Female 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 Gender Identity Not on file Sexual Orientation [...] Description 12/17/2024 11:00 AM CDT Office Visit [facility] [address] [place] [address] Bernadine Cordon NP [address] [place] [address] Health Maintenance Due Date Last Done Comments Annual Depression Screening 2007 Annual Physical 2014 Hepatitis C Antibody Screen 2014 DTap/Tdap/Td Vaccines (1 - Tdap) 11/29/2020 11/29/19 21 Flu Vaccine (#1) 10/26/2024 Insurance [employer] [facility] [employer] Care Teams Manufacturing Test Technician Relationship Specialty Start Date End Date Karen Israel PA-C [address] [address] PCP - General Certified Physician Inside Contractor Sales 06/17/23
--- OUTSIDE RECORDS SUMMARY | 2024-10-14 23:33 | XMS_ITS | Patient Health Record ---
Author Organization [address] [place] [address] e Cor Address [address] [place] [id number] Care Team Providers Care Application Support Analyst Name Role Phone Israel, Kara Primary Care Provider Bob Badillo Unavailable [phone] Denis Owens Unavailable [phone] Wil Booker Unavailable [phone] Bernadine Gomez Unavailable [phone] Allergies Allergen (clinical drug ingredient) Drug/Non Drug Allergy documented on EMR Reaction Allergy Type Onset Date Status dextromethorphan / promethazine Promethazine-DM Unknown Drug Allergy Active buspirone Buspirone dizziness Drug Allergy Active clindamycin Clindamycin rash Drug Allergy Act cha doxycycline Doxycycline rash Drug Allergy Act cha Penicillin rash Drug Allergy Active Results Component Value Reference Range Notes Potassium-[place]/Manatee /WR/Mcnairy/PG ONLY Reviewed date:10/16/2023 04:34:28 PM Interpretation:Normal Performing Lab: Notes/Report: Testing performed at the [address] [place] [address] location. Tilt-Table Test Reviewed date:02/03/2024 01:41:56 PM Interpretation:Normal Performing Lab: Notes/Report: Normal Potassium-[place]atee /WR/Mcnairy/PG ONLY Reviewed date:12/25/2023 01:20:42 PM Interpretation:Normal Performing Lab: Notes/Report: ALLERGY-FOOD ALLERGY PROFILE W/ REFLEXES Reviewed date:03/18/2024 11:46:59 AM Interpretation:Normal Performing Lab: Notes/Report: [facility] performed at: [facility], [address] [place] [address], [address], Shipping Processor: Suni Parker MD [facility] Collection Date/Time: [id number] [facility] Results Received Date/Time: [facility] Reported Date/Time: [...] 0 TUNA (F40) IGE <0.10 CLASS 0 TSH, w/ refl to Free T4 Reviewed date:03/18/2024 11:49:41 AM Interpretation:Normal Performing Lab: Notes/Report: [facility] performed at: [facility], [address] [place] [address], [address], Shipping Processor: Suni Parker MD [facility] Collection Date/Time: [id number] [facility] Results Received Date/Time: [id number] [facility] Reported Date/Time: Testing performed by reference lab. TSH W/REFLEX TO FT4 2.04 Ranges Third trimester 0.43-2.91 Reference Range First trimester 0.26-2.66 Second trimester 0.55-2.73 > or = 20 Years 0.40-4.50 Iron, TIBC, and Ferritin Veliz el Reviewed date:03/18/2024 11:50:16 AM Interpretation:Normal Performing Lab: Notes/Report: [facility] performed at: MD, [facility], [place], [address], Shipping Processor: Suni Parker MD [facility] Collection Date/Time: [id number] [facility] Results Received Date/Time: [id number] [facility] Reported Date/Time: [id number] Testing performed by reference lab. IRON, TOTAL 100 40-190 mcg/dL IRON BINDING CAPACITY 354 250-450 mc g/dL (calc) % SATURATION 28 16-45 % (calc) FERRITIN 35 16-154 ng/mL CBC, Diff, Automated Reviewed date:03/18/2024 11:50:06 AM Interpretation:OK for Patient Performing Lab: Notes/Report: Testing performed at the [address] [place] [address] location. CMP-[place]/Manatee/WRidg e/Mcnairy/PG ONLY Reviewed date:03/18/2024 11:49:53 AM Interpretation:OK for Patient Performing Lab: Notes/Report: HIV 1/2, Rapid Antibody Scre ening Reviewed date:06/11/2024 11:38:04 AM Interpretation:Negative Performing Lab: Notes/Report: Testing performed at the [address] [place] [address] location. Urine Dip Reviewed date:09/02/2024 02:44:38 PM Interpretation:Normal Performing Lab: Notes/Report: Testing performed at the [address] [place] [address] location. CBC, Diff, Automated Reviewed date:09/02/2024 02:44:53 PM Interpretation:Normal Performing Lab: Notes/Report: Testing performed at the [address] [place] [address] location. BMP-[place]/Manatee/WRidg e/Mcnairy/PG ONLY Reviewed date:09/03/2024 11:37:37 AM Interpretation:Normal Performing Lab: Notes/Report: CORNELIO screen IFA Reflex Titer/ Multiplex 11 Ab [place] Reviewed date:04/22/2024 08:41:41 AM Interpretation:Normal Performing Lab: Notes/Report: [facility] performed at: MD, [facility], [address] [place], [address], Shipping Processor: Suni Parker MD [facility] Collection Date/Time: [id number] [facility] Results Received Date/Time: [id number] [facility] Reported Date/Time: [id number] Testing performed by reference lab. CORNELIO SCREEN, IFA NEGATIVE NEGATIVE suspected inflammatory myopathies. various autoimmune diseases. A negative CORNELIO IFA result http://education.Avocado™/faq/JKT765 present at this time, and does not reflex further. If (This link is being provided for informational/ there is high clinical suspicion for Sjogren's syndrome, AC-0: Negative (https://doi.org/10.1515/ ebse-9352-1834) International Consensus on CORNELIO Patterns testing for anti-SS-A/Ro antibody should be considered. educational purposes only.) Anti-Kait-1 antibody should be considered for clinically For additional information, please refer to CORNELIO IFA is a first line screen for detecting the presence of up to approximately 150 autoantibodies in suggests an CORNELIO-associated autoimmune disease is not Sedimentation Rate Reviewed date:04/22/2024 08:41:41 AM Interpretation:Normal Performing Lab: Notes/Report: [facility] performed at: [facility], [address] [place] [address], [address], Shipping Processor: Suni Parker MD [facility] Collection Date/Time: [id number] [facility] Results Received Date/Time: [id number] [facility] Reported Date/Time: [id number] Testing performed by reference lab. SED RATE BY MODIFIED WESTERGREN 11 < OR = 20 mm/h C Reactive Protein, CRP Reviewed date:04/22/2024 08:41:41 AM Interpretation:Normal Performing Lab: Notes/Report: [facility] performed at: [facility], [address] [place] [address], [address], Shipping Processor: Suni Parker MD [facility] Collection Date/Time: [id number] [facility] Results Received Date/Time: [id number] [facility] Reported Date/Time: [id number] Testing performed by reference lab. C-REACTIVE PROTEIN <3.0 <8.0 mg/L Rheumatoid Arthritis Factor Reviewed date:04/22/2024 08:41:41 AM Interpretation:Normal Performing Lab: Notes/Report: [facility] performed at: MD, [facility], [address] [place] [address], [address], Shipping Processor: Suni Parker MD [facility] Collection Date/Time: [id number] [facility] Results Received Date/Time: [id number] [facility] Reported Date/Time: [id number] Testing performed by reference lab. RHEUMATOID FACTOR <10 <14 IU/mL Coronavirus (COVID-19)/Flu/R SV Trio- INHOUSE RAPID PCR SWAB Reviewed date:02/22/2024 08:39:46 AM Interpretation:Negative Performing Lab: Notes/Report: Testing performed at the [address] [place] [address] location. X ray : Foot, right Reviewed date:02/11/2024 10:08:42 AM Interpretation:Normal Performing Lab: Notes/Report: Normal Sureswab Advanced Panel: BV, Trich, Katie, GC/Chlamydia Advanced Vaginalis Plus *AGES 14 and up ONLY Reviewed date:12/02/2023 01:26:02 PM Interpretation:Normal Performing Lab: Notes/Report: [facility] performed at: MD, [facility], [address] [place] [address], [address], Shipping Processor: Suni Parker MD [facility] Collection Date/Time: [id number] [facility] Results Received Date/Time: [id number] [facility] Reported Date/Time: Testing performed at: MD, [facility], [address] [place] [address], [address], Shipping Processor: Suni Parker MD [facility] Collection Date/Time: [id number] [facility] Results Received Date/Time: [facility] Reported Date/Time: Testing performed at: MD, [facility], [address] [place] [address], [address], Shipping Processor: Suni Parker MD [facility] Collection Date/Time: [id number] [facility] Results Received Date/Time: [facility] Reported Date/Time: Testing performed at: MD, [facility], [address] [place], [address], Shipping Processor: Suni Parker MD [facility] Collection Date/Time: [id number] [facility] Results Received Date/Time: [id number] [facility] Reported Date/Time: [id number] Testing performed by reference lab. SURESWAB(R) ADV [...] RNA, TMA, UROGENITAL NOT DETECTED NOT DETECTED https://education.Funky Moves/faq/CJO428 (This link is being provided for information/ For additional information, please refer to educational purposes only.) Urine Dip Reviewed date:11/27/2023 10:58:23 AM Interpretation:Normal Performing Lab: Notes/Report: Testing performed at the [address] [place] [address] location. Coronavirus (Covid-19)/Flu C ombo- INHOUSE RAPID ANTIGEN Reviewed date:02/25/2024 01:38:24 PM Interpretation:Negative Performing Lab: Notes/Report: Testing performed at the [address] [place] [address] location. Sureswab Advanced Panel: BV, Trich, Katie, GC/Chlamydia Advanced Vaginalis Plus *AGES 14 and up ONLY Reviewed date:06/17/2024 03:42:56 PM Interpretation:Normal Performing Lab: Notes/Report: Enefgy Testing performed at: [facility], [address] [place], [address], Shipping Processor: Suni Parker MD [facility] Collection Date/Time: [id number] [facility] Results Received Date/Time: [id number] [facility] Reported Date/Time: [id number] Testing performed at: MD, [facility], [address] [place], [address], Shipping Processor: Suni Parker MD [facility] Collection Date/Time: [id number] [facility] Results Received Date/Time: [id number] [facility] Reported Date/Time: [id number] Testing performed at: [facility], [address] [place] [address], [address], Shipping Processor: Suni Parker MD [facility] Collection Date/Time: [id number] [facility] Results Received Date/Time: [id number] [facility] Reported Date/Time: [id number] Testing performed at: MD, [facility], [address] [place] [address], [address], Shipping Processor: Suni Parker MD [facility] Collection Date/Time: [id number] [facility] Results Received Date/Time: [id number] [facility] Reported Date/Time: [id number] Testing performed by reference lab. SURESWAB(R) ADV [...] RNA, TMA, UROGENITAL NOT DETECTED NOT DETECTED https://education.Funky Moves/faq/TYR378 For additional information, please refer to educational purposes only.) (This link is being provided for information/ BMP-[place]/Manatee/WRidg e/Mcnairy/PG ONLY Reviewed date:06/11/2024 11:38:04 AM Interpretation:Normal Performing Lab: Notes/Report: Items were attached to this order: Vaginalis Plus Items were attached to this order: BMP-PGLD Sureswab Advanced Panel: BV, Trich, Katie, GC/Chlamydia Advanced Vaginalis Plus *AGES 14 and up ONLY Reviewed date:09/16/2024 10:34:27 AM Interpretation:Negative Performing Lab: Notes/Report: [facility] performed at: MD, [facility], [address] [facility], [place], [place], [address] [place] [address], Shipping Processor: Suni Parker MD [facility] Collection Date/Time: [facility] Results Received Date/Time: [facility] Reported Date/Time: Testing performed at: MD, [facility], [address] [facility], [place], [place], [address] [place] [address], Shipping Processor: Suni Parker MD [facility] Collection Date/Time: [facility] Results Received Date/Time: [facility] Reported Date/Time: Testing performed at: MD, [facility], [address] [place] [address], [place], [address] [place] [address], Shipping Processor: Suni Parker MD [facility] Collection Date/Time: [facility] Results Received Date/Time: [facility] Reported Date/Time: Testing performed at: MD, [facility], [address] [place] [address], [place], [address] [place] [address], Shipping Processor: Suni Parker MD [facility] Collection Date/Time: [facility] [...] (This link is being provided for information/ https://education.Funky Moves/faq/QDN173 Urine Dip Reviewed date:09/14/2024 02:22:50 PM Interpretation:OK for Patient Performing Lab: Notes/Report: Testing performed at the [address] [place] [address] location. zzInterpretation Reviewed date:03/18/2024 11:49:31 AM Interpretation:Normal Performing Lab: Notes/Report: [facility] performed at: MD, [facility], [address] [facility], [place], [address], Shipping Processor: Suni Parker MD [facility] Collection Date/Time: [id number] [facility] Results Received Date/Time: [id number] [facility] Reported Date/Time: [id number] Testing performed by reference lab. INTERPRETATION SEE insurance marketing specialist use. IGE Class kU/L Specific IGE Antibody 3 3.50-17.4 High Level has been validated pursuant to the CLIA regulations 0/1 0.10-0.34 Very Low Level performance characteristics have been determined by The clinical relevance of allergen results of 5 50-100 Very High Level 1 0.35-0.69 Low Level ----- --------- one or more analyte specific reagents. In those and is used for clinical purposes. [facility]. It has not been cleared or approved 4 17.5-49.9 Very High Level 0.10-0.34 kU/L are undetermined and intended for 6 >100 Very High Level Allergens denoted with a include results using 2 0.70-3.49 Moderate Level 0 <0.10 Absent/Undetectable cases, the test was developed and its analytical by the U.S. Food and Drug Administration. This assay Specific Level of Allergen Reason For Referral Reason bipolar d/o Diagnosis 1 Bipolar 1 disorder ( F31.9) Referral Organization [address] [place] [address] are Cor Referring Provider First Name Karen Referring Provider Last Name Jhonatan Referring Provider Speciality Physician Retail Business Development Manager Referred Provider [employer] Referred Provider Specialty Mental Healt General Notes Karen Israel 03/2023 01:04:07 PM [...] the referral. I explained that the facility [facility] is closed on Fridays. Patient did not have correct address nor [facility]'s phone number. As we were speaking she [...] 01:04:53 PM > Spoke with Abby at [facility]. Per our conversation the patient has Cancelled 2 appointments and no-showed another. TE sent to provider for further instructions., Yola Farley 02/05/2024 08:06:25 AM > Referral Priority Routine Referral Appointment Date 12/24/2023 Reason Tilt Table Test Diagnosis 1 Tachycardia, paroxys mal (I47.9) Referral Organization [address] [place] [address] are Cor Referring Provider First Name Karen Referring Provider Last Name Jhonatan Referring Provider Speciality Physician Retail Business Development Manager Referred Provider [facility], [facility] Referred Provider Specialty Outpatient T esting General Notes Yola Farley 12/24 03:23:03 PM CDT > spoke with Liz, patient scheduled at [facility], [place] of [employer] [facility], No [employer]abl[employer]ers for 24hrs prior, NPO 4hrs prior, Jan 23 check in @7am, Yola Farley 12/31/2023 04:49:00 PM > patient will be in office tomorrow, when looking up patients appointment via [employer] it looks as thought her 01/23 appointment has been changed to 01/27, called and spoke with Mily at [facility] and she states that patients appointment [...] Date 01/28/2024 Reason 07/14/2024 faxing note/// Megan- rebecca allergy to almonds, bloodwork negative Diagnosis 1 Hx of allergic react ion (Z88.9) Referral Organization [address] [place] [address] are [facility] Referring Provider First Name Karen Referring Provider Last Name Jhonatan Referring Provider Speciality Physician Retail Business Development Manager Referred Provider Jeffery Guzman Referred Provider Specialty [...] information, Yomaira Carey 07/14/2024 09:12:27 AM > [phone], per Magda, patient kept appointment, she is faxing note, Rod Thomasaina 07/15/2024 09:18:07 AM > report received Referral Priority Routine Referral Appointment Date 06/19/2024 Reason edema, palpitations Diagnosis 1 Lower extremity kathy a (R60.0) Referral Organization [address] [place] [address] are Cor Referring Provider First Name Karen Referring Provider Last Name Jhonatan Referring Provider Speciality Physician Retail Business Development Manager Referred Provider Olga Locke Referred Provider Specialty Cardiology General Notes Karen Israel 06/2024 12:41:07 PM > requesting 2nd opinion in [place] if possible, previously seen by [facility], Yola Farley 04/29/2024 12:49:42 PM > will have to be approved by both cardiologists for patient to use another provider with same group, Yola Farley 05/01/2024 09:35:35 AM > patient can see Olga Locke in [place] 05/18 @1030Miguelito Grace 05/01/2024 11:00:09 AM > spoke with patient in office she is aware and agreeable, Kassi Clayton 05/21/2024 03:21:03 PM >see report in patient chart Referral Priority Routine Referral Appointment Date 05/19/2024 Reason recurrent UTI Diagnosis 1 Recurrent UTI (N39.0 ) Referral Organization [address] [place] [address] are Cor Referring Provider First Name Karen Referring Provider Last Name Jhonatan Referring Provider Speciality Physician Retail Business Development Manager Referred Provider [facility], Urology Referred Provider Specialty Urology General Notes [...] PM > received notification that they got referral.ArleneYola cho 09/21/2024 01:05:36 PM > per [facility] web patient has been scheduled 12/17, reminder mailed as well Referral Priority Routine Referral Appointment Date 12/17/2024 Medications Medication SIG (Take, Route, Frequency, Duration) Notes Start Date End Date Status Spironolactone 25 MG 1 tablet Orally daily; Duration: 30 days Active metroNIDAZOLE 250 MG 1 tablet Orally Three times a day; Duration: 3 days to take tid on 1st, 2nd and 3rd of each month, please [...] day; Duration: 30 days 06/05/2023 Active Nystatin 414488 UNIT/GM External; Duration: 15 Days PRN Active [...] 08/31/2021 Not-Taking Vitamin D (Ergocalciferol) 1.25 MG (64206 [place]) Oral; Duration: 28 Days Not-Taking Vitamin [...] FOR wheezing; Duration: 30 Active Vitamin Act cha hydrOXYzine HCl 25 MG 1 tablet as [...] Status Risk Notes Problem Gastroesophageal reflux disease (433471573) GERD (gastroesophageal reflux disease) (K21.9) Active confirmed Problem Chronic sinusitis (94512119) Sinus infection (J32.9) Active confirmed Problem Obesity (478468502) Obesity (E66.9) Active conf irmed Problem Tobacco dependence (32540586) Tobacco dependence (F17.200) Active confirmed Problem Migraine (45185497) Migraine (G43.909) Active c onfirmed Problem Bipolar disorder (52142788) Bipolar disorder (F31.9) Active confirmed Problem Mood disorder (65496445) Mood disorder (F39) Active confirmed Problem Dental caries (61375253) Dental caries (K02.9) Active confirmed Problem Overweight (623969184) Overweight (E66.3) Active confirmed Problem Bipolar 1 disorder (773395345) Bipolar 1 disorder (F31.9) Active confirmed Problem Generalized anxiety disorder (62317023) Generalized anxiety disorder (F41.1) Active confirmed Problem External hemorrhoid (06145148) External hemorrhoid (K64.4) Active confirmed Problem Hidradenitis suppurativa (34065272) Hidradenitis suppurativa (L73.2) Active confirmed Problem Menstrual disorder (232827196) Irregular menses (N92.6) Active confirmed Problem Paresthesia (finding) (08083479) Paresthesia of skin (R20.2) Active confirmed Problem Chronic fatigue syndrome (43050090) Chronic fatigue (R53.82) Active confirmed Problem Recurrent major depressive episodes, severe, with psychosis (780548851) Major depressive disorder, recurrent episode, severe, 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) Active confirmed Problem Constipation (45762678) Constipation, unspecified constipation type (K59.00) Active confirmed Problem Flexural eczema (25489277) Flexural eczema (L20.82) Active confirmed Problem Auditory hallucinations (29846237) Auditory hallucinations (R44.0) Active confirmed Problem Atypical squamous cells on cervical Papanicolaou smear cannot exclude high grade squamous intraepithelial lesion (818416416) Atypical squamous cells cannot exclude high grade squamous intraepithelial lesion on cytologic smear of cervix (ASC-H) (R87.611) Active confirmed Problem Anogenital human papilloma virus infection (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 (human papilloma virus) anogenital infection (A63.0) Active confirmed Problem Leukocytosis (798810240) Leukocytosis, unspecified type (D72.829) Active confirmed Problem Paroxysmal tachycardia (35993840) Tachycardia, paroxysmal (I47.9) Active confirmed Problem Mixed incontinence (881359688) Mixed stress and urge urinary incontinence (N39.46) Active confirmed Problem Allergic rhinitis caused by pollen (84438906) Seasonal allergic rhinitis due to pollen (J30.1) Active confirmed Problem Nummular eczema (18034922) Nummular eczema (L30.0) Active confirmed Problem Hypokalemia (66369326) History of hypokalemia (Z86.39) Active confirmed Problem History of hysterectomy (493109174) S/P hysterectomy (Z90.710) Active confirmed Problem Hearing loss (14821993) Deafness in left ear (H91.92) Active confirmed Problem Severe major depression with psychotic features (20995575) Severe major depression with psychotic features (F32.3) Active confirmed Problem Intermittent urinary incontinence (120330226) Intermittent urinary incontinence (R32) Active confirmed Problem Drug allergy (240924778) Hx of allergic reaction (Z88.9) Active confirmed Problem Tobacco user (933403820) Vaping nicotine dependence, non-tobacco product (F17.200) Active confirmed Problem Insulin resistance (519451072) Insulin resistance (E88.819) Active confirmed Vital Signs Heart Rate 78 /min 09/14/2024 Temperature 98.0 degrees Fahrenheit 09/14/2024 Respiratory Rate 20 /min 09/14/2024 Blood pressure diastolic 86 mm Hg 09/14/2024 Oximetry 99 09/14/2024 Weight-kg 100.06 Kg 09/14/2024 Height 69 in 09/14/2024 Blood pressure systolic 130 mm Hg 09/14/2024 Weight 220.6 lbs 09/14/2024 BMI 32.57 kg/m2 09/14/2024 Encounters Encounter Location Date Provider Diagnosis [facility] [address] [place] [id number] 10/16/2023 Karen Israel Lower extremity kathy a R60.0 [facility] [address] [place] [place] [id number] 11/27/2023 Karen Israel Vaginal odor N89.8 ; Dysuria R30.0 ; Hidradenitis suppurativa L73.2 and Bipolar 1 disorder F31.9 [facility] [address] [place], [place] [id number] 12/25/2023 Karen Jhonatan Medication managemen t Z79.899 ; Tachycardia, paroxysmal I47.9 ; Lower extremity edema R60.0 and Hidradenitis suppurativa L73.2 [facility] [address] [place], [place] [id number] 02/03/2024 Karen Sirael Overweight E66.3 ; Dietary counseling Z71.3 ; Pruritic rash L28.2 ; Medication management Z79.899 ; Lower extremity edema R60.0 ; Hidradenitis suppurativa L73.2 ; Insulin resistance E88.819 ; Vaginal irritation N89.8 and CORNELIO positive R76.8 [facility] [address] [place], [place] [id number] 02/05/2024 Bernadine Gomez Overweight E66.3 ; R ight foot pain M79.671 and Dietary counseling Z71.3 [facility] [address] [place], [place] [id number] 02/21/2024 Bernadine Gomez Body aches R52 and A cute URI J06.9 [facility] [address] [place], [place] [id number] 02/25/2024 Charrae Burdin Cough R05.9 ; Viral illness B34.9 ; Yeast infection B37.9 ; Overweight E66.3 and Dietary counseling Z71.3 [facility] [address] [place], [place] [id number] 03/02/2024 Karen Israel Overweight E66.3 ; Recurrent bacterial infection A49.9 and Dietary counseling Z71.3 [facility] [address] [place], [place] [id number] 03/09/2024 Karen Israel Overweight E66.3 ; External hemorrhoid K64.4 ; Dietary counseling Z71.3 ; Chronic fatigue R53.82 ; Lower extremity edema R60.0 and Abdominal bloating R14.0 [facility] [address] [place], [place] [id number] 04/20/2024 Karen Jhonatan CORNELIO positive R76.8 [facility] [address] [place], [place] [id number] 05/01/2024 Bernadine Gomez Overweight E66.3 ; B urn of second degree of buttock, sequela T21.25XS ; Dietary counseling Z71.3 ; Hidradenitis suppurativa L73.2 and Nausea R11.0 [facility] [address] [place] [id number] 06/09/2024 Bob Justino Screening for HIV ([facility] immunodeficiency virus) Z11.4 ; Acute vaginitis N76.0 ; History of hypokalemia Z86.39 and Screening for STDs (sexually transmitted diseases) Z11.3 [facility] [address] [place], [place] [id number] 09/02/2024 Karendada Quiross Overweight E66.3 ; Recurrent UTI N39.0 ; Dietary counseling Z71.3 ; Hypokalemia E87.6 ; Leukocytosis, unspecified type D72.829 ; Pruritic rash L28.2 ; Hidradenitis suppurativa L73.2 ; GERD (gastroesophageal reflux disease) K21.9 and Vaginal katie B37.31 [facility] [address] [place], [place] [id number] 09/14/2024 Karen Israel Dysuria R30.0 ; Vagi nal itching N89.8 ; Chronic constipation K59.09 ; Bipolar disorder F31.9 ; Lower extremity edema R60.0 and Chronic nausea R11.0 [facility] [address] [place], [place] [id number] 10/16/2023 Karendada Israel Lower extremity kathy a R60.0 [facility] [address] [place], [place] [id number] 10/17/2023 Karen Israel [facility] [address] [place], [place] [id number] 10/18/2023 Karen Israel [facility] [address] [place], [place] [id number] 10/25/2023 Karen Israel [facility] [address] [place], [place] [id number] 02/03/2024 Karen Israel [facility] [address] [place], [place] [id number] 02/03/2024 Karen Israel [facility] [address] [place], [place] [id number] 02/04/2024 Karen Israel [facility] [address] [place], [place] [id number] 02/24/2024 Karen Israel [facility] [address] [place], [place] [id number] 02/25/2024 Karen Israel [facility] [address] [place], [place] [id number] 03/11/2024 Karen Israel [facility] [address] [place], [place] [id number] 03/18/2024 Karen Israel Hx of allergic react ion Z88.9 and CORNELIO positive R76.8 [facility] [address] [place], [place] [id number] 2024 Karen Israel [facility] [address] [place], [place] [id number] 04/08/2024 Karen Israel [facility] [address] [place], [place] [id number] 04/29/2024 Karen Israel Lower extremity kathy a R60.0 and Tachycardia R00.0 [facility] [place] [phone] 04/30/2024 Karen Israel [facility] [address] [place], [place] [id number] 05/29/2024 Karen Israel [facility] [address] [place], [place] [id number] 06/10/2024 Karen Israel [facility] [address] [place], [place] [id number] 06/11/2024 Bob Badillo [facility] [address] [place], [place] [id number] 08/26/2024 Karen Israel [facility] [address] [place], [place] [id number] 08/31/2024 Karen Israel [facility] [address] [place], [place] [id number] 09/02/2024 Karen Israel [facility] [address] [place], [place] [id number] 09/03/2024 Karen Israel [facility] [address] [place], [place] [id number] 09/10/2024 Karen Israel [facility] [address] [place], [place] [id number] 09/15/2024 Karen Israel [facility] [address] [place], [place] [id number] 09/15/2024 Karen Israel Chronic constipation K59.09 [facility] [address] [place], [place] [id number] 09/21/2024 Karen Israel Assessments Encounter Date Diagnosis (ICD Code) Assessment Notes Treatment Notes Treatment Clinical Notes Section Notes 11/27/2023 Dysuria (ICD-10 - R30.0) No UTI [...] patients concerns 02/03/2024 Overweight (ICD-10 - E66.3) 02/05/2024 Overweight (ICD-10 - E66.3) 02/05/2024 Right foot pain (ICD-10 - M79.671) Xray overread pending. No fractures per my view. Pt may use Tylenol or Ibuprofen prn for pain. RTC if not improving. 03/09/2024 Overweight (ICD-10 - E66.3) 03/09/2024 External [...] off on any treatment until swab resulted 10/16/2023 Lower extremity edema (ICD-10 - R60.0) 10/16/2023 Lower extremity edema (ICD-10 - R60.0) Improved, weight down 4 lbs, BP improved, continue with 40mg furosemide daily, can take 1 extra dose prn if swelling not responding, continue 40mEQ K daily. RTC if sx worsen. 09/15/2024 Chronic constipation (ICD-10 - K59.09) 04/20/2024 CORNELIO positive (ICD-10 - R76.8) 03/02/2024 Overweight (ICD-10 - E66.3) 03/02/2024 Recurrent bacterial infection (ICD-10 - A49.9) Refilled metronidazole, advised continue following with MEDICAL DIRECTOR 02/25/2024 Viral illness (ICD-10 - B34.9) Discussed [...] trouble breathing seek immediate medical attention. 02/25/2024 Yeast infection (ICD-10 - B37.9) States [...] assessing/bmi/frantz lt_bmi/english_bm i_calculator/bmi_ calculator.html DIETARY GUIDELINES: https://www.dieta [employer].gov/ sites/default/colt es/2020-04/Dietar y_Guidelines_for_ Americans-2019-.. . PHYSICAL ACTIVITIES GUIDELINES: https://www.cdc.g ov/healthyweight/ physical_activity /index.html 09/14/2024 Chronic constipation (ICD-10 - K59.09) Start mag citrate daily 09/02/2024 Dietary counseling (ICD-10 - Z71.3) The following information is provided to help patients understand the role BMI, nutrition, and physical activity play in a patient's overall health. Please review the information available in these links. ADULT BMI: https://www.cdc.g ov/healthyweight/ assessing/bmi/frantz lt_bmi/english_bm i_calculator/bmi_ calculator.html DIETARY GUIDELINES: https://www.dieta [employer].gov/ sites/default/colt es/2020-04/Dietar y_Guidelines_for_ Americans-2019-.. . PHYSICAL ACTIVITIES GUIDELINES: https://www.[facility]. ov/healthyweight/ physical_activity /index.html 06/09/2024 History of hypokalemia [...] information available in these links. ADULT BMI: https://www.[facility]. ov/healthyweight/ assessing/bmi/frantz lt_bmi/english_bm i_calculator/bmi_ calculator.html DIETARY GUIDELINES: https://www.[employer].gov/ sites/default/colt es/2020-04/Dietar y_Guidelines_for_ Americans-2019-.. . PHYSICAL ACTIVITIES GUIDELINES: https://www.[employer]. ov/healthyweight/ physical_activity /index.html 03/09/2024 Dietary counseling (ICD-10 - Z71.3) The following information is provided to help patients understand the role BMI, nutrition, and physical activity play in a patient's overall health. Please review the information available in these links. ADULT BMI: https://www.[employer]. ov/healthyweight/ assessing/bmi/frantz lt_bmi/english_bm i_calculator/bmi_ calculator.html DIETARY GUIDELINES: https://www.[employer].gov/ sites/default/colt es/2020-04/Dietar y_Guidelines_for_ Americans-2019-.. . PHYSICAL ACTIVITIES GUIDELINES: https://www.[employer]. ov/healthyweight/ physical_activity /index.html 02/05/2024 Dietary counseling (ICD-10 - Z71.3) The following information is provided to help patients understand the role BMI, nutrition, and physical activity play in a patient's overall health. Please review the information available in these links. ADULT BMI: https://www.[employer]. ov/healthyweight/ assessing/bmi/frantz lt_bmi/english_bm i_calculator/bmi_ calculator.html DIETARY GUIDELINES: https://www.[employer]eta [employer].gov/ sites/default/colt es/2020-04/Dietar y_Guidelines_for_ Americans-2019-.. . PHYSICAL ACTIVITIES GUIDELINES: https://www.[facility]. ov/healthyweight/ physical_activity /index.html 02/03/2024 Dietary counseling (ICD-10 - Z71.3) The following information is provided to help patients understand the role BMI, nutrition, and physical activity play in a patient's overall health. Please review the information available in these links. ADULT BMI: https://www.[facility]. ov/healthyweight/ assessing/bmi/frantz lt_bmi/english_bm i_calculator/bmi_ calculator.html DIETARY GUIDELINES: https://www.[employer]eta [employer].gov/ sites/default/colt es/2020-04/Dietar y_Guidelines_for_ Americans-2019-.. . PHYSICAL ACTIVITIES GUIDELINES: https://www.[facility]. ov/healthyweight/ physical_activity /index.html 12/25/2023 Lower extremity edema (ICD-10 - R60.0) Continue with spironolactone and bumex as prescribed by cardio, keep f/u with specialists 11/27/2023 Hidradenitis suppurativa (ICD-10 - L73.2) Has seen dermatology, currrently only using chlorhexidine wash prn, needing refill, states plans to see derm agan once vaginal concerns are treated 11/27/2023 Bipolar 1 disorder (ICD-10 - F31.9) Will place referral for counseling and med management 12/25/2023 Hidradenitis suppurativa (ICD-10 - L73.2) Reassured pt I agree with starting humira for better control of HS 02/03/2024 Pruritic rash (ICD-10 - L28.2) Ok for prn use of triamcinolone 03/09/2024 Chronic fatigue (ICD-10 - R53.82) repeat [...] however has not been compliant with scheduling 02/25/2024 Overweight (ICD-10 - E66.3) 02/25/2024 Dietary counseling (ICD-10 - Z71.3) The following information is provided to help patients understand the role BMI, nutrition, and physical activity play in a patient's overall health. Please review the information available in these links. ADULT BMI: https://www.cdc.g ov/healthyweight/ assessing/bmi/frantz lt_bmi/english_bm i_calculator/bmi_ calculator.html DIETARY GUIDELINES: https://www.dieta ryguidelines.gov/ sites/default/colt es/2020-04/Dietar y_Guidelines_for_ Americans-2019-.. . PHYSICAL ACTIVITIES GUIDELINES: https://www.cdc.g ov/healthyweight/ physical_activity /index.html 09/02/2024 Leukocytosis, unspecified type (ICD-10 - D72.829) Resolved 09/14/2024 Lower extremity edema (ICD-10 - R60.0) Take bumex and spironolactone as prescribed x 2 weeks, keep BP log, K lab in 1 week 03/09/2024 Lower extremity edema (ICD-10 - R60.0) Improving with elimination of sodas, increased activity level, continue same medications at this time 05/01/2024 Nausea (ICD-10 - R11.0) Refill for Zofran sent. May try bland diet until symptoms resolve. 02/03/2024 Medication management (ICD-10 - Z79.899) 02/03/2024 Lower extremity edema (ICD-10 - R60.0) Continue with spironolactone and bumex as prescribed by cardio, keep f/u with specialists 03/09/2024 Abdominal bloating (ICD-10 - R14.0) Can consider food allergy/ intolerance, discussed strict food diary to determine triggers for worsening sx 09/14/2024 Chronic nausea (ICD-10 - R11.0) Pt to hold pantoprazole x2 weeks and test for h pylori at f/u office visit 09/02/2024 Pruritic rash (ICD-10 - L28.2) Ok for prn hydroxyzine for sx relief 09/02/2024 Hidradenitis suppurativa (ICD-10 - L73.2) Allergic clindamycin and doxy, stopped Humira, needs to re-establish with Derm 02/03/2024 Insulin resistance (ICD-10 - E88.819) Pending record review from [facility], continue metformin and progesterone as they prescribed 02/03/2024 Hidradenitis suppurativa (ICD-10 - L73.2) Continue humira, continue to follow with derm 02/03/2024 Vaginal irritation (ICD-10 - N89.8) Unable to reliably get the compunded estrogen cream, will change to premarin while waiting for [facility] records and new referral, Rx sent through [facility] 09/02/2024 GERD (gastroesophageal reflux disease) (ICD-10 - K21.9) Controlled 09/02/2024 Vaginal katie (ICD-10 - B37.31) Pt has taken varying amounts and durations of fluconazole, advised 1 pill q72h [id number] and then one pill weekly, pt will try x3 mo and assess sx 02/03/2024 CORNELIO positive (ICD-10 - R76.8) Pending record review, will refer to rheum if needed once records available 02/03/2024 Other 09/14/2024 Other Plan Of Treatment Future Test Test Name Order Date Potassium-[place] ONLY 09/21/2024 Insurance Providers Payer Name Payer Address Payer Phone Subscriber Number Group Number Insured Name Patient Relationship to Insured Coverage Start Date Coverage End Date Medicaid [address] [place] [id number] Karoline Villarreal Self - patient is the insured 5 Medications Administered Medication Instructions Date of Administration Dosage Notes Patric DANILESON 8mg 02/03/2010 8mg/ ml Decadron [place] 8mg [...]
--- OUTSIDE RECORDS SUMMARY | 2024-10-14 23:33 | XMS_ITS | Patient Health Record ---
Author Organization [facility] Address [address] [place] [address] Care Team Providers Care Ceramic Tile Mechanic Name Role Phone KAVEH LEDEZMA Primary Care Provider Unavailab Louie Delaney Unavailable [phone] ZAYNAB MEJIA APRN Unavailable Keyona Cotton Unavailable [phone] Leatha Iqbal Unavailable [phone] Thony Iqbal Unavailable [phone] Zaynab Mejia Unavailable [phone] Allergies Allergen (clinical drug ingredient) Drug/Non Drug Allergy documented on EMR Reaction Allergy Type Onset Date Status doxycycline Doxycycline anaphylaxis Drug Allergy A ctive Latex Latex HIVES Allergy Active Tree Nuts anaphylaxis Allergy Active clindamycin Clindamycin anaphylaxis Drug Allergy A ctive Penicillin anaphylaxis Drug Allergy Acti ve Results Component Value Reference Range Notes HEMOGLOBIN A1C Reviewed date:01/08/2024 09:58:24 AM Interpretation:5.2 [...] in mean Glucose of approximately 30 mg/dl. GLUCOSE Reviewed date:01/08/2024 09:58:21 AM Interpretation:90 Performing Lab: Notes/Report: GLUCOSE, (S) 90 65 - 110 mg/dl TESTING PERFORMED ON [employer] 5600 INSULIN; TOTAL Reviewed date:01/29/2024 08:25:27 AM Interpretation:14.4 Performing Lab: Notes/Report: Reference Range < or = 18.4 Risk: Optimal < or = 18.4 Moderate NA High >18.4 Adult cardiovascular event risk category cut points (optimal, moderate, high) are based on Insulin Reference Interval studies performed at [facility] in 2021. THIS TEST WAS PERFORMED AT: [employer] [facility] [address] [place] [address] NAHUM COFFEY MD INSULIN 14.4 THYROID PANEL (INC. FREE T4 & TSH) Reviewed date:01/08/2024 09:58:35 AM Interpretation:1.37 Performing Lab: Notes/Report: THYROID PANEL TSH 1.37 0.47 - 4.68 uIU/L Free T4 1.21 0.78 - 2.19 ng/dl LUPUS ANTI-COAGULANT Reviewed date:01/29/2024 08:25:24 AM Interpretation:DRVVT 51 HIGH Performing Lab: Notes/Report: A Lupus Anticoagulant is not detected. THIS TEST WAS PERFORMED AT: THIS TEST WAS PERFORMED AT: Common causes for a prolonged screen and negative [employer] [place]ON[place] [employer] [place] confirmatory test include factor deficiencies or [address] [place] [address] [place] [address] For more information on this test, go to: GIOVANNY GONCALVES http://education.[employer]/faq/HFY14y9 (This link is being provided for informational/ educational purposes only.) This interpretation is based on the following test results: PTT-LA SCREEN 40 < OR = 40 sec VVT SCREEN 51 < OR = 45 sec DRVVT CONFIRM NEGATIVE NEGATIVE COMPREHENSIVE METABOLIC PANE L (CMP) Reviewed date:12/24/2023 [...] 0 - 21 mmol/L TESTING PERFORMED ON [email or web address] URINALYSIS Reviewed date:12/24/2023 02:34:56 PM Interpretation: Performing Lab: Notes/Report: URINALYSIS TEST RESULT NORMAL DNA (DOUBLE-STRANDED) ANTIBO DIES Reviewed date:12/24/2023 02:34:02 PM Interpretation: Performing Lab: Notes/Report: IU/mL Interpretation < or = 4 Negative 5-9 Indeterminate > or = 10 Positive THIS TEST WAS PERFORMED AT: [employer] [address] [facility] [place] [address] NAHUM COFFEY MD DNA (DS) ANTIBODY <1 ALDOLASE Reviewed date:12/24/2023 02:34:21 PM Interpretation: Performing Lab: Notes/Report: THIS TEST WAS PERFORMED AT: [employer] [address] [employer] [place] [employer] [address] NAHUM COFFEY MD ALDOLASE 6.0 < OR = 8.1 U/L CBC Reviewed date:12/24/2023 02:34:48 PM Interpretation: Performing Lab: Notes/Report: CBC AUTOMATED DIFFERENTIAL {CD] In a study of 784 healthy smokers, the upper limit of the reference range for WBC was 12.5. [facility] Proc, September 2004;80(8):4459-8609. Pediatric CBC Ranges 2016 [facility] Complete Blood Count Reference Values [...] MICRO DIFF. NOT INDICATED TEST PERFORMED ON [id number] SATISH ANTIBODY Reviewed date:12/24/2023 02:33:42 PM Interpretation: Performing Lab: Notes/Report: THIS TEST WAS PERFORMED AT: [employer] [place] [address] NAHUM COFFEY MD SATISH-1 ANTIBODY <1.0 NEG <1.0 NEG AI SJOGREN'S ANTIBODY Reviewed date:12/24/2023 02:34:08 PM Interpretation: Performing Lab: Notes/Report: THIS TEST WAS PERFORMED AT: [place] [address] NAHUM COFFEY MD SJOGREN'S ANTIBODY (SS-A) <1.0 NEG <1.0 NEG AI SJOGREN'S ANTIBODY (SS-B) <1.0 NEG <1.0 NEG AI HEADLEY AND INTERNATIONAL ACCOUNTING MANAGER ANTIBODIES Reviewed date:12/24/2023 02:34:12 PM Interpretation: Performing Lab: Notes/Report: THIS TEST WAS PERFORMED AT: [employer] [facility] [place] [address] NAHUM COFFEY MD SM ANTIBODY <1.0 NEG <1.0 NEG AI SM/INTERNATIONAL ACCOUNTING MANAGER ANTIBODY <1.0 NEG <1.0 NEG AI SCLERODERMA ANTIBODY Reviewed date:12/24/2023 02:34:38 PM Interpretation: Performing Lab: Notes/Report: THIS TEST WAS PERFORMED AT: [facility] [address] [facility] [place] [address] NAHUM COFFEY MD SCL-70 ANTIBODY <1.0 NEG [...] PROCEDURAL CHANGE AND NEW REFERENCE RANGES. (05/29/2022) FSH Reviewed date:12/04/2023 11:55:33 AM Interpretation:4.0, Normal Performing Lab: Notes/Report: Reference Range Follicular Phase 2.5-10.2 Mid-cycle Peak 3.1-17.7 Luteal Phase 1.5- 9.1 Postmenopausal 23.0-116.3 THIS TEST WAS PERFORMED AT: [address] [address] [place] [address] NAHUM COFFEY MD FSH 4.0 Test, Urine (13304 ) Reviewed date:10/30/2023 01:20:23 PM Interpretation:NOT DONE/NOT RESULTED Performing Lab: Notes/Report: NOT DONE/NOT RESULTED COMPREHENSIVE METABOLIC PANE L (CMP) Reviewed date:12/05/2023 [...] 0 - 21 mmol/L TESTING PERFORMED ON [email or web address] VITAMIN D PANEL Reviewed date:03/02/2024 10:00:17 AM [...] is an characteristics have been determined by [facility]. It has an indicator of exogenous sources, [...] has been validated pursuant to the CLIA http://education.[employer]/faq/YFQ476 http://education.[employer]/faq/YRZ603 regulations and is used for clinical purposes. (This link is being provided for information/educational (This link is being provided for informational/ For additional information, please refer to purposes only.) educational purposes only.) http://education.F[employer]/faq/LMF035 THIS TEST WAS PERFORMED AT: (This link is being provided for [employer] informational/educational purposes only.) [address] [place] [address] [address] [place] [address] [facility] MIGUEL A SHARMA MD,PHD [address] [place] [address],[address] [place] [address] Miguel A Sharma MD, PhD THIS TEST WAS PERFORMED AT: [facility] [address] [place] [address] [place] [address] MIGUEL A SHARMA MD,PHD VITAMIN D, 25-OH, [...] the reference range for WBC was 12.5. [facility] Proc, September 2004;80(8):4953-6091. Pediatric CBC Ranges 2016 [facility] Complete Blood Count Reference Values RBC [...] MICRO DIFF. NOT INDICATED TEST PERFORMED ON [id number] CORNELIO ANTINUCLEAR ANTIBODY Reviewed date:03/02/2024 10:00:17 AM [...] on CORNELIO Patterns >1:80 Elevated Antibody Level (https://doi.org/10.1515/wlzu-0824-7785) THIS TEST WAS PERFORMED AT: [address] [address] [address] NAHUM COFFEY MD CORNELIO SCREEN, IFA POSITIVE NEGATIVE CORNELIO IFA is a first line screen for detecting the presence of up to approximately 150 autoantibodies in various autoimmune diseases. A positive CORNELIO IFA result is suggestive of autoimmune disease and reflexes to titer and pattern. Further laboratory testing may be considered if clinically indicated. For additional information, please refer to http://education.AIT/faq/FAQ1 77 (This link is being provided for informational/ educational purposes only.) THIS TEST WAS PERFORMED AT: [address] [address] [address] NAHUM COFFEY MD CORNELIO PATTERN Nuclear, Speckled CORNELIO TITER 1:40 T-SPOT TB TEST Reviewed date:03/02/2024 10:00:28 AM Interpretation: Performing Lab: Notes/Report: Normal Value: Negative THIS TEST WAS PERFORMED AT: A negative test result does not exclude the possibility of [facility] exposure to or infection with Mycobacterium tuberculosis ([address]. [address] tuberculosis). Patients with [place] [address] infected individuals exhibiting a negative T-SPOT.TB result STEVE KIRBY PHD should be considered for retesting within 6 [...] 0 NEGATIVE CONTROL Passed POSITIVE CONTROL Passed HIV COMBO 4TH GEN Reviewed date:03/02/2024 10:00:28 AM Interpretation: Performing Lab: Notes/Report: PANEL NAME HIV 1/2 ANTIGEN/ANTIBODY, FOURTH GENERATION, W/REFLEX REFERENCE RANGE {hu] HIV COMBO NEGATIVE NEGATIVE NOTIFY QA NO NOTE: IF REACTIVE, ORDER ITEM #[id number] FOR CONFIRMATION TESTING. THIS TEST IS A [...] TMA. Effective 06/16/2018, AMB Edited 02/16/2020, GHADA HEPATITIS (AC) PROFILE W/REF YAMILA BY PCR [...] NECESSARY IF THE HBc-IgM IS ALSO POSITIVE. Reason For Referral No Information Medications Medication [...] W/U Status Risk Notes Problem Acute cystitis (78916471) Acute cystitis (595.0) Active confirmed (Delvis) Problem Conductive hearing loss of left ear with normal hearing on right side (disorder) (9587698499) Sensorineural hearing loss, unilateral, left ear, with unrestricted hearing on the contralateral side (H90.42) Active confirmed Problem Bilateral tinnitus (8775564156261) Tinnitus, bilateral (H93.13) Active confirmed Problem 22052815 Hidradenitis suppurativa (L73.2) Active confirmed Problem 021427213 Pelvic and perineal pain (R10.2) Active confirmed Problem 545740290 Vaginal atrophy (N95.2) Active confirmed Problem 231700855 PCOS (polycystic ovarian syndrome) (E28.2) Active confirmed Problem 43127254 Menopausal symptoms (N95.1) Active confirmed Problem 663595279 Endometriosis determined by laparoscopy (N80.9) Active confirmed Problem 86003735 Cyst of left ovary (N83.202) Active confirmed Problem 66954602 Chronic vaginiti s (N76.1) Active confirmed Problem 431741945 S/P hysterectomy (Z90.710) Active confirmed Problem 8947291 Primary female infertility (N97.9) Active confirmed Problem Sensorineural hearing loss of bilateral ears (disorder) (033465667) Sensorineural hearing loss, bilateral (H90.3) Active confirmed Problem Bilateral otalgia (598859308) Otalgia, bilateral (H92.03) Active confirmed Vital Signs Heart Rate 80 /min 05/12/2024 Temperature 98.0 degrees Fahrenheit 05/12/2024 Oximetry 98 % 05/12/2024 Blood pressure diastolic 86 mm Hg 05/12/2024 Height 66 in 05/12/2024 Blood pressure systolic 126 mm Hg 05/12/2024 Weight 249.6 lbs 12/13/2023 Encounters Encounter Location Date Provider Diagnosis [facility] [address] [facility] [address] [place], [place] [id number] 12/04/2023 Zaynab Mejia [facility] [address] [facility] [address] [place], [place] [id number] 01/16/2024 Zaynab Mejia [facility] [address] [facility] [address] [place], [place] [id number] 05/04/2024 Zaynab Mejia [facility] [address] [facility] [id number] 10/29/2023 Thony Iqbal Vaginal itching N89. 8 ; Dysuria R30.0 and Encounter for gynecological examination Z01.[address] [facility], [place] [id number] 12/13/2023 Keyona Cotton Vaginal atrophy N95. 2 ; Postmenopausal HRT (hormone replacement therapy) Z79.890 and Chronic vaginitis N76.1 [facility] [address] [facility] [address] [place], [place] [id number] 05/12/2024 Louie Lumluis alfredo Hidradenitis suppurativa L73.[address], [place] [id number] 10/30/2023 Thony Iqbal Vaginal itching N89. [address], [place] [id number] 10/31/2023 Leatha Iqbal [facility] [address] [facility] [id number] 11/07/2023 Leatha Iqbal [address], [place] [id number] 11/08/2023 Leatha Iqbal Yeast vaginitis B37.31 [address] [facility], [place] [id number] 12/05/2023 Keyona Cotton [address], [place] [id number] 12/20/2023 Keyona Cotton Yeast vaginitis B37.[address], [place] [id number] 12/24/[address], [place] [id number] 12/25/2023 Keyona Cotton [address], [place] [id number] 12/27/2023 Keyona Cotton Postmenopausal HRT (hormone replacement therapy) Z79.890 ; PCOS (polycystic ovarian syndrome) E28.2 and Facial rash R21 [address], [place] [id number] 01/29/2024 Keyona Cotton Postmenopausal HRT (hormone replacement therapy) Z79.890 and PCOS (polycystic ovarian syndrome) E28.[address], [place] [id number] 01/30/2024 Keyona Jarontoni [address], [place] [id number] 02/05/2024 [facility] [address] [place] [id number] 02/17/2024 Keyona Cotton Postmenopausal HRT (hormone replacement [...] (ICD-10 - L73.2) Will try low dose termite control service representative abx with flagyl, since allergic to doxy [...] Date [employer] PPO [address] [place] [address] [id number] JANE Villarreal Self - patient is [...]
--- OUTSIDE RECORDS SUMMARY | 2024-10-14 23:33 | XMS_ITS | Clinical Summary ---
Author Organization [facility] Address [address] [place] [address] Care Team Providers Care Lump Maker Name Role Phone Unavailable Primary Care Provider [...] stable enough to work. Was working Insurance [facility]
--- OUTSIDE RECORDS SUMMARY | 2024-10-14 23:34 | XMS_ITS | Encounter Summary ---
Author Organization [facility] Address [address] [place] [address] Care Team Providers Care Sterile Supply Technician Name Role Phone Lucho Mota MD Primary Care Provider Encounter Details Date Type Department Care Team (Late st Contact Info) Description 11/20/2016 Orders Only [facility] [address] [facility] [place] [address] System, Provider Not In, [address] [place] [address] Social History Tobacco Use Types Packs/Day Years [...] 11/20/2016 9:18 PM CDT Historic images from [facility] exist and can be viewed by using the hyperlink to access [employer]: CT ABD/PEL W CONTRAST Procedure Note System, Provider Not In, - 03/30/2020 Historic images from [facility] exist and can be viewed byusing the hyperlink to access TAKO pacs: CT ABD/PEL W CONTRAST us Provider Not In System MD [facility] Final Result documented in this encounter Visit Diagnoses Not on filedocumented in this encounter Care Teams Sterile Supply Technician Relationship Specialty Start Date End Date Lucho Mota MD [address] [place] [address] PCP - General Family Medicine 05/10/20 12/18/21 documented as of this encounter
[2024-10-15 04:11] VITALS: BP 122/76; PULSE 82; RESP 18; O2SAT 97
--- NOTE | 2024-10-15 04:14 | W.ED.ABDPA2 ---
HPI - Abdominal Pain General: Chief Complaint: Abdominal Pain Stated Complaint: stomach hurt Time Seen by Provider: 10/15/24 03:56 History of Present Illness: This patient is a 29-year-old white female who presents to the emergency department complaining of abdominal pain. She states that she was working out yesterday doing push-ups and lifting weights and pulled an abdominal muscle. Related Data Home Medications ?Medication ?Instructions ?Recorded ?Confirmed albuterol sulfate 90 mcg/actuation 1 puff inhalation Q4H PRN 08/27/24 08/27/24 aerosol inhaler Shortness Of Breath Or Wheezing magnesium 200 mg tablet 200 mg PO DAILY 08/27/24 08/27/24 progesterone micronized 200 mg 200 mg PO BEDTIME 08/27/24 08/27/24 capsule Held on 08/30/24. Instructions: see obgyn Previous Rx's ?Medication ?Instructions ?Recorded levofloxacin 750 mg tablet 750 mg PO DAILY #3 tabs 08/30/24 ondansetron 4 mg disintegrating 4 mg PO Q6H PRN nausea and 10/04/24 tablet vomiting #30 tabs potassium chloride 20 mEq 20 meq PO DAILY #30 tabs 10/04/24 tablet,extended release(part/cryst) spironolactone 50 mg tablet 50 mg PO DAILY #30 tabs 10/04/24 fluconazole 100 mg tablet See Rx Instructions .Route 10/05/24 .COMPLEX #4 tabs metronidazole 250 mg tablet 500 mg (2 x 250 mg) PO TID #51 tabs 10/05/24 ibuprofen 800 mg tablet 800 mg PO TID #30 tabs 10/15/24 orphenadrine citrate 100 mg 100 mg PO BID #20 tabs 10/15/24 tablet,extended release Allergies Allergy/AdvReac Type Severity Reaction Status Date / Time almond Allergy ALGY-Hives Verified 10/06/24 20:49 clindamycin Allergy Unknown Verified 10/06/24 20:49 dicyclomine Allergy ALGY-Rash Verified 10/06/24 20:49 latex Allergy ALGY-Hives Verified 10/06/24 20:49 Penicillins Allergy ALGY-Rash Verified 10/06/24 20:49 Pertussis Vaccines Allergy Unknown Verified 10/06/24 20:50 Review of Systems General: Reports: 10 or more systems reviewed and unremarkable except in HPI and below GI: Reports: abdominal pain PFSH ED PFSH: Medical History (Updated 10/15/24 @ 04:11 by Mike Suárez MD) Acute pyelonephritis Physical Exam Const: COMMON NORMALS: no acute distress, patient oriented x3 and no limitations GENERAL APPEARANCE: cooperative and comfortable HENMT: COMMON NORMALS: normocephalic, atraumatic, Normal nasal mucous membranes and turbinates present, moist oral mucous membranes and oropharynx normal HEAD & SCALP: normal to inspection, normocephalic and atraumatic FACE & SINUS: normal facial exam NOSE: Normal nasal mucous membranes and turbinates present Eye: COMMON NORMALS: Equal, round and reactive pupils present, EOMs intact bilaterally and conjunctivae normal GENERAL EYE: appearance normal, both eyes and all related structures CONJUNCTIVA: Yes conjunctivae normal PUPIL: Yes Equal, round and reactive pupils present Neck/C-Spine: COMMON NORMALS: supple and no JVD Chest: COMMONS NORMALS: normal inspection of the chest Resp: COMMON NORMALS: normal respiratory effort and clear to auscultation bilaterally AUSCULTATION: clear to auscultation bilaterally Cardio: COMMON NORMALS: no JVD, regular rate, regular rhythm, No gallops present (Cardio), No murmurs present (Cardio) and No rub (Cardio) RATE: regular rate RHYTHM: regular rhythm GI: COMMON NORMALS: Normal to inspection, nondistended, normoactive bowel sounds present, Soft to palpation and non-tender AUSCULTATION: Yes normoactive bowel sounds PALPATION: Yes Soft to palpation, Yes Tenderness to palpation present (GI) (Mild discomfort with palpation.) and No Rebound tenderness present : COMMON NORMALS: Yes no CVA tenderness BLADDER/KIDNEY EXAM: Yes no CVA tenderness Back/Pelvis: COMMON NORMALS: no CVA tenderness and thoracic and lumbar spine normal to inspection Extremity: COMMON NORMALS: normal to inspection Neuro: COMMON NORMALS: patient oriented x3 and CN's II-XII intact bilaterally Psych: COMMON NORMALS: mental status grossly normal, Normal thought process present and cooperative THOUGHT PROCESS: Normal thought process present Skin: COMMON NORMALS: no rashes or lesions noted, turgor normal and no jaundice GENERAL SKIN EXAM: no rashes or lesions noted and turgor normal Course Vital Signs: Vital signs: Vital Signs Temperature 98.2 F 10/14/24 23:31 Pulse Rate 92 10/14/24 23:31 Respiratory Rate 16 10/14/24 23:31 Blood Pressure 113/77 10/14/24 23:31 Pulse Oximetry 100 10/14/24 23:31 MDM - Abdominal Pain Medical Decision Making Patient was given injections of Toradol and Norflex. She was discharged in stable condition with prescriptions for Norflex and ibuprofen. Recommended she follow-up with her primary care physician next week for recheck. No radiology studies performed this visit Discharge Plan Discharge Patient Disposition: Home Clinical Impression: Abdominal wall strain Qualifiers: Encounter type: initial encounter Qualified Code(s): S39.011A - Strain of muscle, fascia and tendon of abdomen, initial encounter Condition: Stable Prescriptions: New orphenadrine citrate 100 mg tablet extended release 100 mg PO BID Qty: 20 0RF ibuprofen 800 mg tablet 800 mg PO TID Qty: 30 0RF No Action albuterol sulfate 90 mcg/actuation HFA aerosol inhaler 1 puff INHALATION Q4H PRN (Reason: Shortness Of Breath Or Wheezing) progesterone micronized 200 mg capsule 200 mg PO BEDTIME magnesium 200 mg Tablet 200 mg PO DAILY levofloxacin 750 mg tablet 750 mg PO DAILY Qty: 3 0RF potassium chloride 20 mEq tablet,ER particles/crystals 20 meq PO DAILY Qty: 30 0RF spironolactone 50 mg tablet 50 mg PO DAILY Qty: 30 0RF ondansetron 4 mg tablet,disintegrating 4 mg PO Q6H PRN (Reason: nausea and vomiting) Qty: 30 0RF fluconazole 100 mg Tablet See Rx Instructions .ROUTE .COMPLEX Qty: 4 1RF Rx Instructions: 100 mg orally weekly metronidazole 250 mg tablet 500 mg PO TID Qty: 51 0RF Rx Instructions: tid for 7d, then daily following. Discharge Orders: Discharge ED (Routine); Ordered 10/15/24 Ordered By: Mike Suárez Referrals: Karen Israel [Primary Care Provider, Internal Medicine] Patient Instructions: Muscle Strain (ED), Pain Management Activity Restrictions/Additional Instructions: Take medications as prescribed. Follow-up with your primary care physician next week if no improvement. Print Language: Bruneian Coding Level of Care Code ED Planning Lead for Sim Arango
[2024-10-15] MEDS: orphenadrine 30 mg/mL Inj 2 mL 60 MG IM (04:35)
[2024-10-15 04:56] VITALS: BP 122/76; PULSE 79; O2SAT 97
== END 2024-10-15 05:00 | disposition home or self-care (01) ==
PROVIDERS: Emergency Provider Emergency Medicine; PCP Physician Assistant Medical
DX: S39.011A Strain of muscle, fascia and tendon of abdomen, initial encounter (principal); X50.0XXA Overexertion from strenuous movement or load, initial encounter
CPT/HCPCS: 96372; 99284; J1885; J2360

== ENCOUNTER 2024-10-31 17:23 | Emergency (ER) | payer MEDICAID, SELFPAY ==
--- OUTSIDE RECORDS SUMMARY | 2024-04-16 09:15 | XMS_ITS ---
Author Organization [facility] Address [address] [facility] [address] [place] [address] Care Team Providers Care Trailer Assembler Name Role Phone KAVEH LEDEZMA Primary Care Provider Unavailab johnson Reyesluis alfredo Louie Unavailable [phone] ZAYNAB MEJIA APRN Unavailable Zaynab Mejia Unavailable [phone] REASON FOR VISIT Humira monitoring Encounters Encounter Location Date Provider Diagnosis [facility] [address] [facility] [address] [place], [place] [phone] 04/16/2024 Zaynab Mejia Plan Of Treatment Next Appt Details Provider Name:Zaynab Peoples [facility], 11/30/2024 03:15:00 PM, [address] [facility], [address], [place], [place], [phone], Progress Notes * JANE REYNOLDSDOB:1995 (29 yo F)Acc No.[id number]:04/16/2024 Patient: Luis Alfredo ZAPATA JANE Peoples Provider: Gianna Mejia APRN :1995 A ge:29 Y S ex:Female Date:04/16/2024 [address] Pcp:EVIN ORTIZ Subjective: * Chief Complaints: * 1 . Humira monitoring. * Medical History: Objective: * Vitals: Assessment: Plan: * Treatment: * Images: * Electronic signature of Moshe Mejia APRN on 10/31/2024 at 05:29 PM CDT Sign off status: Pending * Provider: Gianna Mejia, IT NETWORK ADMINISTRATOR Date: 0 04/16/2024 Generated for Rachid estrdaa/Carlotta/Rene on: 0 10/31/2024 05:29 PM CDT
--- OUTSIDE RECORDS SUMMARY | 2024-05-04 06:45 | XMS_ITS ---
Author Organization [facility] Address [address] [facility] [address] [place] [address] Care Team Providers Care Bolting Machine Operator Name Role Phone KAVEH LEDEZMA Primary Care Provider Unavailab Louie Delaney Unavailable [phone] ARELIS MEJIA APRN Unavailable [phone] Arelis Mejia Unavailable [phone] REASON FOR VISIT Humira monitoring Medications Medication SIG (Take, Route, Frequency, Duration) Notes Start Date End Date Status metFORMIN HCl ER 500 MG 1 tablet with ev ening meal Orally Once a day for 30 days Active Aygestin 5 MG 1 tablet Orally Once a day at bedtim for 30 days Active Progesterone 200 MG 1 capsule at bedtime Orally Once a day at bedtime for 30 days Active Fluconazole 100 MG 1 tablet Orally once a day at bedtime on Calendar Days #1-2 for 2 days Active Fluconazole 100 MG 1 tablet Orally once a day at bedtime for 2 days Active metroNIDAZOLE 250 MG [address] ee times a day on Calendar Days #1-3 for 9 days Active Magnesium Oxide 400 MG 1 tablet as neede d Orally Once a day Active Furosemide 20 MG 1 tablet Orally Once a day Active Potassium 20 MEQ Active Omeprazole 20 MG 1 capsule 30 minutes before morning meal Orally Once a day Active Cetirizine HCl 10 MG 1 tablet Orally Once a day Active Aspirin 81 81 MG 1 tablet Orally Once a day Active Encounters Encounter Location Date Provider Diagnosis [facility] [address] [facility] [address] [place] [id number] 05/04/2024 Arelis Mejia Plan Of Treatment Next Appt Details Provider Name:Arelis Ziegler, 11/30/2024 03:15:00 PM, [address] [facility], [address], [place], [place], [id number], Progress Notes * JANE REYNOLDS RichelleDOB:1995 (29 yo F)Acc No.[id number]:05/04/2024 Patient: JANE GAXIOLA Provider: Gianna Mejia APRN :1995 A ge:29 Y S ex:Female Date:05/04/2024 Address:[address] [place] [address], [place], [facility] Pcp:EVIN ORTIZ Subjective: * Chief Complaints: * 1 . Humira monitoring. * Medical History: * Medications: T aking Aspirin 81 81 MG Tablet Delayed Release 1 tablet Orally Once a day , Taking Aygestin 5 MG Tablet 1 tablet Orally Once a day at bedtim , Taking Cetirizine HCl 10 MG Tablet 1 tablet Orally Once a day , Taking Fluconazole 100 MG Tablet 1 tablet Orally once a day at bedtime on Calendar Days #1-2 , Taking Fluconazole 100 MG Tablet 1 tablet Orally once a day at bedtime , Taking Furosemide 20 MG Tablet 1 tablet Orally Once a day , Taking Magnesium Oxide 400 MG Tablet 1 tablet as needed Orally Once a day , Taking metFORMIN HCl ER 500 MG Tablet Extended Release 24 Hour 1 tablet with evening meal Orally Once a day , Taking metroNIDAZOLE 250 MG Tablet 1 tablet Orally Three times a day on Calendar Days #1-3 , Taking Omeprazole 20 MG Capsule Delayed Release 1 capsule 30 minutes before morning meal Orally Once a day , Taking Potassium , Notes to Pharmacist: 20 MEQ, Taking Progesterone 200 MG Capsule 1 capsule at bedtime Orally Once a day at bedtime Objective: * Vitals: Assessment: Plan: * Treatment: * Images: Drawing:LEVI NOTE 04/25 * Electronic signature of Moshe Mejia APRN on 10/31/2024 at 05:29 PM CDT Sign off status: Pending * Provider: Gianna Mejia APRN Date: 05/04/2024 Generated for Rachid estrada/Carlotta/eTransmitting on: 0 10/31/2024 05:29 PM CDT
--- OUTSIDE RECORDS SUMMARY | 2024-06-02 04:30 | XMS_ITS ---
Author Organization [facility] Address [address] [facility] [address] [place] [address] Care Team Providers Care Stone Dresser Name Role Phone KAVEH LEDEZMA Primary Care Provider Unavailab Louie Delaney Unavailable [phone] JACKIE SALGADO ZAYNAB Unavailable [phone] REASON FOR VISIT 3 wk follow up HS Encounters Encounter Location Date Provider Diagnosis [facility] [address] [facility] [address] [place] [id number] 06/02/2024 Louie Espinoza Plan Of Treatment Next Appt Details Provider Name:Zaynab Peoples [facility], 11/30/2024 03:15:00 PM, [address] [place] [address], [address], [place], [id number], Progress Notes * PHIL JANE PeoplesDOB:1995 (29 yo F)Acc No.[id number]:06/02/2024 Progress Notes Patient: JANE GAXIOLA Provider: Richelle Espinoza MD :1995 A ge:29 Y S ex:Female Date:06/02/2024 Address:[address] [place] Pcp:EVIN ORTIZ Subjective: * Chief Complaints: * 1 . 3 wk follow up HS. * Medical History: Objective: * Vitals: Assessment: Plan: * Treatment: * Images: * Electronic signature of Louie Espinoza M.D. on 10/31/2024 at 05:29 PM CDT Sign off status: Pending * Provider: Richelle Espinoza MD Date: 0 06/02/2024 Generated for Rachid estrada/Carlotta/Rene on: 0 10/31/2024 05:29 PM CDT
--- OUTSIDE RECORDS SUMMARY | 2024-07-06 08:30 | XMS_ITS ---
Author Organization [facility] Address [address] [facility] [address] [place] [address] Care Team Providers Care Merchandise Flow Team Member Name Role Phone KAVEH LEDEZMA Primary Care Provider Unavailab johnson Reyesluis alfredo Louie Unavailable [phone] ZAYNAB MEJIA APRN Unavailable [phone] Zaynab Mejia Unavailable [phone] REASON FOR VISIT humira monitoring Encounters Encounter Location Date Provider Diagnosis [facility] [address] [facility] [address] [place], [place] [id number] 07/06/2024 Zaynab Mejia Plan Of Treatment Next Appt Details Provider Name:Zaynab Peoples [facility], 11/30/2024 03:15:00 PM, [address] [facility], [address], [place], [place], [phone], Progress Notes * JANE REYNOLDSDOB:1995 (29 yo F)Acc No.[id number]:07/06/2024 Patient: LINDSAY GAXIOLAARI Peoples Provider: Gianna Mejia APRN :1995 A ge:29 Y S ex:Female Date:07/06/2024 Address[address] Pcp:EVIN ORTIZ Subjective: * Chief Complaints: * 1 . Humira monitoring. * Medical History: Objective: * Vitals: Assessment: Plan: * Treatment: * Images: * Electronic signature of Moshe Mejia APRN on 10/31/2024 at 05:28 PM CDT Sign off status: Pending * Provider: Gianna Mejia, HOT MILL TIN ROLLER Date: 0 07/06/2024 Generated for Rachid estrada/Carlotta/Rene on: 0 10/31/2024 05:28 PM CDT
--- OUTSIDE RECORDS SUMMARY | 2024-09-24 09:40 | XMS_ITS ---
Author Organization [address] [place] [address] [facility] Address [address] [place] [id number] Care Team Providers Care Experimental Rocketsled Mechanic Name Role Phone Bob Badillo Primary Care Provider Denis Owens Unavailable [phone] REASON FOR VISIT vaginal pain Social History Sex Assigned At : Social History Observation Description Sex Assigned At Female Encounters Encounter Location Date Provider Diagnosis [address] [place] [address] [facility] [address] [place] [id number] 09/24/2024 Denis Owens Plan Of Treatment No Information Progress Notes * Miguel REYNOLDSOB:1995 ( 29 yo F)Acc No.[id number]:09/24/2024 FaceToFace Patient: Karoline GAXIOLA External Provider: Aly Owens MD Case Label: Date Of Injury: :1995 A ge:29 Y S ex:Female Date:09/24/2024 Address:[address] [place] [address] [employer] [address], [place], [id number] Pcp:Bob Badillo Patient's Default Facility:[facility] Subjective: * Chief Complaints: * 1 . Vaginal pain. * Medical History: Objective: * Vitals: Assessment: Plan: * Treatment: Care Plan: * Problems: * Billing Information: * Visit Code: * Procedure Codes: * Electronic signature of Chrystal Owens MD on 10/31/2024 at 05:29 PM CDT Sign off status: Pending * Provider: Aly Owens MD Date: 0 09/24/2024 Generated for Rachid estrada/Carlotta/Rene on: 0 10/31/2024 05:29 PM CDT
--- OUTSIDE RECORDS SUMMARY | 2024-09-28 06:40 | XMS_ITS ---
Author Organization [address] [place] [address] [facility] Address [address] [place] [id number] Care Team Providers Care Hose Suspender Cutter Name Role Phone Bob Badillo Primary Care Provider Karen Israel Unavailable [phone] REASON FOR VISIT 2 week f/u Social History Sex Assigned At : Social History Observation Description Sex Assigned At Female Encounters Encounter Location Date Provider Diagnosis [address] [place] [address] [facility] [address] [place] [id number] 09/28/2024 Karen Israel Plan Of Treatment No Information Progress Notes * Miguel REYNOLDSOB:1995 ( 29 yo F)Acc No.[id number]:09/28/2024 FaceToFace Patient: Karoline GAXIOLA External Provider: EVIN Carlson Case Label: Date Of Injury: :1995 A ge:29 Y S ex:Female Date:09/28/2024 Address:[address] [place] [address] [address], [place], [id number] Pcp:Bob Badillo Patient's Default Facility:1 [facility] Subjective: * Chief Complaints: * 1 . 2 week f/u. * Medical History: Objective: * Vitals: Assessment: Plan: * Treatment: Care Plan: * Problems: * Billing Information: * Visit Code: * Procedure Codes: * Electronic signature of EVIN Blanco on 10/31/2024 at 05:28 PM CDT Sign off status: Pending * Provider: EVIN Carlson Date: 0 09/28/2024 Generated for Rachid estrada/Carlotta/Rene on: 0 10/31/2024 05:28 PM CDT
--- OUTSIDE RECORDS SUMMARY | 2024-10-05 08:00 | XMS_ITS ---
Author Organization [address] [place] [address] [facility] Address [address] [place] [phone] Care Team Providers Care Broomcorn Grader Name Role Phone Bob Badillo Primary Care Provider [phone] Karen Israel Unavailable [phone] REASON FOR VISIT 1 month f/u Social History Sex Assigned At : Social History Observation Description Sex Assigned At Female Encounters Encounter Location Date Provider Diagnosis [address] [place] [address] [facility] [address] [place] James [id number] 10/05/2024 Karen Israel Plan Of Treatment No Information Progress Notes * Miguel REYNOLDSOB:1995 ( 29 yo F)Acc No.[id number]:10/05/2024 FaceToFace Patient: Karoline GAXIOLA External Provider: EVIN Carlson Case Label: Date Of Injury: :1995 A ge:29 Y S ex:Female Date:10/05/2024 Address:[address] [place] [address] [address], [id number] Pcp:Bob Badillo Patient's Default Facility:1 [facility] Subjective: * Chief Complaints: * [...] 10/05/2024 Generated for Rachid estrada/Carlotta/Rene on: 0 10/31/2024 05:28 PM CDT
[2024-10-31] VITALS (9 sets, daily range): BP systolic 109–152; BP diastolic 65–114; PULSE 78–115; RESP 14–20; TEMP 36.7; O2SAT 95–100; BMI 32.8
--- OUTSIDE RECORDS SUMMARY | 2024-10-31 17:28 | XMS_ITS | Patient Health Record ---
Author Organization [facility] Physician [facility] Address [address] [facility] [address] [place] [address] Care Team Providers Care Machine Sorter Name Role Phone KAVEH LEDEZMA Primary Care Provider Unavailab Louie Delaney Unavailable [phone] ZAYNAB ALVAREZ APRN Unavailable Keyona Cotton Unavailable [phone] Leatha Iqbal Unavailable [phone] Thony Iqbal Unavailable [phone] Zaynab Alvarez Unavailable [phone] Allergies Allergen (clinical drug ingredient) Drug/Non Drug Allergy documented on EMR Reaction Allergy Type Onset Date Status doxycycline Doxycycline anaphylaxis Drug Allergy A ctive Latex Latex HIVES Allergy Active Tree Nuts anaphylaxis Allergy Active clindamycin Clindamycin anaphylaxis Drug Allergy A ctive Penicillin anaphylaxis Drug Allergy Acti ve Results Component Value Reference Range Notes COMPREHENSIVE METABOLIC PANE L (CMP) Reviewed date:12/05/2023 [...] 0 - 21 mmol/L TESTING PERFORMED ON AdECN 5600 HEPATITIS (AC) PROFILE W/REF YAMILA BY PCR [...] QA NO NOTE: IF REACTIVE, ORDER ITEM #[id number] FOR CONFIRMATION TESTING. THIS TEST IS A [...] TMA. Effective 06/16/2018, AMB Edited 02/16/2020, MKR VITAMIN D PANEL Reviewed date:03/02/2024 10:00:17 AM [...] is an characteristics have been determined by [employer]. It has an indicator of exogenous sources, [...] has been validated pursuant to the CLIA http://education.[employer].com/faq/FVV402 http://education.[employer].com/faq/UEW387 regulations and is used for clinical purposes. (This link is being provided for information/educational (This link is being provided for informational/ For additional information, please refer to purposes only.) educational purposes only.) http://education.[employer]/faq/KYQ576 THIS TEST WAS PERFORMED AT: (This link is being provided for [employer] informational/educational purposes only.) [address] [facility] [address] [place] [address] med [facility] MIGUEL A SHARMA MD,PHD [address] [address],[address] [place] [address] Miguel A Sharma MD, PhD THIS TEST WAS PERFORMED AT: [facility] [address] [facility] [address] [place] [address] MIGUEL A SHARMA MD,PHD VITAMIN D, 25-[place], [...] the reference range for WBC was 12.5. [facility] Proc, September 2004;80(8):5978-2775. Pediatric CBC Ranges 2016 [facility] Complete Blood Count Reference Values RBC [...] MICRO DIFF. NOT INDICATED TEST PERFORMED ON [id number] CORNELIO ANTINUCLEAR ANTIBODY Reviewed date:03/02/2024 10:00:17 AM [...] on CORNELIO Patterns >1:80 Elevated Antibody Level (https://doi.org/10.1515/wrfr-[email or web address]) THIS TEST WAS PERFORMED AT: [place] [address] NAHUM COFFEY MD CORNELIO SCREEN, IFA POSITIVE NEGATIVE CORNELIO IFA is a first line screen for detecting the presence of up to approximately 150 autoantibodies in various autoimmune diseases. A positive CORNELIO IFA result is suggestive of autoimmune disease and reflexes to titer and pattern. Further laboratory testing may be considered if clinically indicated. For additional information, please refer to http://education.[employer]/faq/FAQ1 77 (This link is being provided for informational/ educational purposes only.) THIS TEST WAS PERFORMED AT: [place] [address] NAHUM COFFEY MD OCRNELIO PATTERN Nuclear, Speckled CORNELIO TITER 1:40 T-SPOT TB TEST Reviewed date:03/02/2024 10:00:28 AM Interpretation: Performing Lab: Notes/Report: Normal Value: Negative THIS TEST WAS PERFORMED AT: A negative test result does not exclude the possibility of [facility] exposure to or infection with Mycobacterium tuberculosis (M. [address] tuberculosis). Patients [place] [address] infected individuals exhibiting a negative T-SPOT.TB result [...] 0 NEGATIVE CONTROL Passed POSITIVE CONTROL Passed HEMOGLOBIN A1C Reviewed date:01/08/2024 09:58:24 AM Interpretation:5.2 [...] 110 mg/dl TESTING PERFORMED ON VITROS 5600 INSULIN; TOTAL Reviewed date:01/29/2024 08:25:27 AM Interpretation:14.4 Performing Lab: Notes/Report: Reference Range < or = 18.4 Risk: Optimal < or = 18.4 Moderate NA High >18.4 Adult cardiovascular event risk category cut points (optimal, moderate, high) are based on Insulin Reference Interval studies performed at [facility] in 2021. THIS TEST WAS PERFORMED AT: [facility] [address] [place] [address] NAHUM COFFEY MD INSULIN 14.4 THYROID PANEL [...] causes for a prolonged screen and negative [facility] confirmatory test include factor deficiencies or [address] [place] [address] [place] [address] For more information on this test, go to: GIOVANNY GONCALVES http://education.[employer]/faq/DMC49q7 (This link is being provided for informational/ [...] 0 - 21 mmol/L TESTING PERFORMED ON AdECN 5600 URINALYSIS Reviewed date:12/24/2023 02:34:56 PM Interpretation: Performing Lab: Notes/Report: URINALYSIS TEST RESULT NORMAL DNA (DOUBLE-STRANDED) ANTIBO DIES Reviewed date:12/24/2023 02:34:02 PM Interpretation: Performing Lab: Notes/Report: IU/mL Interpretation < or = 4 Negative 5-9 Indeterminate > or = 10 Positive THIS TEST WAS PERFORMED AT: [facility] [place] [address] NAHUM CFOFEY MD DNA (DS) ANTIBODY <1 ALDOLASE Reviewed date:12/24/2023 02:34:21 PM Interpretation: Performing Lab: Notes/Report: THIS TEST WAS PERFORMED AT: [facility] [place] [place] [address] NAHUM COFFEY MD ALDOLASE 6.0 < OR = 8.1 U/L CBC Reviewed date:12/24/2023 02:34:48 PM Interpretation: Performing Lab: Notes/Report: CBC AUTOMATED DIFFERENTIAL {CD] In a study of 784 healthy smokers, the upper limit of the reference range for WBC was 12.5. [facility] Proc, September 2004;80(8):3993-2151. Pediatric CBC Ranges 2016 [facility] Complete Blood Count Reference Values RBC [...] MICRO DIFF. NOT INDICATED TEST PERFORMED ON [id number] SATISH ANTIBODY Reviewed date:12/24/2023 02:33:42 PM Interpretation: Performing Lab: Notes/Report: THIS TEST WAS PERFORMED AT: [facility] [employer] [facility] [employer] [place] [address] NAHUM COFFEY MD SATISH-1 ANTIBODY <1.0 NEG <1.0 NEG AI SJOGREN'S ANTIBODY Reviewed date:12/24/2023 02:34:08 PM Interpretation: Performing Lab: Notes/Report: THIS TEST WAS PERFORMED AT: [facility] [place] [address] [place] [address] NAHUM COFFEY MD SJOGREN'S ANTIBODY (SS-A) <1.0 NEG <1.0 NEG AI SJOGREN'S ANTIBODY (SS-B) <1.0 NEG <1.0 NEG AI HEADLEY AND ROOFER METAL ANTIBODIES Reviewed date:12/24/2023 02:34:12 PM Interpretation: Performing Lab: Notes/Report: THIS TEST WAS PERFORMED AT: [facility] [address] [place] [place] [address] NAHUM COFFEY MD SM ANTIBODY <1.0 NEG <1.0 NEG AI SM/ROOFER METAL ANTIBODY <1.0 NEG <1.0 NEG AI SCLERODERMA ANTIBODY Reviewed date:12/24/2023 02:34:38 PM Interpretation: Performing Lab: Notes/Report: THIS TEST WAS PERFORMED AT: [facility] [address] [facility] [place] [address] NAHUM COFFEY MD SCL-70 ANTIBODY <1.0 NEG [...] PROCEDURAL CHANGE AND NEW REFERENCE RANGES. (05/29/2022) Reason For Referral No Information Medications Medication [...] W/U Status Risk Notes Problem Acute cystitis (16692019) Acute cystitis (595.0) Active confirmed ([place]vis) Problem Conductive hearing loss of left ear with normal hearing on right side (disorder) (5189074915) Sensorineural hearing loss, unilateral, left ear, with unrestricted hearing on the contralateral side (H90.42) Active confirmed Problem Bilateral tinnitus (7986075136142) Tinnitus, bilateral (H93.13) Active confirmed Problem 15450646 Hidradenitis suppurativa (L73.2) Active confirmed Problem 164729243 Pelvic and perineal pain (R10.2) Active confirmed Problem 152095121 Vaginal atrophy (N95.2) Active confirmed Problem 123927232 PCOS (polycystic ovarian syndrome) (E28.2) Active confirmed Problem 46150864 Menopausal symptoms (N95.1) Active confirmed Problem 587025515 Endometriosis determined by laparoscopy (N80.9) Active confirmed Problem 22110253 Cyst of left ovary (N83.202) Active confirmed Problem 80337480 Chronic vaginiti s (N76.1) Active confirmed Problem 332548364 S/P hysterectomy (Z90.710) Active confirmed Problem 4189048 Primary female infertility (N97.9) Active confirmed Problem Sensorineural hearing loss of bilateral ears (disorder) (168358094) Sensorineural hearing loss, bilateral (H90.3) Active confirmed Problem Bilateral otalgia (099977834) Otalgia, bilateral (H92.03) Active confirmed Vital Signs Heart Rate 80 /min 05/12/2024 Temperature 98.0 degrees Fahrenheit 05/12/2024 Oximetry 98 % 05/12/2024 Blood pressure diastolic 86 mm Hg 05/12/2024 Height 66 in 05/12/2024 Blood pressure systolic 126 mm Hg 05/12/2024 Weight 249.6 lbs 12/13/2023 Encounters Encounter Location Date Provider Diagnosis [facility] [address] [id number] 12/04/2023 Zaynab Alvarez [facility] [address] [id number] 01/16/2024 Zaynab Alvarez [facility] [address] [facility] [address] [place] [id number] 05/04/2024 Zaynab Alvarez [facility] [address] [facility], [place] [id number] 12/13/2023 Keyona Cotton Vaginal atrophy N95. 2 ; Postmenopausal HRT (hormone replacement therapy) Z79.890 and Chronic vaginitis N76.1 [facility] [address] [facility] [address] [place] [id number] 05/12/2024 Louie Espinoza Hidradenitis suppurativa L73.2 [facility] [address] [facility], [place] [id number] 11/07/2023 Leatha Iqbal [facility] [address] [facility], [place] [id number] 11/08/2023 Leatha Iqbal Yeast vaginitis B37.31 [facility] [address] [facility] [id number] 12/05/2023 Keyona Cotton [place] [address] [facility], [place] [id number] 12/20/2023 Keyona Cotton Yeast vaginitis B37.31 [facility] [address] [facility] [id number] 12/24/2023 Keyona Cotton [address], [place] [id number] 12/25/2023 Keyona Cotton [facility] [address] [facility], [place] [id number] 12/27/2023 Keyona Cotton Postmenopausal HRT (hormone replacement therapy) Z79.890 ; PCOS (polycystic ovarian syndrome) E28.2 and Facial rash R21 [facility] [address] [facility], [place] [id number] 01/29/2024 Keyona Cotton Postmenopausal HRT (hormone replacement therapy) Z79.890 and PCOS (polycystic ovarian syndrome) E28.2 [facility] [address] [facility] [id number] 01/30/2024 Keyona Cotton [facility] [address] [facility] [id number] 02/05/2024 Keyona Cotton [place] [address] [facility] [place] [id number] 02/17/2024 Keyona Jaisoncarson Postmenopausal HRT (hormone replacement therapy) Z79.890 Assessments Encounter Date Diagnosis (ICD Code) Assessment Notes Treatment Notes Treatment Clinical Notes Section Notes 11/08/2023 Yeast vaginitis (ICD-10 - B37.31) 12/13/2023 [...] (ICD-10 - L73.2) Will try low dose fpc abx with flagyl, since allergic to doxy and clinda and flagyl seems to control. 12/27/2023 Facial rash (ICD-10 - R21) 01/29/2024 PCOS (polycystic ovarian syndrome) (ICD-10 - E28.2) 12/13/2023 Chronic vaginitis (ICD-10 - N76.1) Plan Of Treatment Next Appt Details Provider Name:Zaynab Ziegler, 11/30/2024 03:15:00 PM, [address] [facility], [place], [id number], Insurance Providers Payer Name Payer Address Payer Phone Subscriber Number Group Number Insured Name Patient Relationship to Insured Coverage Start Date Coverage End Date [employer] PPO [address] [place] [address] [id number] JANE Villarreal Self - patient is [...]
--- OUTSIDE RECORDS SUMMARY | 2024-10-31 17:28 | XMS_ITS | Clinical Summary ---
Author Organization [facility] Address [address] [place] [address] Phone Care Team Providers Care Microbiology Lab Technician Name Role Phone Karen Israel PA-C Primary Care Provider [phone] Allergies Active Allergy Reactions Criticality Noted Date Comments Clindamycin Anaphylaxis High 06/17/2023 Diph,Pertus(Acel),Tetanus Pedi Other (See Comments) 06/17/2023 unknown Doxycycline Hcl Anaphylaxis High 06/17/2023 Tree Nuts Anaphylaxis High 06/17/2023 Medications No known medications Encounters Date Type Department Care Team Description 09/10/2024 Orders Only [facility] [address] [place] [place] [address] Provider, Historical Him Recurrent UTI (Primary Dx) [...] on file Legal Sex Female 9:50 AM MANAGER ELIGIBILITY Gender Identity Not on file Sexual Orientation [...] Description 12/17/2024 11:00 AM CDT Office Visit [facility] [address] [place] [address] Bernadine Cordon NP [address] [place] [address] Health Maintenance Due Date Last Done Comments Annual Depression Screening 2007 Annual Physical 2014 Hepatitis C Antibody Screen 2014 DTap/Tdap/Td Vaccines (1 - Tdap) 11/29/2020 11/29/19 21 Flu Vaccine (#1) 10/26/2024 Influenza Vaccine 10/26/2024 Insurance [employer] [place] Care Teams Microbiology Lab Technician Relationship Specialty Start Date End Date Karen Israel [place] [address] PCP - General Certified Physician 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
--- OUTSIDE RECORDS SUMMARY | 2024-10-31 17:28 | XMS_ITS | Clinical Summary ---
Author Organization [facility] Address [address] [place] [address] Care Team Providers Care Behavioral Health Care Manager Name Role Phone Unavailable Primary Care Provider [...] stable enough to work. Was working Insurance [facility]
--- OUTSIDE RECORDS SUMMARY | 2024-10-31 17:29 | XMS_ITS | Patient Health Record ---
Author Organization [facility] Address [address] [place] [id number] Care Team Providers Care Mortgage Loan Funder Name Role Phone Bob Badillo Primary Care Provider [phone] Denis Owens Unavailable [phone] Wil Booker Unavailable [phone] Bernadine Gomez Unavailable [phone] Karen Israel Unavailable [phone] Allergies Allergen (clinical drug ingredient) Drug/Non Drug Allergy documented on EMR Reaction Allergy Type Onset Date Status dextromethorphan / promethazine Promethazine-DM Unknown Drug Allergy Active buspirone Buspirone dizziness Drug Allergy Active clindamycin Clindamycin rash Drug Allergy Act cha doxycycline Doxycycline rash Drug Allergy Act cha Penicillin rash Drug Allergy Active Results Component Value Reference Range Notes Sureswab Advanced Panel: BV, Trich, Katie, GC/Chlamydia Advanced Vaginalis Plus *AGES 14 and up ONLY Reviewed date:12/02/2023 01:26:02 PM Interpretation:Normal Performing Lab: Notes/Report: Testing performed by reference lab. [facility] Reported Date/Time: [facility] Results Received Date/Time: [facility] Collection Date/Time: [facility] at: [place] [address] [place], [address], Annual Giving Officer: Suni Parker MD [facility] Reported Date/Time: [facility] Results Received Date/Time: [facility] Collection Date/Time: Testing performed at: [facility], [address] [place] [address], [address] [place] [address], Annual Giving Officer: Suni Parker MD [facility] Reported Date/Time: [facility] Results Received Date/Time: [facility] Collection Date/Time: Testing performed at: [place], [address] [place] [address], [address] [place] [address], Annual Giving Officer: Suni Hart Reported Date/Time: [facility] Results Received Date/Time: [facility] Collection Date/Time: Testing performed at: [place], [address] [place] [address], [address] [place] [address], Annual Giving Officer: Suni Parker MD [facility] SURESWAB(R) ADV BACTERIAL [...] RNA, TMA, UROGENITAL NOT DETECTED NOT DETECTED https://education.Sand 9/faq/PZZ875 (This link is being provided for information/ For additional information, please refer to educational purposes only.) Potassium-[place] /[place] ONLY Reviewed date:12/25/2023 01:20:42 PM Interpretation:Normal Performing Lab: Notes/Report: Urine Dip Reviewed date:09/14/2024 02:22:50 PM Interpretation:OK for Patient Performing Lab: Notes/Report: Testing performed at the [address] [place] [address] location. Sureswab Advanced Panel: BV, Trich, Katie, GC/Chlamydia Advanced Vaginalis Plus *AGES 14 and up ONLY Reviewed date:09/16/2024 10:34:27 AM Interpretation:Negative Performing Lab: Notes/Report: Testing performed by reference lab. [facility] Reported Date/Time: [facility] Results Received Date/Time: [facility] Collection Date/Time: Testing performed at: [place], [facility], [address] [place] [address], [address] [place] [address], Annual Giving Officer: Suni Parker MD [facility] Reported Date/Time: [facility] Results Received Date/Time: [facility] Collection Date/Time: Testing performed at: [place], [address] [place] [address], [address] [place] [address], Annual Giving Officer: Suni Parker MD [facility] Reported Date/Time: [facility] Results Received Date/Time: [facility] Collection Date/Time: Testing performed at: [place], [address] [place] [address], [address] [place] [address], Annual Giving Officer: Suni Parker MD [facility] Reported Date/Time: [facility] Results Received Date/Time: [facility] Collection Date/Time: Testing performed at: [place], [address] [place] [address], [address] [place] [address], Annual Giving Officer: Suni Parker MD [facility] SURESWAB(R) ADV BACTERIAL [...] (This link is being provided for information/ https://education.Sand 9/faq/RJP569 Urine Dip Reviewed date:11/27/2023 10:58:23 AM Interpretation:Normal Performing Lab: Notes/Report: Testing performed at the [facility] [employer] [place] location. Tilt-Table Test Reviewed date:02/03/2024 01:41:56 PM Interpretation:Normal Performing Lab: Notes/Report: Normal X ray : Foot, right Reviewed date:02/11/2024 10:08:42 AM Interpretation:Normal Performing Lab: Notes/Report: Normal Coronavirus (COVID-19)/Flu/R SV Trio- INHOUSE RAPID PCR SWAB Reviewed date:02/22/2024 08:39:46 AM Interpretation:Negative Performing Lab: Notes/Report: Testing performed at the [facility] [employer] [facility] [place] location. Rheumatoid Arthritis Factor Reviewed date:04/22/2024 08:41:41 AM Interpretation:Normal Performing Lab: Notes/Report: Testing performed by reference lab. [facility] Reported Date/Time: [id number] [facility] Results Received Date/Time: [id number] [facility] Collection Date/Time: [id number] Testing performed at: [facility], [address] [place] [address], [address], Annual Giving Officer: Suni Parker MD [facility] RHEUMATOID FACTOR <10 <14 IU/mL C Reactive Protein, CRP Reviewed date:04/22/2024 08:41:41 AM Interpretation:Normal Performing Lab: Notes/Report: [facility]: [facility], [address] [place] [address], [address], Annual Giving Officer: Suni Parker MD [facility] Collection Date/Time: [id number] [facility] Results Received Date/Time: [id number] [facility] Reported Date/Time: [id number] Testing performed by reference lab. C-REACTIVE PROTEIN <3.0 <8.0 mg/L Sureswab Advanced Panel: BV, Trich, Katie, GC/Chlamydia Advanced Vaginalis Plus *AGES 14 and up ONLY Reviewed date:06/17/2024 03:42:56 PM Interpretation:Normal Performing Lab: Notes/Report: Testing performed by reference lab. [facility] Reported Date/Time: [id number] [facility] Results Received Date/Time: [id number] [facility] Collection Date/Time: [id number] Testing performed at: [place], [facility], [address] [place] [address], [address] [place] [address], Annual Giving Officer: Suni Parker MD [facility] Reported Date/Time: [id number] [facility] Results Received Date/Time: [id number] [facility] Collection Date/Time: Testing performed at: [place], [facility], [address] [place] [address], [address] [place] [address], Annual Giving Officer: Suni Parker MD [facility] Reported Date/Time: [id number] [facility] Results Received Date/Time: [id number] [facility] Collection Date/Time: [id number] Testing performed at: [place], [facility], [address] [place] [address], [address] [place] [address], Annual Giving Officer: Suni Parker MD [facility] Reported Date/Time: [id number] [facility] Results Received Date/Time: [id number] [facility] Collection Date/Time: [id number] Testing performed at: [place], [facility], [address] [place] [address], [address] [place] [address], Annual Giving Officer: Suni Parker MD [facility] SURESWAB(R) ADV BACTERIAL [...] RNA, TMA, UROGENITAL NOT DETECTED NOT DETECTED https://education.Sand 9/faq/YEQ042 For additional information, please refer to educational purposes only.) (This link is being provided for information/ Sedimentation Rate Reviewed date:04/22/2024 08:41:41 AM Interpretation:Normal Performing Lab: Notes/Report: [facility] Testing performed at: [facility], [address] [place], [address], Annual Giving Officer: Suni Parker MD [facility] Collection Date/Time: [id number] [facility] Results Received Date/Time: [facility] Reported Date/Time: Testing performed by reference lab. SED RATE BY MODIFIED WESTERGREN 11 < OR = 20 mm/h Coronavirus (Covid-19)/Flu C ombo- INHOUSE RAPID ANTIGEN Reviewed date:02/25/2024 01:38:24 PM Interpretation:Negative Performing Lab: Notes/Report: Testing performed at the [address] [place] [address] location. HIV 1/2, Rapid Antibody Scre ening Reviewed date:06/11/2024 11:38:04 AM Interpretation:Negative Performing Lab: Notes/Report: Testing performed at the [address] [place] [address] location. BMP-[place]id[place] ONLY Reviewed date:09/03/2024 11:37:37 AM Interpretation:Normal Performing Lab: Notes/Report: CBC, Diff, Automated Reviewed date:09/02/2024 02:44:53 PM Interpretation:Normal Performing Lab: Notes/Report: Testing performed at the [address] [place] [address] location. CORNELIO screen IFA Reflex Titer/ Multiplex 11 Ab [place] Reviewed date:04/22/2024 08:41:41 AM Interpretation:Normal Performing Lab: Notes/Report: [facility] Testing performed at: [facility], [address] [place] [address], [address], Annual Giving Officer: Suni Parker MD [facility] Collection Date/Time: [id number] [facility] Results Received Date/Time: [facility] Reported Date/Time: [id number] Testing performed by reference lab. CORNELIO SCREEN, IFA NEGATIVE NEGATIVE suspected inflammatory myopathies. various autoimmune diseases. A negative CORNELIO IFA result http://education.Feedjit/faq/ZZY207 present at this time, and does not reflex further. If (This link is being provided for informational/ there is high clinical suspicion for Sjogren's syndrome, AC-0: Negative (https://doi.org/10.1515/ wzgd-9190-7791) International Consensus on CORNELIO Patterns testing for anti-SS-A/Ro antibody should be considered. educational purposes only.) Anti-Kait-1 antibody should be considered for clinically For additional information, please refer to CORNELIO IFA is a first line screen for detecting the presence of up to approximately 150 autoantibodies in suggests an CORNELIO-associated autoimmune disease is not BMP-[place]id[place] e/[place] ONLY Reviewed date:06/11/2024 11:38:04 AM Interpretation:Normal Performing Lab: Notes/Report: Items were attached to this order: BMP-PGLD Items were attached to this order: Vaginalis Plus Urine Dip Reviewed date:09/02/2024 02:44:38 PM Interpretation:Normal Performing Lab: Notes/Report: Testing performed at the [address] [place] [address] location. CMP-[place]id[place] e/[place] ONLY Reviewed date:03/18/2024 11:49:53 AM Interpretation:OK for Patient Performing Lab: Notes/Report: Urine Dip Reviewed date:10/19/2024 01:19:35 PM Interpretation:Normal Performing Lab: Notes/Report: Testing performed at the [address] [place] [address] location. Items were attached to this order: URINE DIP CBC, Diff, Automated Reviewed date:03/18/2024 11:50:06 AM Interpretation:OK for Patient Performing Lab: Notes/Report: Testing performed at the [address] [place] [address] location. Iron, TIBC, and Ferritin Veliz Reviewed date:03/18/2024 11:50:16 AM Interpretation:Normal Performing Lab: Notes/Report: Testing performed by reference lab. [facility] Reported Date/Time: [id number] [facility] Results Received Date/Time: [id number] [facility] Collection Date/Time: [id number] Testing performed at: [facility], [address] [place], [address], Annual Giving Officer: Suni Parker MD [facility] [employer] IRON, TOTAL 100 40-190 mcg/dL IRON BINDING CAPACITY 354 250-450 mc g/dL (calc) % SATURATION 28 16-45 % (calc) FERRITIN 35 16-154 ng/mL TSH, w/ refl to Free T4 Reviewed date:03/18/2024 11:49:41 AM Interpretation:Normal Performing Lab: Notes/Report: [facility] Testing performed at: [facility], [address] [place], [address], Annual Giving Officer: Suni Parker MD [facility] Collection Date/Time: [id number] [facility] Results Received Date/Time: [id number] [facility] Reported Date/Time: Testing performed by reference lab. TSH W/REFLEX TO FT4 2.04 Ranges Third trimester 0.43-2.91 Reference Range First trimester 0.26-2.66 Second trimester 0.55-2.73 > or = 20 Years 0.40-4.50 ALLERGY-FOOD ALLERGY PROFILE W/ REFLEXES Reviewed date:03/18/2024 11:46:59 AM Interpretation:Normal Performing Lab: Notes/Report: [facility] Testing performed at: [facility], [address] [place], [address], Annual Giving Officer: Suni Parker MD [facility] Collection Date/Time: [id number] [facility] Results Received Date/Time: [id number] [facility] Reported Date/Time: Testing performed by reference [...] 0 TUNA (F40) IGE <0.10 CLASS 0 Potassium-[place] /[place] ONLY Reviewed date:10/19/2024 01:19:35 PM Interpretation:Normal Performing Lab: Notes/Report: Items were attached to this order: URINE DIP zzInterpretation Reviewed date:03/18/2024 11:49:31 AM Interpretation:Normal Performing Lab: Notes/Report: [facility] Testing performed at: [facility], [address] [place], [address], Annual Giving Officer: Suni Parker MD [facility] Collection Date/Time: [id number] [facility] Results Received Date/Time: [id number] [facility] Reported Date/Time: [id number] Testing performed by reference lab. INTERPRETATION SEE document control specialist use. IGE Class kU/L Specific IGE Antibody 3 3.50-17.4 High Level has been validated pursuant to the CLIA regulations 0/1 0.10-0.34 Very Low Level performance characteristics have been determined by The clinical relevance of allergen results of 5 50-100 Very High Level 1 0.35-0.69 Low Level ----- --------- one or more analyte specific reagents. In those and is used for clinical purposes. [employer]. It has not been cleared or approved [...] Bipolar 1 disorder ( F31.9) Referral Organization [address] [place] [address] are Cor Referring Provider First Name Karen Referring Provider Last Name Jhonatan Referring Provider Speciality Physician Security Screener Referred Provider Zhou Heiya [facility] Karen Israel 03/2023 01:04:07 PM > counseling and med Miguelito whittington Grace 11/27/2023 01:43:38 PM > faxed [facility], Yola Farley 12/04/2023 10:41:50 AM > spoke with Lashonda with [facility], patient is scheduled 12/23 @200 and is aware, reminder letter mailed as well, Nadeen Reyez 12/20/2023 09:05:46 AM >This patient called because she went to this appointment today. Per patient she never received our letter, but Yola called her and gave her this information along with mailing the referral. I explained that the facility [facility] is closed on Fridays. Patient did not have correct address nor [facility]'s phone number. As we were speaking she [...] 01:04:53 PM > Spoke with Abby at [facility]. Per our conversation the patient has Cancelled 2 appointments and no-showed another. TE sent to provider for further instructions., Yola Farley 02/05/2024 08:06:25 AM > Referral Priority Routine Referral Appointment Date 12/24/2023 Reason Tilt Table Test Diagnosis 1 Tachycardia, paroxys mal (I47.9) Referral Organization [facility] are Cor Referring Provider First Name Karen Referring Provider Last Name Jhonatan Referring Provider Speciality Physician Security Screener Referred Provider [facility] Referred Provider Specialty Outpatient T esting General Notes Yola Farley 12/24 03:23:03 PM CDT > spoke with Liz, patient scheduled at [facility] [place] [facility] [address], No [employer] for 24hrs prior, NPO 4hrs prior, Jan 23 check in @7am, Yola Farley 12/31/2023 04:49:00 PM > patient will be in office tomorrow, when looking up patients appointment via [facility] it looks as thought her 01/23 appointment has been changed to 01/27, called and spoke with Mily at [facility] and she states that patients appointment was [...] of allergic react ion (Z88.9) Referral Organization [address] [place] [address] are [facility] Referring Provider First Name Karen Referring Provider Last Name Jhonatan Referring Provider Speciality Physician Security Screener Referred Provider Jeffery Guzman Referred Provider Specialty [...] information, Yomaira Carey 07/14/2024 09:12:27 AM > [phone], per Magda, patient kept appointment, she is faxing note, Bibiana Thomas 07/15/2024 09:18:07 AM > report received Referral Priority Routine Referral Appointment Date 06/19/2024 Reason edema, palpitations Diagnosis 1 Lower extremity kathy a (R60.0) Referral Organization [address] [place] [address] are Cor Referring Provider First Name Karen Referring Provider Last Name Jhonatan Referring Provider Speciality Physician Security Screener Referred Provider Olga Locke Referred Provider Specialty Cardiology General Notes Karen Israel 06/2024 12:41:07 PM > requesting 2nd opinion in [place] if possible, previously seen by [facility], Yola Farley 04/29/2024 12:49:42 PM > will have to be approved by both cardiologists for patient to use another provider with same group, Yola Farley 05/01/2024 09:35:35 AM > patient can see Olga Locke in [place] 05/18 @1030Miguelito Grace 05/01/2024 11:00:09 AM > spoke with patient in office she is aware and agreeable, Kassi Clayton 05/21/2024 03:21:03 PM >see report in patient chart Referral Priority Routine Referral Appointment Date 05/19/2024 Reason recurrent UTI Diagnosis 1 Recurrent UTI (N39.0 ) Referral Organization [address] [place] [address] are Cor Referring Provider First Name Karen Referring Provider Last Name Jhonatan Referring Provider Speciality Physician Security Screener Referred Provider [facility], Urology Referred Provider Specialty Urology General Notes Khushi Steve 0 09/02/2024 04:27:28 PM > Attempted to contact pt no answer, left a voicemail to contact our office back. faxed referral form, demographic sheet, ov notes, labs, hospital records, insurance card to [facility] at this time., Nayely Hickey 09/08/2024 11:05:21 AM >Spoke with Urology, they transferred me to the referral dept, I had to leave a message., Yola Farley 09/10/2024 08:40:39 AM > per fax from [facility] they require 2 failed urine cultures prior to scheduling, sending to Miguelito ATKINSON Grace 09/10/2024 08:53:28 AM > faxed referral to Aurelio ATKINSON Becky 09/11/2024 12:23:53 PM > received notification that they got referral.Miguelito Grace 09/21/2024 01:05:36 PM > per [facility] web patient has been scheduled 12/17 @11, reminder mailed as well Referral Priority Routine Referral Appointment Date 12/17/2024 Reason *10/27 faxed referra l - edema Diagnosis 1 Lower extremity kathy a (R60.0) Referral Organization [address] [place] [address] are [facility] Referring Provider First Name Karen Referring Provider Last Name Jhonatan Referring Provider Speciality Physician Security Screener [facility] Referred Provider Specialty Cardiology General Notes Nayely Hickey 03/2024 10:31:48 AM >Faxed referral with documents Referral Priority Routine Medications Medication SIG (Take, Route, Frequency, Duration) Notes Start Date End Date Status Humira (2 Pen) 80 MG/0.8ML as directed Subcutaneous every 2 weeks Not-Taking LaMICtal 25 MG 1 tablet Orally twice a day Not-Taking Flonase Allergy Relief 50 mcg/act 1 puff in each nostril Nasally as needed Not-Taking Geodon 20 MG 1 capsule with food in the morning, 2 capsules with food at night Orally as directed Not-Taking Cetirizine HCl 10 MG 1 tablet Orally Once a day 08/31/2021 Not-Taking Chlorhexidine Gluconate 4 % as directed Externally daily; Duration: 30 days 11/27/2023 Not-Taking Fluconazole 200 MG 1 tablet Orally weekly; Duration: 30 days Active Fluconazole 100 MG 1 tablet Orally daily; Duration: 2 days take 1 tablet on 1st and 2nd of each month, please only fill once per month 09/30/2024 Not-Taking Albuterol Sulfate (2.5 MG/3ML) 0.083% USE 3 MILLILITERS VIA NEBULIZATION BY MOUTH EVERY 6 HOURS FOR 10 DAYS; Duration: 15 PRN Active Pantoprazole Sodium 40 MG 1 tablet Orally Once a day; Duration: 30 days 06/05/2023 Active Macrobid 100 MG 1 capsule with food Orally daily; Duration: 30 days 09/02/2024 Active Progesterone 200 MG 1 capsule at bedtime Orally Once a day Not-Taking Nystatin 324929 UNIT/GM External; Duration: 15 Days PRN Active Ondansetron 4 MG 1 tablet on the tongue and allow to dissolve Orally every eight hours as needed; Duration: 2 days 02/25/2024 Not-Taking Potassium Chloride ER 20 MEQ 2 tablet with food Oral Once a day Active hydrOXYzine HCl 25 MG 1 tablet as needed Orally every 6 hours 09/03/2024 Active Vitamin Act cha Compression Stockings Bilat Knee high socks compression 8-15 or 15-20 10/14/2023 Active Triamcinolone Acetonide 0.1 % 1 application Externally once daily; Duration: 7 days PRN 07/31/2023 Active Vitamin D (Ergocalciferol) 1.25 MG (38645 UT) Oral; Duration: 28 Days Not-Taking Vitamin C 250 MG 2 tablets Orally Once a day Not-Taking Vitamin D 50 MCG (2000 UT) 1 tablet Orally Once a day Not-Taking Albuterol Sulfate HFA 108 (90 Base) MCG/ACT INHALE ONE PUFF BY MOUTH EVERY 4 HOURS NEEDED FOR wheezing; Duration: 30 Active Spironolactone 25 MG 1 tablet Orally daily; Duration: 14 days Active Bumetanide 2 MG 1 tablet Oral twice a day; Duration: 14 days Active Magnesium Citrate 200 MG 2 tablets Orally once a day; Duration: 30 days equal 400 mg dose 09/14/2024 Active metroNIDAZOLE 500 MG 1 tablet Orally daily; Duration: 3 days to take tid on , and 3rd of each month, please only fill once per month 09/30/2024 Active Immunizations Vaccine Route Administration Date Status [...] Status Risk Notes Problem Gastroesophageal reflux disease (207794178) GERD (gastroesophageal reflux disease) (K21.9) Active confirmed Problem Chronic sinusitis (74912863) Sinus infection (J32.9) Active confirmed Problem Obesity (914984010) Obesity (E66.9) Active conf irmed Problem Tobacco dependence (06263685) Tobacco dependence (F17.200) Active confirmed Problem Migraine (19345499) Migraine (G43.909) Active c onfirmed Problem Bipolar disorder (70954047) Bipolar disorder (F31.9) Active confirmed Problem Mood disorder (84831016) Mood disorder (F39) Active confirmed Problem Dental caries (30872828) Dental caries (K02.9) Active confirmed Problem Overweight (949097359) Overweight (E66.3) Active confirmed Problem Bipolar 1 disorder (930992493) Bipolar 1 disorder (F31.9) Active confirmed Problem Generalized anxiety disorder (99045608) Generalized anxiety disorder (F41.1) Active confirmed Problem External hemorrhoid (59723697) External hemorrhoid (K64.4) Active confirmed Problem Hidradenitis suppurativa (64286246) Hidradenitis suppurativa (L73.2) Active confirmed Problem Menstrual disorder (960091531) Irregular menses (N92.6) Active confirmed Problem Paresthesia (finding) (24802696) Paresthesia of skin (R20.2) Active confirmed Problem Chronic fatigue syndrome (19024913) Chronic fatigue (R53.82) Active confirmed Problem Recurrent major depressive episodes, severe, with psychosis (469415375) Major depressive disorder, recurrent episode, severe, 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) Active confirmed Problem Constipation (84666378) Constipation, unspecified constipation type (K59.00) Active confirmed Problem Flexural eczema (32246319) Flexural eczema (L20.82) Active confirmed Problem Auditory hallucinations (76968020) Auditory hallucinations (R44.0) Active confirmed Problem Atypical squamous cells on cervical Papanicolaou smear cannot exclude high grade squamous intraepithelial lesion (649515388) Atypical squamous cells cannot exclude high grade squamous intraepithelial lesion on cytologic smear of cervix (ASC-H) (R87.611) Active confirmed Problem Anogenital human papilloma virus infection (436392779) HPV (human papilloma virus) anogenital infection (A63.0) Active confirmed Problem Leukocytosis (809164709) Leukocytosis, unspecified type (D72.829) Active confirmed Problem Paroxysmal tachycardia (13868292) Tachycardia, paroxysmal (I47.9) Active confirmed Problem Mixed incontinence (310401350) Mixed stress and urge urinary incontinence (N39.46) Active confirmed Problem Allergic rhinitis caused by pollen (01236225) Seasonal allergic rhinitis due to pollen (J30.1) Active confirmed Problem Nummular eczema (47113247) Nummular eczema (L30.0) Active confirmed Problem Hypokalemia (33509131) History of hypokalemia (Z86.39) Active confirmed Problem History of hysterectomy (185183294) S/P hysterectomy (Z90.710) Active confirmed Problem Hearing loss (04733281) Deafness in left ear (H91.92) Active confirmed Problem Severe major depression with psychotic features (13913994) Severe major depression with psychotic features (F32.3) Active confirmed Problem Intermittent urinary incontinence (934237294) Intermittent urinary incontinence (R32) Active confirmed Problem Drug allergy (180994509) Hx of allergic reaction (Z88.9) Active confirmed Problem Tobacco user (740037326) Vaping nicotine dependence, non-tobacco product (F17.200) Active confirmed Problem Insulin resistance (187245596) Insulin resistance (E88.819) Active confirmed Vital Signs Heart Rate 76 /min 10/19/2024 Temperature 98.2 degrees Fahrenheit 10/19/2024 Respiratory Rate 20 /min 10/19/2024 Oximetry 96 10/19/2024 Blood pressure diastolic 70 mm Hg 10/19/2024 Weight-kg 96.62 Kg 10/19/2024 Height 69 in 10/19/2024 Blood pressure systolic 118 mm Hg 10/19/2024 Weight 213 lbs 10/19/2024 BMI 31.45 kg/m2 10/19/2024 Encounters Encounter Location Date Provider Diagnosis [facility] [address] [place], [place] [id number] 11/27/2023 Karen Israel Vaginal odor N89.8 ; Dysuria R30.0 ; Hidradenitis suppurativa L73.2 and Bipolar 1 disorder F31.9 [facility] [address] [place], [place] [id number] 12/25/2023 Karen Israel Medication managemen t Z79.899 ; Tachycardia, paroxysmal I47.9 ; Lower extremity edema R60.0 and Hidradenitis suppurativa L73.2 [facility] [address] [place], [place] [id number] 02/03/2024 Karen Rgmons Overweight E66.3 ; Dietary counseling Z71.3 ; Pruritic rash L28.2 ; Medication management Z79.899 ; Lower extremity edema R60.0 ; Hidradenitis suppurativa L73.2 ; Insulin resistance E88.819 ; Vaginal irritation N89.8 and CORNELIO positive R76.8 [facility] [address] [place], [place] [id number] 02/05/2024 Bernadine Gomez Overweight E66.3 ; R ight foot pain M79.671 and Dietary counseling Z71.3 [facility] [address] [place], [place] [id number] 02/21/2024 Bernadine Gomez Body aches R52 and A cute URI J06.9 [facility] [address] [place], [place] [id number] 02/25/2024 Charrae Burdin Cough R05.9 ; Viral illness B34.9 ; Yeast infection B37.9 ; Overweight E66.3 and Dietary counseling Z71.3 [facility] [address] [place], [place] [id number] 03/02/2024 Karendada Israel Overweight E66.3 ; Recurrent bacterial infection A49.9 and Dietary counseling Z71.3 [facility] [address] [place], [place] [id number] 03/09/2024 Karendada Israel Overweight E66.3 ; External hemorrhoid K64.4 ; Dietary counseling Z71.3 ; Chronic fatigue R53.82 ; Lower extremity edema R60.0 and Abdominal bloating R14.0 [facility] [address] [place], [place] [id number] 04/20/2024 Karen Israel CORNELIO positive R76.8 [facility] [address] [place], [place] [id number] 05/01/2024 Bernadine Gomez Overweight E66.3 ; B urn of second degree of buttock, sequela T21.25XS ; Dietary counseling Z71.3 ; Hidradenitis suppurativa L73.2 and Nausea R11.0 [facility] [address] [place], [place] [id number] 06/09/2024 Bob Badillo Screening for HIV ([facility] immunodeficiency virus) Z11.4 ; Acute vaginitis N76.0 ; History of hypokalemia Z86.39 and Screening for STDs (sexually transmitted diseases) Z11.3 [facility] [address] [place], [place] [id number] 09/02/2024 Karen Quiross Overweight E66.3 ; Recurrent UTI N39.0 ; Dietary counseling Z71.3 ; Hypokalemia E87.6 ; Leukocytosis, unspecified type D72.829 ; Pruritic rash L28.2 ; Hidradenitis suppurativa L73.2 ; GERD (gastroesophageal reflux disease) K21.9 and Vaginal katie B37.31 [facility] [address] [place], [place] [id number] 09/14/2024 Karen Israel Dysuria R30.0 ; Vagi nal itching N89.8 ; Chronic constipation K59.09 ; Bipolar disorder F31.9 ; Lower extremity edema R60.0 and Chronic nausea R11.0 [facility] [address] [place], [place] [id number] 10/19/2024 Karen Israel Acute vaginitis N76. 0 ; Vaginal yeast infection B37.31 and Hypokalemia E87.[address] [facility] [phone] 10/23/2024 Karen Israel Bronchitis J40 [facility] [address] [place] [id number] 02/03/2024 Karen Israel [facility] [address] [place], [place] [id number] 02/03/2024 Karen Israel [facility] [address] [place], [place] [id number] 02/04/2024 Karen Israel [facility] [address] [place], [place] [id number] 02/24/2024 Karen Israel [facility] [address] [place], [place] [id number] 02/25/2024 Karen Israel [facility] [address] [place], [place] [id number] 03/11/2024 Karen Israel [facility] [address] [place], [place] [id number] 03/18/2024 Karen Israel Hx of allergic react ion Z88.9 and CORNELIO positive R76.8 [facility] [address] [place], [place] [id number] 2024 Karen Israel [facility] [address] [place], [place] [id number] 04/08/2024 Karen Israel [facility] [address] [place], [place] [id number] 04/29/2024 Karen Israel Lower extremity kathy a R60.0 and Tachycardia R00.0 [facility] [place] [phone] 04/30/2024 Karen Israel [facility] [address] [place], [place] [id number] 05/29/2024 Karen Israel [facility] [address] [place], [place] [id number] 06/10/2024 Karen Israel [facility] [address] [place], [place] [id number] 06/11/2024 Bob Badillo [facility] [address] [place], [place] [id number] 08/26/2024 Karen Israel [facility] [address] [place], [place] [id number] 08/31/2024 Karen Israel [facility] [address] [place], [place] [id number] 09/02/2024 Karen Israel [facility] [address] [place], [place] [id number] 09/03/2024 Karen Israel [facility] [address] [place], [place] [id number] 09/10/2024 Karen Israel [facility] [address] [place], [place] [id number] 09/15/2024 Karen Israel [facility] [address] [place], [place] [id number] 09/15/2024 Karen Quiross Chronic constipation K59.09 [facility] [address] [place], [place] [id number] 09/21/2024 Karen Israel [facility] [address] [place], [place] [id number] 10/16/2024 Bob Badillo [facility] [address] [place], [place] [id number] 10/20/2024 Karen Israel Lower extremity kathy a R60.0 Assessments Encounter Date Diagnosis (ICD Code) Assessment [...] A49.9) Refilled metronidazole, advised continue following with [facility] 03/09/2024 Overweight (ICD-10 - E66.3) 03/09/2024 External [...] Dysuria (ICD-10 - R30.0) Urine dip unremarkable 10/19/2024 Acute vaginitis (ICD-10 - N76.0) Nl urine, f/u with [facility] warm up this week, continue daily metronidazole at this time 10/19/2024 Vaginal yeast infection (ICD-10 - B37.31) Per pt yeast has returned, did not swab again today, will treat and defer to [facility] up for ongoing treatment 10/20/2024 Lower extremity edema (ICD-10 - R60.0) 10/23/2024 Bronchitis (ICD-10 - J40) 09/14/2024 Vaginal itching (ICD-10 - N89.8) Sureswab obtained, advised holding off on any treatment until swab resulted 09/15/2024 Chronic constipation (ICD-10 - K59.09) 10/19/2024 Hypokalemia (ICD-10 - E87.6) Resolved, continue medications the same, bumex, spironolactone and K, advised cannot increase or skip doses of any of these medications as can and may have significant life threatening SE. Pt voiced understanding. F/u with cardiology 09/14/2024 Chronic constipation (ICD-10 - K59.09) Start [...] es/2020-04/Dietar y_Guidelines_for_ Americans-2019-.. . PHYSICAL ACTIVITIES GUIDELINES: https://www.[facility]. ov/healthyweight/ physical_activity /index.html 06/09/2024 History of hypokalemia [...] information available in these links. ADULT BMI: https://www.[facility]. ov/healthyweight/ assessing/bmi/frantz lt_bmi/english_bm i_calculator/bmi_ calculator.html DIETARY GUIDELINES: https://www.[place].gov/ sites/default/colt es/2020-04/Dietar y_Guidelines_for_ Americans-2019-.. . PHYSICAL ACTIVITIES GUIDELINES: https://www.[employer]. ov/healthyweight/ physical_activity /index.html 03/09/2024 Dietary counseling (ICD-10 - Z71.3) The following information is provided to help patients understand the role BMI, nutrition, and physical activity play in a patient's overall health. Please review the information available in these links. ADULT BMI: https://www.[employer]. ov/healthyweight/ assessing/bmi/frantz lt_bmi/english_bm i_calculator/bmi_ calculator.html DIETARY GUIDELINES: https://www.[place].gov/ sites/default/colt es/2020-04/Dietar y_Guidelines_for_ Americans-2019-.. . PHYSICAL ACTIVITIES GUIDELINES: https://www.[employer]. ov/healthyweight/ physical_activity /index.html 03/02/2024 Dietary counseling (ICD-10 - Z71.3) The following information is provided to help patients understand the role BMI, nutrition, and physical activity play in a patient's overall health. Please review the information available in these links. ADULT BMI: https://www.[facility]. ov/healthyweight/ assessing/bmi/frantz lt_bmi/english_bm i_calculator/bmi_ calculator.html DIETARY GUIDELINES: https://www.[place].gov/ sites/default/colt es/2020-04/Dietar y_Guidelines_for_ Americans-2019-.. . PHYSICAL ACTIVITIES GUIDELINES: https://www.[facility]. ov/healthyweight/ physical_activity /index.html 02/05/2024 Dietary counseling (ICD-10 - Z71.3) The following information is provided to help patients understand the role BMI, nutrition, and physical activity play in a patient's overall health. Please review the information available in these links. ADULT BMI: https://www.[facility]. ov/healthyweight/ assessing/bmi/frantz lt_bmi/english_bm i_calculator/bmi_ calculator.html DIETARY GUIDELINES: https://www.[place].gov/ sites/default/colt es/2020-04/Dietar y_Guidelines_for_ Americans-2019-.. . PHYSICAL ACTIVITIES GUIDELINES: https://www.[facility]. ov/healthyweight/ physical_activity /index.html 02/25/2024 Yeast infection [...] information available in these links. ADULT BMI: https://www.[facility]. ov/healthyweight/ assessing/bmi/frantz lt_bmi/english_bm i_calculator/bmi_ calculator.html DIETARY GUIDELINES: https://www.[place].gov/ sites/default/colt es/2020-04/Dietar y_Guidelines_for_ Americans-.. . PHYSICAL ACTIVITIES GUIDELINES: https://www.[facility]. ov/healthyweight/ physical_activity /index.html 12/25/2023 Lower extremity [...] however has not been compliant with scheduling 09/02/2024 Leukocytosis, unspecified type (ICD-10 - D72.829) [...] assessing/bmi/frantz lt_bmi/english_bm i_calculator/bmi_ calculator.html DIETARY GUIDELINES: https://www.dieta [employer].gov/ sites/default/colt es/2020-04/Dietar y_Guidelines_for_ Americans-2019-.. . PHYSICAL ACTIVITIES GUIDELINES: https://www.cdc.g ov/healthyweight/ physical_activity /index.html 02/03/2024 Medication management (ICD-10 - Z79.899) 09/14/2024 Lower extremity edema (ICD-10 - R60.0) Take bumex and spironolactone as prescribed x 2 weeks, keep BP log, K lab in 1 week 09/14/2024 Chronic nausea (ICD-10 - R11.0) Pt to hold pantoprazole x2 weeks and test for h pylori at f/u office visit 02/03/2024 Lower extremity edema (ICD-10 - R60.0) Continue with spironolactone and bumex as prescribed by cardio, keep f/u with specialists 03/09/2024 Abdominal bloating (ICD-10 - R14.0) Can consider food allergy/ intolerance, discussed strict food diary to determine triggers for worsening sx 09/02/2024 Pruritic rash (ICD-10 - L28.2) Ok for prn hydroxyzine for sx relief 09/02/2024 Hidradenitis suppurativa (ICD-10 - L73.2) Allergic clindamycin and doxy, stopped Humira, needs to re-establish with Derm 02/03/2024 Insulin resistance (ICD-10 - E88.819) Pending record review from [facility] warm up, continue metformin and progesterone as they prescribed 02/03/2024 Hidradenitis suppurativa (ICD-10 - L73.2) Continue humira, continue to follow with derm 02/03/2024 Vaginal irritation (ICD-10 - N89.8) Unable to reliably get the compunded estrogen cream, will change to premarin while waiting for [facility] warm up records and new referral, Rx sent through TE 09/02/2024 GERD (gastroesophageal reflux disease) (ICD-10 - K21.9) Controlled 09/02/2024 Vaginal katie (ICD-10 - B37.31) Pt has taken varying amounts and durations of fluconazole, advised 1 pill q72h o2eimze and then one pill weekly, pt will try x3 mo and assess sx 02/03/2024 CORNELIO positive (ICD-10 - R76.8) Pending record review, will refer to rheum if needed once records available 02/03/2024 Other 09/14/2024 Other Plan Of Treatment No Information Insurance Providers Payer Name Payer Address Payer Phone Subscriber Number Group Number Insured Name Patient Relationship to Insured Coverage Start Date Coverage End Date [facility] [address] [place], [place] [phone] [id number] Karoline Villarreal Self - patient is [...]
--- OUTSIDE RECORDS SUMMARY | 2024-10-31 17:29 | XMS_ITS | Encounter Summary ---
Author Organization [facility] Address [address] [place] [address] Care Team Providers Care Press Washer Name Role Phone Lucho Mota MD Primary Care Provider Encounter Details Date Type Department Care Team (Late st Contact Info) Description 11/20/2016 Orders Only [facility] Radiology [address] [place] [address] System, Provider Not In, [address] [place] [address] Social History Tobacco Use Types Packs/Day Years [...] 11/20/2016 9:18 PM CDT Historic images from [facility] exist and can be viewed by using the hyperlink to access [employer]: CT ABD/PEL W CONTRAST Procedure Note System, Provider Not In, - 03/30/2020 Historic images from [facility] exist and can be viewed byusing the hyperlink to access [employer] pacs: CT ABD/PEL W CONTRAST us Provider Not In System MD [facility] Final Result documented in this encounter Visit Diagnoses Not on filedocumented in this encounter Care Teams Press Washer Relationship Specialty Start Date End Date Lucho Mota MD [address] [place] [address] PCP - General Family Medicine 05/10/20 12/18/21 documented as of this encounter
--- NOTE | 2024-10-31 17:32 | ECG_ITS ---
[facility] Date: 2024-10-31 Pat Name: Karoline Villarreal Department: Room: Gender: Female Picture Frame Maker: : 1995 Requested By: Gualberto Rodriguez Order Number: [id number] Lula MD: VAUGHN CHACON Measurements Intervals [place] Rate: 99 P: 55 AL: 140 QRS: 58 QRSD: 87 T: 47 QT: 353 QTc: 453 Interpretive Statements SINUS RHYTHM WITH SINUS ARRHYTHMIA NONSPECIFIC T-WAVE ABNORMALITY Compared to ECG 10/04/2024 01:25:06 No significant changes Electronically Signed On 11-02-2024 10:50:15 CDT by VAUGHN CHACON [email or web address]
--- NOTE | 2024-10-31 19:04 | XRR_ITS ---
PROCEDURE INFORMATION: Exam: XR Chest Exam date and time: 10/31/2024 7:22 PM Age: 29 years old Clinical indication: Pain; Chest pressure; Additional info: Cp TECHNIQUE: Imaging protocol: Radiologic exam of the chest. Views: 1 view. Total images: 371 COMPARISON: 1. CR (CHEST, ) 08/26/2024 11:[address] abdomen pelvis w con* [id number] 08/27/2024 1:24 AM FINDINGS: Lungs: Unremarkable. No consolidation. Pleural spaces: Unremarkable. No pleural effusion. No pneumothorax. Heart/Mediastinum: Unremarkable. No cardiomegaly. Bones/joints: Unremarkable. XR/XR chest 1V portable [id number] IMPRESSION: No acute cardiopulmonary disease or adverse interval change radiographically.
--- NOTE | 2024-10-31 19:16 | ECG_ITS ---
[employer] Test Date: 2024-10-31 Pat Name: Karoline Villarreal Department: Room: Gender: Female Director Child Abuse Therapy: : 1995 Requested By: Kade Palma Order Number: [id number] Reading MD: VAUGHN CHACON Measurements Intervals [place] Rate: 87 P: 59 NC: 135 QRS: 63 QRSD: 90 T: 53 QT: 381 QTc: 461 Interpretive Statements SINUS RHYTHM Compared to ECG 10/31/2024 17:32:37 Sinus arrhythmia no longer present T-wave abnormality no longer present Electronically Signed On 11-02-2024 10:49:37 CDT by VAUGHN CHACON [email or web address]
[2024-10-31 19:31] LABS: Hematocrit 44.3 % (36-47); Hemoglobin 15.30 g/dL (11.27-16.99); Mean Corpuscular HGB Conc 34.5 g/dL (30-55); Mean Corpuscular Hemoglobin 31.2 pg (27-33); Mean Corpuscular Volume 90.4 fl (85-98); Nucleated Red Blood Cells % 0 %; Platelet Count 308 10^3/cmm (157-399); Red Blood Count 4.90 10^6/uL (3.85-5.65); White Blood Count 8.30 10^3/uL (3.29-11.43)
[2024-10-31 19:56] LABS: Troponin(5th) Baseline < 6 ng/L (0-10)
[2024-10-31 20:05] LABS: Alanine Aminotransferase 23 U/L (0-33); Albumin Level 4.2 g/dL (3.5-5.2); Alkaline Phosphatase 100 U/L (35-105); Aspartate Amino Transferase 28 U/L (0-32); Blood Urea Nitrogen 8 mg/dL (6-20); Calcium 9.5 mg/dL (8.5-10.5); Carbon Dioxide 28 mmol/L (22-29); Chloride 99 mmol/L (98-107); Creatinine Clr Calc Pharmacy 141.7830; Globulin 3.6 g/dL (1.3-4.6); Glucose 99 mg/dL (65-115); Magnesium 2.2 mg/dL (1.7-2.3); NT Pro B Type Natriuretic Pept 44 pg/mL (0-125); Osmolality Calculated 284 mOsm/kg (285-295); Sodium 138 mmol/L (136-145); Total Protein 7.8 g/dL (6.6-8.7)
[2024-10-31 20:30] LABS: Anion Gap 15.1 (5-19); Potassium 4.1 mmol/L (3.5-5.1)
[2024-10-31] MEDS: bumetanide 0.25 mg/mL SDV 4 mL 1 MG IVP (20:49)
--- NOTE | 2024-10-31 21:05 | ECG_ITS ---
[facility] Test Date: 2024-10-04 Pat Name: Karoline Villarreal Department: Room: Gender: Female Artist'S Manager: : 1995 Requested By: Kade Palma Order Number: [id number] Lula MD: VAUGHN CHACON Measurements Intervals [place] Rate: 86 P: 60 KS: 129 QRS: 60 QRSD: 81 T: 52 QT: 354 QTc: 424 Interpretive Statements SINUS RHYTHM WITH MARKED SINUS ARRHYTHMIA Compared to ECG 10/04/2024 01:25:06 T-wave abnormality no longer present Electronically Signed On 11-02-2024 11:05:24 CDT by VAUGHN CHACON [email or web address]
--- NOTE | 2024-10-31 21:06 | W.ED.CHESTPA ---
HPI - Chest Pain General: Chief Complaint: Chest Pain Stated Complaint: CP SOB pain going into back Fluids Time Seen by Provider: 10/31/24 18:58 History of Present Illness: Patient is a 29-year-old female with known cardiac condition (reported 'hole in heart') presenting with worsening dyspnea, orthopnea, and fluid retention despite diuretic therapy. Patient reports waking up in the middle of the night gasping for air and experiencing a sensation of 'weight on chest.' She describes difficulty breathing, especially when lying down, and reports that her 'fluid pills aren't working.' Patient notes significant fluid retention with ring size increasing from size 6 to 8.5. She reports attempting conservative measures including lying down, drinking soup, and following her diet restrictions, but symptoms have persisted. Patient experienced emesis on night around 9 PM. She also reports fever yesterday that responded to Tylenol. Patient describes dizziness upon standing, heart racing, and blood pressure fluctuating from high to low. She notes swelling with sodium or sugar intake. 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 Related Data Home Medications ?Medication ?Instructions ?Recorded ?Confirmed albuterol sulfate 90 mcg/actuation 1 puff inhalation Q4H PRN 08/27/24 08/27/24 aerosol inhaler Shortness Of Breath Or Wheezing magnesium 200 mg tablet 200 mg PO DAILY 08/27/24 08/27/24 progesterone micronized 200 mg 200 mg PO BEDTIME 08/27/24 08/27/24 capsule Held on 08/30/24. Instructions: see obgyn Previous Rx's ?Medication ?Instructions ?Recorded levofloxacin 750 mg tablet 750 mg PO DAILY #3 tabs 08/30/24 ondansetron 4 mg disintegrating 4 mg PO Q6H PRN nausea and 10/04/24 tablet vomiting #30 tabs potassium chloride 20 mEq 20 meq PO DAILY #30 tabs 10/04/24 tablet,extended release(part/cryst) spironolactone 50 mg tablet 50 mg PO DAILY #30 tabs 10/04/24 fluconazole 100 mg tablet See Rx Instructions .Route 10/05/24 .COMPLEX #4 tabs metronidazole 250 mg tablet 500 mg (2 x 250 mg) PO TID #51 tabs 10/05/24 fluconazole 200 mg tablet 200 mg PO DAILY #1 tab 10/15/24 ibuprofen 800 mg tablet 800 mg PO TID #30 tabs 10/15/24 orphenadrine citrate 100 mg 100 mg PO BID #20 tabs 10/15/24 tablet,extended release Allergies Allergy/AdvReac Type Severity Reaction Status Date / Time almond Allergy ALGY-Hives Verified 10/06/24 20:49 clindamycin Allergy Unknown Verified 10/06/24 20:49 dicyclomine Allergy ALGY-Rash Verified 10/06/24 20:49 latex Allergy ALGY-Hives Verified 10/06/24 20:49 Penicillins Allergy ALGY-Rash Verified 10/06/24 20:49 Pertussis Vaccines Allergy Unknown Verified 10/06/24 20:50 PFSH ED PFSH: Medical History (Updated 10/31/24 @ 21:20 by Kade Aranda DO) Acute pyelonephritis Physical Exam Const: COMMON NORMALS: no acute distress GENERAL APPEARANCE: cooperative and anxious; not ill appearing and not frail appearing HENMT: COMMON NORMALS: normocephalic, atraumatic and Normal external nose present HEAD & SCALP: normocephalic and atraumatic FACE & SINUS: normal facial exam and face symmetric NOSE: Normal external nose present Eye: COMMON NORMALS: Equal, round and reactive pupils present and EOMs intact bilaterally PUPIL: Yes Equal, round and reactive pupils present Neck/C-Spine: GENERAL: Yes trachea midline Chest: CHEST: Yes Symmetrical chest wall rise Resp: COMMON NORMALS: normal respiratory effort, No retractions and No use of accessory muscles AUSCULTATION: wheezes Cardio: COMMON NORMALS: regular rate and regular rhythm RATE: regular rate RHYTHM: regular rhythm GI: COMMON NORMALS: Normal to inspection, nondistended, normoactive bowel sounds present Extremity: COMMON NORMALS: no pedal edema Neuro: JOLLY COMA SCALE: document GCS findings Jolly coma scale eye opening: Spontaneous [place] coma scale verbal response: Orientated [place] coma scale motor response: Obey commands Jolly coma scale total score: 15 SENSORY EXAM: Yes extremities (intact) Psych: COMMON NORMALS: speech normal SPEECH: Yes normal speech Skin: COMMON NORMALS: no rashes or lesions noted GENERAL SKIN EXAM: no rashes or lesions noted Course Vital Signs: Vital signs: Vital Signs Temperature 98.1 F 10/31/24 17:28 Pulse Rate 92 10/31/24 22:07 Respiratory Rate 16 10/31/24 22:07 Blood Pressure 148/102 10/31/24 22:07 Pulse Oximetry 99 10/31/24 22:07 Oxygen Delivery Me thod Room Air 10/31/24 21:08 MDM - Chest Pain Medical Decision Making Chest x-ray appears clear. Heart is normal size. CBC BMP are normal. Vitals are normal here. Saturations are above 97% on room air. She was given 1 mg Bumex IV. Her troponin is not detectable. BNP is 44. She is wheezing on exam. She is given a DuoNeb treatment and dexamethasone for this. She will continue her spironolactone. She will use her albuterol inhaler. Dexamethasone should help. Outpatient follow-up. Return for worsening symptoms despite treatment Lab Data 10/31/24 19:24 10/31/24 19:24 Radiology Impressions Chest X-Ray 10/31/24 19:04 IMPRESSION: No acute cardiopulmonary disease or adverse interval change radiographically. Laboratory Results WBC 8.30 10^3/uL (3.29-11.43) 10/31/24 19:24 RBC 4.90 10^6/uL (3.85-5.65) 10/31/24 19:24 Hgb 15.30 g/dL (11.27-16.99) 10/31/24 19:24 Hct 44.3 % (36-47) 10/31/24 19:24 MCV 90.4 fl (85-98) 10/31/24 19:24 MCH 31.2 pg (27-33) 10/31/24 19:24 MCHC 34.5 g/dL (30-55) 10/31/24 19:24 RDW 12.4 % (12.1-15.1) 10/31/24 19:24 Plt Count 308 10^3/cmm (157-399) 10/31/24 19:24 MPV 9.8 fL (7.4-10.4) 10/31/24 19:24 Neut % (Auto) 65.3 % 10/31/24 19:24 Lymph % (Auto) 27.6 % 10/31/24 19:24 [place] % (Auto) 5.9 % 10/31/24 19:24 Eos % (Auto) 0.5 % 10/31/24 19:24 Baso % (Auto) 0.5 % 10/31/24 19:24 Neut # (Auto) 5.42 10^3/uL (1.8-7.7) 10/31/24 19:24 Lymph # (Auto) 2.3 10^3/uL (0.8-4.8) 10/31/24 19:24 [place] # (Auto) 0.5 10^3/uL (0.2-0.9) 10/31/24 19:24 Eos # (Auto) 0.0 10^3/uL (0.0-0.8) 10/31/24 19:24 Baso # (Auto) 0.0 10^3/uL (0.0-0.1) 10/31/24 19:24 Nucleated RBC % (auto) 0 % 10/31/24 19:24 Nucleated RBCs # 0.0 /100WBC 10/31/24 19:24 Sodium 138 mmol/L (136-145) 10/31/24 19:24 Potassium 4.1 mmol/L (3.5-5.1) 10/31/24 19:24 Chloride 99 mmol/L (98-107) 10/31/24 19:24 Carbon Dioxide 28 mmol/L (22-29) 10/31/24 19:24 Anion Gap 15.1 (5-19) 10/31/24 19:24 BUN 8 mg/dL (6-20) 10/31/24 19:24 Creatinine 0.7 mg/dL (0.5-0.9) 10/31/24 19:24 GFR Calculation 99.6 mL/min (90-130) 10/31/24 19:24 Glucose 99 mg/dL (65-115) 10/31/24 19:24 Calculated Osmolality 284 mOsm/kg (285-295) L 10/31/24 19:24 Calcium 9.5 mg/dL (8.5-10.5) 10/31/24 19:24 Magnesium 2.2 mg/dL (1.7-2.3) 10/31/24 19:24 Total Bilirubin 0.3 mg/dL (0.15-1.2) 10/31/24 19:24 AST 28 U/L (0-32) 10/31/24 19:24 ALT 23 U/L (0-33) 10/31/24 19:24 Alkaline Phosphatase 100 U/L (35-105) 10/31/24 19:24 Troponin T Baseline < 6 ng/L (0-10) 10/31/24 19:24 Troponin T 120 Minute < 6.0 ng/L (0-10) 10/31/24 20:54 Delta Troponin T 0 ABS# (0-10) 10/31/24 20:54 NT-Pro-B Natriuret Pep 44 pg/mL (0-125) 10/31/24 19:24 Total Protein 7.8 g/dL (6.6-8.7) 10/31/24 19:24 Albumin 4.2 g/dL (3.5-5.2) 10/31/24 19:24 Globulin 3.6 g/dL (1.3-4.6) 10/31/24 19:24 XR interpretation done by ED provider, pending radiology final review Discharge Plan Discharge Patient Disposition: Home Clinical Impression: Chest pain, Bilateral wheezing Condition: Stable Prescriptions: No Action albuterol sulfate 90 mcg/actuation HFA aerosol inhaler 1 puff INHALATION Q4H PRN (Reason: Shortness Of Breath Or Wheezing) progesterone micronized 200 mg capsule 200 mg PO BEDTIME magnesium 200 mg Tablet 200 mg PO DAILY levofloxacin 750 mg tablet 750 mg PO DAILY Qty: 3 0RF potassium chloride 20 mEq tablet,ER particles/crystals 20 meq PO DAILY Qty: 30 0RF spironolactone 50 mg tablet 50 mg PO DAILY Qty: 30 0RF ondansetron 4 mg tablet,disintegrating 4 mg PO Q6H PRN (Reason: nausea and vomiting) Qty: 30 0RF fluconazole 100 mg Tablet See Rx Instructions .ROUTE .COMPLEX Qty: 4 1RF Rx Instructions: 100 mg orally weekly metronidazole 250 mg tablet 500 mg PO TID Qty: 51 0RF Rx Instructions: tid for 7d, then daily following. orphenadrine citrate 100 mg tablet extended release 100 mg PO BID Qty: 20 0RF ibuprofen 800 mg tablet 800 mg PO TID Qty: 30 0RF fluconazole 200 mg tablet 200 mg PO DAILY Qty: 1 0RF Discharge Orders: Discharge ED (Routine); Ordered 10/31/24 Ordered By: Kade Aranda Referrals: Karen Israel [Primary Care Provider, Internal Medicine] - 1-3 days Patient Instructions: Chest Pain (ED), Wheezing (ED), Opioid Safety, Pain Management, Patient Portal & Michael Instructions Activity Restrictions/Additional Instructions: Use your albuterol inhaler 3 times daily scheduled for the next 2 days, then as needed following that. Continue your diuretics. The extra dose you were given here, should help with some fluid retention. The dexamethasone you were given should help with the wheezing as well. Return for problems. Call your doctor Saturday for follow-up appointment. 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
[2024-10-31 21:20] LABS: Troponin 5 2HR < 6.0 ng/L (0-10); Troponin 5 2HR Delta 0 ABS# (0-10)
[2024-10-31] MEDS: metoprolol tartrate 1 mg/1 mL SDV 5 mL 2.5 MG IVP (21:41)
[2024-10-31] MEDS: LORazepam 1 MG/0.5 ML injection IVP (22:06)
== END 2024-10-31 22:28 | disposition home or self-care (01) ==
PROVIDERS: Emergency Provider Emergency Medicine; PCP Physician Assistant Medical
DX: R07.9 Chest pain, unspecified (principal); R06.2 Wheezing
CPT/HCPCS: 36415; 71045; 80053; 83735; 83880; 84484; 85025; 93005; 94640; 96374; 96375; 99285; J1100; J2060; J3490; J9999